=== PATIENT | male | born 1950 | race African-American/Black ===

== ENCOUNTER 2019-04-28 21:54 | Observation (INO) | payer OTHER ==
--- OUTSIDE RECORDS SUMMARY | 2019-04-28 21:58 | XMS REPORT ---
:1950 [facility] [address] [place] [address] [address] [place] [address] Care Team Providers Name Role Phone POLY TREADWELL Unavailable Unavailable Problems This patient has no known problems. Allergies, Adverse Reactions, Alerts This patient has no known allergies or adverse reactions. Medications This patient has no known medications. Encounters Start End Encounter Admission Attending Care Care Encounter Date/Time Date/Time Type Type Clinicians Facility Department ID 2018-05-24 Inpatient E SE MED [id number] 06:22:00 Results Test Description Test Time Test Comments Text Results Atomic Results Result Comments ANTI-MITOCHONDRIAL AB, REFLEX TO TITER 2017-11-19 16:44:00 Test Item Value Reference Range Comments SCAN RESULT (test cqjn=[id number]) See scanned attachment. ALKALINE PHOSPHATASE, ISOENZYMES, [id number] 16:43:00 Test Item Value Reference Range Comments SCAN RESULT (test hczf=[id number]) See scanned attachment. HEPATITIS PANEL, [id number] 16:30:00 Test Item Value Reference Range Comments HEPATITIS A IGM ANTIBODY (BEAKER) (test Nonreactive Nonreactive uroj=819) HEPATITIS B CORE IGM ANTIBODY (BEAKER) (test Nonreactive Nonreactive hvew=374) HEPATITIS C ANTIBODY (BEAKER) (test itbh=366) Nonreactive Nonreactive HEPATITIS B SURFACE ANTIGEN (2) (BEAKER) (test Nonreactive Nonreactive inwm=2035) POCT-GLUCOSE [id number] 16:51:00 Test Item Value Reference Range Comments POC-GLUCOSE METER (BEAKER) 174 mg/dL 70-110 TESTED AT [facility] [address] [place] [address] (test gkgs=0979) [facility] [address] POCT-GLUCOSE [id number] 12:19:00 Test Item Value Reference Range Comments POC-GLUCOSE METER (BEAKER) 177 mg/dL 70-110 TESTED AT [facility] [address] [place] [address] (test vsnm=1854) [address] [facility] [address] COMPREHENSIVE METABOLIC [id number] 09:59:00 Test Item Value Reference Range Comments TOTAL PROTEIN (BEAKER) 6.5 gm/dL 6.0-8.5 (test utfc=932) ALBUMIN (BEAKER) (test 2.6 g/dL 3.5-5.0 jmwl=5630) ALKALINE PHOSPHATASE 230 U/L 30-115 (BEAKER) (test keft=356) BILIRUBIN TOTAL (BEAKER) 0.4 mg/dL 0.1-1.2 (test krib=158) SODIUM (BEAKER) (test 146 meq/L 135-148 gvtt=890) POTASSIUM (BEAKER) (test 5.9 meq/L 3.6-5.5 orch=486) CHLORIDE (BEAKER) (test 116 meq/L 98-106 yphf=373) CO2 (BEAKER) (test 22 meq/L 20-29 rcim=364) BLOOD UREA NITROGEN 51 mg/dL 10-26 (BEAKER) (test becn=747) CREATININE (BEAKER) (test 1.96 mg/dL 0.50-1.20 kugq=601) GLUCOSE RANDOM (BEAKER) 164 mg/dL 70-110 (test woxa=838) CALCIUM (BEAKER) (test 9.9 mg/dL 8.5-10.5 ptjs=376) AST (SGOT) (BEAKER) (test 53 U/L 5-40 kaie=756) ALT (SGPT) (BEAKER) (test 137 U/L 5-50 deka=066) EGFR (BEAKER) (test 42 mL/min/1.73 sq m ESTIMATED GFR IS NOT hely=4753) ACCURATE CREATININE CLEARANCE IN PREDICTING GLOMERULAR FILTRATION RATE. ESTIMATED GFR IS NOT APPLICABLE FOR DIALYSIS PATIENTS. [id number] 09:21:00 Test Item Value Reference Range Comments MAGNESIUM (BEAKER) (test nrqt=515) 1.6 mg/dL 1.5-3.0 CBC W/PLT COUNT & AUTO [id number] 09:14:00 Test Item Value Reference Range Comments WHITE BLOOD CELL COUNT (BEAKER) (test thct=032) 9.2 K/ L 4.0-10.0 RED BLOOD CELL COUNT (BEAKER) (test oqeq=173) 3.04 M/ L 4.20-5.80 HEMOGLOBIN (BEAKER) (test fgfq=786) 9.1 GM/DL 13.0-16.8 HEMATOCRIT (BEAKER) (test xdci=295) 27.2 % 40.0-50.0 MEAN CORPUSCULAR VOLUME (BEAKER) (test uiur=080) 89.7 fL 82.0-98.0 MEAN CORPUSCULAR HEMOGLOBIN (BEAKER) (test 30.0 pg 27.0-33.0 jetq=292) MEAN CORPUSCULAR HEMOGLOBIN CONC (BEAKER) (test 33.4 GM/DL 32.0-36.0 olzj=209) RED CELL DISTRIBUTION WIDTH (BEAKER) (test 18.9 % 10.3-14.2 bqol=485) PLATELET COUNT (BEAKER) (test mhwp=074) 149 K/CU MM 150-430 MEAN PLATELET VOLUME (BEAKER) (test vhns=605) 8.1 fL 6.5-10.5 NUCLEATED RED BLOOD CELLS (BEAKER) (test 0 /100 WBC 0-0 lnfh=819) NEUTROPHILS RELATIVE PERCENT (BEAKER) (test 69 % xeve=235) LYMPHOCYTES RELATIVE PERCENT (BEAKER) (test 21 % yguh=995) MONOCYTES RELATIVE PERCENT (BEAKER) (test 7 % imua=730) EOSINOPHILS RELATIVE PERCENT (BEAKER) (test 3 % ztik=393) BASOPHILS RELATIVE PERCENT (BEAKER) (test 0 % ebhw=091) NEUTROPHILS ABSOLUTE COUNT (BEAKER) (test 6.30 K/ L 1.80-8.00 owrp=922) LYMPHOCYTES ABSOLUTE COUNT (BEAKER) (test 1.90 K/ L 1.48-4.50 mnqa=677) MONOCYTES ABSOLUTE COUNT (BEAKER) (test 0.70 K/ L 0.00-1.30 gzku=373) EOSINOPHILS ABSOLUTE COUNT (BEAKER) (test 0.30 K/ L 0.00-0.50 zmrk=095) BASOPHILS ABSOLUTE COUNT (BEAKER) (test 0.00 K/ L 0.00-0.20 sixi=257) RAD, CHEST, 1 VIEW, NON [id number] 08:57:00Reason for exam:-> pneumoniaShould this be performed at the bedside?->YesFINAL REPORT Chest one view AP 09/17/2017 8:56 AM CLINICAL INDICATION: pneumonia COMPARISON: 09/13/2017 IMPRESSION: Pleural-parenchymal opacity in the left lung and hemithorax suggestive combination of pleural fluid and airspace disease, atelectasis versus pneumonia. The right lung is well aerated. Cardiomediastinal contours are within normal limits. The central pulmonary vasculature is not engorged. Signed: Ian Irwin Verified Date/Time: 09/17/2017 08:57 :19 ReadingLocation: [facility] Reading Room POCT-GLUCOSE [id number] 06:12:00 Test Item Value Reference Range Comments POC-GLUCOSE METER (BEAKER) 145 mg/dL 70-110 TESTED AT [address] (test mupn=1933) [facility] [address] POCT-GLUCOSE [id number] 20:48:00 Test Item Value Reference Range Comments POC-GLUCOSE METER (BEAKER) 139 mg/dL 70-110 TESTED AT [address] (test jwox=8707) [facility] [address] POCT-GLUCOSE [id number] 17:44:00 Test Item Value Reference Range Comments POC-GLUCOSE METER (BEAKER) 166 mg/dL 70-110 TESTED AT [address] (test nymm=0926) [facility] [address] POCT-GLUCOSE [id number] 13:32:00 Test Item Value Reference Range Comments POC-GLUCOSE METER (BEAKER) 153 mg/dL 70-110 TESTED AT [address] (test gkay=4036) [facility] [address] COMPREHENSIVE METABOLIC [id number] 11:33:00 Test Item Value Reference Range Comments TOTAL PROTEIN (BEAKER) 6.3 gm/dL 6.0-8.5 (test ccpk=927) ALBUMIN (BEAKER) (test 2.4 g/dL 3.5-5.0 tlpm=5169) ALKALINE PHOSPHATASE 218 U/L 30-115 (BEAKER) (test salj=963) BILIRUBIN TOTAL (BEAKER) 0.4 mg/dL 0.1-1.2 (test rxws=511) SODIUM (BEAKER) (test 145 meq/L 135-148 mtal=361) POTASSIUM (BEAKER) (test 5.7 meq/L 3.6-5.5 ozjd=466) CHLORIDE (BEAKER) (test 116 meq/L 98-106 vygd=987) CO2 (BEAKER) (test 22 meq/L 20-29 ascy=119) BLOOD UREA NITROGEN 49 mg/dL 10-26 (BEAKER) (test wqzr=386) CREATININE (BEAKER) (test 1.94 mg/dL 0.50-1.20 kqug=562) GLUCOSE RANDOM (BEAKER) 144 mg/dL 70-110 (test smmz=089) CALCIUM (BEAKER) (test 9.4 mg/dL 8.5-10.5 mlie=009) AST (SGOT) (BEAKER) (test 45 U/L 5-40 eoqu=090) ALT (SGPT) (BEAKER) (test 139 U/L 5-50 sgow=069) EGFR (BEAKER) (test 42 mL/min/1.73 sq m ESTIMATED GFR IS NOT vokj=9530) ACCURATE CREATININE CLEARANCE IN PREDICTING GLOMERULAR FILTRATION RATE. ESTIMATED GFR IS NOT APPLICABLE FOR DIALYSIS PATIENTS. CBC W/PLT COUNT & AUTO [id number] 11:25:00 Test Item Value Reference Range Comments WHITE BLOOD CELL COUNT (BEAKER) (test fwpg=815) 8.4 K/ L 4.0-10.0 RED BLOOD CELL COUNT (BEAKER) (test lcvy=657) 2.83 M/ L 4.20-5.80 HEMOGLOBIN (BEAKER) (test rwyy=124) 8.4 GM/DL 13.0-16.8 HEMATOCRIT (BEAKER) (test bzyq=030) 25.3 % 40.0-50.0 MEAN CORPUSCULAR VOLUME (BEAKER) (test aoab=474) 89.6 fL 82.0-98.0 MEAN CORPUSCULAR HEMOGLOBIN (BEAKER) (test 29.8 pg 27.0-33.0 qrpp=928) MEAN CORPUSCULAR HEMOGLOBIN CONC (BEAKER) (test 33.3 GM/DL 32.0-36.0 enxm=278) RED CELL DISTRIBUTION WIDTH (BEAKER) (test 19.3 % 10.3-14.2 rolu=545) PLATELET COUNT (BEAKER) (test gour=190) 114 K/CU MM 150-430 MEAN PLATELET VOLUME (BEAKER) (test dyhc=139) 8.3 fL 6.5-10.5 NUCLEATED RED BLOOD CELLS (BEAKER) (test 3 /100 WBC 0-0 fcgl=578) (MANUAL DIFFERENTIAL)2017-09-16 11:25:00 Test Item Value Reference Range Comments TOTAL COUNTED ([facility]) (test cmmn=1524) POCT-GLUCOSE [id number] 05:56:00 Test Item Value Reference Range Comments POC-GLUCOSE METER (BEAKER) 159 mg/dL 70-110 TESTED AT [address] (test hrsg=0370) [facility] [address] POCT-GLUCOSE [id number] 20:31:00 Test Item Value Reference Range Comments POC-GLUCOSE METER (AKER) 149 mg/dL 70-110 TESTED AT [address] (test ydid=0322) [facility] [address] POCT-GLUCOSE [id number] 14:36:00 Test Item Value Reference Range Comments POC-GLUCOSE METER (BEAKER) 191 mg/dL 70-110 TESTED AT [address] (test mkwl=5105) [facility] [address] UREA NITROGEN, RANDOM [id number] 12:47:00 Test Item Value Reference Range Comments UREA NITROGEN URINE (AKER) (test yjso=010) 505 mg/dL Reference Range: No NormalsALPHA FETOPROTEIN (AFP), TUMOR [id number] 11:49 :00 Test Item Value Reference Range Comments ALPHA-FETOPROTEIN (BEAKER) (test nmwi=9586) 14.2 ng/mL <10.0 POCT-GLUCOSE [id number] 06:22:00 Test Item Value Reference Range Comments POC-GLUCOSE METER ([facility]) 170 mg/dL 70-110 TESTED AT [address] (test jarv=7303) [facility] [address] CREATININE, RANDOM [id number] 05:33:00 Test Item Value Reference Range Comments CREATININE URINE ([facility]) (test vieh=416) 26.8 mg/dL Reference Range: No NormalsURINALYSIS W/ [id number] 05:27:00 Test Item Value Reference Range Comments COLOR (BEAKER) (test ktpx=505) Yellow CLARITY (BEAKER) (test fcgw=655) Clear SPECIFIC GRAVITY UA (BEAKER) (test mvwo=515) 1.015 1.001-1.035 PH UA (BEAKER) (test rjrz=309) 6.0 5.0-8.0 PROTEIN UA (BEAKER) (test zffv=413) >=300 mg/dL Negative GLUCOSE UA (BEAKER) (test vjix=109) 100 mg/dL Negative KETONES UA (BEAKER) (test rrnp=082) Negative Negative BILIRUBIN UA (BEAKER) (test ofhl=856) Negative Negative BLOOD UA (BEAKER) (test lcbe=104) Small Negative NITRITE UA (BEAKER) (test qenq=943) Negative Negative LEUKOCYTE ESTERASE UA (BEAKER) (test Trace Negative sbil=940) UROBILINOGEN UA (BEAKER) (test hmtz=761) 0.2 mg/dL 0.2-1.0 BACTERIA (BEAKER) (test vgae=855) Occasional MUCUS (BEAKER) (test vcdw=1079) Occasional YEAST (BEAKER) (test dvod=2263) Many RBC UA-MANUAL (BEAKER) (test lfsu=4256) <5 /HPF WBC UA-MANUAL (BEAKER) (test enbo=1435) 10-20 /HPF SQUAMOUS EPITHELIAL MANUAL (BEAKER) (test None Seen /HPF cmnc=6593) SOURCE(BEAKER) (test dlda=9696) SODIUM, RANDOM [id number] 05:26:00 Test Item Value Reference Range Comments SODIUM URINE (BEAKER) (test bhtf=357) 81 meq/L Reference Range: No NormalsCOMPREHENSIVE METABOLIC [id number] 05:10:00 Test Item Value Reference Range Comments TOTAL PROTEIN (BEAKER) 6.0 gm/dL 6.0-8.5 (test sygp=153) ALBUMIN (BEAKER) (test 2.5 g/dL 3.5-5.0 hovz=5047) ALKALINE PHOSPHATASE 219 U/L 30-115 (BEAKER) (test xgtk=549) BILIRUBIN TOTAL (BEAKER) 0.4 mg/dL 0.1-1.2 (test nbrt=072) SODIUM (BEAKER) (test 141 meq/L 135-148 rnfv=832) POTASSIUM (BEAKER) (test 5.4 meq/L 3.6-5.5 qjbr=474) CHLORIDE (BEAKER) (test 114 meq/L 98-106 bwpf=439) CO2 (BEAKER) (test 20 meq/L 20-29 cmev=966) BLOOD UREA NITROGEN 46 mg/dL 10-26 (BEAKER) (test zktl=299) CREATININE (BEAKER) (test 1.71 mg/dL 0.50-1.20 vwxk=171) GLUCOSE RANDOM (BEAKER) 118 mg/dL 70-110 (test lfrq=737) CALCIUM (BEAKER) (test 9.0 mg/dL 8.5-10.5 xuat=619) AST (SGOT) (BEAKER) (test 81 U/L 5-40 lvab=645) ALT (SGPT) (BEAKER) (test 181 U/L 5-50 smaj=383) EGFR (BEAKER) (test 49 mL/min/1.73 sq m ESTIMATED GFR IS NOT ixek=2904) ACCURATE CREATININE CLEARANCE IN PREDICTING GLOMERULAR FILTRATION RATE. ESTIMATED GFR IS NOT APPLICABLE FOR DIALYSIS PATIENTS. CBC W/PLT COUNT & AUTO [id number] 04:51:00 Test Item Value Reference Range Comments WHITE BLOOD CELL COUNT (BEAKER) (test skqy=874) 9.4 K/ L 4.0-10.0 RED BLOOD CELL COUNT (BEAKER) (test lxdw=934) 2.84 M/ L 4.20-5.80 HEMOGLOBIN (BEAKER) (test xsal=115) 8.6 GM/DL 13.0-16.8 HEMATOCRIT (BEAKER) (test scfh=913) 25.5 % 40.0-50.0 MEAN CORPUSCULAR VOLUME (BEAKER) (test zprv=417) 89.6 fL 82.0-98.0 MEAN CORPUSCULAR HEMOGLOBIN (BEAKER) (test 30.2 pg 27.0-33.0 devy=350) MEAN CORPUSCULAR HEMOGLOBIN CONC (BEAKER) (test 33.7 GM/DL 32.0-36.0 yqkq=446) RED CELL DISTRIBUTION WIDTH (BEAKER) (test 19.2 % 10.3-14.2 njoi=790) PLATELET COUNT (BEAKER) (test ilut=127) 84 K/CU MM 150-430 MEAN PLATELET VOLUME (BEAKER) (test mbti=875) 8.7 fL 6.5-10.5 NUCLEATED RED BLOOD CELLS (BEAKER) (test 0 /100 WBC 0-0 pkkp=634) NEUTROPHILS RELATIVE PERCENT (BEAKER) (test 79 % wfqa=002) LYMPHOCYTES RELATIVE PERCENT (BEAKER) (test 14 % kina=594) MONOCYTES RELATIVE PERCENT (BEAKER) (test 5 % xddo=447) EOSINOPHILS RELATIVE PERCENT (BEAKER) (test 2 % tjrq=630) BASOPHILS RELATIVE PERCENT (BEAKER) (test 0 % khwj=562) NEUTROPHILS ABSOLUTE COUNT (BEAKER) (test 7.40 K/ L 1.80-8.00 ljvs=880) LYMPHOCYTES ABSOLUTE COUNT (BEAKER) (test 1.30 K/ L 1.48-4.50 yahh=929) MONOCYTES ABSOLUTE COUNT (BEAKER) (test uogl=611) 0.50 K/ L 0.00-1.30 EOSINOPHILS ABSOLUTE COUNT (BEAKER) (test 0.20 K/ L 0.00-0.50 xcqy=539) BASOPHILS ABSOLUTE COUNT (BEAKER) (test lpoe=792) 0.00 K/ L 0.00-0.20 U/S, ABDOMINAL, [id number] 04:19:00Reason for exam:->Elevated Alk phos and liver enzymes.Reason for exam:->VIRAL/ CKD III, worse.FINAL REPORT EXAMINATION: COMPLETE ABDOMINAL ULTRASOUND CLINICAL INDICATION:Elevated liver function tests. Acute renal insufficiency on chronic medical renal disease. FINDINGS:No comparison studies are available. There are small bilateral pleural effusions, left greater than right. The liver demonstrates increased echogenicity compatible with a component of fatty infiltration. The liver measures 17 cm in length. No evidence of intrahepatic or extrahepatic biliary dilatation. The common bile duct measures 3 mm. The gallbladder is relatively contracted with a diameter of 1.4cm. No evidence of gallbladder wall thickening, pericholecystic edema, Mullen sign or cholelithiasis. The pancreas was obscured by overlying bowel gas. The spleen is normal in size measuring 7 x 3 x 3 cm. No evidence of intra-abdominal free fluid -ascites. The right kidney measures 11 x 4 x 4 cm. The left kidney measures 10 x 5 x 6 cm. No evidence of renal obstruction or nephrolithiasis. Both kidneysdemonstrate mild increased echogenicity suggesting chronic medical renal disease. Visualized segments of the main portal vein, IVC, hepatic veins and aorta were unremarkable. IMPRESSION: Increased renal echogenicity concerning for chronic medical renal disease. Mild increased liver echogenicity suggesting fatty infiltration. Pancreas obscured by overlying bowel gas. Small bilateral pleural effusions. Signed: Owen Tam MDReport Verified Date/Time: 09/15/2017 04:19:47 Reading Location: [address] Reading Room POCT- GLUCOSE [id number] 21:12:00 Test Item Value Reference Range Comments POC-GLUCOSE METER ([facility]) 192 mg/dL 70-110 TESTED AT [address] (test wotd=0556) [facility] [address] POCT-GLUCOSE [id number] 17:16:00 Test Item Value Reference Range Comments POC-GLUCOSE METER ([facility]) 145 mg/dL 70-110 TESTED AT [address] (test qifi=9270) [facility] [address] POCT-GLUCOSE [id number] 12:46:00 Test Item Value Reference Range Comments POC-GLUCOSE METER [facility] 180 mg/dL 70-110 TESTED AT [address] (test jcfd=6070) [facility] [address] POCT-GLUCOSE [id number] 06:29:00 Test Item Value Reference Range Comments POC-GLUCOSE METER ([facility]) 163 mg/dL 70-110 TESTED AT [address] (test lmre=3348) [facility] [address] COMPREHENSIVE METABOLIC [id number] 05:46:00 Test Item Value Reference Range Comments TOTAL PROTEIN (BEAKER) 6.3 gm/dL 6.0-8.5 (test titl=446) ALBUMIN (BEAKER) (test 2.7 g/dL 3.5-5.0 isgi=4566) ALKALINE PHOSPHATASE 224 U/L 30-115 (BEAKER) (test qyyv=796) BILIRUBIN TOTAL (BEAKER) 0.4 mg/dL 0.1-1.2 (test jrlk=965) SODIUM (BEAKER) (test 142 meq/L 135-148 druo=692) POTASSIUM (BEAKER) (test 5.4 meq/L 3.6-5.5 xyog=728) CHLORIDE (BEAKER) (test 113 meq/L 98-106 pqhn=519) CO2 (BEAKER) (test 21 meq/L 20-29 fvvo=699) BLOOD UREA NITROGEN 50 mg/dL 10-26 (BEAKER) (test goun=465) CREATININE (BEAKER) (test 1.75 mg/dL 0.50-1.20 izwd=051) GLUCOSE RANDOM (BEAKER) 141 mg/dL 70-110 (test ddsf=841) CALCIUM (BEAKER) (test 9.0 mg/dL 8.5-10.5 nngp=454) AST (SGOT) (BEAKER) (test 65 U/L 5-40 gang=269) ALT (SGPT) (BEAKER) (test 197 U/L 5-50 vvnw=437) EGFR (BEAKER) (test 47 mL/min/1.73 sq m ESTIMATED GFR IS NOT xvua=3989) ACCURATE CREATININE CLEARANCE IN PREDICTING GLOMERULAR FILTRATION RATE. ESTIMATED GFR IS NOT APPLICABLE FOR DIALYSIS PATIENTS. [id number] 05:44:00 Test Item Value Reference Range Comments PROTIME (BEAKER) (test ogmx=083) 10.9 seconds 9.3-12.0 INR (BEAKER) (test tjcj=613) 1.0 <=5.9 PARTIAL THROMBOPLASTIN TIME (BEAKER) (test 33.9 seconds 23.0-35.0 aetz=420) RECOMMENDED COUMADIN/WARFARIN INR THERAPY RANGESSTANDARD DOSE: 2.0 - 3.0 Includes: PROPHYLAXIS forvenous thrombosis, systemic embolization; TREATMENT for venous thrombosis and/or pulmonary embolus.HIGH RISK: Target INR is 2.5-3.5 for patients with mechanical heart valves.PROTHROMBIN [id number] 05:44: 00 Test Item Value Reference Range Comments PROTIME (BEAKER) (test epbl=891) 10.9 seconds 9.3-12.0 INR (BEAKER) (test dakt=241) 1.0 <=5.9 RECOMMENDED COUMADIN/WARFARIN INR THERAPY RANGESSTANDARD DOSE: 2.0 - 3.0 Includes: PROPHYLAXIS forvenous thrombosis, systemic embolization; TREATMENT for venous thrombosis and/or pulmonary embolus.HIGH RISK: Target INR is 2.5-3.5 for patients with mechanical heart valves.CBC W/PLT COUNT & AUTO [id number] 05:38:00 Test Item Value Reference Range Comments WHITE BLOOD CELL COUNT (BEAKER) (test uxwq=312) 14.1 K/ L 4.0-10.0 RED BLOOD CELL COUNT (BEAKER) (test dhop=923) 3.00 M/ L 4.20-5.80 HEMOGLOBIN (BEAKER) (test ujdj=795) 9.1 GM/DL 13.0-16.8 HEMATOCRIT (BEAKER) (test abuf=289) 26.8 % 40.0-50.0 MEAN CORPUSCULAR VOLUME (BEAKER) (test ejok=934) 89.3 fL 82.0-98.0 MEAN CORPUSCULAR HEMOGLOBIN (BEAKER) (test 30.4 pg 27.0-33.0 xxiv=772) MEAN CORPUSCULAR HEMOGLOBIN CONC (BEAKER) (test 34.0 GM/DL 32.0-36.0 jguc=964) RED CELL DISTRIBUTION WIDTH (BEAKER) (test 19.0 % 10.3-14.2 hkwj=350) PLATELET COUNT (BEAKER) (test ojfi=796) 83 K/CU MM 150-430 MEAN PLATELET VOLUME (BEAKER) (test fryd=956) 9.3 fL 6.5-10.5 NUCLEATED RED BLOOD CELLS (BEAKER) (test 0 /100 WBC 0-0 msgq=703) NEUTROPHILS RELATIVE PERCENT (BEAKER) (test 87 % bdjd=000) LYMPHOCYTES RELATIVE PERCENT (BEAKER) (test 8 % lvtm=875) MONOCYTES RELATIVE PERCENT (BEAKER) (test 4 % pchx=984) EOSINOPHILS RELATIVE PERCENT (BEAKER) (test 1 % hojg=010) BASOPHILS RELATIVE PERCENT (BEAKER) (test 0 % vyhj=928) NEUTROPHILS ABSOLUTE COUNT (BEAKER) (test 12.30 K/ L 1.80-8.00 ihbd=064) LYMPHOCYTES ABSOLUTE COUNT (BEAKER) (test 1.10 K/ L 1.48-4.50 bcgv=564) MONOCYTES ABSOLUTE COUNT (BEAKER) (test jtok=256) 0.50 K/ L 0.00-1.30 EOSINOPHILS ABSOLUTE COUNT (BEAKER) (test 0.20 K/ L 0.00-0.50 tmqa=321) BASOPHILS ABSOLUTE COUNT (BEAKER) (test yamn=472) 0.00 K/ L 0.00-0.20 [id number] 05:14:00 Test Item Value Reference Range Comments PHOSPHORUS (BEAKER) (test xxau=613) 3.0 mg/dL 2.5-4.5 [id number] 05:09:00 Test Item Value Reference Range Comments MAGNESIUM (BEAKER) (test hwlf=292) 1.8 mg/dL 1.5-3.0 POCT-GLUCOSE [id number] 21:16:00 Test Item Value Reference Range Comments POC-GLUCOSE METER (BEAKER) 176 mg/dL 70-110 TESTED AT [address] (test uego=2222) [facility] [address] POCT-GLUCOSE [id number] 18:08:00 Test Item Value Reference Range Comments POC-GLUCOSE METER (BEAKER) 206 mg/dL 70-110 TESTED AT [address] (test shkg=2939) [facility] [address] RAD, CHEST, PA OR AP, 1 [id number] 17:59:00Reason for exam:->elevated WBCFINAL REPORT TECHNIQUE: Frontal view of the chest. INDICATION: 67-year-old man with leukocytosis. COMPARISON: Chest radiograph 08/20. FINDINGS: LINES/TUBES: Event recorder projects over the left hemithorax. LUNGS: Patchy airspace opacities in the left mid and lower lung zones. No consolidation or pulmonary edema. PLEURA: Portable trace bilateral pleural effusions. No pneumothorax. HEART AND MEDIASTINUM: The cardiomediastinal silhouette is at the upper limit of normal in size. SOFT TISSUES AND BONES: Unremarkable. IMPRESSION:Left mid and lower lung zone opacities, suspicious for pneumonia. Signed: Nolberto Woodepramone Verified Date/Time: 09/13/2017 17:59:28 Reading Location: [facility] B1 C013Y CT Body Reading Room POCT-GLUCOSE [id number] 13:55:00 Test Item Value Reference Range Comments POC-GLUCOSE METER (BEAKER) 155 mg/dL 70-110 TESTED AT [facility] [address] (test ckxt=3839) [address] [facility] [address] COMPREHENSIVE METABOLIC [id number] 07:31:00 Test Item Value Reference Range Comments TOTAL PROTEIN (BEAKER) 5.7 gm/dL 6.0-8.5 (test paak=081) ALBUMIN (BEAKER) (test 2.5 g/dL 3.5-5.0 gwni=7645) ALKALINE PHOSPHATASE 161 U/L 30-115 (BEAKER) (test enhz=139) BILIRUBIN TOTAL (BEAKER) 0.4 mg/dL 0.1-1.2 (test vcxb=387) SODIUM (BEAKER) (test 140 meq/L 135-148 xbgl=491) POTASSIUM (BEAKER) (test 4.9 meq/L 3.6-5.5 tctc=270) CHLORIDE (BEAKER) (test 112 meq/L 98-106 elvj=775) CO2 (BEAKER) (test 20 meq/L 20-29 yncd=433) BLOOD UREA NITROGEN 59 mg/dL 10-26 (BEAKER) (test gidr=589) CREATININE (BEAKER) (test 1.69 mg/dL 0.50-1.20 cbgt=257) GLUCOSE RANDOM (BEAKER) 124 mg/dL 70-110 (test scsn=188) CALCIUM (BEAKER) (test 8.8 mg/dL 8.5-10.5 wptr=282) AST (SGOT) (BEAKER) (test 80 U/L 5-40 loyg=498) ALT (SGPT) (BEAKER) (test 207 U/L 5-50 fnjs=649) EGFR (BEAKER) (test 49 mL/min/1.73 sq m ESTIMATED GFR IS NOT sghc=6651) ACCURATE CREATININE CLEARANCE IN PREDICTING GLOMERULAR FILTRATION RATE. ESTIMATED GFR IS NOT APPLICABLE FOR DIALYSIS PATIENTS. [id number] 07:23:00 Test Item Value Reference Range Comments PHOSPHORUS (BEAKER) (test azer=777) 3.7 mg/dL 2.5-4.5 PT/[id number] 07:20:00 Test Item Value Reference Range Comments PROTIME (BEAKER) (test opun=113) 11.3 seconds 9.3-12.0 INR (BEAKER) (test asut=323) 1.0 <=5.9 PARTIAL THROMBOPLASTIN TIME (BEAKER) (test 38.3 seconds 23.0-35.0 kmsi=663) RECOMMENDED COUMADIN/WARFARIN INR THERAPY RANGESSTANDARD DOSE: 2.0 - 3.0 Includes: PROPHYLAXIS forvenous thrombosis, systemic embolization; TREATMENT for venous thrombosis and/or pulmonary embolus.HIGH RISK: Target INR is 2.5-3.5 for patients with mechanical heart valves.PROTHROMBIN TIME/[id number] 07:20: 00 Test Item Value Reference Range Comments PROTIME (BEAKER) (test wlfx=457) 11.3 seconds 9.3-12.0 INR (BEAKER) (test nfxn=854) 1.0 <=5.9 RECOMMENDED COUMADIN/WARFARIN INR THERAPY RANGESSTANDARD DOSE: 2.0 - 3.0 Includes: PROPHYLAXIS forvenous thrombosis, systemic embolization; TREATMENT for venous thrombosis and/or pulmonary embolus.HIGH RISK: Target INR is 2.5-3.5 for patients with mechanical heart valves.[id number] 07:18:00 Test Item Value Reference Range Comments MAGNESIUM (BEAKER) (test fkqi=787) 2.0 mg/dL 1.5-3.0 CBC W/PLT COUNT & AUTO [id number] 07:05:00 Test Item Value Reference Range Comments WHITE BLOOD CELL COUNT (BEAKER) (test bvhe=459) 13.1 K/ L 4.0-10.0 RED BLOOD CELL COUNT (BEAKER) (test wthl=717) 2.91 M/ L 4.20-5.80 HEMOGLOBIN (BEAKER) (test anqb=160) 8.7 GM/DL 13.0-16.8 HEMATOCRIT (BEAKER) (test wlev=118) 26.1 % 40.0-50.0 MEAN CORPUSCULAR VOLUME (BEAKER) (test lqas=390) 89.5 fL 82.0-98.0 MEAN CORPUSCULAR HEMOGLOBIN (BEAKER) (test 29.9 pg 27.0-33.0 nnrb=573) MEAN CORPUSCULAR HEMOGLOBIN CONC (BEAKER) (test 33.4 GM/DL 32.0-36.0 rxwm=328) RED CELL DISTRIBUTION WIDTH (BEAKER) (test 18.2 % 10.3-14.2 ftqr=519) PLATELET COUNT (BEAKER) (test lenv=170) 77 K/CU MM 150-430 MEAN PLATELET VOLUME (BEAKER) (test jtab=560) 9.3 fL 6.5-10.5 NUCLEATED RED BLOOD CELLS (BEAKER) (test 0 /100 WBC 0-0 ktqn=039) NEUTROPHILS RELATIVE PERCENT (BEAKER) (test 89 % zefb=424) LYMPHOCYTES RELATIVE PERCENT (BEAKER) (test 6 % vvek=236) MONOCYTES RELATIVE PERCENT (BEAKER) (test 3 % uluh=034) EOSINOPHILS RELATIVE PERCENT (BEAKER) (test 2 % tevz=713) BASOPHILS RELATIVE PERCENT (BEAKER) (test 0 % vgbf=655) NEUTROPHILS ABSOLUTE COUNT (BEAKER) (test 11.60 K/ L 1.80-8.00 kuuq=355) LYMPHOCYTES ABSOLUTE COUNT (BEAKER) (test 0.80 K/ L 1.48-4.50 vbid=188) MONOCYTES ABSOLUTE COUNT (BEAKER) (test bekz=180) 0.40 K/ L 0.00-1.30 EOSINOPHILS ABSOLUTE COUNT (BEAKER) (test 0.20 K/ L 0.00-0.50 cycw=022) BASOPHILS ABSOLUTE COUNT (BEAKER) (test lgap=258) 0.00 K/ L 0.00-0.20 POCT-GLUCOSE [id number] 06:21:00 Test Item Value Reference Range Comments POC-GLUCOSE METER (BEAKER) 145 mg/dL 70-110 TESTED AT [address] (test zdbb=4487) [facility] [id number] POCT-GLUCOSE [id number] 21:49:00 Test Item Value Reference Range Comments POC-GLUCOSE METER (BEAKER) 173 mg/dL 70-110 TESTED AT [address] (test rquf=0749) [facility] [address] POCT-GLUCOSE [id number] 17:36:00 Test Item Value Reference Range Comments POC-GLUCOSE METER (BEAKER) 111 mg/dL 70-110 TESTED AT [address] (test jfpz=4102) [facility] [address] POCT-GLUCOSE [id number] 13:11:00 Test Item Value Reference Range Comments POC-GLUCOSE METER (BEAKER) 104 mg/dL 70-110 TESTED AT [facility] [address] [facility] (test ykrf=1898) [facility] [address] POCT-GLUCOSE [id number] 06:27:00 Test Item Value Reference Range Comments POC-GLUCOSE METER (BEAKER) 87 mg/dL 70-110 TESTED AT [facility] [address] [facility] (test sfkb=9608) [facility] [address] BASIC METABOLIC [id number] 06:18:00 Test Item Value Reference Range Comments SODIUM (BEAKER) (test 136 meq/L 135-148 flpz=695) POTASSIUM (BEAKER) (test 4.3 meq/L 3.6-5.5 hngl=046) CHLORIDE (BEAKER) (test 108 meq/L 98-106 isvz=591) CO2 (BEAKER) (test 21 meq/L 20-29 ihcw=327) BLOOD UREA NITROGEN 72 mg/dL 10-26 (BEAKER) (test rkpm=149) CREATININE (BEAKER) (test 1.70 mg/dL 0.50-1.20 rosw=386) GLUCOSE RANDOM (BEAKER) 75 mg/dL 70-110 (test rhsg=548) CALCIUM (BEAKER) (test 8.3 mg/dL 8.5-10.5 fsch=903) EGFR (BEAKER) (test 49 mL/min/1.73 sq m ESTIMATED GFR IS NOT vcdc=3133) ACCURATE CREATININE CLEARANCE IN PREDICTING GLOMERULAR FILTRATION RATE. ESTIMATED GFR IS NOT APPLICABLE FOR DIALYSIS PATIENTS. [id number] 06:11:00 Test Item Value Reference Range Comments PHOSPHORUS (BEAKER) (test smnz=169) 4.0 mg/dL 2.5-4.5 [id number] 06:08:00 Test Item Value Reference Range Comments PROTIME (BEAKER) (test xmue=795) 10.8 seconds 9.3-12.0 INR (BEAKER) (test bbwr=701) 1.0 <=5.9 PARTIAL THROMBOPLASTIN TIME (BEAKER) (test 37.1 seconds 23.0-35.0 oclc=129) RECOMMENDED COUMADIN/WARFARIN INR THERAPY RANGESSTANDARD DOSE: 2.0 - 3.0 Includes: PROPHYLAXIS forvenous thrombosis, systemic embolization; TREATMENT for venous thrombosis and/or pulmonary embolus.HIGH RISK: Target INR is 2.5-3.5 for patients with mechanical heart valves.[id number] 06:07:00 Test Item Value Reference Range Comments MAGNESIUM (BEAKER) (test xlfl=430) 1.8 mg/dL 1.5-3.0 URINALYSIS W/ [id number] 06:07:00 Test Item Value Reference Range Comments COLOR (BEAKER) (test ypsn=886) Yellow CLARITY (BEAKER) (test tljm=803) Clear SPECIFIC GRAVITY UA (BEAKER) (test jfqv=893) <= 1.001-1.035 PH UA (BEAKER) (test wfhz=744) 5.5 5.0-8.0 PROTEIN UA (BEAKER) (test ddde=559) 100 mg/dL Negative GLUCOSE UA (BEAKER) (test qpja=629) Negative Negative KETONES UA (BEAKER) (test lskh=301) Negative Negative BILIRUBIN UA (BEAKER) (test lrwq=399) Negative Negative BLOOD UA (BEAKER) (test virj=280) Moderate Negative NITRITE UA (BEAKER) (test eixh=703) Negative Negative LEUKOCYTE ESTERASE UA (BEAKER) (test ehbg=916) Negative Negative UROBILINOGEN UA (BEAKER) (test wpxj=010) 0.2 mg/dL 0.2-1.0 BACTERIA (BEAKER) (test hvhe=697) Occasional MUCUS (BEAKER) (test rvdn=9960) Occasional YEAST (BEAKER) (test mutt=0264) Few RBC UA-MANUAL (BEAKER) (test zjvg=3824) <5 /HPF WBC UA-MANUAL (BEAKER) (test qoqc=5208) <5 /HPF SQUAMOUS EPITHELIAL MANUAL (BEAKER) (test <5 /HPF otnm=8064) SOURCE(BEAKER) (test anux=9554) CBC W/PLT COUNT & AUTO [id number] 06:05:00 Test Item Value Reference Range Comments WHITE BLOOD CELL COUNT (BEAKER) (test 11.6 K/ L 4.0-10.0 rxyf=467) RED BLOOD CELL COUNT (BEAKER) (test bata=916) 2.57 M/ L 4.20-5.80 HEMOGLOBIN (BEAKER) (test mbzl=793) 7.7 GM/DL 13.0-16.8 HEMATOCRIT (BEAKER) (test tdsx=496) 23.0 % 40.0-50.0 MEAN CORPUSCULAR VOLUME (BEAKER) (test 89.2 fL 82.0-98.0 xpgr=330) MEAN CORPUSCULAR HEMOGLOBIN (BEAKER) (test 29.8 pg 27.0-33.0 zcfm=280) MEAN CORPUSCULAR HEMOGLOBIN CONC (BEAKER) 33.4 GM/DL 32.0-36.0 (test ulma=745) RED CELL DISTRIBUTION WIDTH (BEAKER) (test 18.5 % 10.3-14.2 xsua=515) PLATELET COUNT (BEAKER) (test pusc=328) 68 K/CU MM 150-430 No clot seen MEAN PLATELET VOLUME (BEAKER) (test jbae=161) 8.5 fL 6.5-10.5 NUCLEATED RED BLOOD CELLS (BEAKER) (test 0 /100 WBC 0-0 pqdj=725) NEUTROPHILS RELATIVE PERCENT (BEAKER) (test 87 % forr=564) LYMPHOCYTES RELATIVE PERCENT (BEAKER) (test 10 % hbdw=054) MONOCYTES RELATIVE PERCENT (BEAKER) (test 3 % wpzl=093) EOSINOPHILS RELATIVE PERCENT (BEAKER) (test 1 % fmtw=743) BASOPHILS RELATIVE PERCENT (BEAKER) (test 0 % rwxn=662) NEUTROPHILS ABSOLUTE COUNT (BEAKER) (test 10.10 K/ L 1.80-8.00 lvnn=788) LYMPHOCYTES ABSOLUTE COUNT (BEAKER) (test 1.10 K/ L 1.48-4.50 fwij=217) MONOCYTES ABSOLUTE COUNT (BEAKER) (test 0.30 K/ L 0.00-1.30 ryol=260) EOSINOPHILS ABSOLUTE COUNT (BEAKER) (test 0.10 K/ L 0.00-0.50 xzcp=649) BASOPHILS ABSOLUTE COUNT (BEAKER) (test 0.00 K/ L 0.00-0.20 idni=964)
--- OUTSIDE RECORDS SUMMARY | 2019-04-28 21:59 | XMS REPORT | Encounter Summary ---
:1950 Author Reason for Visit New Patient Instructions 1. Knee pain knee pain or injury: care instructions Discussion Note reccomend w/u fro gouty arthropathy Plan of Care Reminders Provider Appointments None recorded. Lab None recorded. Referral None recorded. Procedures None recorded. Surgeries None recorded. Imaging None recorded. Medications Name Start Date ceftriaxone 1 gram solution for injection donepezil 5 mg tablet hydralazine 25 mg tablet latanoprost 0.005 % eye drops levofloxacin 250 mg tablet lorazepam 0.5 mg tablet metoprolol tartrate 25 mg tablet Novolog Flexpen U-100 Insulin aspart 100 unit/mL subcutaneous Novolog U-100 Insulin aspart 100 unit/mL subcutaneous solution pantoprazole 40 mg tablet,delayed release sodium chloride 0.9 % intravenous solution tramadol 50 mg tablet Medications Administered None recorded. Vitals Height Weight BMI Blood Pressure 72 in 180 lbs 24.4 kg/m2 107/73 mm[Hg] Lab Results None recorded. Allergies Code Code System Name Reaction Severity Status Onset NKDA Problems No Known Problems Procedures None recorded. Vaccine List None recorded. Social History Smoking Status Never Smoker Past Encounters 07/09/2018 Knee Pain Carlos Adrian MD: [address] [place] [address] [address], [place] [address], Ph. [phone] History of Present Illness Knee Reported By: Patient HPI: Location: right. Quality: burning. Severity: moderate. Timing: acute. Context: fall. Alleviating Factors: nothing helps. Aggravating Factors: cannot identify. Previous Surgery: none. Prior Imaging: x ray. Previous Injections: none. Work Related: no. Working: no Review of Systems: ROS as noted in the HPI Review of Systems None recorded. Physical Exam Knee Reported By: Patient Constitutional: General Appearance: too thin; O2 dependent Cardiovascular System: Arterial Pulses Right: femoral normal, popliteal normal , dorsalis pedis normal, posterior tibialis normal. Edema Right: no edema. Varicosities Right: no varicosities, capillary refill test normal Lymph Nodes: Inspection/Palpation Right: no inguinal LAD, no popliteal LAD Knees: Inspection Right: normal axial alignment, no tibial torsion, no mass, no induration, no warmth, no erythema, no swelling, normal foot arch, normal pronation, genu valgum deformity. Bony Palpation Right: no tenderness of the lateral wall trochlear groove, no tenderness of the medial patellar facet, no tenderness of the inferior pole patella, no tenderness of the superior pole patella, no tenderness of the tibial tubercle, no tenderness of the medial femoral condyle, no tenderness of the adductor tubercle, no tenderness of the medial joint line, no tenderness of the medial tibial plateau, no tenderness of the lateral femoral condyle, no tenderness of Gerdy's tubercle, no tenderness of the lateral tibial plateau, no tenderness of the head of fibula, no tenderness of the neck of fibula, tenderness of the medial wall trochlear groove, tenderness of the lateral patellar facet, tenderness of the lateral joint line. Bony Palpation Left: tenderness of the inferior pole patella. Soft Tissue Palpation Right: no tenderness of the quadriceps tendon, no tenderness of the lateral patellar retinaculum, no tenderness of the medial patellar retinaculum, no tenderness of the prepatellar bursa, no tenderness of the patellar tendon, no tenderness of the fat pad, no tenderness of the medial collateral ligament, no tenderness of the pes anserinus, no tenderness of the saphenous nerve, no tenderness of the iliotibial tract, no tenderness of the lateral collateral ligament, no tenderness of the popliteal fossa, no tenderness of the biceps femoris tendon, no tenderness of the gastrocnemius, no tenderness of the infrapatellar tendon, no tenderness of the common peroneal nerve. Soft Tissue Palpation Left: tenderness of the medial collateral ligament. Active Range of Motion Right: normal, flexion normal, extension normal, medial rotation normal, lateral rotation normal, no pain with motion, no crepitus. Passive Range of Motion RIght: normal, flexion normal, extension normal, medial rotation normal, lateral rotation normal, no pain with motion. Stability Right: no laxity, no subluxation, no ligamentous instability, anterior drawer sign negative, posterior drawer sign negative, pivot shift test negative, Mallory test negative, reverse Mallory test negative. Special Tests Right: Zia's test negative, Apley's compression test negative, bounce home test negative, Mendez's displacement test negative. Strength Right: flexion 5/5, extension 5/5, no hamstring weakness, no quadriceps weakness Skin: Right Lower Extremity: abrasion, contusion, rash Neurologic: Ankle Reflex Right: absent (0). Knee Reflex Right: absent (0). Sensation on the Right: T12 normal, L1 normal, L2 normal, L3 normal, L4 normal, L5 normal, S1 normal, S2 normal, S3,4,5 normal; diffuse neropathic changes are present bilateral lower extremeitis
--- OUTSIDE RECORDS SUMMARY | 2019-04-28 22:02 | XMS REPORT | Summary of Care ---
:1950 Author Organization [facility] Address [address] [place] [address] Care Team Providers Name Role Phone Liana Gonzalez DO Primary Care Provider Liana Gonzalez DO Store Worker Reason for Referral (Routine) Status Reason Specialty Diagnoses / Referred By Referred To Procedures Contact Contact New Request Diagnoses MRSA bacteremia Delaney Curtis MD Aglieco, Fabio G, Procedures Discharge Follow-up: PCP LIANA GONZALEZ; 1 Week [address] [place] [address] Phone: [phone] Phone: Radiology Services (Routine) Status Reason Specialty Diagnoses / Referred By Referred To Procedures Contact Contact New Request Diagnostic Diagnoses ESRD (end stage renal disease) Noe Bridges MD Radiology Procedures IR CENTRALLY INSERTED DEVICE TUNNELED 5 OR OLDER NO PORT/PUMP IR VENOUS ACCESS [address] [place] [phone] Radiology Services (PAULINO) Status Reason Specialty Diagnoses / Referred By Referred To Procedures Contact Contact New Request Diagnostic Diagnoses ESRD (end stage renal disease) MRSA bacteremia Delaney Curtis, Radiology Procedures XR CHEST 1 VW [address] [place] [phone] Radiology Services (PAULINO) Status Reason Specialty Diagnoses / Referred By Referred To Procedures Contact Contact New Request Diagnostic Diagnoses ESRD (end stage renal disease) MRSA bacteremia Delaney Curtis, Radiology Procedures XR CHEST 1 VW [address] [place] [address] Radiology Services (Routine) Status Reason Specialty Diagnoses / Referred By Referred To Procedures Contact Contact New Request Diagnostic Diagnoses Pneumonia due to infectious organism, unspecified laterality, unspecified part of lung Zaidan, Radiology Procedures Chest 1 View - Portable AP (upright) for Central Line placement verification Romana Lara MD [address] [place] [address] Radiology Services (Routine) Status Reason Specialty Diagnoses / Referred By Referred To Procedures Contact Contact New Request Diagnostic Diagnoses Pneumonia due to infectious organism, unspecified laterality, unspecified part of lung Zaidan, Radiology Procedures Chest 1 View - Portable AP (upright) for Central Line placement verification Romana Lara MD [address] [place] [address] Radiology Services (Routine) Status Reason Specialty Diagnoses / Referred By Referred To Procedures Contact Contact New Request Diagnostic Diagnoses ESRD (end stage renal disease) Carlos lPaza, Radiology Procedures IR REMOVAL TUNNELED CENTRAL VENOUS CATHETER WITHOUT PORT/PUMP DO [address] [place] [phone] Radiology Services (Routine) Status Reason Specialty Diagnoses / Referred By Referred To Procedures Contact Contact New Request Diagnostic Diagnoses ESRD (end stage renal disease) Carlos Plaza, Radiology Procedures IR REMOVAL TUNNELED CENTRAL VENOUS CATHETER WITHOUT PORT/PUMP DO [address] [place] [phone] Radiology Services (Routine) Status Reason Specialty Diagnoses / Referred By Referred To Procedures Contact Contact New Request Diagnostic Diagnoses Pneumonia due to infectious organism, unspecified laterality, unspecified part of lung Zaidan, Radiology Procedures XR KUB Romana Lara MD [address] [place], [place] [phone] Radiology Services (Routine) Status Reason Specialty Diagnoses / Referred By Referred To Procedures Contact Contact New Request Diagnostic Diagnoses Pneumonia due to infectious organism, unspecified laterality, unspecified part of lung Gavino, Radiology Procedures XR PARUL Lara MD [address] [place] [phone] MRI/CAT Scan (PAULINO) Status Reason Specialty Diagnoses / Referred By Referred To Procedures Contact Contact New Request Diagnostic Diagnoses Altered mental status, unspecified altered mental status type Susanidadimas, Radiology Procedures MR BRAIN W WO CONTRAST MR BRAIN W WO CONTRAST Romana Lara MD [address] [place], [place] [phone] MRI/CAT Scan (PAULINO) Status Reason Specialty Diagnoses / Referred By Referred To Procedures Contact Contact New Request Diagnostic Diagnoses Altered mental status, unspecified altered mental status type Susanidadimas, Radiology Procedures MR BRAIN W WO CONTRAST MR BRAIN W WO CONTRAST Romana Lara MD [address] [place], [place] [phone] Radiology Services (STAT) Status Reason Specialty Diagnoses / Referred By Referred To Procedures Contact Contact New Request Diagnostic Diagnoses Altered mental status, unspecified altered mental status type Gavino, Radiology Procedures XR PARUL Lara MD [address] [place] [address] Radiology Services (STAT) Status Reason Specialty Diagnoses / Referred By Referred To Procedures Contact Contact New Request Diagnostic Diagnoses Altered mental status, unspecified altered mental status type Gavino, Radiology Procedures XR PARUL Lara MD [address] [place] [phone] MRI/CAT Scan (STAT) Status Reason Specialty Diagnoses / Referred By Referred To Procedures Contact Contact New Request Diagnostic Diagnoses Altered mental status, unspecified altered mental status type Gavino, Radiology Procedures CT HEAD WO CONTRAST Romana Lara MD [address] [place] [address] [place] [address] MRI/CAT Scan (STAT) Status Reason Specialty Diagnoses / Referred By Referred To Procedures Contact Contact New Request Diagnostic Diagnoses Altered mental status, unspecified altered mental status type Zaidan, Radiology Procedures CT HEAD WO CONTRAST Romana Lara MD [address] [place] [address] Radiology Services (Routine) Status Reason Specialty Diagnoses / Referred By Referred To Procedures Contact Contact New Request Diagnostic Diagnoses Pneumonia due to infectious organism, unspecified laterality, unspecified part of lung Dary, Adnan, Radiology Procedures XR CHEST [address] [place] [address]. [address] [place] [phone] Radiology Services (Routine) Status Reason Specialty Diagnoses / Referred By Referred To Procedures Contact Contact New Request Diagnostic Diagnoses Pneumonia due to infectious organism, unspecified laterality, unspecified part of lung Dary, Adnan, Radiology Procedures XR CHEST [address] [place] [address]. [address] [place] [phone] Reason for Visit Auth/Cert Status Reason Specialty Diagnoses / Procedures Referred By Contact Referred To Contact Surgery Diagnoses Sepsis due to pneumonia [facility] [address] [place] [address] Encounter Details Date Type Department Care Team Description 12/02/2018 - Hospital Encounter Medicine (TITUS 10C) Joe Guerra MBBS [address] [place] [phone] Pneumonia 12/15/2018 712 [facility] Romana Mancia MD [address] [place] [phone] [place] [address] Khris Garcia MD [address] [place] [address] [phone] Delaney Curtis MD [address] [place] [address] [phone] Allergies No Known Allergiesdocumented as of this encounter (statuses as of 12/15/2018) Medications Medication Sig Dispensed Refills Start Date End Date Status multivit with Take by mouth. 0 Active minerals/lutein (MULTIVITAMIN 50 PLUS ORAL) aspirin 81 mg Take 1 tablet 50 tablet 1 12/16/2018 Active chewable through enteral tabletIndications: tube daily. MRSA bacteremia acetaminophen 325 Take 2 tablets 40 tablet 1 12/15/2018 12/15/19 Active mg through enteral 20 tabletIndications: tube every 6 (six) MRSA bacteremia hours as needed for Pain (scale 1-3). vitamin b Take 1 tablet by 30 tablet 1 12/16/2018 Active complex-vitamin mouth daily. c-folic acid 0.8 mg tabletIndications: MRSA bacteremia amLODIPine Take 10 mL through 300 mL 0 12/16/2018 01/16/20 Active (NORVASC) 1 mg/mL enteral tube daily 19 oral for 30 days. suspensionIndicati ons: MRSA bacteremia metoprolol Take 2.5 mL 150 mL 1 12/15/2018 01/15/20 Active (LOPRESSOR) 10 through enteral 19 mg/mL oral tube 2 (two) times suspensionIndicati daily for 30 days. ons: MRSA bacteremia insulin aspart Please give aspart sliding scale TID AC + HS; may give even if NPO. 15 Vial 3 12/15/2018 Active injectionIndicatio Blood glucose 150 - 200 give 1 units. ns: Type 2 Blood glucose 201 - 250 give 2 units. diabetes mellitus Blood glucose 251 - 300 give 3 units. with complication, If blood sugar >300, NHO and give 4 units. Recheck blood sugar in 3 hours and cover with SSI. unspecified If blood sugar <70, NHO and use hypoglycemia protocol. whether rodent exterminator Notify endocrinology if 2 or more consecutive BG >300 or < 80 insulin use vancomycin/0.9 % Infuse 1 g 10 g 0 12/15/2018 Active sod chloride SEE-INSTRUCTIONS. (VANCOMYCIN 1 G IN NS 200 ML) 1 gram/200 mLIndications: MRSA bacteremia amLODIPine 10 mg Take 10 mg by 0 12/16/19 Discontinued tablet mouth daily. 19 atorvastatin 80 mg Take 80 mg by 0 12/16/19 Discontinued tablet mouth at bedtime. 19 gabapentin 100 mg Take 100 mg by 0 12/16/19 Discontinued capsule mouth 3 (three) 19 times daily. aspirin 81 mg Take 1 tablet by 30 tablet 11 05/31/2017 12/16/19 Discontinued chewable tablet mouth daily. 19 hydrALAZINE 25 mg Take 25 mg by 0 12/16/19 Discontinued tablet mouth 2 (two) 19 times daily. hydrALAZINE 10 mg Take 10 mg by 0 12/16/19 Discontinued tablet mouth as needed. 19 ramipril 5 mg Take 5 mg by mouth 0 12/16/19 Discontinued capsule daily. 19 omeprazole 40 mg Take 40 mg by 0 12/16/19 Discontinued capsule mouth daily. 19 fluconazole Take 150 mg by 0 12/16/19 Discontinued (DIFLUCAN) 150 mg mouth every 19 tablet Friday, Friday and Friday. colchicine 0.6 mg Take 0.6 mg by 0 12/16/19 Discontinued tablet mouth daily. 19 traMADol 50 mg Take 50 mg by 0 12/16/19 Discontinued tablet mouth every 6 19 (six) hours as needed. docusate 100 mg Take 100 mg by 0 12/16/19 Discontinued capsule mouth daily. 19 ondansetron Take 4 mg by mouth 0 12/16/19 Discontinued (ZOFRAN) 4 mg/5 mL 2 (two) times 19 solution daily as needed. metoprolol Take 25 mg by 0 12/16/19 Discontinued succinate XL 25 mg mouth daily. 19 24 hr tablet vancomycin/0.9 % Infuse 1 g daily 10 g 0 12/15/2018 12/16/19 Discontinued sod chloride for 10 days. 19 (VANCOMYCIN 1 G IN NS 200 ML) 1 gram/200 mLIndications: MRSA bacteremia vancomycin/0.9 % Infuse 1 g 10 g 0 12/15/2018 12/16/19 Discontinued sod chloride SEE-INSTRUCTIONS. 19 (VANCOMYCIN 1 G IN NS 200 ML) 1 gram/200 mLIndications: MRSA bacteremia documented as of this encounter (statuses as of 12/15/2018) Active Problems Problem Noted Date Pneumonia 12/02/2018 E44.0 Moderate protein calorie malnutrition 12/02/2018 Type 2 diabetes mellitus 05/17/2017 Hypoglycemia 05/16/2017 Unspecified severe protein-calorie malnutrition 05/16/2017 documented as of this encounter (statuses as of 12/15/2018) Social History Tobacco Use Types Packs/Day Years Used Date Former Smoker Quit: 1980 Alcohol Use Drinks/Week oz/Week Comments No Sex Assigned at Date Recorded Not on file Job Start Date Occupation Industry Not on file Not on file Not on file Travel History Travel Start Travel End No recent travel history available. documented as of this encounter Last Filed Vital Signs Vital Sign Reading Time Taken Comments Blood Pressure 142/75 12/15/2018 12:01 PM CDT Pulse 77 12/15/2018 12:01 PM CDT Temperature 36.5 C (97.7 F) 12/15/2018 12:01 PM CDT Respiratory Rate 18 12/15/2018 12:01 PM CDT Oxygen Saturation 98% 12/15/2018 12:01 PM CDT Inhaled Oxygen Concentration - - Weight 65.5 kg (144 lb 6.4 oz) 12/14/2018 6:23 PM CDT Height 182.9 cm (6') 12/02/2018 10:15 AM CDT Body Mass Index 19.58 12/02/2018 10:15 AM CDT documented in this encounter Progress Notes Malachi Ramos RN - 12/15/2018 8:45 AM CDTDISCHARGE PACKET NAME: Felecia Miles TRANSPORT TO: [facility] [address] [place] [address] [phone] CALL REPORT TO: [phone] DISCHARGE TIME: 1400 DATE: 12/15/18 MODE OF TRANSPORTATION: [facility]: [phone] NOTE: IF DISCHARGE TIME LAPSE IS MORE THAN 1 HOUR CONTACT YOUR RESTAURANT ASSISTANT MANAGER. FOR DELAYS OR CONCERNSAFTER HOURS, CONTACT THE TRANSPORTING COMPANY. alachi Ramos RN - 12/15/2018 8:45 AM CDT Care Management Discharge Disposition Note (DCDN) 5-2-1 Interventions: Clear discharge plan 5-2-1 Providers: Tunnel Kiln Repairer/Campus Chaplain 5-2-1 Patient Capacity Improvements: Transportation arrangements Discharge Plan for ongoing care and services: [facility] (LTC) Discharge location(s): LT location: [facility], [address] [place] [address] () [phone] (F) [phone] Patient choice completed for referred services: Return to previous provider;Yes Discussed with patient/patients family involved in decision making: Yes( called candi and notified her at 0835 12/15/18) Patient or family caregiver understands, and agrees with discharge plan. Community resources/referrals made or provided to patient: No Resources/Referrals: Transportation: Ambulance([facility] [phone]) Nursing informed of discharge plan: Yes Name of RN informed: ANDRAE Mason Estimated discharge date: 12/15/18 Time: 1400 Additional Information: Dialysis information including requirement on Vanc until 12/25 after dialysis days sent to [facility] CM/SW Name & Contact number: BANDAR Sethi, RN Uniform Room Attendant [email or web address] O:[phone] F:[phone] The following information has been provided to the facility noted above: reason for the patient discharge or transfer; patients physical and psychosocial status; summary of care, treatment, servicesprovided to patient; and the patient progress toward goals. Abbey Posada PA-C - 12/14/2018 12:33 PM CDT INFECTIOUS DISEASES PROGRESS NOTE: 12/14/2018 12:34 Reason For Consult: MRSA bacteremia Subjective/Overnight: Afebrile NAOE Pt gone to IR this AM Antibiotics: Vancomycin Objective: Vitals: 12/14/18 1015 12/14/18 1020 12/14/18 1035 12/14/18 1143 BP: 137/79 131/77 136/77 (!) 148/71 Pulse: 62 62 62 62 Resp: 20 18 16 16 Temp: 36.4 C (97.5 F) TempSrc: Oral SpO2: 100% 100% 100% 100% Weight: Height: General: no apparent distress ENT: oropharynx clear; moist mucous membranes Lungs: crackles at bases Cardio: S1, S2 normal; no murmurs, rubs or gallops GI: abdomen soft; non-tender; non-distended; normoactive bowel sounds Extremities: no clubbing, cyanosis, or edema Skin: warm and dry; no rash or ulcers Neuro: no focal deficits Labs: WBC Date/Time Value Ref Range Status 12/14/2018 01:58 AM 9.92 4.20 - 10.70 10*3/L Final HGB Date/Time Value Ref Range Status 12/14/2018 01:58 AM 9.7 (L) 12.2 - 16.4 g/dL Final PLT Date/Time Value Ref Range Status 12/14/2018 01:58 AM 440 (H) 150 - 328 10*3/L Final CREATININE Date/Time Value Ref Range Status 12/14/2018 01:58 AM 4.83 (H) 0.60 - 1.25 mg/dL Final GLUCOSE Date/Time Value Ref Range Status 12/14/2018 01:58 AM 194 (H) 70 - 110 mg/dL Final ALT(SGPT) Date/Time Value Ref Range Status 12/02/2018 09:04 PM 16 9 - 51 U/L Final AST(SGOT) Date/Time Value Ref Range Status 12/02/2018 09:04 PM 23 13 - 40 U/L Final ALK PHOS Date/Time Value Ref Range Status 12/02/2018 09:04 PM 211 (H) 34 - 122 U/L Final Microbiology: 12/02/18 Blood cultures: 2/2 +MRSA 12/03/18 Catheter tip culture: <15 colonies S. Aureus 12/04/18 Blood culture (x1): Gram positive cocci in clusters 12/05/18 Blood culture (x1): MRSA 12/07/18 Blood cultures: NG @ 72H Legionella, strep pneumo: negative Radiology: No new radiology Assessment: Mr. Miles is a 68yo M with: # Persistent MRSA bacteremia, due to permcath (tip cx was + for MRSA) # ESRD on HD MWF Pt found to be persistently bacteremic with MRSA, with positive blood cultures from 12/02 22, 12/04 05/12, 12/05 05/12. Blood cultures from 12/07 06/13 negative 72 hr.Central line removed yesterday 12/11. BENJAMIN negative for vegetations. Jos tip was not sent for culture . It would be ideal to wait until Friday to place another central catheter if blood cultures remain negative over the weekend and he does not develop fever. Vancomycin level R 15.4. Patient will need to complete 2 weeks of abx (vancomycin 750mg after dialysis), from central cathter removal on 12/11 (EOT :12/25) Other: # Hx CVAs # Dementia s/p PEG tube # DM2 # HTN # HFrEF (EF 35-40% on 12/03/18) # Hx of cocaine use Management per primary team. Recommendations: - continue vancomycin 750mg post HD (EOT: 12/25) - continue MRSA decolonization and chlorhexidine baths Plan discussed with ID faculty. Please call with any further questions. Thank you. GERARDO McguireC [facility] Infectious Disease 8: 55 AM CDT Associated attestation - Kevin Ernandez MD - 12/15/2018 8:55 AM CDTFaculty Progress Note This patient was seen and examined this complex patient with Abbey DE LA O on December 14, 2018. I agree with her comprehensive impression and complex therapeuticplan. A Josr Ernandez MD [facility] MD - 12/14/2018 5:25 AM CDT Anthony Team Progress Note Date of Service: 12/14/2018 05:25 Chief Complaint: 24-HOUR EVENTS: NAEO SUBJECTIVE: Patient is alert & oriented to person and place. Patient denies fever/chills , chest pain, sob, and abdominal pain. Patient underwent perm catheter placement today, followed by hemodialysis. Patient to receive vancomycin random level afterwards, followed by vancomycin dose. PHYSICAL EXAM: Vitals: 12/13/18 1700 12/13/18200612/14/18 0041 12/14/18 0446 BP: (!) 143/74 138/80 139/72 136/74 Pulse: 72 78 77 76 Resp: 18 18 18 18 Temp: 36.7 C (98.1 F) 36.4 C (97.5 F) 36.3 C (97.4 F) 36.5 C ( 97.7 F) TempSrc: Oral Oral Oral Oral SpO2: 98% 100% 100% 99% Weight: Height: No intake or output data in the 24 hours ending 12/14/18 0525 General: alert and oriented x1(person); no apparent distress Lungs:Clear on auscultation bilaterally Cardio: S1, S2 normal; no murmurs, rubs or gallops, regular rate and rhythm Abdomen: soft; non-tender; non-distended; normoactive bowel sounds Extremities: no cyanosis, clubbing or edema LABS/IMAGING - reviewed, pertinent results as below: WBC: 11.54 --> 9.43 --> 9.92 (8/5) Hgb: 10.1 --> 9.7 --> 9.7 (8/) BCx (12/07): NGTD Results for FELECIA MILES ( ) as of 12/14/2018 05:23 Ref. Range 12/12/2018 05:53 12/13/2018 04:24 12/14/2018 01:58 NA Latest Ref Range: 135 - 145 mmol/L 136 137 137 K Latest Ref Range: 3.5 - 5.0 mmol/L 4.0 3.4 (L) 3.3 (L) CL Latest Ref Range: 98 - 108 mmol/L 104 103 103 CO2 TOTAL Latest Ref Range: 23 - 31 mmol/L 24 24 22 (L) AGAP Latest Ref Range: 2 - 16 8 10 12 BUN Latest Ref Range: 7 - 23 mg/dL 42 (H) 55 (H) 68 (H) GLUCOSE Latest Ref Range: 70 - 110 mg/dL 119 (H) 205 (H) 194 (H) CREATININE Latest Ref Range: 0.60 - 1.25 mg/dL 3.48 (H) 4.15 (H) 4.83 (H) eGFR CALCULATION (non ) Latest Units: mL/min/1.73m2 17.6 14.4 12.1 eGFR CALCULATION () Latest Units: mL/min/1.73m2 21.4 17.4 14.6 CALCIUM Latest Ref Range: 8.6 - 10.6 mg/dL 9.2 9.4 9.2 ASSESSMENT/PLAN Felecia Miles is a 68 year old male admitted to the hospital with: Sepsis secondary to MRSA bacteremia from infected catheter causing altered mentation Dementia Chronicmicrovascular ischemic changes of brain with diffuse cerebral volume loss History of prior stroke, 2014 LLL pneumonia versus atelectasis Unclear what patient's baseline mentation is given chronicity of vascular pathology in brain on recent MRI and dementia.Patient still with MRSA bacteremia and catheter tip culture with Staph aureus. TTEwithout signs of valvular vegetations.BENJAMIN findings demonstrated no valvular vegetations.WBC' s trending down at 12.13 from 16. 62 from yesterday. Plan: - Administer Vancomycin after HD session, contingent on Vancomycin level - C/w Vancomycin after HD to complete 2 week course (vancomycin 750 mg after dialysis) since day of Jos removal, EOT (12/25) - Appreciate ID recommendations for abx regimen outpatient - Get social work professor involved for hospice placement - F/u with palliative - ID & Nephrology Recommendations appreciated - Monitor for any uremic symptoms - Continue to monitor BUN, Cr - Monitor mental status baseline - Monitor 3rd BCx,72hours. NGTD (, 2nd set + for MRSA) - Follow up with nutritional counseling & c/w tube feeds. - Turn patient Q4H, to prevent stress ulcer ESRD on Hemodialysis M/W/F HFrEF (EF:35-40%, diastolic dysfunction on TTE 12/03/18) DM II HTN Reported Blindness secondary to glaucoma Patient with significant chronic complained comorbidities complicating clinical picture. Continue with scheduled dialysis and current medications. Plan: -Renally dose medications -C/w aspirin 81 mg enteral QD -C/w amlodipine 10 mg enteral QD -C/w metoprolol tartrate 25 mg enteral BID -SSI with tube feeds Prem Tse MD Internal Medicine, PGY-1 [facility] Team Pager # [phone] END OF DAILY PROGRESS NOTE HOSPITAL COURSE Felecia Miles is a 68 year old man with PMHxofmultiple strokes, dementia s/ p PEG tube,ESRD onHD MWF, DMII, HTN, and Hx of cocaine useadmitted to the MICU as a transfer [facility] due to inability to perform HD2/2 non functioning permcath, [facility]. On arrivalto MICUhewas found tohave tachycardia to 140s,2:1Aflutter, and hyperkalemia at 6.0.Pt received calcium gluconate and insulin with D10W bolus , and metoprolol, K decreased to 5.8 and patient reverted to normal sinus rhythm.Patient was afebrile, mildly hypertensive, and sating well on room air with no coughing or dyspnea. Report from [facility] indicates blood cultures grew 4/4MRSA,sensitivity is pending. Repeat blood and urine cultures were obtained and patient was started on vancomycin and meropenem.Permcath was removed with tip cultured. R IJ jos was placed. Nephro was consulted, and HD was performed on 12/03. ECHO performed showed reduced EF 35-40%. Trops trended .045=>.047=>.036.CT head showedage indeterminate hypodensity in the guerrero concerning for acute/subacute infarct. MRIordered, which revealed chronic microvascular changes, multiple chronic ischemic infarcts, and and significant cerebral volume loss. Patient BMP improved after dialysis, breathing comfortably on minimal NC and onanitbioticsfor his MRSA bacteremia.Patient is stable for transfer to floor.Patient unable to receive HD due to jos malfunction. Repeat BCx NGTD.1st BCx showed + MRSA. Infectious Disease was consulted as a result, and a 3rd BCx set was ordered. 3rd BCx set was negative at 48 hours. Will continue to monitor blood cultures. A line was placed for his hemodialysis.Patient is tohave his Jos catheter removed today after his next hemodialysis session, as recommended by Infectious Disease. CURRENT MEDICATIONS - reviewed. Current Facility-Administered Medications Medication Dose Route Frequency Last Rate Last Dose ipratropium-albuterol (DUONEB) 0.5 mg-3 mg(2.5 mg base)/3 mL nebulizer solution 3 mL 3 mL Inhalation Q6HPRN amLODIPine (NORVASC) 1 mg/mL oral suspension 10 mg 10 mg Enteral DAILY 10 mg at 12/13/18 09 Sliding Scale Insulin - Aspart (NOVOLOG) + Fsbg Testing Subcutaneous TID MEALS+HS 1 Units at12/13/182035 vitamin b complex-vitamin c-folic acid (NEPHRO-TOM) 0.8 mg tablet 1 tablet 1 tablet Oral DAILY 1 tablet at 12/13/18 09 acetaminophen (TYLENOL) tablet 650 mg 650 mg Enteral Q6HPRN aspirin chewable tablet 81 mg 81 mg Enteral DAILY 81 mg at 12/13/18 0910 metoprolol tartrate (LOPRESSOR) 10 mg/mL oral suspension 25 mg 25 mg Enteral BID 25 mg at 12/13/182035 heparin injection 5,000 Units 5,000 Units Subcutaneous Q12H 5,000 Units at 12/13/182035 Associated attestation - Delaney Curtis MD - 12/14/2018 9:49 PM CDTDate of service: 12/14/2018 21:49 I discussed this patient in detail with Dr. Tse, including the patient?s history, exam findings, assessment and plan. I independently performed relevant portions of history and exam and jointly participated in the decision making process. Please see resident?s note for details. Delaney CURTIS M.D., 12/14/2018 21:49 Rivet Hammer Machine Operator, [facility] Department of Internal Medicine Cece Andrews MD - 12/13/2018 6:36 PM CDT INFECTIOUS DISEASES PROGRESS NOTE Chief Complaint: MRSA bacteremia Subjective: He has no complaints today. Antimicrobials: - Vancomycin (12/03- ) Physical Examination: Vitals: 12/13/18 0448 12/13/18 0800 12/13/18 1200 12/13/18 1700 BP: 136/74 131/69 135/73 (!) 143/74 Pulse: 73 67 70 72 Resp: 18 18 18 18 Temp: 36.3 C (97.4 F) 36.5 C (97.7 F) 36.6 C (97.8 F) 36.7 C ( 98.1 F) TempSrc: Oral Oral Oral Oral SpO2: 100% 100% 99% 98% Weight: Height: General: alert and oriented x2 (person, place), no apparent distress Eyes: EOMI, anicteric sclerae ENT: oropharynx clear; moist mucous membranes; RIJ was removed. no surrounding erythema or TTP Lungs: RLL crackles Cardio: S1, S2 normal; no murmurs GI: abdomen soft; non-tender; non-distended; normoactive bowel sounds; PEG tube in place Extremities: no clubbing, cyanosis, or edema Skin: warm and dry; no rash or ulcers; no TTP or erythema around PIV in LUE Neuro: 3/5 strength b/l UE; 4/5 strength b/l LE; no new focal deficits Hem/lymph: no LAD Laboratory: WBC (10*3/L) Date Value 12/13/2018 9.43 HGB (g/dL) Date Value 12/13/2018 9.7 (L) PLT (10*3/L) Date Value 12/13/2018 465 (H) CREATININE (mg/dL) Date Value 12/13/2018 4.15 (H) GLUCOSE (mg/dL) Date Value 12/13/2018 205 (H) ALT(SGPT) (U/L) Date Value 12/02/2018 16 AST(SGOT) (U/L) Date Value 12/02/2018 23 ALK PHOS (U/L) Date Value 12/02/2018 211 (H) Microbiology: 12/02/18 Blood cultures: 2/2 +MRSA 12/03/18 Catheter tip culture: <15 colonies S. Aureus 12/04/18 Blood culture (x1): Gram positive cocci in clusters 12/05/18 Blood culture (x1): MRSA 12/07/18 Blood cultures: NG @ 72H Legionella, strep pneumo: negative Lines: Jos (12/07/18) removed Left arm PIV (12/03/18) Radiology: Xr Chest 1 Vw, 12/07/2018 1. Right IJ central line within the superior vena cava. 2. Improved mild pulmonary edema. 3. Small left pleural effusion with adjacent atelectasis and/ or consolidation. 4. Small right pleural effusion. TTE (12/03/18) - The study was technically difficult. - EF 35-40% - The aortic valve is thickened and calcified. No hemodynamically significant valvular aortic stenosis. - The pulmonic valve is normal. The tricuspid valve is normal. The mitral valve is normal. BENJAMIN (12/09) Left ventricular systolic function is moderately reduced. There is a small discrete nodular thickening of the left coronary cusp, not consistent with a vegetation. No valvular vegetations seen. Assessment: Mr. Miles is a 68yo M with: # Persistent MRSA bacteremia, due to permcath (tip cx was + for MRSA) # ESRD on HD MWF Pt found to be persistently bacteremic with MRSA, with positive blood cultures from 12/02 2/2, 12/04 05/12, 12/05 05/12. Blood cultures from 12/07 06/13 negative 72 hr.Central line removed yesterday 12/11. BENJAMIN negative for vegetations. Jos tip was not sent for culture . It would be ideal to wait until Friday to place another central catheter if blood cultures remain negative over the weekend and he does not develop fever. Vancomycin level R 15.4. Patient will need to complete 2 weeks of abx (vancomycin 750mg after dialysis), from central cathter removal on 12/11 (EOT :12/25) Other: # Hx CVAs # Dementia s/p PEG tube # DM2 # HTN # HFrEF (EF 35-40% on 12/03/18) # Hx of cocaine use Management per primary team. Recommendations: - c/w MRSA nasal decolonization and chlorhexidine baths -complete 2 weeks of vancomycin 750mg after dialysis EOT=12/25 Thank you for this consult. Patient discussed with ID Faculty Associated attestation - Kenneth Vallejo MD - 12/13/2018 10:10 PM CDTI personally examined the patient on 12/13/[address] Howard's note as written. I actively participated in the decision-making process. Please see the fellow's note for additional details.Prem Tse MD - 12/13/2018 7: 04 AM CDT [facility] Team Progress Note Date of Service: 12/13/2018 07:05 Chief Complaint: AMS 24-HOUR EVENTS: NAEO SUBJECTIVE: Alert & oriented x2. No complaints overnight. Denies fever/chills, n/v, chest pain and abdominalpain. PHYSICAL EXAM: Vitals: 12/12/18 1547 12/12/18 1927 12/13/18 0014 12/13/18 0448 BP: 135/75 135/88 121/72 136/74 Pulse: 86 84 72 73 Resp: 20 18 18 18 Temp: 36.7 C (98.1 F) 36.4 C (97.6 F) 36.4 C (97.5 F) 36.3 C ( 97.4 F) TempSrc: Oral Oral Oral Oral SpO2: 99% 99% 99% 100% Weight: Height: Intake/Output Summary (Last 24 hours) at 12/13/2018704 Last data filed at 12/12/20182047 Gross per 24 hour Intake 1285.5 ml Output Net 1285.5 ml General: alert and oriented x1(person); no apparent distress Lungs:Clear on auscultation bilaterally Cardio: S1, S2 normal; no murmurs, rubs or gallops, regular rate and rhythm Abdomen: soft; non-tender; non-distended; normoactive bowel sounds Extremities: no cyanosis, clubbing or edema LABS/IMAGING - reviewed, pertinent results as below: BUN, CR WBC: 9.43 from 11.54 yesterday Bcx (12/07): No growth to date Results for FELECIA MILES ( ) as of 12/13/2018 07:04 Ref. Range 12/10/2018 04:53 WBC x10^3 Latest Ref Range: 4.20 - 10.70 10*3/L 16.62 (H) RBC x10^6 Latest Ref Range: 4.26 - 5.52 10*6/L 3.19 (L) HGB Latest Ref Range: 12.2 - 16.4 g/dL 9.2 (L) HCT Latest Ref Range: 38.4 - 49.3 % 31.7 (L) MCV Latest Ref Range: 81.7 - 95.6 fL 99.4 (H) MCH Latest Ref Range: 26.1 - 32.7 pg 28.8 MCHC Latest Ref Range: 31.2 - 35.0 g/dL 29.0 (L) RDW-SD Latest Ref Range: 38.5 - 51.6 fL 56.0 (H) RDW-CV Latest Ref Range: 12.1 - 15.4 % 15.3 PLT x10^3 Latest Ref Range: 150 - 328 10*3/L 414 (H) MPV Latest Ref Range: 9.8 - 13.0 fL 9.6 (L) NRBC /100 WBC Latest Ref Range: 0.0 - 10.0 /100 WBCs 0.1 NRBC x10^3 Latest Units: 10*3/L 0.02 GRAN MAT (NEUT) % Latest Units: % 75.4 IMM GRAN % Latest Units: % 1.10 LYMPH% Latest Units: % 12.6 MONO % Latest Units: % 5.2 EOS % Latest Units: % 5.5 BASO % Latest Units: % 0.2 GRAN MAT x10^3(ANC) Latest Ref Range: 1.99 - 6.95 10*3/uL 12.53 (H) IMM GRAN x10^3 Latest Ref Range: 0.00 - 0.06 10*3/uL 0.19 (H) LYMPH x10^3 Latest Ref Range: 1.09 - 3.23 10*3/uL 2.09 MONO x10^3 Latest Ref Range: 0.36 - 1.02 10*3/uL 0.86 EOS x10^3 Latest Ref Range: 0.06 - 0.53 10*3/uL 0.92 (H) BASO x10^3 Latest Ref Range: 0.01 - 0.09 10*3/uL 0.03 NA Latest Ref Range: 135 - 145 mmol/L 137 K Latest Ref Range: 3.5 - 5.0 mmol/L 4.0 CL Latest Ref Range: 98 - 108 mmol/L 101 CO2 TOTAL Latest Ref Range: 23 - 31 mmol/L 27 AGAP Latest Ref Range: 2 - 16 9 BUN Latest Ref Range: 7 - 23 mg/dL 58 (H) GLUCOSE Latest Ref Range: 70 - 110 mg/dL 133 (H) CREATININE Latest Ref Range: 0.60 - 1.25 mg/dL 4.62 (H) eGFR CALCULATION (non ) Latest Units: mL/min/1.73m2 12.7 eGFR CALCULATION () Latest Units: mL/min/1.73m2 15.4 CALCIUM Latest Ref Range: 8.6 - 10.6 mg/dL 8.7 Results for FELECIA MILES ( ) as of 12/13/2018 07:04 Ref. Range 12/13/2018 04:24 WBC x10^3 Latest Ref Range: 4.20 - 10.70 10*3/L 9.43 RBC x10^6 Latest Ref Range: 4.26 - 5.52 10*6/L 3.27 (L) HGB Latest Ref Range: 12.2 - 16.4 g/dL 9.7 (L) HCT Latest Ref Range: 38.4 - 49.3 % 32.3 (L) MCV Latest Ref Range: 81.7 - 95.6 fL 98.8 (H) MCH Latest Ref Range: 26.1 - 32.7 pg 29.7 MCHC Latest Ref Range: 31.2 - 35.0 g/dL 30.0 (L) RDW-SD Latest Ref Range: 38.5 - 51.6 fL 54.5 (H) RDW-CV Latest Ref Range: 12.1 - 15.4 % 15.2 PLT x10^3 Latest Ref Range: 150 - 328 10*3/L 465 (H) MPV Latest Ref Range: 9.8 - 13.0 fL 9.9 NRBC /100 WBC Latest Ref Range: 0.0 - 10.0 /100 WBCs 0.0 NRBC x10^3 Latest Units: 10*3/L <0.01 GRAN MAT (NEUT) % Latest Units: % 64.8 IMM GRAN % Latest Units: % 1.60 LYMPH% Latest Units: % 19.9 MONO % Latest Units: % 6.7 EOS % Latest Units: % 6.8 BASO % Latest Units: % 0.2 GRAN MAT x10^3(ANC) Latest Ref Range: 1.99 - 6.95 10*3/uL 6.11 IMM GRAN x10^3 Latest Ref Range: 0.00 - 0.06 10*3/uL 0.15 (H) LYMPH x10^3 Latest Ref Range: 1.09 - 3.23 10*3/uL 1.88 MONO x10^3 Latest Ref Range: 0.36 - 1.02 10*3/uL 0.63 EOS x10^3 Latest Ref Range: 0.06 - 0.53 10*3/uL 0.64 (H) BASO x10^3 Latest Ref Range: 0.01 - 0.09 10*3/uL <0.03 NA Latest Ref Range: 135 - 145 mmol/L 137 K Latest Ref Range: 3.5 - 5.0 mmol/L 3.4 (L) CL Latest Ref Range: 98 - 108 mmol/L 103 CO2 TOTAL Latest Ref Range: 23 - 31 mmol/L 24 AGAP Latest Ref Range: 2 - 16 10 BUN Latest Ref Range: 7 - 23 mg/dL 55 (H) GLUCOSE Latest Ref Range: 70 - 110 mg/dL 205 (H) CREATININE Latest Ref Range: 0.60 - 1.25 mg/dL 4.15 (H) eGFR CALCULATION (non ) Latest Units: mL/min/1.73m2 14.4 eGFR CALCULATION () Latest Units: mL/min/1.73m2 17.4 CALCIUM Latest Ref Range: 8.6 - 10.6 mg/dL 9.4 ASSESSMENT/PLAN Felecia Miles is a 68 year old male admitted to the hospital with: Sepsis secondary to MRSA bacteremia from infected catheter causing altered mentation Dementia Chronicmicrovascular ischemic changes of brain with diffuse cerebral volume loss History of prior stroke, 2014 LLL pneumonia versus atelectasis Unclear what patient's baseline mentation is given chronicity of vascular pathology in brain on recent MRI and dementia.Patient still with MRSA bacteremia and catheter tip culture with Staph aureus. TTEwithout signs of valvular vegetations.BENJAMIN findings demonstrated no valvular vegetations.WBC' s trending down at 12.13 from 16. 62 from yesterday. Plan: -Perm catheter to be placed by IR on Friday - Put on NPOpM -Nephrology in agreement with next HD session on Friday, after perm catheter placement - Appreciate ID recommendations for abx regimen outpatient - Get social work professor involved for hospice placement - F/u with palliative - ID & Nephrology Recommendations appreciated - Monitor for any uremic symptoms - Continue to monitor BUN, Cr - Monitor mental status baseline - Monitor 3rd BCx,72hours. NGTD (1st, 2nd set + for MRSA) - Follow up with nutritional counseling & c/w tube feeds. - Turn patient Q4H, to prevent stress ulcer ESRD on Hemodialysis M/W/F HFrEF (EF:35-40%, diastolic dysfunction on TTE 12/03/18) DM II HTN Reported Blindness secondary to glaucoma Patient with significant chronic complained comorbidities complicating clinical picture. Continue with scheduled dialysis and current medications. Plan: -Renally dose medications -C/w aspirin 81 mg enteral QD -C/w amlodipine 10 mg enteral QD -C/w metoprolol tartrate 25 mg enteral BID -SSI with tube feeds END OF DAILY PROGRESS NOTE HOSPITAL COURSE Felecia Miles is a 68 year old man with PMHxofmultiple strokes, dementia s/ p PEG tube,ESRD onHD MWF, DMII, HTN, and Hx of cocaine useadmitted to the MICU as a transfer from [facility] due to inability to perform HD2/2 non functioning [facility]ath[facility]. On arrivalto MICUhewas found tohave tachycardia to 140s,2:1Aflutter, and hyperkalemia at 6.0.Pt received calcium gluconate and insulin with D10W bolus , and metoprolol, K decreased to 5.8 and patient reverted to normal sinus rhythm.Patient was afebrile, mildly hypertensive, and sating well on room air with no coughing or dyspnea. Report from [place] [facility] indicates blood cultures grew 4/4MRSA,sensitivity is pending. Repeat blood and urine cultures were obtained and patient was started on vancomycin and meropenem.Permcath was removed with tip cultured. R IJ jos was placed. Nephro was consulted, and HD was performed on 12/03. ECHO performed showed reduced EF 35-40%. Trops trended .045=>.047=>.036.CT head showedage indeterminate hypodensity in the guerrero concerning for acute/subacute infarct. MRIordered, which revealed chronic microvascular changes, multiple chronic ischemic infarcts, and and significant cerebral volume loss. Patient BMP improved after dialysis, breathing comfortably on minimal NC and onanitbioticsfor his MRSA bacteremia.Patient is stable for transfer to floor.Patient unable to receive HD due to jos malfunction. Repeat BCx NGTD.1st BCx showed + MRSA. Infectious Disease was consulted as a result, and a 3rd BCx set was ordered. 3rd BCx set was negative at 48 hours. Will continue to monitor blood cultures. A line was placed for his hemodialysis.Patient is tohave his Jos catheter removed today after his next hemodialysis session, as recommended by Infectious Disease. CURRENT MEDICATIONS - reviewed. Current Facility-Administered Medications Medication Dose Route Frequency Last Rate Last Dose ipratropium-albuterol (DUONEB) 0.5 mg-3 mg(2.5 mg base)/3 mL nebulizer solution 3 mL 3 mL Inhalation Q6HPRN mupirocin (BACTROBAN NASAL OINT) 2 % nasal ointment Nasal Q12H 1 g at 2045 amLODIPine (NORVASC) 1 mg/mL oral suspension 10 mg 10 mg Enteral DAILY 10 mg at 12/12/18 0853 Sliding Scale Insulin - Aspart (NOVOLOG) + Fsbg Testing Subcutaneous TID MEALS+HS Stopped at12/12/18 1700 vitamin b complex-vitamin c-folic acid (NEPHRO-TOM) 0.8 mg tablet 1 tablet 1 tablet Oral DAILY 1 tablet at 12/12/18 0852 acetaminophen (TYLENOL) tablet 650 mg 650 mg Enteral Q6HPRN aspirin chewable tablet 81 mg 81 mg Enteral DAILY 81 mg at 12/12/18 0852 metoprolol tartrate (LOPRESSOR) 10 mg/mL oral suspension 25 mg 25 mg Enteral BID 25 mg at 12/12/182045 heparin injection 5,000 Units 5,000 Units Subcutaneous Q12H 5,000 Units at 12/12/182045 Associated attestation - Delaney Curtis MD - 12/13/2018 10:54 PM CDTDate of service: 12/13/2018 22:53 I discussed this patient in detail with Dr. Tse, including the patient?s history, exam findings, assessment and plan. I independently performed relevant portions of history and exam and jointly participated in the decision making process. Please see resident?s note for details. I agree with the resident's note as written with the following additions/ changes to the note: - plan for permcath placement with IR on Friday. Hold feed after midnight Delaney CURTIS M.D., 12/13/2018 22:53 [employer], [facility] Department of Internal Medicine Cece Andrews MD - 12/12/2018 6:54 PM CDT INFECTIOUS DISEASES PROGRESS NOTE Chief Complaint: MRSA bacteremia Subjective: He has no complaints today. Antimicrobials: - Vancomycin (12/03- ) Physical Examination: Vitals: 12/12/18 0330 12/12/18 0815 12/12/18 1150 12/12/18 1547 BP: 109/56 134/73 120/70 135/75 Pulse: 85 84 81 86 Resp: 18 20 18 20 Temp: 36.8 C (98.2 F) 36.6 C (97.9 F) 36.7 C (98 F) 36.7 C (98.1 F) TempSrc: Oral Oral Oral Oral SpO2: 98% 96% 99% 99% Weight: Height: General: alert and oriented x2 (person, place), no apparent distress Eyes: EOMI, anicteric sclerae ENT: oropharynx clear; moist mucous membranes; RIJ was removed. no surrounding erythema or TTP Lungs: RLL crackles Cardio: S1, S2 normal; no murmurs GI: abdomen soft; non-tender; non-distended; normoactive bowel sounds; PEG tube in place Extremities: no clubbing, cyanosis, or edema Skin: warm and dry; no rash or ulcers; no TTP or erythema around PIV in LUE Neuro: 3/5 strength b/l UE; 4/5 strength b/l LE; no new focal deficits Hem/lymph: no LAD Laboratory: WBC (10*3/L) Date Value 12/12/2018 11.54 (H) HGB (g/dL) Date Value 12/12/2018 10.1 (L) PLT (10*3/L) Date Value 12/12/2018 539 (H) CREATININE (mg/dL) Date Value 12/12/2018 3.48 (H) GLUCOSE (mg/dL) Date Value 12/12/2018 119 (H) ALT(SGPT) (U/L) Date Value 12/02/2018 16 AST(SGOT) (U/L) Date Value 12/02/2018 23 ALK PHOS (U/L) Date Value 12/02/2018 211 (H) Microbiology: 12/02/18 Blood cultures: 2/2 +MRSA 12/03/18 Catheter tip culture: <15 colonies S. Aureus 12/04/18 Blood culture (x1): Gram positive cocci in clusters 12/05/18 Blood culture (x1): MRSA 12/07/18 Blood cultures: NG @ 72H Legionella, strep pneumo: negative Lines: Jos (12/07/18) removed Left arm PIV (12/03/18) Radiology: Xr Chest 1 Vw, 12/07/2018 1. Right IJ central line within the superior vena cava. 2. Improved mild pulmonary edema. 3. Small left pleural effusion with adjacent atelectasis and/ or consolidation. 4. Small right pleural effusion. TTE (12/03/18) - The study was technically difficult. - EF 35-40% - The aortic valve is thickened and calcified. No hemodynamically significant valvular aortic stenosis. - The pulmonic valve is normal. The tricuspid valve is normal. The mitral valve is normal. BENJAMIN (12/09) Left ventricular systolic function is moderately reduced. There is a small discrete nodular thickening of the left coronary cusp, not consistent with a vegetation. No valvular vegetations seen. Assessment: Mr. Miles is a 68yo M with: # Persistent MRSA bacteremia, due to permcath (tip cx was + for MRSA) # ESRD on HD MWF Pt found to be persistently bacteremic with MRSA, with positive blood cultures from 12/02 06/13, 12/04 05/12, 12/05 05/12. Blood cultures from 12/07 06/13 negative 72 hr.Central line removed yesterday 12/11. BENJAMIN negative for vegetations. Jos tip was not sent for culture . It would be ideal to wait until Friday to place another central catheter if blood cultures remain negative over the weekend and he does not develop fever. Vancomycin level R 15.4. Other: # Hx CVAs # Dementia s/p PEG tube # DM2 # HTN # HFrEF (EF 35-40% on 12/03/18) # Hx of cocaine use Management per primary team. Recommendations: - c/w MRSA nasal decolonization and chlorhexidine baths -If allowed by renal function wait until Friday to place new dialysis catheter Thank you for this consult. Patient discussed with ID Faculty Associated attestation - Kenneth Vallejo MD - 12/13/2018 9:03 AM CDTI personally examined the patient on 12/12/[address] Howard's note as written. I actively participated in the decision-making process. Please see the fellow's note for additional details.Prem Tse MD - 12/12/2018 6: 36 AM CDT [facility] Team Progress Note Date of Service: 12/12/2018 06:36 Chief Complaint: AMS 24-HOUR EVENTS: NAEO SUBJECTIVE: Patient alert & oriented x 1. Doing well, denies fever/chills, n/v, chest pain. PHYSICAL EXAM: Vitals: 12/11/18201412/11/18 2200 12/11/18 2306 12/12/18 0330 BP: 131/68 97/53 109/56 Pulse: 79 79 82 85 Resp: 18 18 18 Temp: 36.4 C (97.5 F) 36.3 C (97.4 F) 36.8 C (98.2 F) TempSrc: Oral Axillary Oral SpO2: 99% 100% 100% 98% Weight: Height: Intake/Output Summary (Last 24 hours) at 12/12/2018 06 Last data filed at 12/11/20182019 Gross per 24 hour Intake 756 ml Output Net 756 ml General: alert and oriented x1(person); no apparent distress Lungs:Clear on auscultation bilaterally Cardio: S1, S2 normal; no murmurs, rubs or gallops, regular rate and rhythm Abdomen: soft; non-tender; non-distended; normoactive bowel sounds Extremities: no cyanosis, clubbing or edema LABS/IMAGING - reviewed, pertinent results as below: WBC (12/12): 11.54 BUN, CR (12/12): 42, 3.48 Results for FELECIA MILES ( ) as of 12/12/2018 06:37 Ref. Range 12/10/2018 04:53 12/11/2018 03:51 WBC x10^3 Latest Ref Range: 4.20 - 10.70 10*3/L 16.62 (H) 12.13 (H) RBC x10^6 Latest Ref Range: 4.26 - 5.52 10*6/L 3.19 (L) 3.22 (L) HGB Latest Ref Range: 12.2 - 16.4 g/dL 9.2 (L) 9.5 (L) HCT Latest Ref Range: 38.4 - 49.3 % 31.7 (L) 32.7 (L) MCV Latest Ref Range: 81.7 - 95.6 fL 99.4 (H) 101.6 (H) MCH Latest Ref Range: 26.1 - 32.7 pg 28.8 29.5 MCHC Latest Ref Range: 31.2 - 35.0 g/dL 29.0 (L) 29.1 (L) RDW-SD Latest Ref Range: 38.5 - 51.6 fL 56.0 (H) 55.9 (H) RDW-CV Latest Ref Range: 12.1 - 15.4 % 15.3 15.1 PLT x10^3 Latest Ref Range: 150 - 328 10*3/L 414 (H) 419 (H) MPV Latest Ref Range: 9.8 - 13.0 fL 9.6 (L) 9.5 (L) NRBC /100 WBC Latest Ref Range: 0.0 - 10.0 /100 WBCs 0.1 0.2 NRBC x10^3 Latest Units: 10*3/L 0.02 0.02 GRAN MAT (NEUT) % Latest Units: % 75.4 68.8 IMM GRAN % Latest Units: % 1.10 2.80 LYMPH% Latest Units: % 12.6 15.1 MONO % Latest Units: % 5.2 5.9 EOS % Latest Units: % 5.5 7.2 BASO % Latest Units: % 0.2 0.2 GRAN MAT x10^3(ANC) Latest Ref Range: 1.99 - 6.95 10*3/uL 12.53 (H) 8.35 (H) IMM GRAN x10^3 Latest Ref Range: 0.00 - 0.06 10*3/uL 0.19 (H) 0.34 (H) LYMPH x10^3 Latest Ref Range: 1.09 - 3.23 10*3/uL 2.09 1.83 MONO x10^3 Latest Ref Range: 0.36 - 1.02 10*3/uL 0.86 0.72 EOS x10^3 Latest Ref Range: 0.06 - 0.53 10*3/uL 0.92 (H) 0.87 (H) BASO x10^3 Latest Ref Range: 0.01 - 0.09 10*3/uL 0.03 <0.03 Results for FELECIA MILES ( ) as of 12/12/2018 06:37 Ref. Range 12/11/2018 03:51 NA Latest Ref Range: 135 - 145 mmol/L 135 K Latest Ref Range: 3.5 - 5.0 mmol/L 3.6 CL Latest Ref Range: 98 - 108 mmol/L 100 CO2 TOTAL Latest Ref Range: 23 - 31 mmol/L 27 AGAP Latest Ref Range: 2 - 16 8 BUN Latest Ref Range: 7 - 23 mg/dL 25 (H) GLUCOSE Latest Ref Range: 70 - 110 mg/dL 158 (H) CREATININE Latest Ref Range: 0.60 - 1.25 mg/dL 2.34 (H) eGFR CALCULATION (non ) Latest Units: mL/min/1.73m2 27.9 eGFR CALCULATION () Latest Units: mL/min/1.73m2 33.8 CALCIUM Latest Ref Range: 8.6 - 10.6 mg/dL 9.0 Results for FELECIA MILES ( ) as of 12/12/2018 06:37 Ref. Range 12/10/2018 04:53 NA Latest Ref Range: 135 - 145 mmol/L 137 K Latest Ref Range: 3.5 - 5.0 mmol/L 4.0 CL Latest Ref Range: 98 - 108 mmol/L 101 CO2 TOTAL Latest Ref Range: 23 - 31 mmol/L 27 AGAP Latest Ref Range: 2 - 16 9 BUN Latest Ref Range: 7 - 23 mg/dL 58 (H) GLUCOSE Latest Ref Range: 70 - 110 mg/dL 133 (H) CREATININE Latest Ref Range: 0.60 - 1.25 mg/dL 4.62 (H) eGFR CALCULATION (non ) Latest Units: mL/min/1.73m2 12.7 eGFR CALCULATION () Latest Units: mL/min/1.73m2 15.4 CALCIUM Latest Ref Range: 8.6 - 10.6 mg/dL 8.7 ASSESSMENT/PLAN Felecia Miles is a 68 year old male admitted to the hospital with: Sepsis secondary to MRSA bacteremia from infected catheter causing altered mentation Dementia Chronicmicrovascular ischemic changes of brain with diffuse cerebral volume loss History of prior stroke, 2014 LLL pneumonia versus atelectasis Unclear what patient's baseline mentation is given chronicity of vascular pathology in brain on recent MRI and dementia.Patient still with MRSA bacteremia and catheter tip culture with Staph aureus. TTEwithout signs of valvular vegetations.BENJAMIN findings demonstrated no valvular vegetations. WBC' strending down at 12.13 from 16. 62 from yesterday. Plan: - Perm catheter to be placed by IR on Friday - Nephrology in agreement with next HD session on Friday - ID & Nephrology Recommendations appreciated - Monitor for any uremic symptoms - Continue to monitor BUN, Cr - Monitor mental status baseline - Monitor 3rd BCx, 72 hours. NGTD (1st, 2nd set + for MRSA) - Follow up with nutritional counseling & c/w tube feeds. - Turn patient Q4H, to prevent stress ulcer ESRD on Hemodialysis M/W/F HFrEF (EF:35-40%, diastolic dysfunction on TTE 12/03/18) DM II HTN Reported Blindness secondary to glaucoma Patient with significant chronic complained comorbidities complicating clinical picture. Continue with scheduled dialysis and current medications. Plan: -Renally dose medications -C/w aspirin 81 mg enteral QD -C/w amlodipine 10 mg enteral QD -C/w metoprolol tartrate 25 mg enteral BID -SSI with tube feeds END OF DAILY PROGRESS NOTE HOSPITAL COURSE Felecia Miles is a 68 year old man with PMHxofmultiple strokes, dementia s/ p PEG tube,ESRD onHD MWF, DMII, HTN, and Hx of cocaine useadmitted to the MICU as a transfer from [facility] due to inability to perform HD2/2 non functioning permcath[facility]. On arrivalto MICUhewas found tohave tachycardia to 140s,2:1Aflutter, and hyperkalemia at 6.0.Pt received calcium gluconate and insulin with D10W bolus , and metoprolol, K decreased to 5.8 and patient reverted to normal sinus rhythm.Patient was afebrile, mildly hypertensive, and sating well on room air with no coughing or dyspnea. Report from [place] [facility] indicates blood cultures grew 4/4MRSA,sensitivity is pending. Repeat blood and urine cultures were obtained and patient was started on vancomycin and meropenem.Permcath was removed with tip cultured. R IJ jos was placed. Nephro was consulted, and HD was performed on 12/03. ECHO performed showed reduced EF 35-40%. Trops trended .045=>.047=>.036.CT head showedage indeterminate hypodensity in the guerrero concerning for acute/subacute infarct. MRIordered, which revealed chronic microvascular changes, multiple chronic ischemic infarcts, and and significant cerebral volume loss. Patient BMP improved after dialysis, breathing comfortably on minimal NC and onanitbioticsfor his MRSA bacteremia.Patient is stable for transfer to floor.Patient unable to receive HD due to jos malfunction. Repeat BCx NGTD.1st BCx showed + MRSA. Infectious Disease was consulted as a result, and a 3rd BCx set was ordered. 3rd BCx set was negative at 48 hours. Will continue to monitor blood cultures. A line was placed for his hemodialysis.Patient is tohave his Jos catheter removed today after his next hemodialysis session, as recommended by Infectious Disease. CURRENT MEDICATIONS - reviewed. Current Facility-Administered Medications Medication Dose Route Frequency Last Rate Last Dose ipratropium-albuterol (DUONEB) 0.5 mg-3 mg(2.5 mg base)/3 mL nebulizer solution 3 mL 3 mL Inhalation Q6HPRN mupirocin (BACTROBAN NASAL OINT) 2 % nasal ointment Nasal Q12H 1 g at 1954 amLODIPine (NORVASC) 1 mg/mL oral suspension 10 mg 10 mg Enteral DAILY 10 mg at 12/11/18914 Sliding Scale Insulin - Aspart (NOVOLOG) + Fsbg Testing Subcutaneous TID MEALS+HS 2 Units at12/11/182137 vitamin b complex-vitamin c-folic acid (NEPHRO-TOM) 0.8 mg tablet 1 tablet 1 tablet Oral DAILY 1 tablet at 12/11/18914 acetaminophen (TYLENOL) tablet 650 mg 650 mg Enteral Q6HPRN aspirin chewable tablet 81 mg 81 mg Enteral DAILY 81 mg at 12/11/18914 metoprolol tartrate (LOPRESSOR) 10 mg/mL oral suspension 25 mg 25 mg Enteral BID 25 mg at 12/11/181955 heparin injection 5,000 Units 5,000 Units Subcutaneous Q12H 5,000 Units at 12/11/181955 Associated attestation - Delaney Curtis MD - 12/12/2018 10:51 PM CDTDate of service: 12/12/2018 22:49 I discussed this patient in detail with Dr. Tse, including the patient?s history, exam findings, assessment and plan. I independently performed relevant portions of history and exam and jointly participated in the decision making process. Please see resident?s note for details. I agree with the resident's note as written with the following additions/ changes to the note: - patient at baseline mentation during rounds today. Continue to monitor for any signs to suggest more urgent need for dialysis, otherwise plan for permcath on Friday as cultures had remained negative,and to start dialysis after catheter placement. Delaney CURTIS M.D., 12/12/2018 22:49 [employer] Operator, [facility] Department of Internal Medicine Rhona Segal MD - 12/11/2018 7:54 AM CDT INFECTIOUS DISEASES PROGRESS NOTE Chief Complaint: MRSA bacteremia Subjective: He has no complaints today. Antimicrobials: - Vancomycin (12/03- ) Physical Examination: Vitals: 12/10/18 1925 12/10/18 2119 12/10/18 2322 12/11/18 0340 BP: (!) 161/84 138/70 136/84 (!) 142/56 Pulse: 95 84 81 79 Resp: 18 18 18 Temp: 36.9 C (98.4 F) 36.6 C (97.8 F) 36.8 C (98.3 F) TempSrc: Oral Oral Oral SpO2: 99% 95% 94% Weight: 65.3 kg (144 lb) Height: General: alert and oriented x2 (person, place), no apparent distress Eyes: EOMI, anicteric sclerae ENT: oropharynx clear; moist mucous membranes; RIJ was removed. no surrounding erythema or TTP Lungs: RLL crackles Cardio: S1, S2 normal; no murmurs GI: abdomen soft; non-tender; non-distended; normoactive bowel sounds; PEG tube in place Extremities: no clubbing, cyanosis, or edema Skin: warm and dry; no rash or ulcers; no TTP or erythema around PIV in LUE Neuro: 3/5 strength b/l UE; 4/5 strength b/l LE; no new focal deficits Hem/lymph: no LAD Laboratory: WBC (10*3/L) Date Value 12/11/2018 12.13 (H) HGB (g/dL) Date Value 12/11/2018 9.5 (L) PLT (10*3/L) Date Value 12/11/2018 419 (H) CREATININE (mg/dL) Date Value 12/11/2018 2.34 (H) GLUCOSE (mg/dL) Date Value 12/11/2018 158 (H) ALT(SGPT) (U/L) Date Value 12/02/2018 16 AST(SGOT) (U/L) Date Value 12/02/2018 23 ALK PHOS (U/L) Date Value 12/02/2018 211 (H) Microbiology: 12/02/18 Blood cultures: 2/2 +MRSA 12/03/18 Catheter tip culture: <15 colonies S. Aureus 12/04/18 Blood culture (x1): Gram positive cocci in clusters 12/05/18 Blood culture (x1): MRSA 12/07/18 Blood cultures: NG @ 72H Legionella, strep pneumo: negative Lines: Jos (12/07/18) Left arm PIV (12/03/18) Radiology: Xr Chest 1 Vw, 12/07/2018 1. Right IJ central line within the superior vena cava. 2. Improved mild pulmonary edema. 3. Small left pleural effusion with adjacent atelectasis and/ or consolidation. 4. Small right pleural effusion. TTE (12/03/18) - The study was technically difficult. - EF 35-40% - The aortic valve is thickened and calcified. No hemodynamically significant valvular aortic stenosis. - The pulmonic valve is normal. The tricuspid valve is normal. The mitral valve is normal. BENJAMIN (12/09) Left ventricular systolic function is moderately reduced. There is a small discrete nodular thickening of the left coronary cusp, not consistent with a vegetation. No valvular vegetations seen. Assessment: Mr. Miles is a 68yo M with: # Persistent MRSA bacteremia, due to permcath (tip cx was + for MRSA) # ESRD on HD MWF Pt found to be persistently bacteremic with MRSA, with positive blood cultures from 12/02 2/2, 12/04 05/12, 12/05 05/12. Blood cultures from 12/07 06/13 negative 72 hr.however patient still has central line for dialysis. BENJAMIN negative for vegetations. He underwent HD yesterday and had his RIJ jos removed. Jos tip was not sent for culture . It would be ideal to wait until Friday to place another central catheter if blood cultures remain negative over the weekend and he does not develop fever. Other: # Hx CVAs # Dementia s/p PEG tube # DM2 # HTN # HFrEF (EF 35-40% on 12/03/18) # Hx of cocaine use Management per primary team. Recommendations: - c/w MRSA nasal decolonization and chlorhexidine baths -If allowed by renal function wait until Friday to place new dialysis catheter Thank you for this consult. Patient seen and discussed with ID faculty Dr. Sky. Rhona Segal MD Internal medicine PGY - 3 Pager #: [phone] Associated attestation - Jaswinder Joseph MD - 12/11/2018 7:05 PM CDTI have seen and examined this patient on 12/11/2018. I agree with Dr. Robledo thorough assessment and plan of care. I was directly involved in the decision- making process. Please see the residents note for further details.Prem Tse MD - 12/11/2018 7:19 AM CDT Anthony Team Progress Note Date of Service: 12/11/2018 07:20 Chief Complaint: AMS 24-HOUR EVENTS: NAEO SUBJECTIVE: Patient had hemodialysis session yesterday afternoon, and jos cath removed afterwards. Received Vanc dose of 750 mg after HD session. Vanc trough levels this morning was 15.4. Patient still oriented x 1, at baseline. Denies fever/chills, CP, abdominal pain n/v. PHYSICAL EXAM: Vitals: 12/10/18 1925 12/10/18 2119 12/10/18 2322 12/11/18 0340 BP: (!) 161/84 138/70 136/84 (!) 142/56 Pulse: 95 84 81 79 Resp: 18 18 18 Temp: 36.9 C (98.4 F) 36.6 C (97.8 F) 36.8 C (98.3 F) TempSrc: Oral Oral Oral SpO2: 99% 95% 94% Weight: 65.3 kg (144 lb) Height: Intake/Output Summary (Last 24 hours) at 12/11/2018 0720 Last data filed at 12/10/2018 1429 Gross per 24 hour Intake Output 500 ml Net -500 ml General: alert and oriented x1(person); no apparent distress Lungs: Clear on auscultation bilaterally Cardio: S1, S2 normal; no murmurs, rubs or gallops, regular rate and rhythm Abdomen: soft; non-tender; non-distended; normoactive bowel sounds Extremities: no cyanosis, clubbing or edema LABS/IMAGING - reviewed, pertinent results as below: BCx (12/07): NGTD at 72 hours. Continue to monitor WBC: Trending down: 23.33 -> 16.62 ->12.13 Results for FELECIA MILES ( ) as of 12/11/2018 07:17 Ref. Range 12/09/2018 03:25 12/10/2018 04:53 12/11/2018 03:51 WBC x10^3 Latest Ref Range: 4.20 - 10.70 10*3/L 23.33 (H) 16.62 (H) 12.13 (H) RBC x10^6 Latest Ref Range: 4.26 - 5.52 10*6/L 3.24 (L) 3.19 (L) 3.22 (L) HGB Latest Ref Range: 12.2 - 16.4 g/dL 9.6 (L) 9.2 (L) 9.5 (L) HCT Latest Ref Range: 38.4 - 49.3 % 32.5 (L) 31.7 (L) 32.7 (L) MCV Latest Ref Range: 81.7 - 95.6 fL 100.3 (H) 99.4 (H) 101.6 (H) MCH Latest Ref Range: 26.1 - 32.7 pg 29.6 28.8 29.5 MCHC Latest Ref Range: 31.2 - 35.0 g/dL 29.5 (L) 29.0 (L) 29.1 (L) RDW-SD Latest Ref Range: 38.5 - 51.6 fL 54.5 (H) 56.0 (H) 55.9 (H) RDW-CV Latest Ref Range: 12.1 - 15.4 % 15.3 15.3 15.1 PLT x10^3 Latest Ref Range: 150 - 328 10*3/L 471 (H) 414 (H) 419 (H) MPV Latest Ref Range: 9.8 - 13.0 fL 10.1 9.6 (L) 9.5 (L) NRBC /100 WBC Latest Ref Range: 0.0 - 10.0 /100 WBCs 0.1 0.1 0.2 NRBC x10^3 Latest Units: 10*3/L 0.02 0.02 0.02 GRAN MAT (NEUT) % Latest Units: % 84.3 75.4 68.8 IMM GRAN % Latest Units: % 0.90 1.10 2.80 LYMPH% Latest Units: % 7.8 12.6 15.1 MONO % Latest Units: % 3.9 5.2 5.9 EOS % Latest Units: % 2.9 5.5 7.2 BASO % Latest Units: % 0.2 0.2 0.2 GRAN MAT x10^3(ANC) Latest Ref Range: 1.99 - 6.95 10*3/uL 19.69 (H) 12.53 (H) 8.35 (H) IMM GRAN x10^3 Latest Ref Range: 0.00 - 0.06 10*3/uL 0.20 (H) 0.19 (H) 0.34 (H) LYMPH x10^3 Latest Ref Range: 1.09 - 3.23 10*3/uL 1.81 2.09 1.83 MONO x10^3 Latest Ref Range: 0.36 - 1.02 10*3/uL 0.91 0.86 0.72 EOS x10^3 Latest Ref Range: 0.06 - 0.53 10*3/uL 0.68 (H) 0.92 (H) 0.87 (H) BASO x10^3 Latest Ref Range: 0.01 - 0.09 10*3/uL 0.04 0.03 <0.03 SIDEROTIC GRAN Latest Ref Range: Suggestive of (A) Results for FELECIA MILES ( ) as of 12/11/2018 07:17 Ref. Range 12/10/2018 04:53 12/11/2018 03:51 NA Latest Ref Range: 135 - 145 mmol/L 137 135 K Latest Ref Range: 3.5 - 5.0 mmol/L 4.0 3.6 CL Latest Ref Range: 98 - 108 mmol/L 101 100 CO2 TOTAL Latest Ref Range: 23 - 31 mmol/L 27 27 AGAP Latest Ref Range: 2 - 16 9 8 BUN Latest Ref Range: 7 - 23 mg/dL 58 (H) 25 (H) GLUCOSE Latest Ref Range: 70 - 110 mg/dL 133 (H) 158 (H) CREATININE Latest Ref Range: 0.60 - 1.25 mg/dL 4.62 (H) 2.34 (H) eGFR CALCULATION (non ) Latest Units: mL/min/1.73m2 12.7 27.9 eGFR CALCULATION () Latest Units: mL/min/1.73m2 15.4 33.8 CALCIUM Latest Ref Range: 8.6 - 10.6 mg/dL 8.7 9.0 POCT GLU Latest Ref Range: 70 - 110 mg/dL ASSESSMENT/PLAN Felecia Miles is a 68 year old male admitted to the hospital with: Sepsis secondary to MRSA bacteremia from infected catheter causing altered mentation Dementia Chronicmicrovascular ischemic changes of brain with diffuse cerebral volume loss History of prior stroke, 2014 LLL pneumonia versus atelectasis Unclear what patient's baseline mentation is given chronicity of vascular pathology in brain on recent MRI and dementia.Patient still with MRSA bacteremia and catheter tip culture with Staph aureus. TTEwithout signs of valvular vegetations.BENJAMIN findings demonstrated no valvular vegetations. WBC' strending down at 12.13 from 16. 62 from yesterday. Plan: - Perm catheter to be placed by IR on Friday - Nephrology in agreement with next HD session on Friday - ID & Nephrology Recommendations appreciated - Continue to monitor BUN, Cr - Monitor mental status baseline - Monitor 3rd BCx, 72 hours. NGTD (1st, 2nd set + for MRSA) - Follow up with nutritional counseling & c/w tube feeds. - Turn patient Q4H, to prevent stress ulcer ESRD on Hemodialysis M/W/F HFrEF (EF:35-40%, diastolic dysfunction on TTE 12/03/18) DM II HTN Reported Blindness secondary to glaucoma Patient with significant chronic complained comorbidities complicating clinical picture. Continue with scheduled dialysis and current medications. Plan: -Renally dose medications -C/w aspirin 81 mg enteral QD -C/w amlodipine 10 mg enteral QD -C/w metoprolol tartrate 25 mg enteral BID -SSI with tube feeds Disposition Anticipated Discharge Date : Barriers to Discharge: END OF DAILY PROGRESS NOTE HOSPITAL COURSE Felecia Miles is a 68 year old man with PMHxofmultiple strokes, dementia s/ p PEG tube,ESRD onHD MWF, DMII, HTN, and Hx of cocaine useadmitted to the MICU as a transfer [facility] due to inability to perform HD2/2 non functioning [facility]cath[facility]. On arrivalto MICUhewas found tohave tachycardia to 140s,2:1Aflutter, and hyperkalemia at 6.0.Pt received calcium gluconate and insulin with D10W bolus , and metoprolol, K decreased to 5.8 and patient reverted to normal sinus rhythm.Patient was afebrile, mildly hypertensive, and sating well on room air with no coughing or dyspnea. Report from [place] [facility] indicates blood cultures grew 4/4MRSA,sensitivity is pending. Repeat blood and urine cultures were obtained and patient was started on vancomycin and meropenem.Permcath was removed with tip cultured. R IJ jos was placed. Nephro was consulted, and HD was performed on 12/03. ECHO performed showed reduced EF 35-40%. Trops trended .045=>.047=>.036.CT head showedage indeterminate hypodensity in the guerrero concerning for acute/subacute infarct. MRIordered, which revealed chronic microvascular changes, multiple chronic ischemic infarcts, and and significant cerebral volume loss. Patient BMP improved after dialysis, breathing comfortably on minimal NC and onanitbioticsfor his MRSA bacteremia.Patient is stable for transfer to floor.Patient unable to receive HD due to jos malfunction. Repeat BCx NGTD.1st BCx showed + MRSA. Infectious Disease was consulted as a result, and a 3rd BCx set was ordered. 3rd BCx set was negative at 48 hours. Will continue to monitor blood cultures. A line was placed for his hemodialysis.Patient is tohave his Jos catheter removed today after his next hemodialysis session, as recommended by Infectious Disease. CURRENT MEDICATIONS - reviewed. Current Facility-Administered Medications Medication Dose Route Frequency Last Rate Last Dose ipratropium-albuterol (DUONEB) 0.5 mg-3 mg(2.5 mg base)/3 mL nebulizer solution 3 mL 3 mL Inhalation Q6HPRN mupirocin (BACTROBAN NASAL OINT) 2 % nasal ointment Nasal Q12H 1 g at 2114 amLODIPine (NORVASC) 1 mg/mL oral suspension 10 mg 10 mg Enteral DAILY 10 mg at 12/10/18918 Sliding Scale Insulin - Aspart (NOVOLOG) + Fsbg Testing Subcutaneous TID MEALS+HS 1 Units at12/10/182117 vitamin b complex-vitamin c-folic acid (NEPHRO-TOM) 0.8 mg tablet 1 tablet 1 tablet Oral DAILY 1 tablet at 12/10/18917 acetaminophen (TYLENOL) tablet 650 mg 650 mg Enteral Q6HPRN aspirin chewable tablet 81 mg 81 mg Enteral DAILY 81 mg at 12/10/18917 metoprolol tartrate (LOPRESSOR) 10 mg/mL oral suspension 25 mg 25 mg Enteral BID 25 mg at 12/10/182114 heparin injection 5,000 Units 5,000 Units Subcutaneous Q12H 5,000 Units at 12/10/182114 Associated attestation - Delaney Curtis MD - 12/11/2018 10:03 PM CDTDate of service: 12/11/2018 22:02 I discussed this patient in detail with Dr. Tse, including the patient?s history, exam findings, assessment and plan. I independently performed relevant portions of history and exam and jointly participated in the decision making process. Please see resident?s note for details. I agree with the resident's note as written with the following additions/ changes to the note: - closely monitor for symptoms of uremia; monitor electrolytes, as well as other signs of potential need for urgent dialysis. Discuss with nephrology on timing of next dialysis session. Will need new access prior to his next cycle of dialysis. C/w vancomycin therapy Delaney CURTIS M.D., 12/11/2018 22:02 [employer]et Hammer Machine Operator, [facility] Department of Internal Medicine Cece Andrews MD - 12/10/2018 11:53 AM CDT INFECTIOUS DISEASES PROGRESS NOTE Chief Complaint: MRSA bacteremia Subjective: - Afebrile overnight - WBC decrease to 16.6 -Vancomycin level 18.8 -central line not removed yesterday -did not receive vancomycin yesterday because he did not have dialysis Antimicrobials: - Vancomycin (12/03- ) Physical Examination: Vitals: 12/10/18 1003 12/10/18 1030 12/10/18 1100 12/10/18 1130 BP: (!) 143/79 132/77 138/80 (!) 145/86 Pulse: 81 88 87 87 Resp: Temp: TempSrc: SpO2: Weight: Height: General: alert and oriented x1, no apparent distress Eyes: EOMI, anicteric sclerae ENT: oropharynx clear; moist mucous membranes; RIJ Jos in place, no surrounding erythema or TTP Lungs: bibasilar crackles Cardio: S1, S2 normal; no murmurs GI: abdomen soft; non-tender; non-distended; normoactive bowel sounds; PEG tube in place Extremities: no clubbing, cyanosis, or edema Skin: warm and dry; no rash or ulcers; no TTP or erythema around PIV in LUE Neuro: 3/5 strength b/l UE; 4/5 strength b/l LE; no new focal deficits Hem/lymph: no LAD Laboratory: WBC (10*3/L) Date Value 12/10/2018 16.62 (H) HGB (g/dL) Date Value 12/10/2018 9.2 (L) PLT (10*3/L) Date Value 12/10/2018 414 (H) CREATININE (mg/dL) Date Value 12/10/2018 4.62 (H) GLUCOSE (mg/dL) Date Value 12/10/2018 133 (H) ALT(SGPT) (U/L) Date Value 12/02/2018 16 AST(SGOT) (U/L) Date Value 12/02/2018 23 ALK PHOS (U/L) Date Value 12/02/2018 211 (H) Microbiology: 12/02/18 Blood cultures: 2/2 +MRSA 12/03/18 Catheter tip culture: <15 colonies S. Aureus 12/04/18 Blood culture (x1): Gram positive cocci in clusters 12/05/18 Blood culture (x1): MRSA 12/07/18 Blood cultures: NG @ 72H Legionella, strep pneumo: negative Lines: Jos (12/07/18) Left arm PIV (12/03/18) Radiology: Xr Chest 1 Vw, 12/07/2018 1. Right IJ central line within the superior vena cava. 2. Improved mild pulmonary edema. 3. Small left pleural effusion with adjacent atelectasis and/ or consolidation. 4. Small right pleural effusion. TTE (12/03/18) - The study was technically difficult. - EF 35-40% - The aortic valve is thickened and calcified. No hemodynamically significant valvular aortic stenosis. - The pulmonic valve is normal. The tricuspid valve is normal. The mitral valve is normal. BENJAMIN (12/09) Left ventricular systolic function is moderately reduced. There is a small discrete nodular thickening of the left coronary cusp, not consistent with a vegetation. No valvular vegetations seen. Assessment: Mr. Miles is a 68yo M with: # Persistent MRSA bacteremia, unclear source # ESRD on HD MWF Pt found to be persistently bacteremic with MRSA, with positive blood cultures from 12/02 2/2, 12/04 05/12, 12/05 05/12. Blood cultures from 12/07 06/13 negative 72 hr.however patient still has central line for dialysis. BENJAMIN negative for vegetations. Vancomycin level is 18.8. Unfortunately dialysis was cancelled yesterday and did today. We will recommend to give him 750mg for next dose after dialysis and ordernew level for Friday morning. Also please remove central line and send tip for culture. If kidney function allows it, it would be ideal to wait until Friday to place another central catheter if bloodcultures remain negative over the weekend and he does not develop fever. Other: # Hx CVAs # Dementia s/p PEG tube # DM2 # HTN # HFrEF (EF 35-40% on 12/03/18) # Hx of cocaine use Management per primary team. Recommendations: - Please remove Jos catheter after today's dialysis and send tip for culture - give 750mg of vancomycin after dialysis today And follow vancomycin level on Friday am - MRSA nasal decolonization and chlorhexidine baths -If allowed by renal function wait until Friday to place new dialysis catheter Thank you for this consult. Patient seen and discussed with ID faculty Dr. Sky. Cece Paulson MD PGY 4 ID Associated attestation - Jaswinder Joseph MD - 12/11/2018 3:40 PM CDTI have seen and examined this patient on 12/10/2018. I agree with Dr. Howard s thorough assessment and plan of care. I was directly involved in the decision- making process. Please see the fellows note for further details.Prem Tse MD - 12/10/2018 6:31 AM CDT Anthony Team Progress Note Date of Service: 12/10/2018 06:31 Chief Complaint: AMS 24-HOUR EVENTS: BENJAMIN performed. Wasn't taken down for hemodialysis yesterday. Catheter still in place. No vancomycin given as a result. SUBJECTIVE: No fever/chills, shortness of breath, chest pain, abdominal pain. PHYSICAL EXAM: Vitals: 12/09/18 1547 12/09/18 1956 12/09/18 2341 12/10/18 0350 BP: (!) 140/77 124/57 138/72 123/67 Pulse: 83 82 83 79 Resp: 16 16 16 16 Temp: 36.4 C (97.6 F) 36.5 C (97.7 F) 36.9 C (98.4 F) 36.7 C (98 F) TempSrc: Oral Oral Oral Oral SpO2: 100% 100% 100% 100% Weight: Height: No intake or output data in the 24 hours ending 12/10/18 0631 General: alert and oriented x1(person); no apparent distress Lungs: Clear on auscultation bilaterally Cardio: S1, S2 normal; no murmurs, rubs or gallops, regular rate and rhythm Abdomen: soft; non-tender; non-distended; normoactive bowel sounds Extremities: no cyanosis, clubbing or edema LABS/IMAGING - reviewed, pertinent results as below: Results for FELECIA MILES ( ) as of 12/10/2018 06:27 Ref. Range 12/08/2018 04:49 12/09/2018 03:25 12/10/2018 04:53 WBC x10^3 Latest Ref Range: 4.20 - 10.70 10*3/L 11.11 (H) 23.33 (H) 16.62 (H) RBC x10^6 Latest Ref Range: 4.26 - 5.52 10*6/L 3.24 (L) 3.24 (L) 3.19 (L) HGB Latest Ref Range: 12.2 - 16.4 g/dL 9.5 (L) 9.6 (L) 9.2 (L) HCT Latest Ref Range: 38.4 - 49.3 % 32.2 (L) 32.5 (L) 31.7 (L) MCV Latest Ref Range: 81.7 - 95.6 fL 99.4 (H) 100.3 (H) 99.4 (H) MCH Latest Ref Range: 26.1 - 32.7 pg 29.3 29.6 28.8 MCHC Latest Ref Range: 31.2 - 35.0 g/dL 29.5 (L) 29.5 (L) 29.0 (L) RDW-SD Latest Ref Range: 38.5 - 51.6 fL 54.4 (H) 54.5 (H) 56.0 (H) RDW-CV Latest Ref Range: 12.1 - 15.4 % 15.1 15.3 15.3 PLT x10^3 Latest Ref Range: 150 - 328 10*3/L 454 (H) 471 (H) 414 (H) MPV Latest Ref Range: 9.8 - 13.0 fL 10.4 10.1 9.6 (L) NRBC /100 WBC Latest Ref Range: 0.0 - 10.0 /100 WBCs 0.3 0.1 0.1 NRBC x10^3 Latest Units: 10*3/L 0.03 0.02 0.02 GRAN MAT (NEUT) % Latest Units: % 70.2 84.3 75.4 IMM GRAN % Latest Units: % 1.90 0.90 1.10 LYMPH% Latest Units: % 15.7 7.8 12.6 MONO % Latest Units: % 6.2 3.9 5.2 EOS % Latest Units: % 5.7 2.9 5.5 BASO % Latest Units: % 0.3 0.2 0.2 GRAN MAT x10^3(ANC) Latest Ref Range: 1.99 - 6.95 10*3/uL 7.81 (H) 19.69 (H) 12.53 (H) IMM GRAN x10^3 Latest Ref Range: 0.00 - 0.06 10*3/uL 0.21 (H) 0.20 (H) 0.19 (H) LYMPH x10^3 Latest Ref Range: 1.09 - 3.23 10*3/uL 1.74 1.81 2.09 MONO x10^3 Latest Ref Range: 0.36 - 1.02 10*3/uL 0.69 0.91 0.86 EOS x10^3 Latest Ref Range: 0.06 - 0.53 10*3/uL 0.63 (H) 0.68 (H) 0.92 (H) BASO x10^3 Latest Ref Range: 0.01 - 0.09 10*3/uL 0.03 0.04 0.03 Results for FELECIA MILES ( ) as of 12/10/2018 06:27 Ref. Range 12/08/2018 04:49 12/09/2018 03:26 12/10/2018 04:53 NA Latest Ref Range: 135 - 145 mmol/L 137 138 137 K Latest Ref Range: 3.5 - 5.0 mmol/L 4.0 4.9 4.0 CL Latest Ref Range: 98 - 108 mmol/L 101 101 101 CO2 TOTAL Latest Ref Range: 23 - 31 mmol/L 28 28 27 AGAP Latest Ref Range: 2 - 16 8 9 9 BUN Latest Ref Range: 7 - 23 mg/dL 31 (H) 45 (H) 58 (H) GLUCOSE Latest Ref Range: 70 - 110 mg/dL 125 (H) 132 (H) 133 (H) CREATININE Latest Ref Range: 0.60 - 1.25 mg/dL 2.73 (H) 3.58 (H) 4.62 (H) eGFR CALCULATION (non ) Latest Units: mL/min/1.73m2 23.3 17.1 12.7 eGFR CALCULATION () Latest Units: mL/min/1.73m2 28.3 20.7 15.4 CALCIUM Latest Ref Range: 8.6 - 10.6 mg/dL 8.7 8.8 8.7 PHOSPHORUS Latest Ref Range: 2.5 - 5.0 mg/dL 4.7 MAGNESIUM Latest Ref Range: 1.7 - 2.4 mg/dL 2.3 POCT GLU Latest Ref Range: 70 - 110 mg/dL VANCO RANDOM Latest Units: ug/mL 18.8 BENJAMIN (12/09/2018) Left ventricular systolic function is moderately reduced. There is a small discrete nodular thickening of the left coronary cusp, not consistent with a vegetation. No valvular vegetations seen. 3rd Blood Culture: 48 Hr: NGTD ASSESSMENT/PLAN Felecia Miles is a 68 year old male admitted to the hospital with: Sepsis secondary to MRSA bacteremia from infected catheter causing altered mentation Dementia Chronicmicrovascular ischemic changes of brain with diffuse cerebral volume loss History of prior stroke, 2014 LLL pneumonia versus atelectasis Unclear what patient's baseline mentation is given chronicity of vascular pathology in brain on recent MRI and dementia.Patient still with MRSA bacteremia and catheter tip culture with Staph aureus. TTEwithout signs of valvular vegetations.BENJAMIN findings demonstrated no valvular vegetations. Plan: - Administer Vancomycin 750 mg after next hemodialysis session, then Jos removal - Order Vancomycin Trough level for tomorrow - Considering perma-catheter for placement on Friday with IR - Get in touch with Nephrology, for next possible HD session - Monitor 3rd BCx, 48 hours. NGTD (1st, 2nd set + for MRSA) - Follow up with nutritional counseling & c/w tube feeds. - Turn patient Q4H, to prevent stress ulcer ESRD on Hemodialysis M/W/F HFrEF (EF:35-40%, diastolic dysfunction on TTE 12/03/18) DM II HTN Reported Blindness secondary to glaucoma Patient with significant chronic complained comorbidities complicating clinical picture. Continue with scheduled dialysis and current medications. Plan: -Renally dose medications -C/w aspirin 81 mg enteral QD -C/w amlodipine 10 mg enteral QD -C/w metoprolol tartrate 25 mg enteral BID -SSI with tube feeds Disposition Anticipated Discharge Date : Barriers to Discharge: END OF DAILY PROGRESS NOTE HOSPITAL COURSE Felecia Miles is a 68 year old man with PMHxofmultiple strokes, dementia s/ p PEG tube,ESRD onHD MWF, DMII, HTN, and Hx of cocaine useadmitted to the MICU as a transfer from [facility] due to inability to perform HD2/2 non functioning permcath, [facility]. On arrivalto MICUhewas found tohave tachycardia to 140s,2:1Aflutter, and hyperkalemia at 6.0.Pt received calcium gluconate and insulin with D10W bolus , and metoprolol, K decreased to 5.8 and patient reverted to normal sinus rhythm.Patient was afebrile, mildly hypertensive, and sating well on room air with no coughing or dyspnea. Report from [place] [facility] indicates blood cultures grew 4/4MRSA,sensitivity is pending. Repeat blood and urine cultures were obtained and patient was started on vancomycin and meropenem.Permcath was removed with tip cultured. R IJ jos was placed. Nephro was consulted, and HD was performed on 12/03. ECHO performed showed reduced EF 35-40%. Trops trended .045=>.047=>.036.CT head showedage indeterminate hypodensity in the guerrero concerning for acute/subacute infarct. MRIordered, which revealed chronic microvascular changes, multiple chronic ischemic infarcts, and and significant cerebral volume loss. Patient BMP improved after dialysis, breathing comfortably on minimal NC and onanitbioticsfor his MRSA bacteremia.Patient is stable for transfer to floor.Patient unable to receive HD due to jos malfunction. Repeat BCx NGTD.1st BCx showed + MRSA. Infectious Disease was consulted as a result, and a 3rd BCx set was ordered. 3rd BCx set was negative at 48 hours. Will continue to monitor blood cultures. A line was placed for his hemodialysis.Patient is to have his Jos catheter removed today after his next hemodialysis session, as recommended by Infectious Disease. CURRENT MEDICATIONS - reviewed. Current Facility-Administered Medications Medication Dose Route Frequency Last Rate Last Dose ipratropium-albuterol (DUONEB) 0.5 mg-3 mg(2.5 mg base)/3 mL nebulizer solution 3 mL 3 mL Inhalation Q6HPRN mupirocin (BACTROBAN NASAL OINT) 2 % nasal ointment Nasal Q12H 1 g at 2142 amLODIPine (NORVASC) 1 mg/mL oral suspension 10 mg 10 mg Enteral DAILY 10 mg at 12/09/18 0810 Sliding Scale Insulin - Aspart (NOVOLOG) + Fsbg Testing Subcutaneous TID MEALS+HS Stopped at12/09/18 1643 vitamin b complex-vitamin c-folic acid (NEPHRO-TOM) 0.8 mg tablet 1 tablet 1 tablet Oral DAILY 1 tablet at 12/09/18 1243 acetaminophen (TYLENOL) tablet 650 mg 650 mg Enteral Q6HPRN aspirin chewable tablet 81 mg 81 mg Enteral DAILY 81 mg at 12/09/18 0810 metoprolol tartrate (LOPRESSOR) 10 mg/mL oral suspension 25 mg 25 mg Enteral BID 25 mg at 12/09/18 2141 heparin injection 5,000 Units 5,000 Units Subcutaneous Q12H 5,000 Units at 12/09/18 2142 Associated attestation - Delaney Curtis MD - 12/10/2018 10:21 PM CDTDate of service: 12/10/2018 22:18 I discussed this patient in detail with Dr. Tse, including the patient?s history, exam findings, assessment and plan. I independently performed relevant portions of history and exam and jointly participated in the decision making process. Please see resident?s note for details. I agree with the resident's note as written with the following additions/ changes to the note: - ESRD: continue dialysis with nephrology; discuss with nephrology to see if next session of dialysis could be postponed until next Friday to give patient more time off lines. Will remove jos afterdialysis session today. - MRSA bacteremia, cathether associated bacteremia: c/w vancomycin, dose after dialysis. f/u repeat culture from 12/07, NG@72hr ; BENJAMIN without vegitation; plan to remove jos after dialysis today. Appreciate ID input, f/u additional recommendations. - Dementia, likely vascular given history of stroke: continue to monitor at this time Delaney CURTIS M.D., 12/10/2018 22:18 [employer] Machine Operator, [facility] Department of Internal Medicine Cece Andrews MD - 12/09/2018 9:38 PM CDT INFECTIOUS DISEASES PROGRESS NOTE Chief Complaint: MRSA bacteremia Subjective: - Afebrile overnight - WBC increased to 23.3 -Vancomycin level 18.8 -still having central line in Antimicrobials: - Vancomycin (12/03- ) Physical Examination: Vitals: 12/09/18 1005 12/09/18 1109 12/09/18 1547 12/09/18 1956 BP: 124/72 (!) 152/81 (!) 140/77 124/57 Pulse: 94 88 83 82 Resp: 18 16 16 16 Temp: 36.3 C (97.3 F) 36.4 C (97.6 F) 36.5 C (97.7 F) TempSrc: Oral Oral Oral SpO2: 100% 100% 100% 100% Weight: Height: General: alert and oriented x1, no apparent distress Eyes: EOMI, anicteric sclerae ENT: oropharynx clear; moist mucous membranes; RIJ Jos in place, no surrounding erythema or TTP Lungs: bibasilar crackles Cardio: S1, S2 normal; no murmurs GI: abdomen soft; non-tender; non-distended; normoactive bowel sounds; PEG tube in place Extremities: no clubbing, cyanosis, or edema Skin: warm and dry; no rash or ulcers; no TTP or erythema around PIV in LUE Neuro: 3/5 strength b/l UE; 4/5 strength b/l LE; no new focal deficits Hem/lymph: no LAD Laboratory: WBC (10*3/L) Date Value 12/09/2018 23.33 (H) HGB (g/dL) Date Value 12/09/2018 9.6 (L) PLT (10*3/L) Date Value 12/09/2018 471 (H) CREATININE (mg/dL) Date Value 12/09/2018 3.58 (H) GLUCOSE (mg/dL) Date Value 12/09/2018 132 (H) ALT(SGPT) (U/L) Date Value 12/02/2018 16 AST(SGOT) (U/L) Date Value 12/02/2018 23 ALK PHOS (U/L) Date Value 12/02/2018 211 (H) Microbiology: 12/02/18 Blood cultures: 2/2 +MRSA 12/03/18 Catheter tip culture: <15 colonies S. Aureus 12/04/18 Blood culture (x1): Gram positive cocci in clusters 12/05/18 Blood culture (x1): MRSA 12/07/18 Blood cultures: NG @ 48H Legionella, strep pneumo: negative Lines: Jos (12/07/18) Left arm PIV (12/03/18) Radiology: Xr Chest 1 Vw, 12/07/2018 1. Right IJ central line within the superior vena cava. 2. Improved mild pulmonary edema. 3. Small left pleural effusion with adjacent atelectasis and/ or consolidation. 4. Small right pleural effusion. TTE (12/03/18): - The study was technically difficult. - EF 35-40% - The aortic valve is thickened and calcified. No hemodynamically significant valvular aortic stenosis. - The pulmonic valve is normal. The tricuspid valve is normal. The mitral valve is normal. Assessment: Mr. Miles is a 68yo M with: # Persistent MRSA bacteremia, unclear source # ESRD on HD MWF Pt found to be persistently bacteremic with MRSA, even after permcath line was removed on 12/03. Vancomycin level is 18.8. We will recommend to give him 750mg for next dose after dialysis and order new level Friday morning. Also please remove central line and send tip for culture, since WBC keeps increasing Other: # Hx CVAs # Dementia s/p PEG tube # DM2 # HTN # HFrEF (EF 35-40% on 12/03/18) # Hx of cocaine use Management per primary team. Recommendations: - Please remove Jos catheter after today's dialysis - give 750mg of vancomycin after dialysis today And follow vancomycin level on Friday am - MRSA nasal decolonization and chlorhexidine baths - BENJAMIN pending - Will follow BCx Thank you for this consult. Patient seen and discussed with ID faculty Dr. Sky. Cece Paulson MD PGY 4 ID Associated attestation - Jaswinder Joseph MD - 12/10/2018 6:23 PM CDTI have seen and examined this patient on 12/09/2018. I agree with Dr. Howard s thorough assessment and plan of care. I was directly involved in the decision- making process. Please see the fellows note for further details.Makenzie Preston OT - 12/09/2018 9:49 AM CDTOT NOTE Attempted again to eval patient but he is off unit at BENJAMIN per PCT. Makenzie Preston O.T.R. [phone] [facility]. TPrem Tse MD - 12/09/2018 7:08 AM CDT [facility] Team Progress Note Date of Service: 12/09/2018 07:08 Chief Complaint: AMS 24-HOUR EVENTS: NAEO SUBJECTIVE: Oriented x 1, baseline. Went in for a BENJAMIN. PHYSICAL EXAM: Vitals: 12/09/18 0009 12/09/18 0042 12/09/18 0052 12/09/18 0405 BP: (!) 151/87 (!) 154/83 Pulse: 91 90 90 93 Resp: 16 16 16 16 Temp: 37 C (98.6 F) 37.2 C (98.9 F) TempSrc: Axillary Oral SpO2: 100% 99% 99% 100% Weight: Height: No intake or output data in the 24 hours ending 12/09/18 0708 General: alert and oriented x1(person); no apparent distress Lungs: crackles Cardio: S1, S2 normal; no murmurs, rubs or gallops, regular rate and rhythm Abdomen: soft; non-tender; non-distended; normoactive bowel sounds Extremities: no cyanosis, clubbing or edema Peg Tube: Jos: LABS/IMAGING - reviewed, pertinent results as below: WBC: 12.79 ->13.28->11.11 -> 23.33 (12/09) HGB: 9.3 -> 9.4 -> 9.5 -> 9.6 (12/09) BUN: 55-> 67 -> 31 -> 45 (12/09) Cr: 3.71 -> 4.19-> 2.73 -> 3.58 (12/09) EGFR: 17.2 -> 28.3 ->20.7 (12/09) Immature Granulocytes: .24 -> .21 -> 20 3rd BCx (12/07): NGTD at 48 hours Ejection Fraction=35-40%. There is moderate global hypokinesis of the left ventricle. Insufficient Tricuspid regurgitation jet to estimate RVSP. Vancomycin Trough Level (prior to HD): 10. Given 1g of Vancomycin last night TTE: Ejection Fraction=35-40%. There is moderate global hypokinesis of the left ventricle. Insufficient Tricuspid regurgitation jet to estimate RVSP. ASSESSMENT/PLAN Felecia Miles is a 68 year old male admitted to the hospital with: Sepsis secondary to MRSA bacteremia from infected catheter causing altered mentation Dementia Chronicmicrovascular ischemic changes of brain with diffuse cerebral volume loss History of prior stroke, 2014 LLL pneumonia versus atelectasis Unclear what patient's baseline mentation is given chronicity of vascular pathology in brain on recent MRI and dementia.Patient still with MRSA bacteremia and catheter tip culture with Staph aureus. TTEwithout signs of valvular vegetations. Plan: - Administer Vancomycin 750 mg after hemodialysis session today - Remove Jos catheter after today's hemodialysis session - Pending BENJAMIN results, check - Considering perma-catheter for placement on Friday with IR, pending culture results - Get in touch with Nephrology, for next possible HD session on Friday - Further recommendations from Infectious Disease tomorrow - Vancomycin trough level at 18.8 - Monitor 3rd BCx, 48 hours. NGTD (1st, 2nd set + for MRSA) - Next Vancomycin dose today, 500 or 750 mg ??? - Follow up with nutritional counseling & c/w tube feeds. - Turn patient Q4H, to prevent stress ulcer ESRD on Hemodialysis M/W/F HFrEF (EF:35-40%, diastolic dysfunction on TTE 12/03/18) DM II HTN Reported Blindness secondary to glaucoma Patient with significant chronic complained comorbidities complicating clinical picture. Continue with scheduled dialysis and current medications. Plan: -Renally dose medications -C/w aspirin 81 mg enteral QD -C/w amlodipine 10 mg enteral QD -C/w metoprolol tartrate 25 mg enteral BID -SSI with tube feeds PAIN:Not an active problemTylenol Prophylaxis: DVT-heparin Stress Ulcer:no indication for prophylaxis Code Status:addressed:Presumed Full Code Disposition Anticipated Discharge Date:2+ days Barriers to Discharge:source control, IV antibiotics Prem Tse MD Internal Medicine, PGY-1 [facility] Team Pager # [phone] END OF DAILY PROGRESS NOTE HOSPITAL COURSE Felecia Miles is a 68 year old man with PMHxofmultiple strokes, dementia s/ p PEG tube,ESRD onHD MWF, DMII, HTN, and Hx of cocaine useadmitted to the MICU as a transfer from [facility] due to inability to perform HD2/2 non functioning permcath, [facility]. On arrivalto MICUhewas found tohave tachycardia to 140s,2:1Aflutter, and hyperkalemia at 6.0.Pt received calcium gluconate and insulin with D10W bolus , and metoprolol, K decreased to 5.8 and patient reverted to normal sinus rhythm.Patient was afebrile, mildly hypertensive, and sating well on room air with no coughing or dyspnea. Report from [place] [facility] indicates blood cultures grew 4/4MRSA,sensitivity is pending. Repeat blood and urine cultures were obtained and patient was started on vancomycin and meropenem.Permcath was removed with tip cultured. R IJ jos was placed. Nephro was consulted, and HD was performed on 12/03. ECHO performed showed reduced EF 35-40%. Trops trended .045=>.047=>.036.CT head showedage indeterminate hypodensity in the guerrero concerning for acute/subacute infarct. MRIordered, which revealed chronic microvascular changes, multiple chronic ischemic infarcts, and and significant cerebral volume loss. Patient BMP improved after dialysis, breathing comfortably on minimal NC and onanitbioticsfor his MRSA bacteremia.Patient is stable for transfer to floor.Patient unable to receive HD due to jos malfunction. Repeat BCx NGTD.1st BCx showed + MRSA. Infectious Disease was consulted as a result, and a 3rd BCx set was ordered. 3rd BCx set was negative at 48 hours. Will continue to monitor blood cultures. A line was placed for his hemodialysis.Patient is to have his Jos catheter removed today after his next hemodialysis session, as recommended by Infectious Disease. CURRENT MEDICATIONS - reviewed. Current Facility-Administered Medications Medication Dose Route Frequency Last Rate Last Dose mupirocin (BACTROBAN NASAL OINT) 2 % nasal ointment Nasal Q12H 1 g at 2133 amLODIPine (NORVASC) 1 mg/mL oral suspension 10 mg 10 mg Enteral DAILY 10 mg at 12/08/18 0824 Sliding Scale Insulin - Aspart (NOVOLOG) + Fsbg Testing Subcutaneous TID MEALS+HS 1 Units at12/08/18 213 vitamin b complex-vitamin c-folic acid (NEPHRO-TOM) 0.8 mg tablet 1 tablet 1 tablet Oral DAILY 1 tablet at 12/08/18 1357 acetaminophen (TYLENOL) tablet 650 mg 650 mg Enteral Q6HPRN aspirin chewable tablet 81 mg 81 mg Enteral DAILY 81 mg at 12/08/18 0824 ipratropium-albuterol (DUONEB) 0.5 mg-3 mg(2.5 mg base)/3 mL nebulizer solution 3 mL 3 mL Inhalation Q6H 3 mL at 12/09/18 0627 metoprolol tartrate (LOPRESSOR) 10 mg/mL oral suspension 25 mg 25 mg Enteral BID 25 mg at 12/08/18 2332 sodium chloride 7% (HYPER-LILI) nebulizer solution 4 mL 4 mL Inhalation BID 4 mL at 12/09/18 0628 heparin injection 5,000 Units 5,000 Units Subcutaneous Q12H 5,000 Units at 12/08/18 2133 Associated attestation - Delaney Curtis MD - 12/09/2018 9:50 PM CDTDate of service: 12/09/2018 21:48 I discussed this patient in detail with Dr. Tse, including the patient?s history, exam findings, assessment and plan. I independently performed relevant portions of history and exam and jointly participated in the decision making process. Please see resident?s note for details. I agree with the resident's note as written with the following additions/ changes to the note: - ESRD: continue dialysis, will remove jos after dialysis session today. Discuss with nephrologyto see if patient could be dialyzed on Friday to have more line-free time. Consider IR consult forpermcath placement if BCx return negative. - MRSA bacteremia, cathether associated bacteremia: c/w vancomycin, dose after dialysis. f/u repeat culture; BENJAMIN completed, f/u result; plan to remove jos after dialysis today. Appreciate ID input,f/u additional recommendations. - Dementia, likely vascular given history of stroke: patient is A&Ox1 to self this AM, at baseline; continue to monitor at this time Delaney CURTIS M.D., 12/09/2018 21:48 [employer] Machine Operator, [facility] Department of Internal Medicine Tish Dutton MD - 12/08/2018 12:40 PM CDT INFECTIOUS DISEASES PROGRESS NOTE Chief Complaint: MRSA bacteremia Subjective: - Afebrile overnight - Denies fever, chills, pain this morning Antimicrobials: - Vancomycin (12/03- ) Physical Examination: Vitals: 12/08/18 1025 12/08/18 1055 12/08/18 1202 12/08/18 1211 BP: (!) 140/75 Pulse: 98 93 Resp: 24 22 16 16 Temp: 36.4 C (97.6 F) TempSrc: Axillary SpO2: 99% 100% 99% 100% Weight: Height: General: alert and oriented x1, no apparent distress Eyes: EOMI, anicteric sclerae ENT: oropharynx clear; moist mucous membranes; RIJ Jos in place, no surrounding erythema or TTP Lungs: bibasilar crackles Cardio: S1, S2 normal; no murmurs GI: abdomen soft; non-tender; non-distended; normoactive bowel sounds; PEG tube in place Extremities: no clubbing, cyanosis, or edema Skin: warm and dry; no rash or ulcers; no TTP or erythema around PIV in LUE Neuro: 3/5 strength b/l UE; 4/5 strength b/l LE; no new focal deficits Hem/lymph: no LAD Laboratory: WBC (10*3/L) Date Value 12/08/2018 11.11 (H) HGB (g/dL) Date Value 12/08/2018 9.5 (L) PLT (10*3/L) Date Value 12/08/2018 454 (H) CREATININE (mg/dL) Date Value 12/08/2018 2.73 (H) GLUCOSE (mg/dL) Date Value 12/08/2018 125 (H) ALT(SGPT) (U/L) Date Value 12/02/2018 16 AST(SGOT) (U/L) Date Value 12/02/2018 23 ALK PHOS (U/L) Date Value 12/02/2018 211 (H) Microbiology: 12/02/18 Blood cultures: 2/2 +MRSA 12/03/18 Catheter tip culture: <15 colonies S. Aureus 12/04/18 Blood culture (x1): Gram positive cocci in clusters 12/05/18 Blood culture (x1): MRSA 12/07/18 Blood cultures: NG @ 24H Legionella, strep pneumo: negative Lines: Jos (12/07/18) Left arm PIV (12/03/18) Radiology: Xr Chest 1 Vw, 12/07/2018 1. Right IJ central line within the superior vena cava. 2. Improved mild pulmonary edema. 3. Small left pleural effusion with adjacent atelectasis and/ or consolidation. 4. Small right pleural effusion. TTE (12/03/18): - The study was technically difficult. - EF 35-40% - The aortic valve is thickened and calcified. No hemodynamically significant valvular aortic stenosis. - The pulmonic valve is normal. The tricuspid valve is normal. The mitral valve is normal. Assessment: Mr. Miles is a 68yo M with: # Persistent MRSA bacteremia, unclear source # ESRD on HD MWF Pt found to be persistently bacteremic with MRSA, even after permcath line was removed on 12/03. Willneed to continue vancomycin (to be dosed with HD) as we follow cultures for clearance. Please removeany unnecessary lines (if possible, remove jos after HD session) and obtain BENJAMIN to rule out endocarditis. Other: # Hx CVAs # Dementia s/p PEG tube # DM2 # HTN # HFrEF (EF 35-40% on 12/03/18) # Hx of cocaine use Management per primary team. Recommendations: - Please remove Jos catheter when not in use - Check vanc random prior to next HD session; administer next dose of vanc after HD - MRSA nasal decolonization and chlorhexidine baths - BENJAMIN - Will follow BCx Thank you for this consult. Patient seen and discussed with ID faculty Dr. Sky. Tish Dutton MD Internal Medicine, PGY-2 Pager: [phone] signed by Jaswinder Joseph MD at 2018 6:31 PM CDT Associated attestation - Jaswinder Joseph MD - 12/08/2018 6:31 PM CDTI have seen and examined this patient on 12/08/2018. I agree with Dr. Dutton s thorough assessment and plan of care. I was directly involved in the decision-making process. Please see the residents note for further details.Mkaenzie Preston OT - 12/08/2018 10:38 AM CDTOT NOTE Attempted to assess patient this morning but was off unit. Will return later as time permits. Hoang Morales [phone] pgr. TPrem Tse MD - 12/08/2018 6:40 AM CDT [facility] Team Progress Note Date of Service: 12/08/2018 06:41 Chief Complaint: AMS, hyperkalemia Mr. Miles is a 68 year old male admitted for AMS and sepsis 2/2 MRSA 24-HOUR EVENTS: NAEO SUBJECTIVE: A&O to person and place. Appears to be a slight improvement of mental status from yesterday. Denies fever/chills, cough, n/v. PHYSICAL EXAM: Vitals: 12/07/18 2344 12/07/18 2353 12/08/18 0031 12/08/18 0439 BP: 136/84 (!) 162/87 Pulse: 91 88 86 90 Resp: 18 18 18 18 Temp: 36.4 C (97.6 F) 36.9 C (98.5 F) TempSrc: Oral Oral SpO2: 99% 100% 100% 100% Weight: Height: Intake/Output Summary (Last 24 hours) at 12/08/2018 0641 Last data filed at 12/07/2018 1840 Gross per 24 hour Intake Output 2000 ml Net -2000 ml General: alert and oriented x1(person); no apparent distress Lungs: crackles Cardio: S1, S2 normal; no murmurs, rubs or gallops, regular rate and rhythm Abdomen: soft; non-tender; non-distended; normoactive bowel sounds Extremities: no cyanosis, clubbing or edema LABS/IMAGING - reviewed, pertinent results as below: WBC: 12.79 ->13.28->11.11 (12/08) HGB: 9.3 -> 9.4 -> 9.5 (12/08) BUN: 55-> 67 -> 31 (12/08) Cr: 3.71 -> 4.19-> 2.73 (12/08) 3rd BCx (12/07): NGTD Ejection Fraction=35-40%. There is moderate global hypokinesis of the left ventricle. Insufficient Tricuspid regurgitation jet to estimate RVSP. Vancomycin Trough Level (prior to HD): 10. Given 1g of Vancomycin last night TTE: Ejection Fraction=35-40%. There is moderate global hypokinesis of the left ventricle. Insufficient Tricuspid regurgitation jet to estimate RVSP. ASSESSMENT/PLAN Felecia Miles is a 68 year old male admitted to the hospital with: Sepsis secondary to MRSA bacteremia from infected catheter causing altered mentation Dementia Chronicmicrovascular ischemic changes of brain with diffuse cerebral volume loss History of prior stroke, 2014 LLL pneumonia versus atelectasis Atrial flutter, resolved Hyperkalemia, resolved Unclear what patient's baseline mentation is given chronicity of vascular pathology in brain on recent MRI and dementia.Patient still with MRSA bacteremia and catheter tip culture with Staph aureus. TTEwithout signs of valvular vegetations. Plan: - Scheduled BENJAMIN in OR tomorrow. Anesthesiology on board - Orderd nutritional counseling - Follow up with nutritional counseling & c/w tube feeds. - Turn patient Q4H, to prevent stress ulcer - C/w vancomycin 1,000 mg during HD session as needed, and checking levels pre- HD for dose adjustments - HD session tomorrow - Continue to monitor 3rd set of BCx. 1st, 2nd set + MRSA - Order for nutritional counseling. C/w tube feeds. - Appreciate ID recommendations -catheter tip culture positive for staph aureus - Per sister, patient is very quiet and not oriented to place or time at baseline. ESRD on Hemodialysis M/W/F HFrEF (EF:35-40%, diastolic dysfunction on TTE 12/03/18) DM II HTN Reported Blindness secondary to glaucoma Patient with significant chronic complained comorbidities complicating clinical picture. Continue with scheduled dialysis and current medications. Plan: -Renally dose medications -C/w aspirin 81 mg enteral QD -C/w amlodipine 10 mg enteral QD -C/w metoprolol tartrate 25 mg enteral BID -SSI with tube feeds PAIN:Not an active problemTylenol Prophylaxis: DVT-heparin Stress Ulcer:no indication for prophylaxis Code Status:addressed:Presumed Full Code Disposition Anticipated Discharge Date:2+ days Barriers to Discharge:source control, IV antibiotics Prem Tse MD Internal Medicine, PGY-1 [facility] Team Pager # [phone] END OF DAILY PROGRESS NOTE HOSPITAL COURSE Felecia Miles is a 68 year old man with PMHxofmultiple strokes, dementia s/ p PEG tube,ESRD onHD MWF, DMII, HTN, and Hx of cocaine useadmitted to the MICU as a transfer from [facility] due to inability to perform HD2/2 non functioning permcath[facility]. On arrivalto MICUhewas found tohave tachycardia to 140s,2:1Aflutter, and hyperkalemia at 6.0.Pt received calcium gluconate and insulin with D10W bolus , and metoprolol, K decreased to 5.8 and patient reverted to normal sinus rhythm.Patient was afebrile, mildly hypertensive, and sating well on room air with no coughing or dyspnea. Report from [facility] indicates blood cultures grew 4/4MRSA,sensitivity is pending. Repeat blood and urine cultures were obtained and patient was started on vancomycin and meropenem.Permcath was removed with tip cultured. R IJ jos was placed. Nephro was consulted, and HD was performed on 12/03. ECHO performed showed reduced EF 35-40%. Trops trended .045=>.047=>.036.CT head showedage indeterminate hypodensity in the guerrero concerning for acute/subacute infarct. MRIordered, which revealed chronic microvascular changes, multiple chronic ischemic infarcts, and and significant cerebral volume loss. Patient BMP improved after dialysis, breathing comfortably on minimal NC and onanitbioticsfor his MRSA bacteremia.Patient is stable for transfer to floor.Patient unable to receive HD due to jos malfunction. Repeat BCx NGTD.1st BCx showed + MRSA. Infectious Disease was consulted as a result, and a 3rd BCx set was ordered. A line was placed for his hemodialysis. CURRENT MEDICATIONS - reviewed. Current Facility-Administered Medications Medication Dose Route Frequency Last Rate Last Dose amLODIPine (NORVASC) 1 mg/mL oral suspension 10 mg 10 mg Enteral DAILY 10 mg at 12/07/18 0900 Sliding Scale Insulin - Aspart (NOVOLOG) + Fsbg Testing Subcutaneous TID MEALS+HS Stopped at12/07/18 1240 vitamin b complex-vitamin c-folic acid (NEPHRO-TOM) 0.8 mg tablet 1 tablet 1 tablet Oral DAILY 1 tablet at 12/07/18 0912 acetaminophen (TYLENOL) tablet 650 mg 650 mg Enteral Q6HPRN aspirin chewable tablet 81 mg 81 mg Enteral DAILY 81 mg at 12/07/18 0900 ipratropium-albuterol (DUONEB) 0.5 mg-3 mg(2.5 mg base)/3 mL nebulizer solution 3 mL 3 mL Inhalation Q6H 3 mL at 12/07/18 2343 metoprolol tartrate (LOPRESSOR) 10 mg/mL oral suspension 25 mg 25 mg Enteral BID 25 mg at 12/07/182129 sodium chloride 7% (HYPER-LILI) nebulizer solution 4 mL 4 mL Inhalation BID 4 mL at 12/07/182016 heparin injection 5,000 Units 5,000 Units Subcutaneous Q12H 5,000 Units at 12/07/182129 Associated attestation - Delaney Curtis MD - 12/08/2018 12:58 PM CDTDate of service: 12/08/2018 12:56 I discussed this patient in detail with Dr. Tse, including the patient?s history, exam findings, assessment and plan. I independently performed relevant portions of history and exam and jointly participated in the decision making process. Please see resident?s note for details. I agree with the resident's note as written with the following additions/ changes to the note: - ESRD: continue scheduled MWF dialysis - MRSA bacteremia, cathether associated bacteremia: c/w vancomycin, dose after dialysis. Culture persistently positive, f/u repeat culture; f/u BENJAMIN with anesthesia support planned for tomorrow. Appreciate ID input, f/u additional recommendations. - Dementia, likely vascular given history of stroke: patient is A&Ox1 to self this AM, at baseline; continue to monitor at this time Delaney CURTIS M.D., 12/08/2018 12:56 [employer] Machine Operator, [facility] Department of Internal Medicine Prem Tse MD - 12/07/2018 1:16 PM CDT Date of Service: 12/06/2018 06:40 Chief Complaint: AMS, hyperkalemia 24-HOUR EVENTS: - 1st set Bcx (12/02) + MRSA - 3rd set of Bcx ordered in morning (12/07) - ID Consulted - Hemodialysis was afternoon SUBJECTIVE: Patient oriented only to name. Patient unable to follow instructions (e.g., taking deep breaths whenlistening to lungs) PHYSICAL EXAM: Vitals Vitals: 12/05/18 2345 12/05/18 2355 12/06/18 0012 12/06/18 0422 BP: (!) 169/84 (!) 166/82 Pulse: 92 97 Resp: 18 18 18 18 Temp: 36.7 C (98.1 F) TempSrc: Oral SpO2: 99% 100% 100% 100% Weight: Height: Intake/Output Summary (Last 24 hours) at 12/06/2018 0640 Last data filed at 12/05/2018 1603 Gross per 24 hour Intake Output 500 ml Net -500 ml General: alert and oriented x 1 (person); no apparent distress Lungs: crackles Cardio: S1, S2 normal; no murmurs, rubs or gallops, regular rate and rhythm Abdomen: soft; non-tender; non-distended; normoactive bowel sounds Extremities: no cyanosis, clubbing or edema LABS/IMAGING - reviewed, pertinent results as below: Reviewed WBC 17.88 -> 15.34 -> 12.79 Cr 2.69 -> 3.45 -> 3.71 ASSESSMENT/PLAN Felecia Miles is a 68 year old male with PMH as listed above, admitted to the hospital with: Sepsis secondary to MRSA bacteremia from infected catheter causing altered mentation Dementia Chronicmicrovascular ischemic changes of brain with diffuse cerebral volume loss History of prior stroke, 2014 LLL pneumonia versus atelectasis Atrial flutter, resolved Hyperkalemia, resolved Unclear what patient's baseline mentation is given chronicity of vascular pathology in brain on recent MRI and dementia.Patient still with MRSA bacteremia and catheter tip culture with Staph aureus. TTEwithout signs of valvular vegetations. Plan: - Infectious Disease consulted -Repeat blood cultures x3. 1st set + MRSA -catheter tip culture positive for staph aureus -C/w vancomycin1,000 mg during HD sessions, check vancomycin level pre-HD for appropriate dose adjustment - plan for repeat TTE once patient is more stable due to difficulty with initial study - if EF remains low, will consider consulting cardiology -C/w tube feeds - Per sister, patient is very quiet and not oriented to place or time at baseline. ESRD on Hemodialysis M/W/F HFrEF (EF:35-40%, diastolic dysfunction on TTE 12/03/18) DM II HTN Reported Blindness secondary to glaucoma Patient with significant chronic complained comorbidities complicating clinical picture. Continue with scheduled dialysis and current medications. Plan: -Renally dose medications -C/w aspirin 81 mg enteral QD -C/w amlodipine 10 mg enteral QD -C/w metoprolol tartrate 25 mg enteral BID -SSI with tube feeds PAIN:Not an active problemTylenol Prophylaxis: DVT-heparin Stress Ulcer:no indication for prophylaxis Code Status:addressed:Presumed Full Code Disposition Anticipated Discharge Date:2+ days Barriers to Discharge:source control, IV antibiotics Prem Tse MD Internal Medicine, PGY-1 [facility] Team Pager # [phone] END OF DAILY PROGRESS NOTE Hospital Course Felecia Miles is a 68 year old man with PMHxofmultiple strokes, dementia s/ p PEG tube,ESRD onHD MWF, DMII, HTN, and Hx of cocaine useadmitted to the MICU as a transfer from [facility] due to inability to perform HD2/2 non functioning permcath[facility]. On arrivalto MICUhewas found tohave tachycardia to 140s,2:1Aflutter, and hyperkalemia at 6.0.Pt received calcium gluconate and insulin with D10W bolus , and metoprolol, K decreased to 5.8 and patient reverted to normal sinus rhythm.Patient was afebrile, mildly hypertensive, and sating well on room air with no coughing or dyspnea. Report from [place] [facility] indicates blood cultures grew 4/4MRSA,sensitivity is pending. Repeat blood and urine cultures were obtained and patient was started on vancomycin and meropenem.Permcath was removed with tip cultured. R IJ jos was placed. Nephro was consulted, and HD was performed on 12/03. ECHO performed showed reduced EF 35-40%. Trops trended .045=>.047=>.036.CT head showedage indeterminate hypodensity in the guerrero concerning for acute/subacute infarct. MRIordered, which revealed chronic microvascular changes, multiple chronic ischemic infarcts, and and significant cerebral volume loss. Patient BMP improved after dialysis, breathing comfortably on minimal NC and onanitbioticsfor his MRSA bacteremia.Patient is stable for transfer to floor. Patientunable to receive HD due to jos malfunction. Repeat BCx NGTD. 1st BCx showed + MRSA. Infectious Disease was consulted as a result, and a 3rd BCx set was ordered. A line was placed for his hemodialysis. Associated attestation - Delaney Curtis MD - 12/07/2018 4:15 PM CDTDate of service: 12/07/2018 16:09 I discussed this patient in detail with Dr. Tse, including the patient?s history, exam findings, assessment and plan. I independently performed relevant portions of history and exam and jointly participated in the decision making process. Please see resident?s note for details. I agree with the resident's note as written with the following additions/ changes to the note: - ESRD, Jos line / access malfunction: replace existing jos with new line for dialysis. Contact nephrology to restart dialysis once line is confirmed. - MRSA bacteremia, cathether associated bacteremia: c/w vancomycin, dose after dialysis. Culture persistently positive, obtain repeat culture; will need BENJAMIN to rule out endocarditis once stable back onscheduled dialysis. Consult ID for further evaluation given constant need for line in ESRD patient. - Dementia, likely vascular given history of stroke: patient is A&Ox1 to self per patient's relative; continue to monitor at this time Delaney CURTIS M.D., 12/07/2018 16:09 [employer] Machine Operator, [facility] Department of Internal Medicine Noe Bridges MD - 12/06/2018 6:39 AM CDT [facility] Medicine Team Progress Note Date of Service: 12/06/2018 06:40 Chief Complaint: AMS, hyperkalemia 24-HOUR EVENTS: Jos malfunction, HD aborted due to poor access SUBJECTIVE: Patient doing okay this AM. Patient has no new complaints. Denies n/v, fever, or chills. PHYSICAL EXAM: Vitals: 12/05/18 2345 12/05/18 2355 12/06/18 0012 12/06/18 0422 BP: (!) 169/84 (!) 166/82 Pulse: 92 97 Resp: 18 18 18 18 Temp: 36.7 C (98.1 F) TempSrc: Oral SpO2: 99% 100% 100% 100% Weight: Height: Intake/Output Summary (Last 24 hours) at 12/06/2018 0640 Last data filed at 12/05/2018 1603 Gross per 24 hour Intake Output 500 ml Net -500 ml General: alert and oriented x 1 (person); no apparent distress Lungs: crackles Cardio: S1, S2 normal; no murmurs, rubs or gallops, regular rate and rhythm Abdomen: soft; non-tender; non-distended; normoactive bowel sounds Extremities: no cyanosis, clubbing or edema LABS/IMAGING - reviewed, pertinent results as below: Reviewed WBC 17.88 -> 15.34 -> 12.79 Cr 2.69 -> 3.45 -> 3.71 ASSESSMENT/PLAN Felecia Miles is a 68 year old male with PMH as listed above, admitted to the hospital with: Sepsis secondary to MRSA bacteremia from infected catheter causing altered mentation Dementia Chronic microvascular ischemic changes of brain with diffuse cerebral volume loss History of prior stroke, 2014 LLL pneumonia versus atelectasis Atrial flutter, resolved Hyperkalemia, resolved Unclear what patient's baseline mentation is given chronicity of vascular pathology in brain on recent MRI and dementia. Patient still with MRSA bacteremia and catheter tip culture with Staph aureus. TTE without signs of valvular vegetations. Plan: -Repeat blood cultures x2, NGTD -catheter tip culture positive for staph aureus -C/w vancomycin 1,000 mg during HD sessions, check vancomycin level pre-HD for appropriate dose adjustment - Will consider Infectious Disease consult if repeat Bcx positive - plan for repeat TTE once patient is more stable due to difficulty with initial study - if EF remains low, will consider consulting cardiology -C/w tube feeds - Per sister, patient is very quiet and not oriented to place or time at baseline. ESRD on Hemodialysis M/W/F HFrEF (EF: 35-40%, diastolic dysfunction on TTE 12/03/18) DM II HTN Reported Blindness secondary to glaucoma Patient with significant chronic complained comorbidities complicating clinical picture. Continue with scheduled dialysis and current medications. Plan: -Nephrology following for HD management - jos malfunction - will attempt line exchange, if unable will consult IR for central line placement -Renally dose medications -C/w aspirin 81 mg enteral QD -C/w amlodipine 10 mg enteral QD -C/w metoprolol tartrate 25 mg enteral BID -SSI with tube feeds PAIN: Not an active problem Tylenol Prophylaxis: DVT- heparin Stress Ulcer: no indication for prophylaxis Code Status: addressed: Presumed Full Code Disposition Anticipated Discharge Date: 2+ days Barriers to Discharge: source control, IV antibiotics Noe Bridges MD Internal Medicine, PGY-1 [facility] Team Pager#[phone] END OF DAILY PROGRESS NOTE Hospital Course Felecia Miles is a 68 year old man with PMHxofmultiple strokes, dementia s/ p PEG tube,ESRD onHD MWF, DMII, HTN, and Hx of cocaine useadmitted to the MICU as a transfer from [facility] due to inability to perform HD2/2 non functioning permcath[facility]. On arrivalto MICU he was found tohave tachycardia to 140s,2:1Aflutter, and hyperkalemia at 6.0.Pt received calciumgluconate and insulin with D10W bolus, and metoprolol, K decreased to 5.8 and patient reverted to normal sinus rhythm.Patient was afebrile, mildly hypertensive, and sating well on room airwith no coughing or dyspnea. Report from [place] [facility] indicates blood cultures grew 4/4MRSA, sensitivity is pending. Repeat blood and urine cultures were obtained and patient was started on vancomycin and meropenem.Permcath was removed with tip cultured. R IJ jos was placed. Nephro was consulted, and HD was performed on 12/03. ECHO performed showed reduced EF 35-40%. Trops trended .045=>.047=& gt;.036. CT head showedage indeterminate hypodensity in the guerrero concerning for acute/subacute infarct. MRIordered, which revealed chronic microvascular changes, multiple chronic ischemic infarcts, and and significant cerebral volume loss. Patient BMP improved after dialysis, breathing comfortably on minimal NC and on anitbiotics for his MRSA bacteremia. Patient is stable for transfer to floor. Patient unable to receive HD due to jos malfunction. Repeat BCx NGTD. CURRENT MEDICATIONS - reviewed. Associated attestation - Delaney Curtis MD - 12/06/2018 10:30 PM CDTDate of service: 12/06/2018 22:11 I discussed this patient in detail with Dr. Bridges, including the patient?s history, exam findings, assessment and plan. I independently performed relevant portions of history and exam and jointly participated in the decision making process. Please see resident?s note for details. I agree with the resident's note as written with the following additions/ changes to the note: - Jos malfunction: attempt line exchange; contact nephrology to restart dialysis as soon as lineis confirmed. Patient slightly more lethargic today but still answers his name appropriately. - c/with Vancomycin, f/u blood culture results Delaney CURTIS M.D., 12/06/2018 22:11 [employer]et Hammer Machine Operator, [facility] Department of Internal Medicine Shivam JocelynnELDA - 12/05/2018 5:39 PM CDT12/05/2018 1604 OCCUPATIONAL THERAPY NOTE: Consult received, chart reviewed, and OT evaluation attempted, however Pt is out of his room for HD.Will attempt again next date as time permits. A ELDA LangleyR Herbie Calderón, [facility] - 12/05/2018 5:16 PM CDT A 68 year old male being seen and examined for follow up by nephrology because of ESRD, Line infection with MRSA Patient is doing same No nausea, Vomiting, No asterixis, good UOP, No SOB PHYSICAL EXAM BP: (146-184)/(74-116) Temp: [34.7 C (94.4 F)-36.5 C (97.7 F)] Temp source: Oral (12/05 165) Pulse: [77-93] Resp: [18-22] SpO2: [92 %-100 %] Height: -- Weight: [67.1 kg (147 lb 14.4 oz)-67.1 kg (147 lb 14.9 oz)] BMI (calculated): [20.06] Wt Readings from Last 3 Encounters: 12/05/18 67.1 kg (147 lb 14.9 oz) 05/17/17 59.8 kg (131 lb 13.4 oz) General: no acute distress Cardiovascular: Heart regular, rate, rhythm, no murmurs; no edema Respiratory: clear to auscultation, no respiratory distress GI: abd soft, non-tender, non-distended, +BS, no HSM Dialysis Access : Jos Intake/Output Summary (Last 24 hours) at 12/05/2018 9839 Last data filed at 12/05/2018 1603 Gross per 24 hour Intake Output 500 ml Net -500 ml Assessment: - Jos temporary dialysis catheter malfunction - Line sepsis of previously removed permacath - ESRD on // HD schedule - AOCD - PNA with spsis Plan: - Jos malfunction : HD aborted due to poor access: Need to re-assess Vs exchange to resume HD tomorrow or Friday - Line sepsis with MRSA, s/p removal, on ABX, 2D echo No Vegetation, might need BENJAMIN. - ESRD MWF, missed today due to above. - Daily BMPs. - Strict I&Os. - Avoid nephrotoxic medications. Please contact me or nephrology dept. for any question or concern. Herbie Stoner MD Nephrology and Hypertension Fellow Pager: [phone] 5 :29 PM CDTBNoe shaffer MD - 12/05/2018 6:44 AM CDT [facility] Medicine Team Progress Note Date of Service: 12/05/2018 06:44 Chief Complaint: AMS, hyperkalemia 24-HOUR EVENTS: - transferred from MICU to [facility] SUBJECTIVE: Patient doing okay this AM. Patient has no new complaints. Denies n/v, fever, or chills. PHYSICAL EXAM: Vitals: 12/04/18 2342 12/04/18 2352 12/05/18 0030 12/05/18 0451 BP: (!) 146/74 (!) 164/90 Pulse: 78 77 Resp: 20 20 20 20 Temp: 36.3 C (97.4 F) 35.7 C (96.3 F) TempSrc: Oral Axillary SpO2: 95% 96% 100% 100% Weight: Height: No intake or output data in the 24 hours ending 12/05/18 0644 General: alert and oriented x 2 (person and place); no apparent distress Lungs: clear to auscultation bilaterally Cardio: S1, S2 normal; no murmurs, rubs or gallops, regular rate and rhythm Abdomen: soft; non-tender; non-distended; normoactive bowel sounds Extremities: no cyanosis, clubbing or edema LABS/IMAGING - reviewed, pertinent results as below: WBC 17.88 -> 15.34 Cr 2.69 -> 3.45 ASSESSMENT/PLAN Felecia Miles is a 68 year old male with PMH as listed above, admitted to the hospital with: Sepsis secondary to MRSA bacteremia from infected catheter causing altered mentation Dementia Chronic microvascular ischemic changes of brain with diffuse cerebral volume loss History of prior stroke, 2014 LLL pneumonia versus atelectasis Atrial flutter, resolved Hyperkalemia, resolved Unclear what patient's baseline mentation is given chronicity of vascular pathology in brain on recent MRI and dementia. Patient still with MRSA bacteremia and catheter tip culture with Staph aureus. TTE without signs of valvular vegetations, may need BENJAMIN going forward. Follow-up cultures and consult ID. Plan: -Repeat blood cultures x2, results pending -catheter tip culture positive for staph aureus -C/w vancomycin 1,000 mg during HD sessions, check vancomycin level pre-HD for appropriate dose adjustment - Will consider Infectious Disease if repeat Bcx positive - will consider Neurology consult with MRI findings -C/w tube feeds ESRD on Hemodialysis M/W/F HFrEF (EF: 35-40%, diastolic dysfunction on TTE 12/03/18) DM II HTN Reported Blindness secondary to glaucoma Patient with significant chronic complained comorbidities complicating clinical picture. Continue with scheduled dialysis and current medications. Plan: -Nephrology following for HD management - HD attempted today, but unable to draw back from line well. Stopped after 40 minutes - will assess for another line - order Vancomycin random prior to HD on Friday to calculate dose -BMP, Mg QD -Renally dose medications -C/w aspirin 81 mg enteral QD -C/w amlodipine 10 mg enteral QD -C/w metoprolol tartrate 25 mg enteral BID -SSI with tube feeds PAIN: Not an active problem Tylenol Prophylaxis: DVT- heparin Stress Ulcer: no indication for prophylaxis Code Status: addressed: Presumed Full Code Disposition Anticipated Discharge Date: 2+ days Barriers to Discharge: source control, IV antibiotics Noe Bridges MD Internal Medicine, PGY-1 [facility] Team Pager#[phone] END OF DAILY PROGRESS NOTE Hospital Course Felecia Miles is a 68 year old man with PMHxofmultiple strokes, dementia s/ p PEG tube,ESRD onHD MWF, DMII, HTN, and Hx of cocaine useadmitted to the MICU as a transfer from [facility] due to inability to perform HD2/2 non functioning permcath[facility]. On arrivalto MICU he was found tohave tachycardia to 140s,2:1Aflutter, and hyperkalemia at 6.0.Pt received calciumgluconate and insulin with D10W bolus, and metoprolol, K decreased to 5.8 and patient reverted to normal sinus rhythm.Patient was afebrile, mildly hypertensive, and sating well on room airwith no coughing or dyspnea. Report from [place] [facility] indicates blood cultures grew 4/4MRSA, sensitivity is pending. Repeat blood and urine cultures were obtained and patient was started on vancomycin and meropenem.Permcath was removed with tip cultured. R IJ jos was placed. Nephro was consulted, and HD was performed on 12/03. ECHO performed showed reduced EF 35-40%. Trops trended .045=>.047=& gt;.036. CT head showedage indeterminate hypodensity in the guerrero concerning for acute/subacute infarct. MRIordered, which revealed chronic microvascular changes, multiple chronic ischemic infarcts, and and significant cerebral volume loss. Patient BMP improved after dialysis, breathing comfortably on minimal NC and on anitbiotics for his MRSA bacteremia. Patient is stable for transfer to floor. CURRENT MEDICATIONS - reviewed. Associated attestation - Delaney Curtis MD - 12/05/2018 11:06 PM CDTDate of service: 12/05/2018 22:58 I discussed this patient in detail with Dr. Bridges, including the patient?s history, exam findings, assessment and plan. I independently performed relevant portions of history and exam and jointly participated in the decision making process. Please see resident?s note for details. I agree with the resident's note as written with the following additions/ changes to the note: - MRSA bacteremia: f/u repeat BCx, if persistently positive, will pursue BENJAMIN - ESRD: f/with dialysis. Hold off on replacing permcath until BCx clears. - HFrEF: patient had significant tachycardia with ectopic beats during procedure , since improved. Plan for repeat TTE, and if persistent reduced EF, consult cardiology for further work up. Delaney CURTIS M.D., 12/05/2018 22:58 Rivet Hammer Machine Operator, [facility] Department of Internal Medicine Shawn Kraft MD - 12/04/2018 7:33 PM CDT [facility] Progress / Acceptance Note Date of Service: 12/04/2018 19:33 Chief Complaint: Altered mental status, hyperkalemia HOSPITAL COURSE: Felecia Miles is a 68 year old man with PMHxofmultiple strokes, dementia s/ p PEG tube,ESRD onHD MWF, DMII, HTN, and Hx of cocaine useadmitted to the MICU as a transfer from [facility] due to inability to perform HD2/2 non functioning permcath[facility]. On arrivalto MICU he was found tohave tachycardia to 140s,2:1Aflutter, and hyperkalemia at 6.0.Pt received calciumgluconate and insulin with D10W bolus, and metoprolol, K decreased to 5.8 and patient reverted to normal sinus rhythm.Patient was afebrile, mildly hypertensive, and sating well on room airwith no coughing or dyspnea. Report from [facility] indicates blood cultures grew 4/4MRSA, sensitivity is pending. Repeat blood and urine cultures were obtained and patient was started on vancomycin and meropenem.Permcath was removed with tip cultured. R IJ jos was placed. Nephro was consulted, and HD was performed on 12/03. ECHO performed showed reduced EF 35-40%. Trops trended .045=>.047=& gt;.036. CT head showedage indeterminate hypodensity in the guerrero concerning for acute/subacute infarct. MRIordered, which revealed chronic microvascular changes, multiple chronic ischemic infarcts, and and significant cerebral volume loss. Patient BMP improved after dialysis, breathing comfortably on minimal NC and on anitbiotics for his MRSA bacteremia. Patient ws stable for transfer to floor. 24-HOUR EVENTS: -Transferred from MICU to [facility] -MRI with severe chronic microvascular ischemic changes -Continued on vancomycin for MRSA bacteremia -Repeat blood cultures x2 today -TTE without vegetations SUBJECTIVE: Patient reports that he is ready to go home. He denies any pain or concerns at this time. PHYSICAL EXAM: Vitals: 12/04/18 1524 12/04/18 1600 12/04/18 1800 12/04/18 1846 BP: (!) 150/89 (!) 157/95 (!) 164/76 Pulse: 89 88 91 87 Resp: Temp: 36.8 C (98.2 F) 36.4 C (97.6 F) TempSrc: Tympanic Tympanic SpO2: 100% 100% 99% 92% Weight: 67.1 kg (147 lb 14.4 oz) Height: Intake/Output Summary (Last 24 hours) at 12/04/2018 1933 Last data filed at 12/03/2018 2359 Gross per 24 hour Intake 100 ml Output 2000 ml Net -1900 ml General: alert and oriented x 2 (person, place), no apparent distress Head: no swelling and no obvious injury, normocephalic Neck: supple and trachea midline; RIJ Jos catheter in place that is clean and dry Eyes: left eye opaque, right eye with reactive pupil to light ENT: normal external inspection and pharynx normal Cardiovascular: regular rate and rhythm, S1/S2 noted, no m/g/r Respiratory: no respiratory distress, bibasilar crackles most prominent in left lower lung field Abdomen: normoactive bowel sounds, soft, nontender, PEG tube in place Skin: intact, warm, dry Extremities: normal muscle tone, no pitting edema bilaterally, dry skin in lower extremities, weak distal pulses in DP and PT Neuro/Psych: sensation grossly normal, moving all four extremities LABS/IMAGING - reviewed, pertinent results as below: 12/04/2018 06:10 WBC x10^3 17.88 (H) RBC x10^6 2.72 (L) HGB 8.1 (L) HCT 27.0 (L) MCV 99.3 (H) PLT x10^3 356 (H) 12/04/2018 06:10 NA 134 (L) K 4.3 CL 96 (L) CO2 TOTAL 29 AGAP 9 BUN 41 (H) GLUCOSE 184 (H) CREATININE 2.69 (H) eGFR 28.7 CALCIUM 8.8 Mr Brain W Wo Contrast Result Date: 12/04/2018 Impression: 1. 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 2. Multifocal microhemorrhages and superficial siderosis as described above related to multiple remote hemorrhagic infarctions. 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 Amyloid angiopathy is a consideration. 3. Cerebral volume loss is greater than expected for the patient's age. Consider chronic brain degeneration. Amyloid angiopathy is a possible explanation, given the imaging findings and the patient's history of dementia. ASSESSMENT/PLAN Felecia Miles is a 68 year old male admitted to the hospital with: Sepsis secondary to MRSA bacteremia from infected catheter causing altered mentation Dementia Chronic microvascular ischemic changes of brain with diffuse cerebral volume loss History of prior stroke, 2013 LLL pneumonia versus atelectasis Atrial flutter, resolved Hyperkalemia, resolved Unclear what patient's baseline mentation is given chronicity of vascular pathology in brain on recent MRI and dementia. Patient still with MRSA bacteremia and catheter tip culture with Staph aureus. TTE without signs of valvular vegetations, may need BENJAMIN going forward. Follow-up cultures and consult ID. Plan: -Accept To Remmers -Vital signs Q4H, O2 per protocol -Repeat blood cultures x2 -F/u catheter tip culture -CBC, BMP, Mg in AM -C/w vancomycin 1,000 mg during HD sessions, check vancomycin level pre-HD for appropriate dose adjustment -Consult Infectious Disease in AM -Consider Neurology consult with MRI findings -Nutrition consult to optimize tube feeding nutrition -C/w tube feeds ESRD on Hemodialysis M/W/F HFrEF (EF: 35-40%, diastolic dysfunction on TTE 12/03/18) DM II HTN Reported Blindness secondary to glaucoma Patient with significant chronic complained comorbidities complicating clinical picture. Continue with scheduled dialysis and current medications. Plan: -Nephrology following for HD management -BMP, Mg QD -Renally dose medications -C/w aspirin 81 mg enteral QD -C/w amlodipine 10 mg enteral QD -C/w metoprolol tartrate 25 mg enteral BID -SSI with tube feeds PAIN: Not an active problem Tylenol Prophylaxis: DVT- heparin Stress Ulcer: no indication for prophylaxis Code Status: addressed: Presumed Full Code Disposition Anticipated Discharge Date: 2+ days Barriers to Discharge: source control, IV antibiotics Shawn Kraft MD Internal Medicine, PGY-3 [facility] Team Doctor # [id number] Pager # [phone] END OF DAILY PROGRESS NOTE CURRENT MEDICATIONS - reviewed. Current Facility-Administered Medications Medication Dose Route Frequency Last Rate Last Dose amLODIPine (NORVASC) 1 mg/mL oral suspension 10 mg 10 mg Enteral DAILY 10 mg at 12/04/18 1800 vitamin b complex-vitamin c-folic acid (NEPHRO-TOM) 0.8 mg tablet 1 tablet 1 tablet Oral DAILY 1 tablet at 12/04/18 1800 acetaminophen (TYLENOL) tablet 650 mg 650 mg Enteral Q6HPRN aspirin chewable tablet 81 mg 81 mg Enteral DAILY 81 mg at 12/04/18 0815 ipratropium-albuterol (DUONEB) 0.5 mg-3 mg(2.5 mg base)/3 mL nebulizer solution 3 mL 3 mL Inhalation Q6H 3 mL at 12/04/18 1514 metoprolol tartrate (LOPRESSOR) 10 mg/mL oral suspension 25 mg 25 mg Enteral BID 25 mg at 12/04/18 0815 sodium chloride 7% (HYPER-LILI) nebulizer solution 4 mL 4 mL Inhalation BID 4 mL at 12/04/18 0842 heparin injection 5,000 Units 5,000 Units Subcutaneous Q12H 5,000 Units at 12/04/18 0815 Sliding Scale Insulin - Aspart (NOVOLOG) + Fsbg Testing Subcutaneous Q4H Stopped at [facility] - 12/04/2018 1:24 PM CDT MEDICAL NUTRITION THERAPY NOTE Chief Complaint: AMS, hyperkalemia Reason for encounter: Tube feeding NUTRITION ASSESSMENT: I have reviewed the comprehensive progress notes dated today as well as additional physician and allied health provider notes and EPIC information for an understanding of the patient's current medical condition and plans for further treatment and care. Felecia Miles is a 68 year old male with PMH of multiple strokes, dementia s/p PEG tube, ESRD on HDMWF, DMII, HTN, and Hx of cocaine use admitted to the MICU as a transfer from [facility] due to inability to perform HD, [facility]. Patient is unable to provide history as his speech is limited. On arrival to MICU he was found to have tachycardia to 140s, 2:1 Aflutter, and hyperkalemia at 6.0. Pt received calcium gluconate and insulin with D10W bolus, and metoprolol, K decreased to 5.8 and patient reverted to normal sinus rhythm. Patient was afebrile, mildly hypertensive, and sating well on room airwith no coughing or dyspnea. He is inert in bed and responded minimally to questions and commands, per MS staff this is similar to his baseline behavior and he "talks very little". Report from [place] ER indicates blood cultures grew 4/4 Staph aureus, but sensitivity is pending. Repeat blood and urine cultures were obtained and patient was started on vancomycin and meropenem. MICU nurse had no difficulty drawing back blood from both HD ports per H&P. Food/Nutrition-Related History: Pt sleeping at visit. Noted moderate/severe temporal wasting and mild wasting to triceps. Pt contracted upper extremities. No teeth. Per EMR, noted patient with dementia and PEG awaiting clearance for use. GI and Nutrition Related Findings: Nausea (-) Vomiting (-) Constipation (-) Diarrhea (-) Abdominal Pain (-) Difficulty: Chewing (+) Swallowing (+) GI tract alteration (-) (e.g., h/o bariatric surgery, ostomy, resection, etc.) Alternative means of nutrition (+ PEG) (e.g., PEG/PEJ, TPN, DHT, etc.) PO intake: NPO +BM 12/04, x3, loose UOP anuric Last HD 12/03, UF 2000 mL General: Edema (1+ BARRY foot, 2+ BARRY arm) Ascites (-) Para or Quadriplegia (-) Amputation (-) Wounds (-) Trauma/Surgical Incisions (-) Diabetes (+) Food Assistance (-) Home Provider (-) Pertinent Medications: Noted. Includes: SSI, IV Ca gluconate (12/03), IV Lasix 40 mg (12/02), D10/Insulin (12/03) Labs and Medical Test Results: FSBS: 137-211 mg/dL Results for FELECIA MILES ( ) as of 12/04/2018 13:33 12/03/2018 04:13 12/03/2018 18:50 12/04/2018 06:10 NA 132 (L) 132 (L) 134 (L) K 5.8 (H) 5.8 (H) 4.3 CL 95 (L) 97 (L) 96 (L) CO2 TOTAL 24 25 29 AGAP 13 10 9 BUN 72 (H) 77 (H) 41 (H) GLUCOSE 178 (H) 171 (H) 184 (H) CREATININE 3.71 (H) 3.97 (H) 2.69 (H) eGFR CALCULATION () 19.8 18.3 28.7 CALCIUM 8.7 8.4 (L) 8.8 MAGNESIUM 2.1 ALBUMIN (g/dL) Date Value 12/02/2018 3.3 (L) Current Diet Order(s): (12/02) NPO Documented Food Allergies/Intolerance/Cultural Preferences: None Anthropometrics: Height: 6' Weight: 128.3 lbs (58.2 kg) Body mass index is 17.4 kg/m. IBW: 183.6 lbs (83.3 kg) at BMI 24.9 kg/m^2 %IBW: 70% UBW: 130 lbs (59 kg) per EMR Admit Weight: 158.7 lbs (72 kg) - appears inaccurate as it is 20+ lbs off current and usual weight Wt Readings from Last 6 Encounters: 12/03/18 58.2 kg (128 lb 4.9 oz) 05/17/17 59.8 kg (131 lb 13.4 oz) Estimated Needs: based on current weight ~58 kg Calories: 1740 - 2030 kcals/day (30 - 35 kcal/kg) ESRD/repletion Protein: 70 - 87 g protein/day (1.2 - 1.5 g protein/kg) ESRD on HD Fluids: ~1000 mL/day or per MD discretion (for hydration maintenance when euvolemic, adjust rec'd goal per pt acute needs) NUTRITION DIAGNOSIS: 1) Inadequate protein-energy intake related to decreased ability to consume sufficient protein and/or energy as evidenced by NPO x 2 days without EN initiation. NUTRITION INTERVENTIONS: 1) Recommend bolus Nepro 1.5 cans TID (1913 kcal, 86 g protein and 774 mL free water daily) to meet ~100% of estimated needs - Additional free water as needed to ensure adequate hydration per MD discretion. 2) If continuous regimen desired at this time, recommend Nepro @ 42 mL/hr (goal rate) - provides 1814 kcal, 82 g protein and 733 mL free water daily. 3) Recommend NephroVite once daily. Goal(s): 1) The patient will be able to tolerate EN meeting >80% of estimated needs during this admission. MONITORING/EVALUATION: - RD to continue following with Nephrology team to review pt's progress, report nutrition related information, and to revise the recommended nutrition intervention(s) if necessary; please call with questions or concerns - Discharge planning in process Anticipated Discharge Needs: None identified at this time. Radhika Fang, MS, RD, K[employer], LD Nephrology Dietitian Pager: [phone] signed by Radhika Fang at 12/04/2018 1: 42 PM Erasmo Whitlock MD - 12/04/2018 8:06 AM CDT Brief MICU transfer/progress note Date: 12/04/2018 08:07 ICU day: 2 Intubation Day: na Code Status: full Hospital course Felecia Miles is a 68 year old man with PMHxofmultiple strokes, dementia s/ p PEG tube,ESRD onHD MWF, DMII, HTN, and Hx of cocaine useadmitted to the MICU as a transfer from [facility] due to inability to perform HD 2/2 non functioning permcath, [facility]. On arrivalto MICU he was found tohave tachycardia to 140s,2:1Aflutter, and hyperkalemia at 6.0.Pt received calcium gluconate and insulin with D10W bolus, and metoprolol , K decreased to 5.8 and patient reverted to normalsinus rhythm.Patient was afebrile, mildly hypertensive, and sating well on room airwith no coughing or dyspnea. Report from [facility] indicates blood cultures grew 4/4 MRSA, sensitivity is pending.Repeat blood and urine cultures were obtained and patient was started on vancomycin and meropenem. Permcath was removed with tip cultured. R IJ jos was placed. Nephro was consulted, and HD was performed on 12/03. ECHO performed showed reduced EF 35-40%. Trops trended .045=>.047=& gt;.036. CT headshowed age indeterminate hypodensity in the guerrero concerning for acute/subacute infarct. MRI ordered but pending final read. Patient BMP improved after dialysis, breathing comfortably on minimal NC and on appropriate abx for his MRSA abx. Plan for next 12 hours (should include: anticipated events, complications to watch for, pending labs/radiology/consults): TTF MRI final read Just on Vanc. Dose adjust with dialysis. Today is 19.2 Consult ID for long-term abx use PT/OT Erasmo Silverio MD urserFernando MD - 12/04/2018 6:30 AM CDT MICU Progress Note Date of Service: 12/04/2018 06:30 Reason for ICU admission: AMS, Hyperkalemia ICU Day: 2 Intubation Day: N/A Code Status: Full Last 24 hour events (major events): -Bcx 4/4 + for MRSA -permcath removed by IR and tip cultured -jos cath placed for HD. -HD 12/03 PM -MRI pending. Concern for new stroke on CT. -Vancomycin re-dosed after HD. Will repeat Vancomycin random. Subjective: Resting comfortably in bed. A&O X1 (self) Ventilator Bundle: Stress ulcer prophylaxis: not indicated DVT prophylaxis: heparin Nutrition: NPO except meds. Awaiting PEG tube clearance. Lines (with dates): L PIV 12/02, R PIV 12/03, R IJ 12/03 Cantrell: none Intake/Output: Intake/Output Summary (Last 24 hours) at 12/04/2018 0630 Last data filed at 12/03/2018 2359 Gross per 24 hour Intake 100 ml Output 2000 ml Net -1900 ml Physical Exam: Temp: [36.3 C (97.3 F)-37 C (98.6 F)] Heart Rate (monitor): [98-138] Pulse: [94-146] Resp: [8-35] BP: (129-176)/(79-107) MAP (mmHg): [101-123] Constitutional: alert and oriented x 1 (person); no apparent distress HEENT: normocephalic atraumatic Resp: clear to auscultation bilaterally Cardio: S1, S2 normal; no murmurs, rubs or gallops GI: G tube in place. Soft, non tender, non distended, normoactive bowel sounds. MSK: no clubbing, cyanosis, or edema Integ: no rashes Neuro: b/l upper extremity contractures. Legs appear unused and atrophied. Labs (pertinent only)/Imaging: K 5.8 HBsAb neg, HBsAg neg Chest 1 View - Portable Ap (upright) For Central Line Placement Verification Result Date: 12/03/2018 FINDINGS/IMPRESSION: Lines/Tubes: A right IJ central line terminates over the atriocaval junction. Lungs: Moderate pulmonary edema has slightly increased. A moderate left pleural effusion is seen with adjacent atelectasis and/or consolidation. A small right pleural effusion is also noted. No pneumothorax is seen. Heart/Mediastinum: The cardiomediastinal silhouette is enlarged, unchanged. Bones: The osseous structures are unchanged. Xr Chest 1 Vw Result Date: 12/02/2018 Lines and tubes, as described above. Moderate pulmonary edema. Small bilateral pleural effusions. A retrocardiac opacity may represent atelectasis or focus of infection. Cardiomegaly I, Haile Hercules MD., have reviewed this study and agree with the above report. Ct Head Wo Contrast Result Date: 12/03/2018 Age indeterminant hypodensity in the guerrero concerning for acute/subacute infarct. Further evaluation by brain MRI is recommended. 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 I, Irene Huitron MD., have reviewed this study and agree with the above report. Microbiology: Blood: Results: MRSA Date: 12/02 Antibiotics: Vancomycin/ merrem Day #: 06/18 Catheter: Results: pending Date: 12/03 Antibiotics: Vancomycin/ merrem Day #: 06/18 Legionella antigen: neg Pneumococcus antigen: neg Assessment/Plan: Felecia Miles is a 68 year old male admitted with AMS 2/2 metabolic encephalopathy, MRSA bacteremia Neuro AMS Dementia Prior Stroke, 2013 ?New Stroke It is unclear if this is his baseline mentation or if there is additional AMS on top of his dementia. CT head showed age indeterminate hypodensity in the guerrero concerning for acute/subacute infarct. MRIwas recommended. - Monitor mental status -MRI -continue ASA Resp Possible PNA Patient has not had dyspnea or cough since admission, and breathes well on 2L nasal cannula. CXR on admission revealed moderate pulmonary congestion and a retrocardiac opacity that may represent atelectasis or focus of infection. Given good clinical presentation and lack of fever PNA is unlikely at this time. -monitor for changes in respiratory status Cardiovascular 2:1 A flutter HFrEF (EF 35-40%) Hx Cocaine use HTN Unclear if this is first episode of A flutter; could be due to hyperkalemia, CAD as patient is a vasculopath with hx of multiple strokes, diabetic retinopathy, cocaine abuse, or structural cause. Past ECHO 2017 showed HFpEF EF 55-60%. repeat ECHO 12/03 shows reduced EF (35-40%). Troponin initially .045=> .047=>.036. Patient appears to have converted to sinus rhythm with metoprolol treatment. Deferring anticoagulation at this time due to high HAS BLED score. Correction of hyperkalemia is first step in correcting arrhythmia, cardiac workup for decreased function and new pathology. Patient was tachycardic with ectopic beats during the exam, and repeat ECHO was recommended. -repeat ECHO - aspirin 81 mg daily -metoprolol 25 mg BID FEN/GI G tube KUB did not reveal bowel distension/stool impaction/gross fat stranding or other signs of infection. Stress ulcer prophylaxis: PPI Nutrition: none ID MRSA Bacteremia reported at OSH UTI Possible sources of bacteremia include HD port, PEG tube, and UTI. No sores or wounds visible. Urinary tract infection suspected due to inflammatory infiltrate in UA. Permcath removed and tip sent for culture. - Follow up on reported positive Bcx at [facility] - Follow in house blood and urine cx -Follow up permcath tip cx - vancomycin loading dose 15 mg/kg given, follow Vancomycin random for redosing. F/u Vancomycin random level. - meropenem 500 mg qDaily, dosed for HD patient Renal ESRD on Hemodialysis MWF most likely causing A flutter Hyperkalemia Patient had K 5.3 at [facility], 6.0 on arrival to MICU. Patient may have missed last session of dialysis, will call NH in the AM to get additional Hx. Nephro on board, recommended HD PM on 12/03. 2 L removed. -Daily BMPs -MWF HD Endo DM type 2 - SSI Fernando Quiñonez MD Internal Medicine, PGY1 [facility] Team Pager # [phone] Hospital Course: Felecia Miles is a 68 year old man with PMHx of multiple strokes, dementia s/p PEG tube, ESRD on HDMWF, DMII, HTN, and Hx of cocaine use admitted to the MICU as a transfer from [facility] due to inability to perform HD 2/2 non functioning permcath, originally transferred from [facility] ER from [facility] with reported AMS, fever and SOB. On arrival to MICU he was found to have tachycardia to 140s, 2:1 Aflutter, and hyperkalemia at 6.0. Pt received calcium gluconate and insulin with D10W bolus, and metoprolol, K decreased to 5.8 and patient reverted to normal sinus rhythm.Patient was afebrile, mildly hypertensive, and sating well on room air with no coughing or dyspnea. Report from [place] ER indicates blood cultures grew 4/4 MRSA, sensitivity is pending. Repeat blood and urine cultures were obtained and patient was started on vancomycin and meropenem. Permcath was removed with tip cultured. R IJ jos was placed. Nephro was consulted, and HD was performed on 12/03. ECHO performed showed reduced EF 35-40%. Trops trended .045=>.047=& gt;.036. CT head showed age indeterminate hypodensity in the guerrero concerning for acute/subacute infarct. MRI ordered. Associated attestation - Romana Mancia MD - 12/04/2018 8:07 AM CDTI personally examined the patient on 12/04/[address] Quiñonez's resident note. I actively participated in the decision-making process. Please see the resident's note for additional details. Felecia Miles is a 68 year old male admitted with Hyperkalemia resolved MRSA Staph bacteremia Aflutter tachyarrhythmia resolved ESRD on HD has a permcath Chronic dementia -- has a PEG tube H/O multiple strokes LLL infiltrate -- atelectasis from secretions vs pneumonia PLAN: Follow up cultures from OSH and de escalate antibiotics PT OT Ok for Charleen Fernandes RN - 12/03/2018 1:52 PM CDTCare Management Social Functional Assessment Patient Name: Felecia Miles Age: [age] year old Sex: male Patient's Previous Admission Date at [facility]: 05/16/2017 Current diagnosis and co-morbidities: Sepsis due to pneumonia Readmission Questions: Was patient discharged from any acute care hospital within the last 30 days: No Social Functional Assessment: Primary language spoken/preferred: Unable to assess (comment)(retirement states that pt speaks intermittently, but is not oriented at all) Mental Status: Not Alert/Oriented Information given by: Other Name and phone number of person giving information: Eileen director bioinformatics at [facility] Patient's support system: Other Name and number of support system: Pt has 6 siblings, 3 sisters, and 3 brothers , no known children--Candi Muñoz (sister) [phone], Brandy Jd (sister ) [phone], Sherri Jd (sister) [phone] Primary Metal Bending Machine Operator: Other Name and phone number of primary caregiver: Pt is a resident at [facility] in [facility], MPOA: No Living Arrangement: [address] [address] (Ph) (F) [phone] Persons living in home: Other Names & numbers of persons living in home: Resident in retirement Barriers to returning home: None Baseline functional status- ambulation: Dependent Functional status-baseline personal care: Dependent Baseline functional status- driving: Dependent Baseline functional status- grocery shopping: Dependent Functional status-baseline housekeeping: Dependent Functional status-baseline meal prep: Dependent Current functional status same as prior: Yes Do you have a PCP?: Yes Name of PCP: Liana Gonzalez DO Home Health Care Agency: No Provider Services: No DME Company: No Equipment: Other Other equipment: snf resident Hemodialysis: Yes Dialysis Facility: Other Name of Other Dialysis Facility: [facility], [address] [facility] [facility] [address] , [facility] [address], , Dialysis Schedule: [facility] Dialysis Time: 0500 Mode of Transportation: Other Other Mode of Transportation: Transportation via stretcher by retirement to dialysis Community resources utilized: None Funding Resources: Medicare A & B;Medicaid HMO Prescription coverage plan: Medicaid unlimited slots Pharmacy where meds are filled: Other Other pharmacy: snf supplies Anticipated services prior to disharge: Continue Medical Eval;Consult;Dialysis; Lab Values Expected mode of discharge transportation: Ambulance Additional info required for discharge planning: Pending medical evaluation Recommended discharge plan: Return to facility SFA Complete: Social Functional Assessment complete: Yes Alcohol Use Screening (AUDIT-C) How often do you have a drink containing alcohol?: Never SCORE: 0 Did patient elect to have resources provided: No Role of Care Management explained. CM spoke to Eileen the licensed psychologist director at [facility] in [facility]. She states that patient is bed bound and total care. He is taken to dialysis via stretcher on MWF at 5am. She states that he can hear well, but is nearly blind. She states thatpatient will talk sometimes and other time he cannot, and other times he chooses not to talk , but when he does talk it is not oriented, as he thinks that Eileen is his ex most of the time. He has3 sisters and 3 brothers listed as his contacts and he is FULL CODE. Eileen states that they are not aware of the patient having any children. She states that he enjoys "Blues" music. Pt has a PEG tube and received his medications and nutrition through that tube. CM will follow up and contact pts sister to notify her of his admission. Charleen Cardona RN, BSN Uniform Room Attendant [facility]-Care Management [email or web address] Office: [phone] Prem Del Castillo MD - 12/03/2018 11:33 AM CDT Brief MICU Note Date: 12/03/2018 11:40 ICU day: 1 Intubation Day: n/a Code Status: CPR 12 Hour Events (should include: major events throughout the day, patient status , significant labs, radiology, consult updates): - BCx / Gram + cocci: continue with Vancomycin - Attempted HD from permcath but did not draw back appropriately. - Permcath removed by IR and tip sent for culture - Jos cath placed for dialysis - Nephro: Plan for dialysis today - CTH showed acute/subacute stroke: ordered MRI - KUB ordered with contrast. Pending final read prior to clearing for use - Echo: showing decreased EF 35-40 % Family update: - Updated sister by phone Plan for next 12 hours (should include: anticipated events, complications to watch for, pending labs/radiology/consults): - Vanc redosing after dialysis - Pending final read on KUB - monitor electrolytes after dialysis - follow-up MRI brain Prem Mg MD Jorge Mcfadden DO - 12/03/2018 4:46 AM CDTResident attestation Patient presents from OSH for HD and AMS. From NH with reported fever and SOB. Found to be tachycardic with Aflutter and hyperkalemic. Per chart review permcath not functional so no dialysis was done at OSH. Patient unable to participate in interview. Possible positive blood cultures in report. Will pursue metabolic and infectious causes for AMS. Afebrile here and does not appear SOB and has no cough/sputum production. CXR concerning for infectious process. Found to be in Aflutter, given metoprolol IV with good success. Will speak with NH and family to assess patients baseline functionality and obtain accurate medication list - CT head - f/u blood and urine cultures, procal - start lopressor 25 mg BID - start broad spectrum abx with Vancomycin and Merrem - calcium gluconate, insulin/D50 - consult nephrology for HD - TTE Jorge Lau DO Internal Medicine PGY-2 [place] team Doctor # [id number] Cheko Delong MD - 12/02/2018 8:00 PM CDTSinus tachycardia, HR 160s, concern for aflutter also, unclear, ekg done and reviewed Examined patient. Has some SOB. BP and pulse ox stable. NAD, b/l leg edema pitting, abd soft, wet diaper (but patient claims he doesn't make urine), b/l decreased air entry, tachycardia, reg rate Home meds reviewed: meds through peg tube, asa, ativan, prilosec, venofer, colchicine, docuate, hydralazine, metoprolol, insulin, ramipril, tramadol (this list is unclear, will need retirement records) Sepsis 2/2 pneumonia per outlying CXR Tachycardia, likely sinus due to above. IV metprolol 5 mg given once, improved HR from 160s to 90s. Back to HR 130s, so reevaluated and will give one dose of dilt IV 10 mg push. HR improved. Resume oral metoprolol Acute on chronic diastolic CHF, uncleaer if he makes urine, will give IV lasix 40 mg once ESRD on HD, needs dialysis today, cannot be done at [place] so being transferred to [place] Hypertension Recurrent UTIs Will get stat CMP, CBC, lactic acid, blood cultures (also taken at [facility], please f/u), UA, urine culture, Mag, TSH, EKG, CXR, procalcitonin Critical care time: 45 minutes Jazmine Brunson - 12/02/2018 3:21 PM CDT Medical Nutrition Therapy - Progress Note: Reason For Consultation:RD Screen for: PEG tube Nutrition Assessment PMH/PSH: Past Medical History: Diagnosis Date Blind from glaucoma Cocaine abuse DM I (diabetes mellitus, type I), uncontrolled HTN (hypertension) Stroke 2013, 2015 GI and Nutrition Related Findings: GI Symptoms: N/A Difficulty Chewing/Swallowing: N/A GI tract alteration: N/A Alternative means of nutrition: PEG/PEJ General: N/A Medications: Current Facility-Administered Medications: acetaminophen (TYLENOL) tablet 650 mg, 650 mg, Oral, Q6HPRN, Joe Guerra MBBS heparin 1,000 unit/mL injection 1,500 Units, 1,500 Units, Slow IV Push, DIALYSIS ONCE - PT ROOMFOLLOWED BY heparin 1,000 unit/mL injection 1,500 Units, 1,500 Units, Slow IV Push, DIALYSIS ONCE - PT ROOM, Jonnie Jenkins MD heparin 1,000 unit/mL injection 5,000 Units, 5,000 Units, Slow IV Push, DIALYSIS ONCE - PT ROOM, Jonnie Jenkins MD levoFLOXacin in D5W (LEVAQUIN) 500 mg/100 mL Piggyback 500 mg, 500 mg, IV Piggyback, Q48H, Joe Guerra MBBS, 500 mg at 12/02/18 1505 NaCl 0.9% (NS) injection 10 mL, 10 mL, Slow IV Push, DIALYSIS ONCE - PT ROOM, Jonnie Jenkins MD Sliding Scale Insulin - Aspart (NOVOLOG) + Fsbg Testing, , Subcutaneous, Q6H, Joe Guerra MBBS Lab and Medical Test Results: NA (mmol/L) Date Value 06/04/2017 148 (H) K (mmol/L) Date Value 06/04/2017 3.8 CALCIUM (mg/dL) Date Value 06/04/2017 8.7 ALBUMIN (g/dL) Date Value 05/16/2017 3.0 (L) PHOSPHORUS (mg/dL) Date Value 05/20/2017 2.8 CL (mmol/L) Date Value 06/04/2017 112 (H) BUN (mg/dL) Date Value 06/04/2017 22 CREATININE (mg/dL) Date Value 06/04/2017 1.80 (H) GLUCOSE (mg/dL) Date Value 06/04/2017 104 HGB A1C (%) Date Value 05/22/2017 11.5 (H) CO2 TOTAL (mmol/L) Date Value 06/04/2017 29 T PROTEIN (g/dL) Date Value 05/16/2017 6.0 (L) ALT(SGPT) (U/L) Date Value 05/16/2017 45 AST(SGOT) (U/L) Date Value 05/16/2017 24 WBC (10*3/L) Date Value 05/22/2017 6.59 No intake or output data in the 24 hours ending 12/02/18 1522 Antropometric: Age: [age] year old Sex: male Ht: 6'0" Ht Readings from Last 3 Encounters: 12/02/18 1.829 m (6') 05/16/17 1.829 m (6') Current Wt: 158lb/72kg BMI: Body mass index is 21.52 kg/m. IBW for Ht: 178/lb 81 kg %IBW: 89% Weight History: Wt Readings from Last 10 Encounters: 12/02/18 72 kg (158 lb 11.2 oz) 05/17/17 59.8 kg (131 lb 13.4 oz) Current Dietary Order(s): Orders Placed This Encounter Procedures NPO Diet. Tube feeds EMR documented food allergies/intolerance/cultural preferences: No known food allergies Nutrition Focused Physical Exam- See SGA flowsheet for details Hyperglycemia and Increased HR (>90) Nutritional Diagnosis: Moderate protein calorie malnutrition SGA Rating: Mild / Moderate Nutrition/Related History: Mr. Miles is a 68 y/o male with PMH including T2DM, Blindness, ESRD on HD, admitted to the hospital related to PNA. Principal problems for this admission include hypoxic respiratory failure 2/2 PNA,ESRD on HD. Patient is nonverbal and unable to provide further history. PEG was placed in May 2017. Calculated Daily Nutritional Needs: Calories: 0541-9160 kcal/day=25-30 kcal/kg current weight (72kg) Protein: 86-108 g/day=20 % of kcal need/day=1.2-1.5 g/kg current weight Carbohydrate: 50 % of kcal need/wnm=406 g/day=16 choices Fluid: 1000 mL/day + urine output or per MD; adjust per acute needs Nutrition Diagnosis: PES #1: Inadequate oral intake related to NPO status as evidenced by requiring enteral support to meet nutrition needs Nutrition Interventions: 1. Recommend Nepro via PEG ? Goal of 5cans daily, Recommend 1 can 5 times per day with 30ml water flush before and after eachfeeding This will provide 2133 kcal, 96g protein, 1165ml water (865ml from Jevity 300ml from flushes) Recommend: - 1 can at 7:00am - 1 can at 10:00am - 1 cans at 1:00pm - 1 can at 4:00pm - 1 can at 7:00pm ? Initiate with 0.5 can bolus. Increase by 0.5 cans every other feed as tolerated. ? DO NOT hold TF unless gastric residuals >500ml ? HOB 30-45 as medically indicated. Monitor for s/s of feeding intolerance. ? Suggest bolusing slowly over >10-30 minutes; shorter or longer bolus time may be needed per pt's individual tolerance/preference. 2. Monitor nutrition related labs 3. Monitor enteral intake/tolerance Goals: 1. Patient will tolerate > 75% of provided meals Nutrition Monitoring and Evaluation: A registered dietitian will f/u as indicated to review patients progress toward nutriton goals, report nutrition related information, and revise the nutrition recommendations and interventions. Please call with any question or concerns, thank-you. Discharge Needs: Recommend tighter blood glucose control via insulin as evidenced by HgbA1C of 11.5 Jazmine Mandel, MPH, RD, LD Clinical Dietitian Office: [phone] signed by Jazmine Mandel at 12/02/2018 3:52 PM CDTdocumented in this encounter Plan of Treatment Name Type Priority Associated Diagnoses Order Schedule EKG-12 LEAD ROUTINE HEART STATION PAUL[facility] ONCE for 1 Occurrences starting 12/02/2018 until 12/02/2018 EKG-12 LEAD ROUTINE HEART STATION PA[facility] ONCE for 1 Occurrences starting 12/02/2018 until 12/02/2018 SPUTUM CULTURE LAB PA[facility] ONCE for 1 Occurrences starting 12/02/2018 until 12/02/2018 EKG-12 LEAD ROUTINE HEART STATION STAT ONCE for 1 Occurrences starting 12/03/2018 until 12/03/2018 BASIC METABOLIC LAB PA[facility] EVERY MORNING AT 0400 PANEL (NA, K, CL, until discontinued CO2, GLUCOSE, BUN, starting 12/04/2018, CREATININE, CA) 12 completed CBC WITH DIFF LAB Routine EVERY MORNING AT 0400 until discontinued starting 12/04/2018, 12 completed Cardiac Monitoring HEART STATION Routine ONCE for 1 Occurrences 24 hours starting 12/08/2018 until 12/08/2018 Health Maintenance Due Date Last Done Comments HEPATITIS C (HCV) SCREEN 1950 EYE EXAM 1960 FOOT EXAM 1968 DTaP,Tdap,and Td Vaccines (1 - 1969 Tdap) COLONOSCOPY 2000 Zoster Recombinant Vaccine 2000 (SHINGRIX) (1 of 2) Medicare Wellness Visit 2015 PNEUMOCOCCAL VACCINES 65+ (1 of 2 2015 - PCV13) LDL-C 05/26/2018 05/26/2017 INFLUENZA VACCINE 01/10/2019 HgA1C 06/04/2019 12/02/2018, 05/22/2017, 05/17/2017 CREATININE (SERUM) 12/15/2019 12/14/2018, 12/13/2018, 12/12/2018, Additional history exists documented as of this encounter Procedures Procedure Name Priority Date/Time Associated Comments Diagnosis POCT GLUCOSE Routine 12/15/2018 12:00 Results for (AUTOMATED) PM CDT this procedure are in the results section. POCT GLUCOSE Routine 12/15/2018 7:49 Results for (AUTOMATED) AM CDT this procedure are in the results section. VANCOMYCIN RANDOM Routine 12/15/2018 6:17 Results for LEVEL AM CDT this procedure are in the results section. CBC WITH DIFFERENTIAL Routine 12/15/2018 5:27 Results for AM CDT this procedure are in the results section. CBC WITH DIFF Routine 12/15/2018 5:27 Results for AM CDT this procedure are in the results section. BASIC METABOLIC PANEL Routine 12/15/2018 5:27 Results for (NA, K, CL, CO2, AM CDT this procedure GLUCOSE, BUN, are in the CREATININE, CA) results section. POCT GLUCOSE Routine 12/14/2018 8:17 Results for (AUTOMATED) PM CDT this procedure are in the results section. POCT GLUCOSE Routine 12/14/2018 5:59 Results for (AUTOMATED) PM CDT this procedure are in the results section. POCT GLUCOSE Routine 12/14/2018 12:19 Results for (AUTOMATED) PM CDT this procedure are in the results section. IR CENTRALLY INSERTED Routine 12/14/2018 10:55 ESRD (end stage Results for DEVICE TUNNELED 5 OR AM CDT renal disease) this procedure OLDER NO PORT/PUMP are in the results section. POCT GLUCOSE Routine 12/14/2018 8:06 Results for (AUTOMATED) AM CDT this procedure are in the results section. CBC WITH DIFFERENTIAL Routine 12/14/2018 1:58 Results for AM CDT this procedure are in the results section. CBC WITH DIFF Routine 12/14/2018 1:58 Results for AM CDT this procedure are in the results section. BASIC METABOLIC PANEL Routine 12/14/2018 1:58 Results for (NA, K, CL, CO2, AM CDT this procedure GLUCOSE, BUN, are in the CREATININE, CA) results section. POCT GLUCOSE Routine 12/13/2018 8:11 Results for (AUTOMATED) PM CDT this procedure are in the results section. POCT GLUCOSE Routine 12/13/2018 5:04 Results for (AUTOMATED) PM CDT this procedure are in the results section. POCT GLUCOSE Routine 12/13/2018 12:15 Results for (AUTOMATED) PM CDT this procedure are in the results section. POCT GLUCOSE Routine 12/13/2018 8:06 Results for (AUTOMATED) AM CDT this procedure are in the results section. CBC WITH DIFFERENTIAL Routine 12/13/2018 4:24 Results for AM CDT this procedure are in the results section. CBC WITH DIFF Routine 12/13/2018 4:24 Results for AM CDT this procedure are in the results section. BASIC METABOLIC PANEL Routine 12/13/2018 4:24 Results for (NA, K, CL, CO2, AM CDT this procedure GLUCOSE, BUN, are in the CREATININE, CA) results section. POCT GLUCOSE Routine 12/12/2018 8:30 Results for (AUTOMATED) PM CDT this procedure are in the results section. POCT GLUCOSE Routine 12/12/2018 6:08 Results for (AUTOMATED) PM CDT this procedure are in the results section. POCT GLUCOSE Routine 12/12/2018 11:52 Results for (AUTOMATED) AM CDT this procedure are in the results section. POCT GLUCOSE Routine 12/12/2018 8:16 Results for (AUTOMATED) AM CDT this procedure are in the results section. CBC WITH DIFFERENTIAL Routine 12/12/2018 5:53 Results for AM CDT this procedure are in the results section. CBC WITH DIFF Routine 12/12/2018 5:53 Results for AM CDT this procedure are in the results section. BASIC METABOLIC PANEL Routine 12/12/2018 5:53 Results for (NA, K, CL, CO2, AM CDT this procedure GLUCOSE, BUN, are in the CREATININE, CA) results section. POCT GLUCOSE Routine 12/11/2018 9:00 Results for (AUTOMATED) PM CDT this procedure are in the results section. POCT GLUCOSE Routine 12/11/2018 5:03 Results for (AUTOMATED) PM CDT this procedure are in the results section. POCT GLUCOSE Routine 12/11/2018 11:57 Results for (AUTOMATED) AM CDT this procedure are in the results section. POCT GLUCOSE Routine 12/11/2018 8:04 Results for (AUTOMATED) AM CDT this procedure are in the results section. VANCOMYCIN RANDOM Routine 12/11/2018 6:19 Results for LEVEL AM CDT this procedure are in the results section. CBC WITH DIFFERENTIAL Routine 12/11/2018 3:51 Results for AM CDT this procedure are in the results section. CBC WITH DIFF Routine 12/11/2018 3:51 Results for AM CDT this procedure are in the results section. BASIC METABOLIC PANEL Routine 12/11/2018 3:51 Results for (NA, K, CL, CO2, AM CDT this procedure GLUCOSE, BUN, are in the CREATININE, CA) results section. POCT GLUCOSE Routine 12/10/2018 9:18 Results for (AUTOMATED) PM CDT this procedure are in the results section. POCT GLUCOSE Routine 12/10/2018 7:24 Results for (AUTOMATED) PM CDT this procedure are in the results section. POCT GLUCOSE Routine 12/10/2018 3:47 Results for (AUTOMATED) PM CDT this procedure are in the results section. POCT GLUCOSE Routine 12/10/2018 11:53 Results for (AUTOMATED) AM CDT this procedure are in the results section. POCT GLUCOSE Routine 12/10/2018 8:34 Results for (AUTOMATED) AM CDT this procedure are in the results section. CBC WITH DIFFERENTIAL Routine 12/10/2018 4:53 Results for AM CDT this procedure are in the results section. CBC WITH DIFF Routine 12/10/2018 4:53 Results for AM CDT this procedure are in the results section. BASIC METABOLIC PANEL Routine 12/10/2018 4:53 Results for (NA, K, CL, CO2, AM CDT this procedure GLUCOSE, BUN, are in the CREATININE, CA) results section. POCT GLUCOSE Routine 12/09/2018 8:48 Results for (AUTOMATED) PM CDT this procedure are in the results section. POCT GLUCOSE Routine 12/09/2018 4:41 Results for (AUTOMATED) PM CDT this procedure are in the results section. POCT GLUCOSE Routine 12/09/2018 12:03 Results for (AUTOMATED) PM CDT this procedure are in the results section. TRANS-ESOPHAGEAL Level 4 (within 12/09/2018 11:00 MRSA ECHOCARDIOGRAM 0-5 days) AM CDT TRANSESOPHAGEAL ECHO Routine 12/09/2018 9:20 MRSA bacteremia AM CDT POCT GLUCOSE Routine 12/09/2018 7:42 Results for (AUTOMATED) AM CDT this procedure are in the results section. VANCOMYCIN RANDOM Routine 12/09/2018 3:26 Results for LEVEL AM CDT this procedure are in the results section. BASIC METABOLIC PANEL Routine 12/09/2018 3:26 Results for (NA, K, CL, CO2, AM CDT this procedure GLUCOSE, BUN, are in the CREATININE, CA) results section. MAGNESIUM Routine 12/09/2018 3:26 Results for AM CDT this procedure are in the results section. PHOSPHORUS Routine 12/09/2018 3:26 Results for AM CDT this procedure are in the results section. CBC WITH DIFFERENTIAL Routine 12/09/2018 3:25 Results for AM CDT this procedure are in the results section. CBC WITH DIFF Routine 12/09/2018 3:25 Results for AM CDT this procedure are in the results section. POCT GLUCOSE Routine 12/08/2018 8:27 Results for (AUTOMATED) PM CDT this procedure are in the results section. POCT GLUCOSE Routine 12/08/2018 5:07 Results for (AUTOMATED) PM CDT this procedure are in the results section. POCT GLUCOSE Routine 12/08/2018 12:46 Results for (AUTOMATED) PM CDT this procedure are in the results section. TRANSESOPHAGEAL ECHO Routine 12/08/2018 8:45 MRSA bacteremia AM CDT POCT GLUCOSE Routine 12/08/2018 8:29 Results for (AUTOMATED) AM CDT this procedure are in the results section. CBC WITH DIFFERENTIAL Routine 12/08/2018 4:49 Results for AM CDT this procedure are in the results section. CBC WITH DIFF Routine 12/08/2018 4:49 Results for AM CDT this procedure are in the results section. BASIC METABOLIC PANEL Routine 12/08/2018 4:49 Results for (NA, K, CL, CO2, AM CDT this procedure GLUCOSE, BUN, are in the CREATININE, CA) results section. POCT GLUCOSE Routine 12/07/2018 9:02 Results for (AUTOMATED) PM CDT this procedure are in the results section. POCT GLUCOSE Routine 12/07/2018 5:15 Results for (AUTOMATED) PM CDT this procedure are in the results section. PROTHROMBIN TIME / INR Routine 12/07/2018 2:58 Results for PM CDT this procedure are in the results section. VANCOMYCIN TROUGH Routine 12/07/2018 2:58 Results for PM CDT this procedure are in the results section. BLOOD CULTURE SCREEN Routine 12/07/2018 2:57 Results for PM CDT this procedure are in the results section. XR CHEST 1 VW [facility] 12/07/2018 2:36 ESRD (end stage Results for PM CDT renal disease) this procedure MRSA bacteremia are in the results section. POCT GLUCOSE Routine 12/07/2018 12:36 Results for (AUTOMATED) PM CDT this procedure are in the results section. BLOOD CULTURE SCREEN Routine 12/07/2018 9:33 Results for AM CDT this procedure are in the results section. POCT GLUCOSE Routine 12/07/2018 8:10 Results for (AUTOMATED) AM CDT this procedure are in the results section. CBC WITH DIFFERENTIAL Routine 12/07/2018 4:33 Results for AM CDT this procedure are in the results section. EXTRA TUBE LT. BLUE Routine 12/07/2018 4:33 AM CDT CBC WITH DIFF Routine 12/07/2018 4:33 Results for AM CDT this procedure are in the results section. VANCOMYCIN RANDOM Routine 12/07/2018 4:33 Results for LEVEL AM CDT this procedure are in the results section. BASIC METABOLIC PANEL Routine 12/07/2018 4:33 Results for (NA, K, CL, CO2, AM CDT this procedure GLUCOSE, BUN, are in the CREATININE, CA) results section. POCT GLUCOSE Routine 12/06/2018 7:51 Results for (AUTOMATED) PM CDT this procedure are in the results section. POCT GLUCOSE Routine 12/06/2018 4:06 Results for (AUTOMATED) PM CDT this procedure are in the results section. POCT GLUCOSE Routine 12/06/2018 11:37 Results for (AUTOMATED) AM CDT this procedure are in the results section. POCT GLUCOSE Routine 12/06/2018 9:50 Results for (AUTOMATED) AM CDT this procedure are in the results section. POCT GLUCOSE Routine 12/06/2018 7:36 Results for (AUTOMATED) AM CDT this procedure are in the results section. CBC WITH DIFFERENTIAL Routine 12/06/2018 5:03 Results for AM CDT this procedure are in the results section. CBC WITH DIFF Routine 12/06/2018 5:03 Results for AM CDT this procedure are in the results section. BASIC METABOLIC PANEL Routine 12/06/2018 5:03 Results for (NA, K, CL, CO2, AM CDT this procedure GLUCOSE, BUN, are in the CREATININE, CA) results section. POCT GLUCOSE Routine 12/05/2018 11:40 Results for (AUTOMATED) PM CDT this procedure are in the results section. POCT GLUCOSE Routine 12/05/2018 8:29 Results for (AUTOMATED) PM CDT this procedure are in the results section. ACTIVATED PARTIAL Routine 12/05/2018 5:57 Results for THRMPLAS VISHAL PM CDT this procedure are in the results section. PROTHROMBIN TIME / INR Routine 12/05/2018 5:57 Results for PM CDT this procedure are in the results section. POCT GLUCOSE Routine 12/05/2018 4:51 Results for (AUTOMATED) PM CDT this procedure are in the results section. POCT GLUCOSE Routine 12/05/2018 11:48 Results for (AUTOMATED) AM CDT this procedure are in the results section. POCT GLUCOSE Routine 12/05/2018 7:58 Results for (AUTOMATED) AM CDT this procedure are in the results section. POCT GLUCOSE Routine 12/05/2018 4:48 Results for (AUTOMATED) AM CDT this procedure are in the results section. CBC WITH DIFFERENTIAL Routine 12/05/2018 2:56 Results for AM CDT this procedure are in the results section. CBC WITH DIFF Routine 12/05/2018 2:56 Results for AM CDT this procedure are in the results section. BASIC METABOLIC PANEL Routine 12/05/2018 2:56 Results for (NA, K, CL, CO2, AM CDT this procedure GLUCOSE, BUN, are in the CREATININE, CA) results section. BLOOD CULTURE WORKUP Routine 12/05/2018 2:55 Results for AM CDT this procedure are in the results section. BLOOD CULTURE SCREEN Routine 12/05/2018 2:55 Results for AM CDT this procedure are in the results section. POCT GLUCOSE Routine 12/05/2018 12:32 Results for (AUTOMATED) AM CDT this procedure are in the results section. BLOOD CULTURE WORKUP Routine 12/04/2018 10:49 Results for PM CDT this procedure are in the results section. BLOOD CULTURE SCREEN Routine 12/04/2018 10:49 Results for PM CDT this procedure are in the results section. POCT GLUCOSE Routine 12/04/2018 9:15 Results for (AUTOMATED) PM CDT this procedure are in the results section. POCT GLUCOSE Routine 12/04/2018 7:57 Results for (AUTOMATED) PM CDT this procedure are in the results section. POCT GLUCOSE Routine 12/04/2018 1:11 Results for (AUTOMATED) PM CDT this procedure are in the results section. POCT GLUCOSE Routine 12/04/2018 7:28 Results for (AUTOMATED) AM CDT this procedure are in the results section. POCT GLUCOSE Routine 12/04/2018 6:18 Results for (AUTOMATED) AM CDT this procedure are in the results section. CBC WITH DIFFERENTIAL Routine 12/04/2018 6:10 Results for AM CDT this procedure are in the results section. CBC WITH DIFF Routine 12/04/2018 6:10 Results for AM CDT this procedure are in the results section. BASIC METABOLIC PANEL [facility] 12/04/2018 6:10 Results for (NA, K, CL, CO2, AM CDT this procedure GLUCOSE, BUN, are in the CREATININE, CA) results section. MR BRAIN W WO CONTRAST [facility] 12/04/2018 5:51 Altered mental Results for AM CDT status, this procedure unspecified are in the altered mental results status type section. POCT GLUCOSE Routine 12/03/2018 8:33 Results for (AUTOMATED) PM CDT this procedure are in the results section. BASIC METABOLIC PANEL STAT 12/03/2018 6:50 Results for (NA, K, CL, CO2, PM CDT this procedure GLUCOSE, BUN, are in the CREATININE, CA) results section. XR CHEST 1 VW Routine 12/03/2018 4:51 Pneumonia due to Results for PM CDT infectious this procedure organism, are in the unspecified results laterality, section. unspecified part of lung CATHETER TIP CULTURE [facility] 12/03/2018 4:12 Results for PM CDT this procedure are in the results section. IR REMOVAL TUNNELED Routine 12/03/2018 3:31 ESRD (end stage Results for CENTRAL VENOUS PM CDT renal disease) this procedure CATHETER WITHOUT are in the PORT/PUMP results section. HEPATITIS B SURFACE [facility] 12/03/2018 2:39 Results for ANTIGEN PM CDT this procedure are in the results section. HEPATITIS B SURFACE [facility] 12/03/2018 2:39 Results for ANTIBODY PM CDT this procedure are in the results section. TROPONIN I [facility] 12/03/2018 2:39 Results for PM CDT this procedure are in the results section. XR KUB Routine 12/03/2018 12:51 Pneumonia due to Results for PM CDT infectious this procedure organism, are in the unspecified results laterality, section. unspecified part of lung POCT GLUCOSE Routine 12/03/2018 11:47 Results for (AUTOMATED) AM CDT this procedure are in the results section. ECHO ROUTINE W/DOPPLER Routine 12/03/2018 9:38 Altered mental COLOR AM CDT status, unspecified altered mental status type POCT GLUCOSE Routine 12/03/2018 8:21 Results for (AUTOMATED) AM CDT this procedure are in the results section. ACUTE CARE ARTERIAL [facility] 12/03/2018 6:21 Results for BLOOD GAS AM CDT this procedure are in the results section. EKG-12 LEAD Routine 12/03/2018 4:28 AM CDT POCT GLUCOSE Routine 12/03/2018 4:18 Results for (AUTOMATED) AM CDT this procedure are in the results section. VANCOMYCIN RANDOM [facility] 12/03/2018 4:13 Results for LEVEL AM CDT this procedure are in the results section. BASIC METABOLIC PANEL [facility] 12/03/2018 4:13 Results for (NA, K, CL, CO2, AM CDT this procedure GLUCOSE, BUN, are in the CREATININE, CA) results section. TROPONIN I [facility] 12/03/2018 4:13 Results for AM CDT this procedure are in the results section. MAGNESIUM [facility] 12/03/2018 4:13 Results for AM CDT this procedure are in the results section. LACTIC ACID WHOLE STAT 12/03/2018 2:03 Results for BLOOD AM CDT this procedure are in the results section. CBC WITH DIFFERENTIAL Routine 12/03/2018 2:02 Results for AM CDT this procedure are in the results section. CBC WITH DIFF Routine 12/03/2018 2:02 Results for AM CDT this procedure are in the results section. SALICYLATE [facility] 12/03/2018 2:02 Results for AM CDT this procedure are in the results section. ACETAMINOPHEN [facility] 12/03/2018 2:02 Results for AM CDT this procedure are in the results section. CT HEAD WO CONTRAST STAT 12/03/2018 12:38 Altered mental Results for AM CDT status, this procedure unspecified are in the altered mental results status type section. XR KUB STAT 12/03/2018 12:29 Altered mental Results for AM CDT status, this procedure unspecified are in the altered mental results status type section. PNEUMOCOCCAL ANTIGEN [facility] 12/02/2018 11:58 Results for PM CDT this procedure are in the results section. EXTRA TUBE URINE [facility] 12/02/2018 11:58 PM CDT LEGIONELLA URINARY [facility] 12/02/2018 11:58 Results for ANTIGEN TST PM CDT this procedure are in the results section. URINALYSIS Add-on 12/02/2018 11:58 Results for PM CDT this procedure are in the results section. GALV/CLC ONLY - URINE Add-on 12/02/2018 11:58 Results for DRUG (IMMUNOASSAY) - PM CDT this procedure COMPREHENSIVE DRUG are in the SCREEN results section. EKG-12 LEAD Routine 12/02/2018 11:37 PM CDT MRSA / MSSA SCREEN BY [facility] 12/02/2018 11:30 Results for PCR, NARES PM CDT this procedure are in the results section. BASIC METABOLIC PANEL [facility] 12/02/2018 11:30 Results for (NA, K, CL, CO2, PM CDT this procedure GLUCOSE, BUN, are in the CREATININE, CA) results section. TROPONIN I Add-on 12/02/2018 11:30 Results for PM CDT this procedure are in the results section. XR CHEST 1 VW Routine 12/02/2018 9:22 Pneumonia due to Results for PM CDT infectious this procedure organism, are in the unspecified results laterality, section. unspecified part of lung GRAM POSITIVE BLOOD Routine 12/02/2018 9:06 Results for PATHOGENS DNA PM CDT this procedure PROBE-ANAEROBIC are in the results section. BLOOD CULTURE WORKUP [facility] 12/02/2018 9:06 Results for PM CDT this procedure are in the results section. LACTIC ACID WHOLE STAT 12/02/2018 9:06 Results for BLOOD PM CDT this procedure are in the results section. BLOOD CULTURE SCREEN [facility] 12/02/2018 9:06 Results for PM CDT this procedure are in the results section. CBC WITH DIFFERENTIAL [facility] 12/02/2018 9:04 Results for PM CDT this procedure are in the results section. BLOOD CULTURE WORKUP [facility] 12/02/2018 9:04 Results for PM CDT this procedure are in the results section. PROCALCITONIN [facility] 12/02/2018 9:04 Results for PM CDT this procedure are in the results section. N-TERMINAL PRO-BNP [facility] 12/02/2018 9:04 Results for PM CDT this procedure are in the results section. GLYCOSYLATED Add-on 12/02/2018 9:04 Results for HEMOGLOBIN (A1C) PM CDT this procedure are in the results section. CBC WITH DIFF [facility] 12/02/2018 9:04 Results for PM CDT this procedure are in the results section. COMP. METABOLIC PANEL [facility] 12/02/2018 9:04 Results for (73181) PM CDT this procedure are in the results section. THYROID STIMULATING [facility] 12/02/2018 9:04 Results for HORMONE PM CDT this procedure are in the results section. MAGNESIUM [facility] 12/02/2018 9:04 Results for PM CDT this procedure are in the results section. BLOOD CULTURE SCREEN [facility] 12/02/2018 9:04 Results for PM CDT this procedure are in the results section. EKG-12 LEAD Routine 12/02/2018 8:12 PM CDT POCT GLUCOSE Routine 12/02/2018 6:29 Results for (AUTOMATED) PM CDT this procedure are in the results section. POCT GLUCOSE Routine 12/02/2018 11:38 Results for (AUTOMATED) AM CDT this procedure are in the results section. documented in this encounter Results POCT GLUCOSE (AUTOMATED) (12/15/2018 12:00 PM CDT) POCT GLU 166 (H) 70 - 110 mg/dL [facility] Specimen Blood Performing Organization Address City/State/Zipcode Phone Number [facility] CLIA: [id number], [address] [place] [address] [facility] POCT GLUCOSE (AUTOMATED) (12/15/2018 7:49 AM CDT) POCT GLU 146 (H) 70 - 110 mg/dL [facility] Specimen Blood Performing Organization Address City/State/Zipcode Phone Number [facility] CLIA: [id number], [address] [place] [address] [employer] [place] Vancomycin Random Level (12/15/2018 6:17 AM CDT) VANCO RANDOM 10.2 ug/mL [facility] Specimen Blood - HAND, LEFT Performing Organization Address City/State/Zipcode Phone Number [facility] CLIA: [id number], [address] [place] [address] [phone] CBC WITH DIFFERENTIAL (12/15/2018 5:27 AM CDT) WBC 9.47 4.20 - 10.70 [facility] 10*3/L SERVICES RBC 3.29 (L) 4.26 - 5.52 [facility] 10*6/L SERVICES HGB 9.6 (L) 12.2 - 16.4 [facility] g/dL SERVICES HCT 32.3 (L) 38.4 - 49.3 % [facility] MCV 98.2 (H) 81.7 - 95.6 fL [facility] MCH 29.2 26.1 - 32.7 pg [facility] MCHC 29.7 (L) 31.2 - 35.0 [facility] g/dL SERVICES RDW-SD 55.1 (H) 38.5 - 51.6 fL [facility] RDW-CV 15.2 12.1 - 15.4 % [facility] PLT 414 (H) 150 - 328 [facility] 10*3/L SERVICES MPV 9.9 9.8 - 13.0 fL [facility] NRBC/100 WBC 0.0 0.0 - 10.0 /100 [facility] WBCs SERVICES NRBC x10^3 <0.01 10*3/L [facility] GRAN MAT (NEUT) % 71.9 % [facility] IMM GRAN % 0.70 % [facility] LYMPH % 16.2 % [facility] MONO % 6.9 % [facility] EOS % 4.0 % [facility] BASO % 0.3 % [facility] GRAN MAT x10^3(ANC) 6.81 1.99 - 6.[address] [facility] 10*3/uL SERVICES IMM GRAN x10^3 0.07 (H) 0.00 - 0.[address] [facility] 10*3/uL SERVICES LYMPH x10^3 1.53 1.09 - 3.[address] [facility] 10*3/uL SERVICES MONO x10^3 0.65 0.36 - 1.[address] [facility] 10*3/uL SERVICES EOS x10^3 0.38 0.06 - 0.[address] [facility] 10*3/uL SERVICES BASO x10^3 0.03 0.01 - 0.[address] [facility] 10*3/uL SERVICES Specimen Blood - ARM, LEFT Performing Organization Address City/State/Zipcode Phone Number [facility] CLIA: [id number], [address] [place] [address] [phone] [facility] BASIC METABOLIC PANEL (NA, K, CL, CO2, GLUCOSE, BUN, CREATININE, CA) (2018 5:27 AM CDT) NA 136 135 - [address] [facility] mmol/L SERVICES K 3.8 3.5 - 5.[address] [facility] mmol/L SERVICES CL 99 98 - 108 mmol/L [facility] CO2 TOTAL 31 23 - 31 mmol/L [facility] AGAP 6 2 - [address] [facility] BUN 28 (H) 7 - 23 mg/dL [facility] SERVICES GLUCOSE 189 (H) 70 - 110 mg/dL [facility] CREATININE 2.49 (H) 0.60 - 1.[address] [facility] mg/dL SERVICES CALCIUM 9.4 8.6 - 10.[address] [facility] mg/dL SERVICES eGFR Calculation 25.9 mL/min/1.73m2 [facility] (Non- SERVICES Ethiopian) eGFR Calculation 31.4 mL/min/1.73m2 [facility] () SERVICES Specimen Blood - ARM, LEFT Narrative Performed At Association of Glomerular Filtration Rate (GFR) and Staging [facility] of Kidney Disease* + + + + | GFR (mL/min/1.73 m2)| With Kidney Damage|Without Kidney Damage + + + + |>90|Stage one| Normal + + + + |60-89|Stage two| Decreased GFR + + + + |30-59|Stage three| Stage three + + + + |15-29|Stage four | Stage four + + + + |<15 (or dialysis)|Stage five | Stage five + + + + *Each stage assumes the associated GFR level has been in effect for at least three months.Stages 1 to 5, with or without kidney disease, indicate chronic kidney disease. Notes: Determination of stages one and two (with eGFR >59mL/min/1.73 m2) requires estimation of kidney damage for at least three months as defined by structural or functional abnormalities of the kidney, manifested by either: Pathological abnormalities or Markers of kidney damage (including abnormalities in the composition of the blood or urine or abnormalities in imaging tests). Performing Organization Address City/[facility] Phone Number [facility] CLIA: [id number], [address] [place] [address] [phone] [facility] POCT GLUCOSE (AUTOMATED) (12/14/2018 8:17 PM CDT) POCT GLU 100 70 - 110 mg/dL [facility] Specimen Blood Performing Organization Address [facility] [place] Phone Number [facility] CLIA: [id number], [address] [place] [address] [facility] POCT GLUCOSE (AUTOMATED) (12/14/2018 5:59 PM CDT) POCT GLU 91 70 - 110 mg/dL [facility] Specimen Blood Performing Organization Address [facility] Phone Number [facility] CLIA: [id number], [address] [place] [address] [phone] [facility] POCT GLUCOSE (AUTOMATED) (12/14/2018 12:19 PM CDT) POCT GLU 106 70 - 110 mg/dL [facility] Specimen Blood Performing Organization Address [facility] [place] Phone Number [facility] CLIA: [id number], [address] [place] [address] [phone] [facility] IR CENTRALLY INSERTED DEVICE TUNNELED 5 OR OLDER NO PORT/PUMP (12/14/2018 10:55 AM CDT) Specimen Impressions Performed At PACS/VR/DOSE Successful right internal jugular vein tunneled dialysis catheter placement. PLAN: The catheter is ready for immediate use. When treatment is completed, removal can be scheduled by calling VIR. [facility]: [phone]. [facility] [place]: [phone]. IMayank MD., have reviewed this study and agree with the above report. Narrative Performed At EXAM: TUNNELED CENTRAL VENOUS CATHETER PLACEMENT USING ULTRASOUND AND PACS/VR/DOSE FLUOROSCOPIC GUIDANCE PATIENT'S HISTORY:PermCath placement for HD ATTENDING PRESENCE:As the attending radiologist, Dr. Rm actively participated and was present during the entire procedure including catheter positioning verification.VIR fellow: Dr. Garcia ESIR Resident: Dr. Deana Navarrete. SEDATION: Moderate sedation was administered under the attending physician's direction and continuous monitoring by a trained nurse specialist who was independent from those actually performing the procedure. Please see Epic for total monitored sedation time. RADIATION DOSE: 4.9 mGy. TECHNIQUE:The risks, benefits and alternatives were discussed and informed consent was obtained. Prior to beginning the procedure, Ulysses Protocol was used to confirm the patient's identity and planned procedure. Prior to the procedure, the central veins were evaluated by ultrasound, an image recorded and saved in PACS. Maximum sterile barriers including cap, mask, hand hygiene, sterile gloves, sterile gown, large sterile drape and cutaneous antisepsis were used. The skin over the right internal jugular vein was sterilely prepped, draped and infiltrated with 1 percent lidocaine. The vein was accessed with a 21 gauge needle using realtime ultrasound guidance. A guidewire and catheter were then passed centrally using fluoroscopic guidance. The intravascular length from the access site to the right atrium was then assessed. After infiltrating the skin in the subclavicular region with 1 percent lidocaine, a short transverse incision was made and the 14.5 Estonian 19 cm Palindrome tunneled dialysis catheter was tunneled to the right internal jugular access site and inserted through a peel-away sheath. The catheter was flushed with 1000 U/mL heparin and secured to the skin. The incision in the lower neck was closed using Dermabond and Steri-Strips. The catheter was sutured to the skin using 2-0 Prolene. A sterile dressing was applied. The patient tolerated the procedure well without immediate complications. ESTIMATED BLOOD LOSS: Less than 30 mL. DISCHARGED TO: Recovery and then to inpatient unit. CONDITION: Stable. FINDINGS: Ultrasound image shows a patent right internal jugular vein. Non-occlusive echogenic thrombus was identified in the right internal jugular vein. The final fluoroscopic image demonstrates the catheter with its tip in the mid right atrium. No complications are seen. Procedure Note [facility], Radiant Results Inft User - 12/14/2018 5:59 PM CDT EXAM: TUNNELED CENTRAL VENOUS CATHETER PLACEMENT USING ULTRASOUND AND FLUOROSCOPIC GUIDANCE PATIENT'S HISTORY: PermCath placement for HD ATTENDING PRESENCE: As the attending radiologist, Dr. Rm actively participated and was present during the entire procedure including catheter positioning verification. VIR fellow: Dr. Garcia ESIR Resident: Dr. Deana Navarrete. SEDATION: Moderate sedation was administered under the attending physician's direction and continuous monitoring by a trained nurse specialist who was independent from those actually performing the procedure. Please see Epic for total monitored sedation time. RADIATION DOSE: 4.9 mGy. TECHNIQUE: The risks, benefits and alternatives were discussed and informed consent was obtained. Prior to beginning the procedure, Ulysses Protocol was used to confirm the patient's identity and planned procedure. Prior to the procedure, the central veins were evaluated by ultrasound, an image recorded and saved in PACS. Maximum sterile barriers including cap, mask, hand hygiene, sterile gloves, sterile gown, large sterile drape and cutaneous antisepsis were used. The skin over the right internal jugular vein was sterilely prepped, draped and infiltrated with 1 percent lidocaine. The vein was accessed with a 21 gauge needle using realtime ultrasound guidance. A guidewire and catheter were then passed centrally using fluoroscopic guidance. The intravascular length from the access site to the right atrium was then assessed. After infiltrating the skin in the subclavicular region with 1 percent lidocaine, a short transverse incision was made and the 14.5 Estonian 19 cm Palindrome tunneled dialysis catheter was tunneled to the right internal jugular access site and inserted through a peel-away sheath. The catheter was flushed with 1000 U/mL heparin and secured to the skin. The incision in the lower neck was closed using Dermabond and Steri-Strips. The catheter was sutured to the skin using 2-0 Prolene. A sterile dressing was applied. The patient tolerated the procedure well without immediate complications. ESTIMATED BLOOD LOSS: Less than 30 mL. DISCHARGED TO: Recovery and then to inpatient unit. CONDITION: Stable. FINDINGS: Ultrasound image shows a patent right internal jugular vein. Non-occlusive echogenic thrombus was identified in the right internal jugular vein. The final fluoroscopic image demonstrates the catheter with its tip in the mid right atrium. No complications are seen. IMPRESSION Successful right internal jugular vein tunneled dialysis catheter placement. PLAN: The catheter is ready for immediate use. When treatment is completed, removal can be scheduled by calling VIR. [facility]: [phone]. [facility]: [phone]. I, Bulmaro Rm MD., have reviewed this study and agree with the above report. Performing Organization Address City/State/Zipcode Phone Number PACS/VR/DOSE POCT GLUCOSE (AUTOMATED) (12/14/2018 8:06 AM CDT) POCT GLU 161 (H) 70 - 110 mg/dL [facility] Specimen Blood Performing Organization Address City/[facility]/Zipcode Phone Number [facility] CLIA: [id number], [address] [place] [address] [phone] [facility] CBC WITH DIFFERENTIAL (12/14/2018 1:58 AM CDT) WBC 9.92 4.20 - 10.[address] [facility] 10*3/L SERVICES RBC 3.28 (L) 4.26 - 5.[address] [facility] 10*6/L SERVICES HGB 9.7 (L) 12.2 - 16.[address] [facility] g/dL SERVICES HCT 31.6 (L) 38.4 - 49.3 % [facility] SERVICES MCV 96.3 (H) 81.7 - 95.[address] [facility] fL SERVICES MCH 29.6 26.1 - 32.[address] [facility] pg SERVICES MCHC 30.7 (L) 31.2 - 35.[address] [facility] g/dL SERVICES RDW-SD 53.7 (H) 38.5 - 51.[address] [facility] fL SERVICES RDW-CV 15.2 12.1 - 15.4 % [facility] SERVICES PLT 440 (H) 150 - [address] [facility] 10*3/L SERVICES MPV 10.6 9.8 - 13.[address] [facility] SERVICES IPF % 2.3Comment: Platelet 1.2 - 10.7 % [facility] count measured by SERVICES fluorescence method. NRBC/100 WBC 0.0 0.0 - 10.0 [facility] /100 WBCs SERVICES NRBC x10^3 <0.01 10*3/L [facility] SERVICES GRAN MAT (NEUT) % 71.8 % [facility] IMM GRAN % 1.20 % [facility] LYMPH % 15.4 % [facility] MONO % 6.7 % [facility] EOS % 4.6 % [facility] BASO % 0.3 % [facility] GRAN MAT 7.12 (H) 1.99 - 6.95 [facility] x10^3(ANC) 10*3/uL SERVICES IMM GRAN x10^3 0.12 (H) 0.00 - 0.06 [facility] 10*3/uL SERVICES LYMPH x10^3 1.53 1.09 - 3.23 [facility] 10*3/uL SERVICES MONO x10^3 0.66 0.36 - 1.02 [facility] 10*3/uL SERVICES EOS x10^3 0.46 0.06 - 0.53 [facility] 10*3/uL SERVICES BASO x10^3 0.03 0.01 - 0.09 [facility] 10*3/uL SERVICES Specimen Blood - HAND, LEFT Performing Organization Address City/State/Zipcode Phone Number [facility] CLIA: [id number], [address] [place] [address] [phone] [facility] BASIC METABOLIC PANEL (NA, K, CL, CO2, GLUCOSE, BUN, CREATININE, CA) (2018 1:58 AM CDT) NA 137 135 - [address] [facility] mmol/L SERVICES K 3.3 (L) 3.5 - 5.[address] [facility] mmol/L SERVICES CL 103 98 - 108 mmol/L [facility] SERVICES CO2 TOTAL 22 (L) 23 - 31 mmol/L [facility] SERVICES AGAP 12 2 - [address] [facility] SERVICES BUN 68 (H) 7 - 23 mg/dL [facility] SERVICES GLUCOSE 194 (H) 70 - 110 mg/dL [facility] SERVICES CREATININE 4.83 (H) 0.60 - 1.[address] [facility] mg/dL SERVICES CALCIUM 9.2 8.6 - 10.[address] [facility] mg/dL SERVICES eGFR Calculation 12.1 mL/min/1.73m2 [facility] (Non- SERVICES Ethiopian) eGFR Calculation 14.6 mL/min/1.73m2 [facility] () SERVICES Specimen Blood - HAND, LEFT Narrative Performed At [facility] of Glomerular Filtration Rate (GFR) and Staging [facility] SERVICES of Kidney Disease* + + + + | GFR (mL/min/1.73 m2)| With Kidney Damage|Without Kidney Damage + + + + |>90|Stage one| Normal + + + + |60-89|Stage two| Decreased GFR + + + + |30-59|Stage three| Stage three + + + + |15-29|Stage four | Stage four + + + + |<15 (or dialysis)|Stage five | Stage five + + + + *Each stage assumes the associated GFR level has been in effect for at least three months.Stages 1 to 5, with or without kidney disease, indicate chronic kidney disease. Notes: Determination of stages one and two (with eGFR >59mL/min/1.73 m2) requires estimation of kidney damage for at least three months as defined by structural or functional abnormalities of the kidney, manifested by either: Pathological abnormalities or Markers of kidney damage (including abnormalities in the composition of the blood or urine or abnormalities in imaging tests). Performing Organization Address City/[facility] [place] Phone Number [facility] CLIA: [id number], [address] [place] [address] [facility] POCT GLUCOSE (AUTOMATED) (12/13/2018 8:11 PM CDT) POCT GLU 150 (H) 70 - 110 mg/dL [facility] Specimen Blood Performing Organization Address City/[facility] Phone Number [facility] CLIA: [id number], [address] [place] [address] [facility] POCT GLUCOSE (AUTOMATED) (12/13/2018 5:04 PM CDT) POCT GLU 161 (H) 70 - 110 mg/dL [facility] Specimen Blood Performing Organization Address City/[facility] Phone Number [facility] CLIA: [id number], [address] [place] [phone] [facility] POCT GLUCOSE (AUTOMATED) (12/13/2018 12:15 PM CDT) POCT GLU 236 (H) 70 - 110 mg/dL [facility] Specimen Blood Performing Organization Address City/[facility] Phone Number [facility] CLIA: [id number], [address] [place] [phone] [facility] POCT GLUCOSE (AUTOMATED) (12/13/2018 8:06 AM CDT) POCT GLU 137 (H) 70 - 110 mg/dL [facility] Specimen Blood Performing Organization Address [facility] Phone Number [facility] CLIA: [id number], [address] [place] [phone] [facility] CBC WITH DIFFERENTIAL (12/13/2018 4:24 AM CDT) WBC 9.43 4.20 - 10.[address] [facility] 10*3/L SERVICES RBC 3.27 (L) 4.26 - 5.[address] [facility] 10*6/L SERVICES HGB 9.7 (L) 12.2 - 16.[address] [facility] g/dL SERVICES HCT 32.3 (L) 38.4 - 49.3 % [facility] SERVICES MCV 98.8 (H) 81.7 - 95.6 fL [facility] MCH 29.7 26.1 - 32.7 pg [facility] MCHC 30.0 (L) 31.2 - 35.0 [facility] g/dL SERVICES RDW-SD 54.5 (H) 38.5 - 51.6 fL [facility] RDW-CV 15.2 12.1 - 15.4 % [facility] SERVICES PLT 465 (H) 150 - [address] [facility] 10*3/L SERVICES MPV 9.9 9.8 - 13.[address] [facility] SERVICES NRBC/100 WBC 0.0 0.0 - 10.0 /[address] [facility] WBCs SERVICES NRBC x10^3 <0.01 10*3/L [facility] SERVICES GRAN MAT (NEUT) % 64.8 % [facility] IMM GRAN % 1.60 % [facility] LYMPH % 19.9 % [facility] MONO % 6.7 % [facility] EOS % 6.8 % [facility] BASO % 0.2 % [facility] GRAN MAT x10^3(ANC) 6.11 1.99 - 6.95 [facility] 10*3/uL SERVICES IMM GRAN x10^3 0.15 (H) 0.00 - 0.06 [facility] 10*3/uL SERVICES LYMPH x10^3 1.88 1.09 - 3.23 [facility] 10*3/uL SERVICES MONO x10^3 0.63 0.36 - 1.02 [facility] 10*3/uL SERVICES EOS x10^3 0.64 (H) 0.06 - 0.53 [facility] 10*3/uL SERVICES BASO x10^3 <0.03 0.01 - 0.[address] [facility] 10*3/uL SERVICES Specimen Blood - ARM, LEFT Performing Organization Address City/State/Zipcode Phone Number [facility] CLIA: [id number], [address] [place] [phone] [facility] BASIC METABOLIC PANEL (NA, K, CL, CO2, GLUCOSE, BUN, CREATININE, CA) (2018 4:24 AM CDT) NA 137 135 - [address] [facility] mmol/L SERVICES K 3.4 (L) 3.5 - 5.[address] [facility] mmol/L SERVICES CL 103 98 - 108 mmol/L [facility] SERVICES CO2 TOTAL 24 23 - 31 mmol/L [facility] [facility] AGAP 10 2 - [address] [facility] BUN 55 (H) 7 - 23 mg/dL [facility] GLUCOSE 205 (H) 70 - 110 mg/dL [facility] CREATININE 4.15 (H) 0.60 - 1.[address] [facility] mg/dL SERVICES CALCIUM 9.4 8.6 - 10.[address] [facility] mg/dL SERVICES eGFR Calculation 14.4 mL/min/1.73m2 [facility] (Non- SERVICES Ethiopian) eGFR Calculation 17.4 mL/min/1.73m2 [facility] () SERVICES Specimen Blood - ARM, LEFT Narrative Performed At Association of Glomerular Filtration Rate (GFR) and Staging [facility] of Kidney Disease* + + + + | GFR (mL/min/1.73 m2)| With Kidney Damage|Without Kidney Damage + + + + |>90|Stage one| Normal + + + + |60-89|Stage two| Decreased GFR + + + + |30-59|Stage three| Stage three + + + + |15-29|Stage four | Stage four + + + + |<15 (or dialysis)|Stage five | Stage five + + + + *Each stage assumes the associated GFR level has been in effect for at least three months.Stages 1 to 5, with or without kidney disease, indicate chronic kidney disease. Notes: Determination of stages one and two (with eGFR >59mL/min/1.73 m2) requires estimation of kidney damage for at least three months as defined by structural or functional abnormalities of the kidney, manifested by either: Pathological abnormalities or Markers of kidney damage (including abnormalities in the composition of the blood or urine or abnormalities in imaging tests). Performing Organization Address City/[facility] Phone Number [facility] CLIA: [id number], [address] [place] [address] [phone] [facility] POCT GLUCOSE (AUTOMATED) (12/12/2018 8:30 PM CDT) POCT GLU 128 (H) 70 - 110 mg/dL [facility] Specimen Blood Performing Organization Address City/[facility] Phone Number [facility] CLIA: [id number], [address] [place] [address] [phone] [facility] POCT GLUCOSE (AUTOMATED) (12/12/2018 6:08 PM CDT) POCT GLU 116 (H) 70 - 110 mg/dL [facility] Specimen Blood Performing Organization Address [facility] [place] Phone Number [facility] CLIA: [id number], [address] [place] [address] 16474 [phone] [facility] POCT GLUCOSE (AUTOMATED) (12/12/2018 11:52 AM CDT) POCT GLU 154 (H) 70 - 110 mg/dL [facility] Specimen Blood Performing Organization Address City/[facility]/Zipcode Phone Number [facility] CLIA: [id number], [address] [place] [address] [facility] POCT GLUCOSE (AUTOMATED) (12/12/2018 8:16 AM CDT) POCT GLU 123 (H) 70 - 110 mg/dL [facility] Specimen Blood Performing Organization Address City/[facility]/Zipcode Phone Number [facility] CLIA: [id number], [address] [place], [place] [address] [phone] [facility] CBC WITH DIFFERENTIAL (12/12/2018 5:53 AM CDT) WBC 11.54 (H) 4.20 - 10.70 [facility] 10*3/L SERVICES RBC 3.36 (L) 4.26 - 5.52 [facility] 10*6/L SERVICES HGB 10.1 (L) 12.2 - 16.4 [facility] g/dL SERVICES HCT 33.2 (L) 38.4 - 49.3 % [facility] MCV 98.8 (H) 81.7 - 95.6 [facility] fL SERVICES MCH 30.1 26.1 - 32.7 [facility] pg SERVICES MCHC 30.4 (L) 31.2 - 35.0 [facility] g/dL SERVICES RDW-SD 54.4 (H) 38.5 - 51.6 [facility] fL SERVICES RDW-CV 15.1 12.1 - 15.4 % [facility] PLT 539 (H) 150 - 328 [facility] 10*3/L SERVICES MPV 10.2 9.8 - 13.0 fL [facility] IPF % 3.0Comment: Platelet 1.2 - 10.7 % [facility] count measured by SERVICES fluorescence method. NRBC/100 WBC 0.2 0.0 - 10.0 [facility] /100 WBCs SERVICES NRBC x10^3 0.02 10*3/L [facility] GRAN MAT (NEUT) % 67.3 % [facility] IMM GRAN % 1.80 % [facility] LYMPH % 18.0 % [facility] MONO % 5.5 % [facility] EOS % 7.2 % [facility] BASO % 0.2 % [facility] GRAN MAT 7.67 (H) 1.99 - 6.95 [facility] x10^3(ANC) 10*3/uL SERVICES IMM GRAN x10^3 0.20 (H) 0.00 - 0.06 [facility] 10*3/uL SERVICES LYMPH x10^3 2.05 1.09 - 3.23 [facility] 10*3/uL SERVICES MONO x10^3 0.63 0.36 - 1.02 [facility] 10*3/uL SERVICES EOS x10^3 0.82 (H) 0.06 - 0.53 [facility] 10*3/uL SERVICES BASO x10^3 <0.03 0.01 - 0.09 [facility] 10*3/uL SERVICES Specimen Blood - ARM, RIGHT Performing Organization Address City/State/Zipcode Phone Number [facility] CLIA: [id number], [address] [place] [phone] [facility] BASIC METABOLIC PANEL (NA, K, CL, CO2, GLUCOSE, BUN, CREATININE, CA) (2018 5:53 AM CDT) NA 136 135 - [address] [facility] mmol/L SERVICES K 4.0Comment: 3.5 - 5.[address] [facility] Slight hemolysis mmol/L SERVICES CL 104 98 - [address] [facility] mmol/L SERVICES CO2 TOTAL 24 23 - [address] [facility] mmol/L SERVICES AGAP 8 2 - [address] [facility] BUN 42 (H)Comment: 7 - 23 mg/dL [facility] Slight hemolysis SERVICES GLUCOSE 119 (H) 70 - [address] [facility] mg/dL SERVICES CREATININE 3.48 (H) 0.60 - 1.[address] [facility] mg/dL SERVICES CALCIUM 9.2 8.6 - 10.[address] [facility] mg/dL SERVICES eGFR Calculation 17.6 mL/min/1.73m2 [facility] (Non- SERVICES Ethiopian) eGFR Calculation 21.4 mL/min/1.73m2 [facility] () SERVICES Specimen Blood - ARM, RIGHT Narrative Performed At Association of Glomerular Filtration Rate (GFR) and Staging [facility] of Kidney Disease* + + + + | GFR (mL/min/1.73 m2)| With Kidney Damage|Without Kidney Damage + + + + |>90|Stage one| Normal + + + + |60-89|Stage two| Decreased GFR + + + + |30-59|Stage three| Stage three + + + + |15-29|Stage four | Stage four + + + + |<15 (or dialysis)|Stage five | Stage five + + + + *Each stage assumes the associated GFR level has been in effect for at least three months.Stages 1 to 5, with or without kidney disease, indicate chronic kidney disease. Notes: Determination of stages one and two (with eGFR >59mL/min/1.73 m2) requires estimation of kidney damage for at least three months as defined by structural or functional abnormalities of the kidney, manifested by either: Pathological abnormalities or Markers of kidney damage (including abnormalities in the composition of the blood or urine or abnormalities in imaging tests). Performing Organization Address [facility] Phone Number [facility] CLIA: [id number], [address] [place] [address] [phone] [facility] POCT GLUCOSE (AUTOMATED) (12/11/2018 9:00 PM CDT) POCT GLU 207 (H) 70 - 110 mg/dL [facility] Specimen Blood Performing Organization Address [facility] [place] Phone Number [facility] CLIA: [id number], [address] [place] [address] [facility] POCT GLUCOSE (AUTOMATED) (12/11/2018 5:03 PM CDT) POCT GLU 135 (H) 70 - 110 mg/dL [facility] Specimen Blood Performing Organization Address [facility] [place] Phone Number [facility] CLIA: [id number], [address] [place] [address] [phone] [facility] POCT GLUCOSE (AUTOMATED) (12/11/2018 11:57 AM CDT) POCT GLU 152 (H) 70 - 110 mg/dL [facility] Specimen Blood Performing Organization Address [facility] [place] Phone Number [facility] CLIA: [id number], [address] [place] [address] [phone] [facility] POCT GLUCOSE (AUTOMATED) (12/11/2018 8:04 AM CDT) POCT GLU 135 (H) 70 - 110 mg/dL [facility] Specimen Blood Performing Organization Address City/[facility]/Zipcode Phone Number [facility] CLIA: [id number], [address] [place] [address] [phone] [facility] Vancomycin Random Level (12/11/2018 6:19 AM CDT) VANCO RANDOM 15.4 ug/mL [facility] Specimen Blood - HAND, RIGHT Performing Organization Address City/[facility]/Zipcode Phone Number [facility] CLIA: [id number], [address] [place] [address] [phone] CBC WITH DIFFERENTIAL (12/11/2018 3:51 AM CDT) WBC 12.13 (H) 4.20 - 10.70 [facility] 10*3/L SERVICES RBC 3.22 (L) 4.26 - 5.52 [facility] 10*6/L SERVICES HGB 9.5 (L) 12.2 - 16.4 [facility] g/dL SERVICES HCT 32.7 (L) 38.4 - 49.3 % [facility] MCV 101.6 (H) 81.7 - 95.6 fL [facility] MCH 29.5 26.1 - 32.7 pg [facility] MCHC 29.1 (L) 31.2 - 35.0 [facility] g/dL SERVICES RDW-SD 55.9 (H) 38.5 - 51.6 fL [facility] RDW-CV 15.1 12.1 - 15.4 % [facility] PLT 419 (H) 150 - 328 [facility] 10*3/L SERVICES MPV 9.5 (L) 9.8 - 13.0 fL [facility] NRBC/100 WBC 0.2 0.0 - 10.0 /100 [facility] WBCs SERVICES NRBC x10^3 0.02 10*3/L [facility] GRAN MAT (NEUT) % 68.8 % [facility] IMM GRAN % 2.80 % [facility] LYMPH % 15.1 % [facility] MONO % 5.9 % [facility] EOS % 7.2 % [facility] BASO % 0.2 % [facility] GRAN MAT x10^3(ANC) 8.35 (H) 1.99 - 6.95 [facility] 10*3/uL SERVICES IMM GRAN x10^3 0.34 (H) 0.00 - 0.06 [facility] 10*3/uL SERVICES LYMPH x10^3 1.83 1.09 - 3.23 [facility] 10*3/uL SERVICES MONO x10^3 0.72 0.36 - 1.02 [facility] 10*3/uL SERVICES EOS x10^3 0.87 (H) 0.06 - 0.53 [facility] 10*3/uL SERVICES BASO x10^3 <0.03 0.01 - 0.09 [facility] 10*3/uL SERVICES Specimen Blood - HAND, RIGHT Performing Organization Address City/State/Zipcode Phone Number [facility] CLIA: [id number], [address] [place] [address] [facility] BASIC METABOLIC PANEL (NA, K, CL, CO2, GLUCOSE, BUN, CREATININE, CA) (2018 3:51 AM CDT) NA 135 135 - [address] [facility] mmol/L SERVICES K 3.6 3.5 - 5.[address] [facility] mmol/L SERVICES CL 100 98 - 108 mmol/L [facility] SERVICES CO2 TOTAL 27 23 - 31 mmol/L [facility] SERVICES AGAP 8 2 - [address] [facility] BUN 25 (H) 7 - 23 mg/dL [facility] SERVICES GLUCOSE 158 (H) 70 - 110 mg/dL [facility] CREATININE 2.34 (H) 0.60 - 1.[address] [facility] mg/dL SERVICES CALCIUM 9.0 8.6 - 10.[address] [facility] mg/dL SERVICES eGFR Calculation 27.9 mL/min/1.73m2 [facility] (Non- SERVICES Ethiopian) eGFR Calculation 33.8 mL/min/1.73m2 [facility] () SERVICES Specimen Blood - HAND, RIGHT Narrative Performed At Association of Glomerular Filtration Rate (GFR) and Staging [facility] SERVICES of Kidney Disease* + + + + | GFR (mL/min/1.73 m2)| With Kidney Damage|Without Kidney Damage + + + + |>90|Stage one| Normal + + + + |60-89|Stage two| Decreased GFR + + + + |30-59|Stage three| Stage three + + + + |15-29|Stage four | Stage four + + + + |<15 (or dialysis)|Stage five | Stage five + + + + *Each stage assumes the associated GFR level has been in effect for at least three months.Stages 1 to 5, with or without kidney disease, indicate chronic kidney disease. Notes: Determination of stages one and two (with eGFR >59mL/min/1.73 m2) requires estimation of kidney damage for at least three months as defined by structural or functional abnormalities of the kidney, manifested by either: Pathological abnormalities or Markers of kidney damage (including abnormalities in the composition of the blood or urine or abnormalities in imaging tests). Performing Organization Address City/[facility] Phone Number [facility] CLIA: [id number], [address] [place] [phone] [facility] POCT GLUCOSE (AUTOMATED) (12/10/2018 9:18 PM CDT) POCT GLU 164 (H) 70 - 110 mg/dL [facility] Specimen Blood Performing Organization Address City/[facility] Phone Number [facility] CLIA: [id number], [address] [place] [address] [phone] [facility] POCT GLUCOSE (AUTOMATED) (12/10/2018 7:24 PM CDT) POCT GLU 236 (H) 70 - 110 mg/dL [facility] Specimen Blood Performing Organization Address [facility] [place] Phone Number [facility] CLIA: [id number], [address] [place] [address] 39[address] [phone] [facility] POCT GLUCOSE (AUTOMATED) (12/10/2018 3:47 PM CDT) POCT GLU 124 (H) 70 - 110 mg/dL [facility] Specimen Blood Performing Organization Address [facility] Phone Number [facility] CLIA: [id number], [address] [place] [address] [phone] [facility] POCT GLUCOSE (AUTOMATED) (12/10/2018 11:53 AM CDT) POCT GLU 123 (H) 70 - 110 mg/dL [facility] Specimen Blood Performing Organization Address City/[facility] Phone Number [facility] CLIA: [id number], [address] [place] [address] [phone] [facility] POCT GLUCOSE (AUTOMATED) (12/10/2018 8:34 AM CDT) POCT GLU 114 (H) 70 - 110 mg/dL [facility] Specimen Blood Performing Organization Address [facility] [place] Phone Number [facility] CLIA: [id number], [address] [place] [address] [phone] [facility] CBC WITH DIFFERENTIAL (12/10/2018 4:53 AM CDT) WBC 16.62 (H) 4.20 - 10.70 [facility] 10*3/L SERVICES RBC 3.19 (L) 4.26 - 5.52 [facility] 10*6/L SERVICES HGB 9.2 (L) 12.2 - 16.4 [facility] g/dL SERVICES HCT 31.7 (L) 38.4 - 49.3 % [facility] MCV 99.4 (H) 81.7 - 95.6 fL [facility] MCH 28.8 26.1 - 32.7 pg [facility] MCHC 29.0 (L) 31.2 - 35.0 [facility] g/dL SERVICES RDW-SD 56.0 (H) 38.5 - 51.6 fL [facility] RDW-CV 15.3 12.1 - 15.4 % [facility] PLT 414 (H) 150 - 328 [facility] 10*3/L SERVICES MPV 9.6 (L) 9.8 - 13.[address] [facility] NRBC/100 WBC 0.1 0.0 - 10.0 /[address] [facility] WBCs SERVICES NRBC x10^3 0.02 10*3/L [facility] SERVICES GRAN MAT (NEUT) % 75.4 % [facility] IMM GRAN % 1.10 % [facility] LYMPH % 12.6 % [facility] MONO % 5.2 % [facility] EOS % 5.5 % [facility] BASO % 0.2 % [facility] GRAN MAT x10^3(ANC) 12.53 (H) 1.99 - 6.95 [facility] 10*3/uL SERVICES IMM GRAN x10^3 0.19 (H) 0.00 - 0.06 [facility] 10*3/uL SERVICES LYMPH x10^3 2.09 1.09 - 3.23 [facility] 10*3/uL SERVICES MONO x10^3 0.86 0.36 - 1.02 [facility] 10*3/uL SERVICES EOS x10^3 0.92 (H) 0.06 - 0.53 [facility] 10*3/uL SERVICES BASO x10^3 0.03 0.01 - 0.09 [facility] 10*3/uL SERVICES Specimen Blood - HAND, RIGHT Performing Organization Address City/State/Zipcode Phone Number [facility] CLIA: [id number], [address] [place] [address] [phone] [facility] BASIC METABOLIC PANEL (NA, K, CL, CO2, GLUCOSE, BUN, CREATININE, CA) (2018 4:53 AM CDT) NA 137 135 - [address] [facility] mmol/L SERVICES K 4.0 3.5 - 5.[address] [facility] mmol/L SERVICES CL 101 98 - 108 mmol/L [facility] SERVICES CO2 TOTAL 27 23 - 31 mmol/L [facility] SERVICES AGAP 9 2 - [address] [facility] SERVICES BUN 58 (H) 7 - 23 mg/dL [facility] SERVICES GLUCOSE 133 (H) 70 - 110 mg/dL [facility] SERVICES CREATININE 4.62 (H) 0.60 - 1.[address] [facility] mg/dL SERVICES CALCIUM 8.7 8.6 - 10.[address] [facility] mg/dL SERVICES eGFR Calculation 12.7 mL/min/1.73m2 [facility] (Non- SERVICES Ethiopian) eGFR Calculation 15.4 mL/min/1.73m2 [facility] () SERVICES Specimen Blood - HAND, RIGHT Narrative Performed At Association of Glomerular Filtration Rate (GFR) and Staging [facility] of Kidney Disease* + + + + | GFR (mL/min/1.73 m2)| With Kidney Damage|Without Kidney Damage + + + + |>90|Stage one| Normal + + + + |60-89|Stage two| Decreased GFR + + + + |30-59|Stage three| Stage three + + + + |15-29|Stage four | Stage four + + + + |<15 (or dialysis)|Stage five | Stage five + + + + *Each stage assumes the associated GFR level has been in effect for at least three months.Stages 1 to 5, with or without kidney disease, indicate chronic kidney disease. Notes: Determination of stages one and two (with eGFR >59mL/min/1.73 m2) requires estimation of kidney damage for at least three months as defined by structural or functional abnormalities of the kidney, manifested by either: Pathological abnormalities or Markers of kidney damage (including abnormalities in the composition of the blood or urine or abnormalities in imaging tests). Performing Organization Address City/[facility] Phone Number [facility] CLIA: [id number], [address] [place] [address] [phone] [facility] POCT GLUCOSE (AUTOMATED) (12/09/2018 8:48 PM CDT) POCT GLU 143 (H) 70 - 110 mg/dL [facility] Specimen Blood Performing Organization Address City/[facility] Phone Number [facility] CLIA: [id number], [address] [place] [phone] [facility] POCT GLUCOSE (AUTOMATED) (12/09/2018 4:41 PM CDT) POCT GLU 138 (H) 70 - 110 mg/dL [facility] Specimen Blood Performing Organization Address [facility] [place] Phone Number [facility] CLIA: [id number], [address] [place] [address] [phone] [facility] POCT GLUCOSE (AUTOMATED) (12/09/2018 12:03 PM CDT) POCT GLU 157 (H) 70 - 110 mg/dL [facility] Specimen Blood Performing Organization Address [facility] Phone Number [facility] CLIA: [id number], [address] [place] [address] [phone] [facility] POCT GLUCOSE (AUTOMATED) (12/09/2018 7:42 AM CDT) POCT GLU 132 (H) 70 - 110 mg/dL [facility] Specimen Blood Performing Organization Address [facility] [place] Phone Number [facility] CLIA: [id number], [address] [place] [address] [facility] MAGNESIUM (12/09/2018 3:26 AM CDT) MAGNESIUM 2.3 1.7 - 2.4 mg/dL [facility] Specimen Blood - ARM, RIGHT Performing Organization Address [facility] [place] Phone Number [facility] CLIA: [id number], [address] [place] [address] [facility] PHOSPHORUS (12/09/2018 3:26 AM CDT) PHOSPHORUS 4.7 2.5 - 5.0 mg/dL [facility] Specimen Blood - ARM, RIGHT Performing Organization Address [facility] [place] Phone Number [facility] CLIA: [id number], [address] [place] [address] [phone] [facility] Vancomycin Random Level (12/09/2018 3:26 AM CDT) VANCO RANDOM 18.8 ug/mL [facility] Specimen Blood - ARM, RIGHT Performing Organization Address [facility] [place] Phone Number [facility] CLIA: [id number], [address] [place] [address] [facility] BASIC METABOLIC PANEL (NA, K, CL, CO2, GLUCOSE, BUN, CREATININE, CA) (2018 3:26 AM CDT) NA 138 135 - [address] [facility] mmol/L SERVICES K 4.9 3.5 - 5.[address] [facility] mmol/L SERVICES CL 101 98 - 108 mmol/L [facility] CO2 TOTAL 28 23 - 31 mmol/L [facility] AGAP 9 2 - [address] [facility] BUN 45 (H) 7 - 23 mg/dL [facility] GLUCOSE 132 (H) 70 - 110 mg/dL [facility] CREATININE 3.58 (H) 0.60 - 1.[address] [facility] mg/dL SERVICES CALCIUM 8.8 8.6 - 10.[address] [facility] mg/dL SERVICES eGFR Calculation 17.1 mL/min/1.73m2 [facility] (Non- SERVICES Ethiopian) eGFR Calculation 20.7 mL/min/1.73m2 [facility] () SERVICES Specimen Blood - ARM, RIGHT Narrative Performed At [facility] of Glomerular Filtration Rate (GFR) and Staging [facility] of Kidney Disease* + + + + | GFR (mL/min/1.73 m2)| With Kidney Damage|Without Kidney Damage + + + + |>90|Stage one| Normal + + + + |60-89|Stage two| Decreased GFR + + + + |30-59|Stage three| Stage three + + + + |15-29|Stage four | Stage four + + + + |<15 (or dialysis)|Stage five | Stage five + + + + *Each stage assumes the associated GFR level has been in effect for at least three months.Stages 1 to 5, with or without kidney disease, indicate chronic kidney disease. Notes: Determination of stages one and two (with eGFR >59mL/min/1.73 m2) requires estimation of kidney damage for at least three months as defined by structural or functional abnormalities of the kidney, manifested by either: Pathological abnormalities or Markers of kidney damage (including abnormalities in the composition of the blood or urine or abnormalities in imaging tests). Performing Organization Address City/State/Zipcode Phone Number [facility] CLIA: [id number], [address] [place], [place] [phone] [facility] CBC WITH DIFFERENTIAL (12/09/2018 3:25 AM CDT) WBC 23.33 (H) 4.20 - 10.[address] [facility] 10*3/L SERVICES RBC 3.24 (L) 4.26 - 5.[address] [facility] 10*6/L SERVICES HGB 9.6 (L) 12.2 - 16.4 [facility] g/dL SERVICES HCT 32.5 (L) 38.4 - 49.3 % [facility] MCV 100.3 (H) 81.7 - 95.6 [facility] fL SERVICES MCH 29.6 26.1 - 32.7 [facility] pg SERVICES MCHC 29.5 (L) 31.2 - 35.0 [facility] g/dL SERVICES RDW-SD 54.5 (H) 38.5 - 51.6 [facility] fL SERVICES RDW-CV 15.3 12.1 - 15.4 % [facility] PLT 471 (H) 150 - 328 [facility] 10*3/L SERVICES MPV 10.1 9.8 - 13.0 fL [facility] NRBC/100 WBC 0.1 0.0 - 10.0 [facility] /100 WBCs SERVICES NRBC x10^3 0.02 10*3/L [facility] GRAN MAT (NEUT) % 84.3 % [facility] IMM GRAN % 0.90 % [facility] LYMPH % 7.8 % [facility] MONO % 3.9 % [facility] EOS % 2.9 % [facility] BASO % 0.2 % [facility] GRAN MAT 19.69 (H) 1.99 - 6.95 [facility] x10^3(ANC) 10*3/uL SERVICES IMM GRAN x10^3 0.20 (H) 0.00 - 0.06 [facility] 10*3/uL SERVICES LYMPH x10^3 1.81 1.09 - 3.23 [facility] 10*3/uL SERVICES MONO x10^3 0.91 0.36 - 1.02 [facility] 10*3/uL SERVICES EOS x10^3 0.68 (H) 0.06 - 0.53 [facility] 10*3/uL SERVICES BASO x10^3 0.04 0.01 - 0.09 [facility] 10*3/uL SERVICES SIDEROTIC GRAN Suggestive of [facility] (A)Comment: RBC SERVICES inclusions suggestive of siderotic granules. Iron stain required for positive identification. Specimen Blood - ARM, RIGHT Performing Organization Address City/State/Zipcode Phone Number [facility] CLIA: [id number], [address] [place] [address] [phone] [facility] POCT GLUCOSE (AUTOMATED) (12/08/2018 8:27 PM CDT) POCT GLU 158 (H) 70 - 110 mg/dL [facility] Specimen Blood Performing Organization Address [facility] Phone Number [facility] CLIA: [id number], [address] [place] [address] [phone] [facility] POCT GLUCOSE (AUTOMATED) (12/08/2018 5:07 PM CDT) POCT GLU 135 (H) 70 - 110 mg/dL [facility] Specimen Blood Performing Organization Address [facility] [place] Phone Number [facility] CLIA: [id number], [address] [place] [address] [phone] [facility] POCT GLUCOSE (AUTOMATED) (12/08/2018 12:46 PM CDT) POCT GLU 114 (H) 70 - 110 mg/dL [facility] Specimen Blood Performing Organization Address [facility] [place] Phone Number [facility] CLIA: [id number], [address] [place] [address] [phone] [facility] POCT GLUCOSE (AUTOMATED) (12/08/2018 8:29 AM CDT) POCT GLU 131 (H) 70 - 110 mg/dL [facility] Specimen Blood Performing Organization Address [facility] [place] Phone Number [facility] CLIA: [id number], [address] [place] [address] [phone] [facility] CBC WITH DIFFERENTIAL (12/08/2018 4:49 AM CDT) WBC 11.11 (H) 4.20 - 10.70 [facility] 10*3/L SERVICES RBC 3.24 (L) 4.26 - 5.52 [facility] 10*6/L SERVICES HGB 9.5 (L) 12.2 - 16.4 [facility] g/dL SERVICES HCT 32.2 (L) 38.4 - 49.3 % [facility] MCV 99.4 (H) 81.7 - 95.[address] [facility] MCH 29.3 26.1 - 32.[address] [facility] MCHC 29.5 (L) 31.2 - 35.[address] [facility] g/dL SERVICES RDW-SD 54.4 (H) 38.5 - 51.[address] [facility] RDW-CV 15.1 12.1 - 15.4 % [facility] PLT 454 (H) 150 - 328 [facility] 10*3/L SERVICES MPV 10.4 9.8 - 13.[address] [facility] NRBC/100 WBC 0.3 0.0 - 10.0 /[address] [facility] WBCs SERVICES NRBC x10^3 0.03 10*3/L [facility] GRAN MAT (NEUT) % 70.2 % [facility] IMM GRAN % 1.90 % [facility] LYMPH % 15.7 % [facility] MONO % 6.2 % [facility] EOS % 5.7 % [facility] BASO % 0.3 % [facility] GRAN MAT x10^3(ANC) 7.81 (H) 1.99 - 6.95 [facility] 10*3/uL SERVICES IMM GRAN x10^3 0.21 (H) 0.00 - 0.06 [facility] 10*3/uL SERVICES LYMPH x10^3 1.74 1.09 - 3.23 [facility] 10*3/uL SERVICES MONO x10^3 0.69 0.36 - 1.02 [facility] 10*3/uL SERVICES EOS x10^3 0.63 (H) 0.06 - 0.53 [facility] 10*3/uL SERVICES BASO x10^3 0.03 0.01 - 0.09 [facility] 10*3/uL SERVICES Specimen Blood - ARM, LEFT Performing Organization Address City/State/Zipcode Phone Number [facility] CLIA: [id number], [address] [place], [place] [address] [facility] BASIC METABOLIC PANEL (NA, K, CL, CO2, GLUCOSE, BUN, CREATININE, CA) (2018 4:49 AM CDT) NA 137 135 - [address] [facility] mmol/L SERVICES K 4.0 3.5 - 5.[address] [facility] mmol/L SERVICES CL 101 98 - 108 mmol/L [facility] CO2 TOTAL 28 23 - 31 mmol/L [facility] AGAP 8 2 - [address] [facility] BUN 31 (H) 7 - 23 mg/dL [facility] GLUCOSE 125 (H) 70 - 110 mg/dL [facility] CREATININE 2.73 (H) 0.60 - 1.[address] [facility] mg/dL SERVICES CALCIUM 8.7 8.6 - 10.[address] [facility] mg/dL SERVICES eGFR Calculation 23.3 mL/min/1.73m2 [facility] (Non- SERVICES Ethiopian) eGFR Calculation 28.3 mL/min/1.73m2 [facility] () SERVICES Specimen Blood - ARM, LEFT Narrative Performed At Association of Glomerular Filtration Rate (GFR) and Staging [facility] of Kidney Disease* + + + + | GFR (mL/min/1.73 m2)| With Kidney Damage|Without Kidney Damage + + + + |>90|Stage one| Normal + + + + |60-89|Stage two| Decreased GFR + + + + |30-59|Stage three| Stage three + + + + |15-29|Stage four | Stage four + + + + |<15 (or dialysis)|Stage five | Stage five + + + + *Each stage assumes the associated GFR level has been in effect for at least three months.Stages 1 to 5, with or without kidney disease, indicate chronic kidney disease. Notes: Determination of stages one and two (with eGFR >59mL/min/1.73 m2) requires estimation of kidney damage for at least three months as defined by structural or functional abnormalities of the kidney, manifested by either: Pathological abnormalities or Markers of kidney damage (including abnormalities in the composition of the blood or urine or abnormalities in imaging tests). Performing Organization Address City/[facility]/Zipcode Phone Number [facility] CLIA: [id number], [address] [place] [address] [phone] [facility] POCT GLUCOSE (AUTOMATED) (12/07/2018 9:02 PM CDT) [facility] POCT GLU 124 (H) 70 - 110 mg/dL [facility] Specimen Blood Performing Organization Address City/[facility] Phone Number [facility] CLIA: [id number], [address] [place] [phone] [facility] POCT GLUCOSE (AUTOMATED) (12/07/2018 5:15 PM CDT) [facility] POCT GLU 110 70 - 110 mg/dL [facility] Specimen Blood Performing Organization Address [facility] Phone Number [facility] CLIA: [id number], [address] [place] [address] [phone] [facility] Vancomycin Trough Level - Please obtain prior to HD session today. Thank you. ( 12/07/2018 2:58 PM CDT) [facility] VANCO TROUGH 8.9 (L) 10.0 - 20.0 ug/mL [facility] Specimen Blood - ARM, RIGHT Narrative Performed At Toxic Range:>20 ug/mL [facility] 15-20 ug/mL is recommended for severe infection or when Vancomycin PALMER is greater than or equal to 2. Performing Organization Address [facility] Phone Number [facility] CLIA: [id number], [address] [place] [address] [phone] [facility] PROTHROMBIN TIME / INR (12/07/2018 2:58 PM CDT) [facility] PROTIME PATIENT 10.9 10.1 - 12.[address] [facility] Seconds SERVICES INR 1.0Comment: Normal [facility] INR <1.1; Warfarin SERVICES Therapeutic range 2.0 to 3.0 or 2.5 to 3.5, depending upon the indications. Specimen Blood - ARM, RIGHT Performing Organization Address [facility] Phone Number [facility] CLIA: [id number], [address] [place] [address] [phone] [facility] BLOOD CULTURE SCREEN (12/07/2018 2:57 PM CDT) [facility] Blood No organisms isolated No growth [facility] Culture-Aerobic Comment: SERVICES Previous preliminary verified result was Culture In Progress on 12/07/2018 at 1905 CDT Previous preliminary verified result was No growth at 24 hours on 12/08/2018 at 1601 CDT Previous preliminary verified result was No growth at 48 hours on 12/09/2018 at 1601 CDT Previous preliminary verified result was No growth at 72 hours on 12/10/2018 at 1601 CDT Blood No organisms isolated No growth [facility] Culture-Anaerobic Comment: SERVICES Previous preliminary verified result was Culture In Progress on 12/07/2018 at 1905 CDT Previous preliminary verified result was No growth at 24 hours on 12/08/2018 at 1601 CDT Previous preliminary verified result was No growth at 48 hours on 12/09/2018 at 1601 CDT Previous preliminary verified result was No growth at 72 hours on 12/10/2018 at 1601 CDT Specimen Blood - ARM, RIGHT Performing Organization Address City/State/Zipcode Phone Number [facility] CLIA: [id number], [address] [place] [address] [phone] [facility] XR CHEST 1 VW (12/07/2018 2:36 PM CDT) Specimen Impressions Performed At 1.Right IJ central line within the superior vena cava. PACS/VR/DOSE 2.Improved mild pulmonary edema. 3.Small left pleural effusion with adjacent atelectasis and/or consolidation. 4.Small right pleural effusion. ILali MD., have reviewed this study and agree with the above report. Narrative Performed At XR CHEST 1 VW PACS/VR/DOSE HISTORY: 68 years-old; Male; confirm Jos placement COMPARISON: Chest x-ray 12/03/2018 FINDINGS: Right IJ central line terminates in the SVC. Loop recorder is seen in the left lower chest, unchanged. Mild interval improvement in pulmonary edema and hilar vasculature prominence. Small bilateral pleural effusions are seen, greater on the left. Adjacent opacity in the left lung base may represent atelectasis and/or infection. There is no pneumothorax. The heart is enlarged, unchanged. The osseous structures are unremarkable. Procedure Note [facility], Radiant Results Inft User - 12/07/2018 4:19 PM CDT XR CHEST 1 VW HISTORY: 68 years-old; Male; confirm Jos placement COMPARISON: Chest x-ray 12/03/2018 FINDINGS: Right IJ central line terminates in the SVC. Loop recorder is seen in the left lower chest, unchanged. Mild interval improvement in pulmonary edema and hilar vasculature prominence. Small bilateral pleural effusions are seen, greater on the left. Adjacent opacity in the left lung base may represent atelectasis and/or infection. There is no pneumothorax. The heart is enlarged, unchanged. The osseous structures are unremarkable. IMPRESSION 1. Right IJ central line within the superior vena cava. 2. Improved mild pulmonary edema. 3. Small left pleural effusion with adjacent atelectasis and/or consolidation. 4. Small right pleural effusion. I, Michael Yi MD., have reviewed this study and agree with the above report. Performing Organization Address [facility] Phone Number PACS/VR/DOSE POCT GLUCOSE (AUTOMATED) (12/07/2018 12:36 PM CDT) POCT GLU 128 (H) 70 - 110 mg/dL [facility] Specimen Blood Performing Organization Address [facility] [place] Phone Number [facility] CLIA: [id number], [address] [place] [address] [phone] [facility] BLOOD CULTURE SCREEN (12/07/2018 9:33 AM CDT) Blood No organisms isolated No growth [facility] Culture-Aerobic Comment: SERVICES Previous preliminary verified result was Culture In Progress on 12/07/2018 at 1403 CDT Previous preliminary verified result was No growth at 24 hours on 12/08/2018 at 1101 CDT Previous preliminary verified result was No growth at 48 hours on 12/09/2018 at 1101 CDT Previous preliminary verified result was No growth at 72 hours on 12/10/2018 at 1101 CDT Blood No organisms isolated No growth [facility] Culture-Anaerobic Comment: SERVICES Previous preliminary verified result was Culture In Progress on 12/07/2018 at 1403 CDT Previous preliminary verified result was No growth at 24 hours on 12/08/2018 at 1101 CDT Previous preliminary verified result was No growth at 48 hours on 12/09/2018 at 1101 CDT Previous preliminary verified result was No growth at 72 hours on 12/10/2018 at 1101 CDT Specimen Blood - HAND, LEFT Performing Organization Address [facility] [place] Phone Number [facility] CLIA: [id number], [address] [place] [address] [phone] POCT GLUCOSE (AUTOMATED) (12/07/2018 8:10 AM CDT) POCT GLU 156 (H) 70 - 110 mg/dL [facility] Specimen Blood Performing Organization Address City/State/Zipcode Phone Number [facility] CLIA: [id number], [address] [place] [address] [phone] [employer] [place] EXTRA TUBE LT. BLUE (12/07/2018 4:33 AM CDT) Specimen Blood Performing Organization Address City/State/Zipcode Phone Number [facility] CLIA: [id number], [address] [place] [address] [phone] [employer] [address] CBC WITH DIFFERENTIAL (12/07/2018 4:33 AM CDT) WBC 13.28 (H) 4.20 - 10.70 [facility] 10*3/L SERVICES RBC 3.19 (L) 4.26 - 5.52 [facility] 10*6/L SERVICES HGB 9.4 (L) 12.2 - 16.4 [facility] g/dL SERVICES HCT 31.8 (L) 38.4 - 49.3 % [facility] MCV 99.7 (H) 81.7 - 95.6 fL [facility] MCH 29.5 26.1 - 32.7 pg [facility] MCHC 29.6 (L) 31.2 - 35.0 [facility] g/dL SERVICES RDW-SD 53.7 (H) 38.5 - 51.6 fL [facility] RDW-CV 14.9 12.1 - 15.4 % [facility] PLT 413 (H) 150 - 328 [facility] 10*3/L SERVICES MPV 10.2 9.8 - 13.0 fL [facility] SERVICES NRBC/100 WBC 0.3 0.0 - 10.0 /100 [facility] WBCs SERVICES NRBC x10^3 0.04 10*3/L [facility] SERVICES GRAN MAT (NEUT) % 72.2 % [facility] SERVICES IMM GRAN % 1.80 % [facility] LYMPH % 15.6 % [facility] MONO % 6.4 % [facility] EOS % 3.7 % [facility] BASO % 0.3 % [facility] SERVICES GRAN MAT x10^3(ANC) 9.59 (H) 1.99 - 6.[address] [facility] 10*3/uL SERVICES IMM GRAN x10^3 0.24 (H) 0.00 - 0.[address] [facility] 10*3/uL SERVICES LYMPH x10^3 2.07 1.09 - 3.[address] [facility] 10*3/uL SERVICES MONO x10^3 0.85 0.36 - 1.[address] [facility] 10*3/uL SERVICES EOS x10^3 0.49 0.06 - 0.[address] [facility] 10*3/uL SERVICES BASO x10^3 0.04 0.01 - 0.[address] [facility] 10*3/uL SERVICES Specimen Blood - VENOUS Performing Organization Address City/State/Zipcode Phone Number [facility] CLIA: [id number], [address] [place] [address] [facility] Vancomycin Random Level (12/07/2018 4:33 AM CDT) VANCO RANDOM 10.0 ug/mL [facility] Specimen Blood - VENOUS Performing Organization Address City/State/Zipcode Phone Number [facility] CLIA: [id number], [address] [place] [address] [facility] BASIC METABOLIC PANEL (NA, K, CL, CO2, GLUCOSE, BUN, CREATININE, CA) (2018 4:33 AM CDT) NA 139 135 - [address] [facility] mmol/L SERVICES K 4.1 3.5 - 5.[address] [facility] mmol/L SERVICES CL 101 98 - 108 mmol/L [facility] SERVICES CO2 TOTAL 27 23 - 31 mmol/L [facility] SERVICES AGAP 11 2 - [address] [facility] SERVICES BUN 67 (H) 7 - 23 mg/dL [facility] SERVICES GLUCOSE 167 (H) 70 - 110 mg/dL [facility] SERVICES CREATININE 4.19 (H) 0.60 - 1.[address] [facility] mg/dL SERVICES CALCIUM 8.7 8.6 - 10.[address] [facility] mg/dL SERVICES eGFR Calculation 14.2 mL/min/1.73m2 [facility] (Non- SERVICES Ethiopian) eGFR Calculation 17.2 mL/min/1.73m2 [facility] () SERVICES Specimen Blood - VENOUS Narrative Performed At Association of Glomerular Filtration Rate (GFR) and Staging [facility] SERVICES of Kidney Disease* + + + + | GFR (mL/min/1.73 m2)| With Kidney Damage|Without Kidney Damage + + + + |>90|Stage one| Normal + + + + |60-89|Stage two| Decreased GFR + + + + |30-59|Stage three| Stage three + + + + |15-29|Stage four | Stage four + + + + |<15 (or dialysis)|Stage five | Stage five + + + + *Each stage assumes the associated GFR level has been in effect for at least three months.Stages 1 to 5, with or without kidney disease, indicate chronic kidney disease. Notes: Determination of stages one and two (with eGFR >59mL/min/1.73 m2) requires estimation of kidney damage for at least three months as defined by structural or functional abnormalities of the kidney, manifested by either: Pathological abnormalities or Markers of kidney damage (including abnormalities in the composition of the blood or urine or abnormalities in imaging tests). Performing Organization Address City/[facility] Phone Number [facility] CLIA: [id number], [address] [place] [address] [facility] POCT GLUCOSE (AUTOMATED) (12/06/2018 7:51 PM CDT) POCT GLU 139 (H) 70 - 110 mg/dL [facility] Specimen Blood Performing Organization Address City/[facility] Phone Number [facility] CLIA: [id number], [address] [place] [address] [phone] [facility] POCT GLUCOSE (AUTOMATED) (12/06/2018 4:06 PM CDT) POCT GLU 78 70 - 110 mg/dL [facility] Specimen Blood Performing Organization Address [facility] Phone Number [facility] CLIA: [id number], [address] [place] [address] [phone] [facility] POCT GLUCOSE (AUTOMATED) (12/06/2018 11:37 AM CDT) POCT GLU 239 (H) 70 - 110 mg/dL [facility] Specimen Blood Performing Organization Address City/[facility]/Zipcode Phone Number [facility] CLIA: [id number], [address] [place] [address] [phone] [facility] POCT GLUCOSE (AUTOMATED) (12/06/2018 9:50 AM CDT) POCT GLU 220 (H) 70 - 110 mg/dL [facility] Specimen Blood Performing Organization Address City/[facility] Phone Number [facility] CLIA: [id number], [address] [place] [address] [phone] [facility] POCT GLUCOSE (AUTOMATED) (12/06/2018 7:36 AM CDT) POCT GLU 203 (H) 70 - 110 mg/dL [facility] Specimen Blood Performing Organization Address [facility] Phone Number [facility] CLIA: [id number], [address] [place] [address] [phone] [facility] CBC WITH DIFFERENTIAL (12/06/2018 5:03 AM CDT) WBC 12.79 (H) 4.20 - 10.70 [facility] 10*3/L SERVICES RBC 3.25 (L) 4.26 - 5.52 [facility] 10*6/L SERVICES HGB 9.3 (L) 12.2 - 16.4 [facility] g/dL SERVICES HCT 32.1 (L) 38.4 - 49.3 % [facility] MCV 98.8 (H) 81.7 - 95.6 fL [facility] MCH 28.6 26.1 - 32.7 pg [facility] MCHC 29.0 (L) 31.2 - 35.0 [facility] g/dL SERVICES RDW-SD 52.6 (H) 38.5 - 51.6 fL [facility] RDW-CV 14.6 12.1 - 15.4 % [facility] PLT 428 (H) 150 - 328 [facility] 10*3/L SERVICES MPV 10.3 9.8 - 13.[address] [facility] SERVICES NRBC/100 WBC 0.6 0.0 - 10.0 /[address] [facility] [facility] WBCs SERVICES NRBC x10^3 0.08 10*3/L [facility] GRAN MAT (NEUT) % 81.2 % [facility] IMM GRAN % 1.40 % [facility] LYMPH % 10.0 % [facility] MONO % 5.6 % [facility] EOS % 1.5 % [facility] BASO % 0.3 % [facility] GRAN MAT x10^3(ANC) 10.39 (H) 1.99 - 6.95 [facility] 10*3/uL SERVICES IMM GRAN x10^3 0.18 (H) 0.00 - 0.06 [facility] 10*3/uL SERVICES LYMPH x10^3 1.28 1.09 - 3.23 [facility] 10*3/uL SERVICES MONO x10^3 0.71 0.36 - 1.02 [facility] 10*3/uL SERVICES EOS x10^3 0.19 0.06 - 0.53 [facility] 10*3/uL SERVICES BASO x10^3 0.04 0.01 - 0.09 [facility] 10*3/uL SERVICES Specimen Blood - VENOUS Performing Organization Address City/State/Zipcode Phone Number [facility] CLIA: [id number], [address] [place] [phone] [facility] BASIC METABOLIC PANEL (NA, K, CL, CO2, GLUCOSE, BUN, CREATININE, CA) (2018 5:03 AM CDT) NA 138 135 - [address] [facility] mmol/L SERVICES K 3.7 3.5 - 5.[address] [facility] mmol/L SERVICES CL 99 98 - 108 mmol/L [facility] CO2 TOTAL 29 23 - 31 mmol/L [facility] SERVICES AGAP 10 2 - [address] [facility] BUN 55 (H) 7 - 23 mg/dL [facility] SERVICES GLUCOSE 195 (H) 70 - 110 mg/dL [facility] SERVICES CREATININE 3.71 (H) 0.60 - 1.[address] [facility] mg/dL SERVICES CALCIUM 8.8 8.6 - 10.[address] [facility] mg/dL SERVICES eGFR Calculation 16.4 mL/min/1.73m2 [facility] (Non- SERVICES Ethiopian) eGFR Calculation 19.8 mL/min/1.73m2 [facility] () SERVICES Specimen Blood - VENOUS Narrative Performed At Association of Glomerular Filtration Rate (GFR) and Staging [facility] SERVICES of Kidney Disease* + + + + | GFR (mL/min/1.73 m2)| With Kidney Damage|Without Kidney Damage + + + + |>90|Stage one| Normal + + + + |60-89|Stage two| Decreased GFR + + + + |30-59|Stage three| Stage three + + + + |15-29|Stage four | Stage four + + + + |<15 (or dialysis)|Stage five | Stage five + + + + *Each stage assumes the associated GFR level has been in effect for at least three months.Stages 1 to 5, with or without kidney disease, indicate chronic kidney disease. Notes: Determination of stages one and two (with eGFR >59mL/min/1.73 m2) requires estimation of kidney damage for at least three months as defined by structural or functional abnormalities of the kidney, manifested by either: Pathological abnormalities or Markers of kidney damage (including abnormalities in the composition of the blood or urine or abnormalities in imaging tests). Performing Organization Address City/[facility] Phone Number [facility] CLIA: [id number], [address] [place] [address] [facility] POCT GLUCOSE (AUTOMATED) (12/05/2018 11:40 PM CDT) POCT GLU 200 (H) 70 - 110 mg/dL [facility] Specimen Blood Performing Organization Address City/[facility] Phone Number [facility] CLIA: [id number], [address] [place] [phone] [facility] POCT GLUCOSE (AUTOMATED) (12/05/2018 8:29 PM CDT) POCT GLU 147 (H) 70 - 110 mg/dL [facility] Specimen Blood Performing Organization Address [facility] [place] Phone Number [facility] CLIA: [id number], [address] [place] [address] [phone] [facility] aPTT (12/05/2018 5:57 PM CDT) APTT Patient 32 26 - [address] [facility] Specimen Blood - HAND, LEFT Performing Organization Address City/[facility]/Zipcode Phone Number [facility] CLIA: [id number], [address] [place] [phone] [facility] Prothombin Time / INR (12/05/2018 5:57 PM CDT) PROTIME PATIENT 11.0 10.1 - 12.[address] [facility] Seconds SERVICES INR 1.0Comment: Normal [facility] INR <1.1; Warfarin SERVICES Therapeutic range 2.0 to 3.0 or 2.5 to 3.5, depending upon the indications. Specimen Blood - HAND, LEFT Performing Organization Address [facility] [place] Phone Number [facility] CLIA: [id number], [address] [place] [address] [phone] [facility] POCT GLUCOSE (AUTOMATED) (12/05/2018 4:51 PM CDT) POCT GLU 164 (H) 70 - 110 mg/dL [facility] Specimen Blood Performing Organization Address [facility] [place] Phone Number [facility] CLIA: [id number], [address] [place] [address] [phone] [facility] POCT GLUCOSE (AUTOMATED) (12/05/2018 11:48 AM CDT) POCT GLU 154 (H) 70 - 110 mg/dL [facility] Specimen Blood Performing Organization Address [facility] [place] Phone Number [facility] CLIA: [id number], [address] [place] [address] [phone] [facility] [place] POCT GLUCOSE (AUTOMATED) (12/05/2018 7:58 AM CDT) POCT GLU 145 (H) 70 - 110 mg/dL [facility] Specimen Blood Performing Organization Address [facility] [place] Phone Number [facility] CLIA: [id number], [address] [place] [address] [phone] [facility] [place] POCT GLUCOSE (AUTOMATED) (12/05/2018 4:48 AM CDT) POCT GLU 127 (H) 70 - 110 mg/dL [facility] Specimen Blood Performing Organization Address City/State/Zipcode Phone Number [facility] CLIA: [id number], [address] [place] [address] [facility] CBC WITH DIFFERENTIAL (12/05/2018 2:56 AM CDT) WBC 15.34 (H) 4.20 - 10.70 [facility] 10*3/L SERVICES RBC 3.25 (L) 4.26 - 5.52 [facility] 10*6/L SERVICES HGB 9.4 (L) 12.2 - 16.4 [facility] g/dL SERVICES HCT 32.8 (L) 38.4 - 49.3 % [facility] MCV 100.9 (H) 81.7 - 95.6 fL [facility] MCH 28.9 26.1 - 32.7 pg [facility] MCHC 28.7 (L) 31.2 - 35.0 [facility] g/dL SERVICES RDW-SD 54.9 (H) 38.5 - 51.6 fL [facility] RDW-CV 14.8 12.1 - 15.4 % [facility] PLT 407 (H) 150 - 328 [facility] 10*3/L SERVICES MPV 10.6 9.8 - 13.0 fL [facility] NRBC/100 WBC 0.0 0.0 - 10.0 /100 [facility] WBCs SERVICES NRBC x10^3 <0.01 10*3/L [facility] GRAN MAT (NEUT) % 82.7 % [facility] IMM GRAN % 0.80 % [facility] LYMPH % 8.4 % [facility] MONO % 6.1 % [facility] EOS % 1.8 % [facility] BASO % 0.2 % [facility] GRAN MAT x10^3(ANC) 12.68 (H) 1.99 - 6.95 [facility] 10*3/uL SERVICES IMM GRAN x10^3 0.12 (H) 0.00 - 0.06 [facility] 10*3/uL SERVICES LYMPH x10^3 1.29 1.09 - 3.[address] [facility] 10*3/uL SERVICES MONO x10^3 0.94 0.36 - 1.[address] [facility] 10*3/uL SERVICES EOS x10^3 0.28 0.06 - 0.[address] [facility] 10*3/uL SERVICES BASO x10^3 0.03 0.01 - 0.[address] [facility] 10*3/uL SERVICES Specimen Blood - HAND, RIGHT Performing Organization Address City/State/Zipcode Phone Number [facility] CLIA: [id number], [address] [place] [address] [phone] [facility] BASIC METABOLIC PANEL (NA, K, CL, CO2, GLUCOSE, BUN, CREATININE, CA) (2018 2:56 AM CDT) NA 135 135 - [address] [facility] mmol/L SERVICES K 4.1 3.5 - 5.[address] [facility] mmol/L SERVICES CL 99 98 - 108 mmol/L [facility] SERVICES CO2 TOTAL 24 23 - 31 mmol/L [facility] SERVICES AGAP 12 2 - [address] [facility] SERVICES BUN 49 (H) 7 - 23 mg/dL [facility] SERVICES GLUCOSE 119 (H) 70 - 110 mg/dL [facility] SERVICES CREATININE 3.45 (H) 0.60 - 1.[address] [facility] mg/dL SERVICES CALCIUM 9.0 8.6 - 10.[address] [facility] mg/dL SERVICES eGFR Calculation 17.8 mL/min/1.73m2 [facility] (Non- SERVICES Ethiopian) eGFR Calculation 21.6 mL/min/1.73m2 [facility] () SERVICES Specimen Blood - HAND, RIGHT Narrative Performed At Association of Glomerular Filtration Rate (GFR) and Staging [facility] SERVICES of Kidney Disease* + + + + | GFR (mL/min/1.73 m2)| With Kidney Damage|Without Kidney Damage + + + + |>90|Stage one| Normal + + + + |60-89|Stage two| Decreased GFR + + + + |30-59|Stage three| Stage three + + + + |15-29|Stage four | Stage four + + + + |<15 (or dialysis)|Stage five | Stage five + + + + *Each stage assumes the associated GFR level has been in effect for at least three months.Stages 1 to 5, with or without kidney disease, indicate chronic kidney disease. Notes: Determination of stages one and two (with eGFR >59mL/min/1.73 m2) requires estimation of kidney damage for at least three months as defined by structural or functional abnormalities of the kidney, manifested by either: Pathological abnormalities or Markers of kidney damage (including abnormalities in the composition of the blood or urine or abnormalities in imaging tests). Performing Organization Address [facility] Phone Number [facility] CLIA: [id number], [address] [place] [address] [phone] [facility] BLOOD CULTURE WORKUP (12/05/2018 2:55 AM CDT) Blood Culture STAPHYLOCOCCUS [facility] Workup AUREUSComment: For SERVICES susceptibility results, refer to culture # - [id number] Gram stain Isolated from aerobic [facility] bottle Gram positive SERVICES cocci Specimen Blood - HAND, RIGHT Performing Organization Address [facility] [place] Phone Number [facility] CLIA: [id number], [address] [place] [address] [phone] [facility] BLOOD CULTURE SCREEN (12/05/2018 2:55 AM CDT) Pathologist [facility] Blood Culture positive, identification to follow (AA) No growth [facility] Culture-Aerobic Comment: SERVICES Previous preliminary verified result was Culture In Progress on 12/05/2018 at 1001 CDT Previous preliminary verified result was No growth at 24 hours on 12/06/2018 at 0701 CDT Blood No organisms isolated No growth [facility] Culture-Anaerobic Comment: SERVICES Previous preliminary verified result was Culture In Progress on 12/05/2018 at 1001 CDT Previous preliminary verified result was No growth at 24 hours on 12/06/2018 at 1636 CDT Specimen Blood - HAND, RIGHT Performing Organization Address [facility] Phone Number [facility] CLIA: [id number], [address] [place] [address] [phone] [facility] POCT GLUCOSE (AUTOMATED) (12/05/2018 12:32 AM CDT) POCT GLU 108 70 - 110 mg/dL [facility] Specimen Blood Performing Organization Address [facility] [place] Phone Number [facility] CLIA: [id number], [address] [place] [phone] [facility] BLOOD CULTURE WORKUP (12/04/2018 10:49 PM CDT) Pathologist [facility] Blood Culture STAPHYLOCOCCUS [facility] Workup AUREUSComment: For SERVICES susceptibility results, refer to culture # - [id number] Gram stain Isolated from aerobic [facility] bottle Gram positive SERVICES cocci in clusters Specimen Blood - HAND, LEFT Performing Organization Address City/[facility]/Zipcode Phone Number [facility] CLIA: [id number], [address] [place] [address] [phone] [facility] BLOOD CULTURE SCREEN (12/04/2018 10:49 PM CDT) Pathologist [facility] Blood Culture positive, identification to follow (AA) No growth [facility] Culture-Aerobic Comment: SERVICES Previous preliminary verified result was Culture In Progress on 12/05/2018 at 0304 CDT Previous preliminary verified result was No growth at 24 hours on 12/06/2018 at 0001 CDT Previous preliminary verified result was No growth at 48 hours on 12/07/2018 at 0001 CDT Blood No organisms isolated No growth [facility] Culture-Anaerobic Comment: SERVICES Previous preliminary verified result was Culture In Progress on 12/05/2018 at 0304 CDT Previous preliminary verified result was No growth at 24 hours on 12/06/2018 at 0001 CDT Previous preliminary verified result was No growth at 48 hours on 12/07/2018 at 0713 CDT Previous preliminary verified result was Culture In Progress on 12/09/2018 at 0940 CDT Specimen Blood - HAND, LEFT Performing Organization Address City/[facility] Phone Number [facility] CLIA: [id number], [address] [place] [phone] [facility] POCT GLUCOSE (AUTOMATED) (12/04/2018 9:15 PM CDT) [facility] POCT GLU 105 70 - 110 mg/dL [facility] Specimen Blood Performing Organization Address City/[facility]/Zipcode Phone Number [facility] CLIA: [id number], [address] [place] [address] [phone] [facility] POCT GLUCOSE (AUTOMATED) (12/04/2018 7:57 PM CDT) POCT GLU 105 70 - 110 mg/dL [facility] Specimen Blood Performing Organization Address [facility] Phone Number [facility] CLIA: [id number], [address] [place] [address] [phone] [facility] POCT GLUCOSE (AUTOMATED) (12/04/2018 1:11 PM CDT) POCT GLU 137 (H) 70 - 110 mg/dL [facility] Specimen Blood Performing Organization Address [facility] Phone Number [facility] CLIA: [id number], [address] [place] [phone] [facility] POCT GLUCOSE (AUTOMATED) (12/04/2018 7:28 AM CDT) POCT GLU 161 (H) 70 - 110 mg/dL [facility] Specimen Blood Performing Organization Address [facility] [place] Phone Number [facility] CLIA: [id number], [address] [place] [phone] [facility] POCT GLUCOSE (AUTOMATED) (12/04/2018 6:18 AM CDT) POCT GLU 211 (H) 70 - 110 mg/dL [facility] Specimen Blood Performing Organization Address [facility] [place] Phone Number [facility] CLIA: [id number], [address] [place] [address] [phone] [facility] CBC WITH DIFFERENTIAL (12/04/2018 6:10 AM CDT) WBC 17.88 (H) 4.20 - 10.70 [facility] 10*3/L SERVICES RBC 2.72 (L) 4.26 - 5.52 [facility] 10*6/L SERVICES HGB 8.1 (L) 12.2 - 16.4 [facility] g/dL SERVICES HCT 27.0 (L) 38.4 - 49.3 % [facility] MCV 99.3 (H) 81.7 - 95.6 fL [facility] MCH 29.8 26.1 - 32.7 pg [facility] MCHC 30.0 (L) 31.2 - 35.0 [facility] g/dL SERVICES RDW-SD 53.4 (H) 38.5 - 51.6 fL [facility] RDW-CV 14.8 12.1 - 15.4 % [facility] PLT 356 (H) 150 - 328 [facility] 10*3/L SERVICES MPV 11.0 9.8 - 13.0 fL [facility] NRBC/100 WBC 0.0 0.0 - 10.0 [facility] /100 WBCs SERVICES NRBC x10^3 <0.01 10*3/L [facility] GRAN MAT (NEUT) % 84.5 % [facility] IMM GRAN % 0.70 % [facility] LYMPH % 7.1 % [facility] MONO % 6.9 % [facility] EOS % 0.7 % [facility] BASO % 0.1 % [facility] GRAN MAT 15.11 (H) 1.99 - 6.95 [facility] x10^3(ANC) 10*3/uL SERVICES IMM GRAN x10^3 0.12 (H) 0.00 - 0.06 [facility] 10*3/uL SERVICES LYMPH x10^3 1.27 1.09 - 3.23 [facility] 10*3/uL SERVICES MONO x10^3 1.23 (H) 0.36 - 1.02 [facility] 10*3/uL SERVICES EOS x10^3 0.13 0.06 - 0.53 [facility] 10*3/uL SERVICES BASO x10^3 <0.03 0.01 - 0.09 [facility] 10*3/uL SERVICES BASO STIPPLING Present (A) [facility] BANDS Increased (A) [facility] SERVICES Specimen Blood - VENOUS Performing Organization Address City/State/Zipcode Phone Number [facility] CLIA: [id number], [address] [place], [place] [phone] [facility] BASIC METABOLIC PANEL (NA, K, CL, CO2, GLUCOSE, BUN, CREATININE, CA) (2018 6:10 AM CDT) NA 134 (L) 135 - [address] [facility] mmol/L SERVICES K 4.3 3.5 - 5.[address] [facility] mmol/L SERVICES CL 96 (L) 98 - 108 mmol/L [facility] SERVICES CO2 TOTAL 29 23 - 31 mmol/L [facility] SERVICES AGAP 9 2 - [address] [facility] SERVICES BUN 41 (H) 7 - 23 mg/dL [facility] SERVICES GLUCOSE 184 (H) 70 - 110 mg/dL [facility] SERVICES CREATININE 2.69 (H) 0.60 - 1.[address] [facility] mg/dL SERVICES CALCIUM 8.8 8.6 - 10.[address] [facility] mg/dL SERVICES eGFR Calculation 23.7 mL/min/1.73m2 [facility] (Non- SERVICES Ethiopian) eGFR Calculation 28.7 mL/min/1.73m2 [facility] () SERVICES Specimen Blood - VENOUS Narrative Performed At Association of Glomerular Filtration Rate (GFR) and Staging [facility] SERVICES of Kidney Disease* + + + + | GFR (mL/min/1.73 m2)| With Kidney Damage|Without Kidney Damage + + + + |>90|Stage one| Normal + + + + |60-89|Stage two| Decreased GFR + + + + |30-59|Stage three| Stage three + + + + |15-29|Stage four | Stage four + + + + |<15 (or dialysis)|Stage five | Stage five + + + + *Each stage assumes the associated GFR level has been in effect for at least three months.Stages 1 to 5, with or without kidney disease, indicate chronic kidney disease. Notes: Determination of stages one and two (with eGFR >59mL/min/1.73 m2) requires estimation of kidney damage for at least three months as defined by structural or functional abnormalities of the kidney, manifested by either: Pathological abnormalities or Markers of kidney damage (including abnormalities in the composition of the blood or urine or abnormalities in imaging tests). Performing Organization Address City/State/Zipcode Phone Number 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 2.Multifocal microhemorrhages and superficial siderosis as described above related to multiple remote hemorrhagic infarctions. 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 Amyloid angiopathy is a consideration. 3.Cerebral volume loss is greater than expected for the patient's age. Consider chronic brain degeneration. Amyloid angiopathy is a possible explanation, given the imaging findings and the patient's history of dementia. Narrative Performed At * * * * * * * * ORIGINAL REPORT * * * * * * * * PACS/VR/DOSE Exam: MR BRAIN W WO CONTRAST Clinical History: concern for acute/subacute infarct Technique: Routine MR brain with and without contrast Comparison: MRI dated 05/24/2017, CT brain dated 12/03/2018, MRA head dated 05/24/2017 Findings: Diffusion-weighted images do not demonstrate any evidence of acute infarction. T2/FLAIR imaging demonstrates extensive nonspecific periventricular and deep white matter hyperintensity likely related to chronic microvascular ischemia. Multiple foci of chronic infarction are noted in the bilateral cerebellum. Central pontine hyperintensity is likely related to chronic microvascular ischemia. A chronic right superior frontal gyrus infarct is noted. Chronic infarcts are also noted in the bilateral external capsules. Chronic bilateral thalamic lacunar infarcts are present. The susceptibility weighted imaging demonstrates multiple foci of microhemorrhage and hemosiderin deposition the bilateral cerebellar hemispheres, left occipital cortex and subcortical region, right frontal subcortical region, medial right frontal subcortical region, medial left frontal subcortical region and right superior frontal cortex. The ventricular prominence is slightly out of proportion to the degree of cerebral volume loss. Postcontrast imaging through the whole brain does not demonstrate any abnormal intracranial enhancement. Procedure Note [facility], Radiant Results Inft User - 12/04/2018 10:08 AM CDT * * * * * * * * ORIGINAL REPORT * * * * * * * * Exam: MR BRAIN W WO CONTRAST Clinical History: concern for acute/subacute infarct Technique: Routine MR brain with and without contrast Comparison: MRI dated 05/24/2017, CT brain dated 12/03/2018, MRA head dated 05/24/2017 Findings: Diffusion-weighted images do not demonstrate any evidence of acute infarction. T2/FLAIR imaging demonstrates extensive nonspecific periventricular and deep white matter hyperintensity likely related to chronic microvascular ischemia. Multiple foci of chronic infarction are noted in the bilateral cerebellum. Central pontine hyperintensity is likely related to chronic microvascular ischemia. A chronic right superior frontal gyrus infarct is noted. Chronic infarcts are also noted in the bilateral external capsules. Chronic bilateral thalamic lacunar infarcts are present. The susceptibility weighted imaging demonstrates multiple foci of microhemorrhage and hemosiderin deposition the bilateral cerebellar hemispheres, left occipital cortex and subcortical region, right frontal subcortical region, medial right frontal subcortical region, medial left frontal subcortical region and right superior frontal cortex. The ventricular prominence is slightly out of proportion to the degree of cerebral volume loss. Postcontrast imaging through the whole brain does not demonstrate any abnormal intracranial enhancement. IMPRESSION Impression: 1. 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 2. Multifocal microhemorrhages and superficial siderosis as described above related to multiple remote hemorrhagic infarctions. 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 Amyloid angiopathy is a consideration. 3. Cerebral volume loss is greater than expected for the patient's age. Consider chronic brain degeneration. Amyloid angiopathy is a possible explanation, given the imaging findings and the patient's history of dementia. Performing Organization Address City/State/Zipcode Phone Number PACS/VR/DOSE POCT GLUCOSE (AUTOMATED) (12/03/2018 8:33 PM CDT) POCT GLU 179 (H) 70 - 110 mg/dL [facility] Specimen Blood Performing Organization Address City/State/Zipcode Phone Number [facility] CLIA: [id number], [address] [place] [phone] [facility] BASIC METABOLIC PANEL (NA, K, CL, CO2, GLUCOSE, BUN, CREATININE, CA) (2018 6:50 PM CDT) NA 132 (L) 135 - [address] [facility] mmol/L SERVICES K 5.8 (H)Comment: 3.5 - 5.[address] [facility] Slight hemolysis mmol/L SERVICES CL 97 (L) 98 - [address] [facility] mmol/L SERVICES CO2 TOTAL 25 23 - [address] [facility] mmol/L SERVICES AGAP 10 2 - [address] [facility] SERVICES BUN 77 (H)Comment: 7 - 23 mg/dL [facility] Slight hemolysis SERVICES GLUCOSE 171 (H) 70 - [address] [facility] mg/dL SERVICES CREATININE 3.97 (H) 0.60 - 1.[address] [facility] mg/dL SERVICES CALCIUM 8.4 (L) 8.6 - 10.[address] [facility] mg/dL SERVICES eGFR Calculation 15.1 mL/min/1.73m2 [facility] (Non- SERVICES Ethiopian) eGFR Calculation 18.3 mL/min/1.73m2 [facility] () SERVICES Specimen Blood - VENOUS Narrative Performed At Association of Glomerular Filtration Rate (GFR) and Staging [facility] SERVICES of Kidney Disease* + + + + | GFR (mL/min/1.73 m2)| With Kidney Damage|Without Kidney Damage + + + + |>90|Stage one| Normal + + + + |60-89|Stage two| Decreased GFR + + + + |30-59|Stage three| Stage three + + + + |15-29|Stage four | Stage four + + + + |<15 (or dialysis)|Stage five | Stage five + + + + *Each stage assumes the associated GFR level has been in effect for at least three months.Stages 1 to 5, with or without kidney disease, indicate chronic kidney disease. Notes: Determination of stages one and two (with eGFR >59mL/min/1.73 m2) requires estimation of kidney damage for at least three months as defined by structural or functional abnormalities of the kidney, manifested by either: Pathological abnormalities or Markers of kidney damage (including abnormalities in the composition of the blood or urine or abnormalities in imaging tests). Performing Organization Address City/State/Zipcode Phone Number [facility] CLIA: [id number], [address] [place] [phone] [facility] Chest 1 View - Portable AP (upright) for Central Line placement verification ( 4:51 PM CDT) Specimen Impressions Performed At FINDINGS/IMPRESSION: PACS/VR/DOSE Lines/Tubes: A right IJ central line terminates over the atriocaval junction. Lungs: Moderate pulmonary edema has slightly increased. A moderate left pleural effusion is seen with adjacent atelectasis and/or consolidation. A small right pleural effusion is also noted. No pneumothorax is seen. Heart/Mediastinum: The cardiomediastinal silhouette is enlarged, unchanged. Bones: The osseous structures are unchanged. Narrative Performed At * * * * * * * * ORIGINAL REPORT * * * * * * * * PACS/VR/DOSE EXAM: XR CHEST 1 VW COMPARISON: 12/02/2018 HISTORY: central line Procedure Note [facility], Radiant Results Inft User - 12/03/2018 5:00 PM CDT * * * * * * * * ORIGINAL REPORT * * * * * * * * EXAM: XR CHEST 1 VW COMPARISON: 12/02/2018 HISTORY: central line IMPRESSION FINDINGS/IMPRESSION: Lines/Tubes: A right IJ central line terminates over the atriocaval junction. Lungs: Moderate pulmonary edema has slightly increased. A moderate left pleural effusion is seen with adjacent atelectasis and/or consolidation. A small right pleural effusion is also noted. No pneumothorax is seen. Heart/Mediastinum: The cardiomediastinal silhouette is enlarged, unchanged. Bones: The osseous structures are unchanged. Performing Organization Address [facility] Phone Number PACS/VR/DOSE CATHETER TIP CULTURE (12/03/2018 4:12 PM CDT) CATH TIP CULTUR STAPHYLOCOCCUS AUREUS [facility] Specimen Catheter Tip IV - CENTRAL VENOUS LINE Organism Antibiotic Method Susceptibility Staphylococcus aureus Clindamycin SUSCEPTIBILITY TESTING Resistant Staphylococcus aureus Daptomycin 0.50: Susceptible Staphylococcus aureus Erythromycin SUSCEPTIBILITY TESTING >=8: Resistant Staphylococcus aureus Linezolid SUSCEPTIBILITY TESTING 2: Susceptible Staphylococcus aureus Oxacillin SUSCEPTIBILITY TESTING >=4: Resistant Staphylococcus aureus Penicillin SUSCEPTIBILITY TESTING >=0.5: Resistant Staphylococcus aureus Rifampin SUSCEPTIBILITY TESTING <=0.5: Susceptible Staphylococcus aureus Tetracycline SUSCEPTIBILITY TESTING <=1: Susceptible Staphylococcus aureus Trimethoprim/Sulfamet SUSCEPTIBILITY TESTING <=10: Susceptible hoxazole Staphylococcus aureus Vancomycin SUSCEPTIBILITY TESTING 1: Susceptible Comment: This isolate demonstrates inducible Clindamycin resistance by in vitro testing. Contact infectious disease faculty for appropriate advice. Methicillin resistance indicates resistance to all beta lactams, beta lactam/ beta lactamase inhibitor combination and Imipenem. Rifampin should not be used alone for treatment of bacterial infections as resistance may develop rapidly. Performing Organization Address City/State/Zipcode Phone Number [facility] CLIA: [id number], [address] [place] [address] [facility] IR REMOVAL TUNNELED CENTRAL VENOUS CATHETER WITHOUT PORT/PUMP (12/03/2018 3:31 PM CDT) Specimen Impressions Performed At Successful [right] tunnelled dialysis catheter removal. PACS/VR/DOSE Sada Castaneda MD., have reviewed this study and agree with the above report. Narrative Performed At TUNNELED DIALYSIS CATHETER REMOVAL PACS/VR/DOSE HISTORY: Bacteremia, request for catheter removal by ICU team (Dr. Rojas) MEDICATIONS: I reviewed the patient?s current medication list as noted in the nursing assessment, and the following actions were taken: None []. ATTENDING PRESENCE:As the attending radiologist, Dr Plaza was present and supervised the procedure PROCEDURE: The patient was told about the risks and benefits of the procedure. The patient was prepped and draped in sterile fashion. Ulysses protocol timeout was performed verifying correct patient, correct site, and correct procedure. No images were obtained. After prepping and draping in the usual sterile fashion. The tunnelled dialysis catheter was removed without complications. The exit site was dressed with sterile gauze. The exit site was clear without exudate. The tip of the catheter was sent to laboratory for culture. COMPLICATIONS: None. Estimated Blood Loss : None Procedure Note [facility], Radiant Results Inft User - 12/06/2018 10:14 AM CDT TUNNELED DIALYSIS CATHETER REMOVAL HISTORY: Bacteremia, request for catheter removal by ICU team (Dr. Rojas) MEDICATIONS: I reviewed the patient?s current medication list as noted in the nursing assessment, and the following actions were taken: None []. ATTENDING PRESENCE: As the attending radiologist, Dr Plaza was present and supervised the procedure PROCEDURE: The patient was told about the risks and benefits of the procedure. The patient was prepped and draped in sterile fashion. Ulysses protocol timeout was performed verifying correct patient, correct site, and correct procedure. No images were obtained. After prepping and draping in the usual sterile fashion. The tunnelled dialysis catheter was removed without complications. The exit site was dressed with sterile gauze. The exit site was clear without exudate. The tip of the catheter was sent to laboratory for culture. COMPLICATIONS: None. Estimated Blood Loss : None IMPRESSION Successful [right] tunnelled dialysis catheter removal. Carlos Castaneda MD., have reviewed this study and agree with the above report. Performing Organization Address City/State/Zipcode Phone Number PACS/VR/DOSE Hepatitis B Surface Antibody (HBsAb) (12/03/2018 2:39 PM CDT) HBsAB Negative [facility] HBsAb 0.00 mIU/mL [facility] Semi-Quantitative SERVICES Specimen Blood - CENTRAL VENOUS LINE Narrative Performed At Interpretation:Hepatitis B Surface Antibody [facility] Negative - Patient is considered to be not immune to infection with HBV. Positive - Anti-HBs detected at greater than or equal to 12 mIU/mL.Patient is considered to be immune to infection with HBV. Performing Organization Address City/State/Zipcode Phone Number [facility] CLIA: [id number], [address] [place] [address] [phone] [facility] Hepatitis B Surface Antigen (HBsAg) (12/03/2018 2:39 PM CDT) HBsAg HEPATITIS B Negative [facility] SURFACE ANTIGEN SERVICES NEGATIVE HBsAg 0.[address] [facility] Semi-Quantitative SERVICES Specimen Blood - CENTRAL VENOUS LINE Performing Organization Address City/[facility] Phone Number [facility] CLIA: [id number], [address] [place] [phone] [facility] TROPONIN I (12/03/2018 2:39 PM CDT) TROPONIN I 0.036 (H) <=0.034 ng/mL [facility] Specimen Blood - CENTRAL VENOUS LINE Narrative Performed At Equal or Less than 0.034 ng/ml---Normal [facility] Note: Cardiac troponin begins to rise 3-4 hours after the onset of ischemia. Repeat in 4-6 hours if the sample was drawn within 3-4 hours of the onset of the symptom and found normal. Between 0.035 and 0.120 ng/mL--- Borderline. Questionable myocardial injury or necrosis Note: Serial measurement may be necessary to confirm or exclude the diagnosis of myocardial injury or necrosis; Clinical correlation (symptoms, EKGs, imaging studies, and others) required; Repeat in 4-6 hours if clinically indicated. Equal or Higher than 0.121 ng/mL---Abnormal. Myocardial Injury or Necrosis Likely Biotin has been reported to cause a negative bias, interpret results relative to patient's use of biotin. Performing Organization Address City/State/[facility] Phone Number [facility] CLIA: [id number], [address] [place] [address] [facility] XR KUB (12/03/2018 12:51 PM CDT) Specimen Narrative Performed At * * * * * * * * ORIGINAL REPORT * * * * * * * * PACS/VR/DOSE EXAM: XR KUB HISTORY: PEG tube placement With contrast for peg tube placement verification COMPARISON: Radiograph 12/03/2018 FINDINGS: Administration of contrast through a gastrostomy tube confirms placement in the stomach. Contrast was visualized passing from the PEG tube to the stomach, duodenum and proximal jejunum. No acute osseous abnormality is identified. No radiopaque stones or abnormal calcifications are seen. The bowel gas pattern is nonobstructive. I reviewed this study and agree. Gabriel Castaneda MD., have reviewed this study and agree with the above report. Procedure Note [facility], Radiant Results Inft User - 12/04/2018 8:56 AM CDT * * * * * * * * ORIGINAL REPORT * * * * * * * * EXAM: XR KUB HISTORY: PEG tube placement With contrast for peg tube placement verification COMPARISON: Radiograph 12/03/2018 FINDINGS: Administration of contrast through a gastrostomy tube confirms placement in the stomach. Contrast was visualized passing from the PEG tube to the stomach, duodenum and proximal jejunum. No acute osseous abnormality is identified. No radiopaque stones or abnormal calcifications are seen. The bowel gas pattern is nonobstructive. I reviewed this study and agree. Gabriel Castaneda MD., have reviewed this study and agree with the above report. Performing Organization Address City/State/Zipcode Phone Number PACS/VR/DOSE POCT GLUCOSE (AUTOMATED) (12/03/2018 11:47 AM CDT) POCT GLU 190 (H) 70 - 110 mg/dL [facility] Specimen Blood Performing Organization Address City/[facility]/Zipcode Phone Number [facility] CLIA: [id number], [address] [place] [phone] [facility] POCT GLUCOSE (AUTOMATED) (12/03/2018 8:21 AM CDT) POCT GLU 194 (H) 70 - 110 mg/dL [facility] Specimen Blood Performing Organization Address City/[facility] Phone Number [facility] CLIA: [id number], [address] [place] [phone] [facility] Acute Care Arterial Blood Gas. (12/03/2018 6:21 AM CDT) PH 7.38 7.35 - 7.[address] [facility] PCO2 42 35 - [address] [facility] PO2 76 (L) 80 - [address] [facility] HCO3 25 22 - 26 mEq/L [facility] BE -0.8 -3.0 - 3.0 mEq/L [facility] Specimen Blood - ARTERIAL Performing Organization Address City/[facility] Phone Number [facility] CLIA: [id number], [address] [place] [phone] [facility] POCT GLUCOSE (AUTOMATED) (12/03/2018 4:18 AM CDT) POCT GLU 184 (H) 70 - 110 mg/dL [facility] Specimen Blood Performing Organization Address City/[facility] Phone Number [facility] CLIA: [id number], [address] [place] [address] [phone] [facility] MAGNESIUM (12/03/2018 4:13 AM CDT) MAGNESIUM 2.1 1.7 - 2.4 mg/dL [facility] Specimen Blood - LINE, VENOUS Performing Organization Address City/[facility] Phone Number [facility] CLIA: [id number], [address] [place] [address] [phone] [facility] BASIC METABOLIC PANEL (NA, K, CL, CO2, GLUCOSE, BUN, CREATININE, CA) (2018 4:13 AM CDT) NA 132 (L) 135 - [address] [facility] mmol/L SERVICES K 5.8 (H)Comment: 3.5 - 5.[address] [facility] Slight hemolysis mmol/L SERVICES CL 95 (L) 98 - [address] [facility] mmol/L SERVICES CO2 TOTAL 24 23 - [address] [facility] mmol/L SERVICES AGAP 13 2 - [address] [facility] SERVICES BUN 72 (H)Comment: 7 - 23 mg/dL [facility] Slight hemolysis SERVICES GLUCOSE 178 (H) 70 - [address] [facility] mg/dL SERVICES CREATININE 3.71 (H) 0.60 - 1.[address] [facility] mg/dL SERVICES CALCIUM 8.7 8.6 - 10.[address] [facility] mg/dL SERVICES eGFR Calculation 16.4 mL/min/1.73m2 [facility] (Non- SERVICES Ethiopian) eGFR Calculation 19.8 mL/min/1.73m2 [facility] () SERVICES Specimen Blood - LINE, VENOUS Narrative Performed At Association of Glomerular Filtration Rate (GFR) and Staging [facility] of Kidney Disease* + + + + | GFR (mL/min/1.73 m2)| With Kidney Damage|Without Kidney Damage + + + + |>90|Stage one| Normal + + + + |60-89|Stage two| Decreased GFR + + + + |30-59|Stage three| Stage three + + + + |15-29|Stage four | Stage four + + + + |<15 (or dialysis)|Stage five | Stage five + + + + *Each stage assumes the associated GFR level has been in effect for at least three months.Stages 1 to 5, with or without kidney disease, indicate chronic kidney disease. Notes: Determination of stages one and two (with eGFR >59mL/min/1.73 m2) requires estimation of kidney damage for at least three months as defined by structural or functional abnormalities of the kidney, manifested by either: Pathological abnormalities or Markers of kidney damage (including abnormalities in the composition of the blood or urine or abnormalities in imaging tests). Performing Organization Address City/State/Zipcode Phone Number [facility] CLIA: [id number], [address] [place] [address] [facility] TROPONIN I (12/03/2018 4:13 AM CDT) TROPONIN I 0.047 (H) <=0.034 ng/mL [facility] Specimen Blood - LINE, VENOUS Narrative Performed At Equal or Less than 0.034 ng/ml---Normal [facility] Note: Cardiac troponin begins to rise 3-4 hours after the onset of ischemia. Repeat in 4-6 hours if the sample was drawn within 3-4 hours of the onset of the symptom and found normal. Between 0.035 and 0.120 ng/mL--- Borderline. Questionable myocardial injury or necrosis Note: Serial measurement may be necessary to confirm or exclude the diagnosis of myocardial injury or necrosis; Clinical correlation (symptoms, EKGs, imaging studies, and others) required; Repeat in 4-6 hours if clinically indicated. Equal or Higher than 0.121 ng/mL---Abnormal. Myocardial Injury or Necrosis Likely Biotin has been reported to cause a negative bias, interpret results relative to patient's use of biotin. Performing Organization Address [facility] Phone Number [facility] CLIA: [id number], [address] [place] [phone] [facility] Vancomycin Random Level (12/03/2018 4:13 AM CDT) VANCO RANDOM 19.2 ug/mL [facility] Specimen Blood - LINE, VENOUS Performing Organization Address [facility] [place] Phone Number [facility] CLIA: [id number], [address] [place] [phone] [facility] Lactic Acid Whole Blood (12/03/2018 2:03 AM CDT) LACTIC ACID 1.78 0.50 - 2.20 mmol/L [facility] Specimen Blood - LINE, VENOUS Performing Organization Address [facility] [place] Phone Number [facility] CLIA: [id number], [address] [place] [phone] [facility] SALICYLATE (12/03/2018 2:02 AM CDT) SALICYLATE <10 mg/L [facility] Specimen Blood - LINE, VENOUS Narrative Performed At Therapeutic Range: [facility] Analgesic and Antipyretic Use 20-100 mg/L Anti-Inflammatory Use 100-250 mg/L Toxic Range: Greater than 300 mg/L Performing Organization Address [facility] [place] Phone Number [facility] CLIA: [id number], [address] [place] [phone] [facility] ACETAMINOPHEN (12/03/2018 2:02 AM CDT) ACETAMINOP <10.0 (L) 10.0 - 30.0 ug/mL [facility] Specimen Blood - LINE, VENOUS Narrative Performed At Toxic: Greater than 200 ug/mL @ 4 hour post ingestion or [facility] greater than 50 ug/mL @ 12 hour post ingestion Performing Organization Address City/State/Zipcode Phone Number [facility] CLIA: [id number], [address] [place] [address] [phone] [facility] CBC WITH DIFFERENTIAL (12/03/2018 2:02 AM CDT) WBC 17.04 (H) 4.20 - 10.70 [facility] 10*3/L SERVICES RBC 2.96 (L) 4.26 - 5.52 [facility] 10*6/L SERVICES HGB 8.7 (L) 12.2 - 16.4 [facility] g/dL SERVICES HCT 29.5 (L) 38.4 - 49.3 % [facility] MCV 99.7 (H) 81.7 - 95.6 fL [facility] MCH 29.4 26.1 - 32.7 pg [facility] MCHC 29.5 (L) 31.2 - 35.0 [facility] g/dL SERVICES RDW-SD 52.4 (H) 38.5 - 51.6 fL [facility] RDW-CV 14.6 12.1 - 15.4 % [facility] PLT 331 (H) 150 - 328 [facility] 10*3/L SERVICES MPV 10.6 9.8 - 13.0 fL [facility] NRBC/100 WBC 0.0 0.0 - 10.0 /100 [facility] WBCs SERVICES NRBC x10^3 <0.01 10*3/L [facility] GRAN MAT (NEUT) % 85.0 % [facility] IMM GRAN % 0.50 % [facility] LYMPH % 7.5 % [facility] MONO % 6.5 % [facility] EOS % 0.4 % [facility] BASO % 0.1 % [facility] GRAN MAT x10^3(ANC) 14.50 (H) 1.99 - 6.95 [facility] 10*3/uL SERVICES IMM GRAN x10^3 0.09 (H) 0.00 - 0.06 [facility] 10*3/uL SERVICES LYMPH x10^3 1.27 1.09 - 3.[address] [facility] 10*3/uL SERVICES MONO x10^3 1.10 (H) 0.36 - 1.[address] [facility] 10*3/uL SERVICES EOS x10^3 0.06 0.06 - 0.[address] [facility] 10*3/uL SERVICES BASO x10^3 <0.03 0.01 - 0.[address] [facility] 10*3/uL SERVICES Specimen Blood - LINE, VENOUS Performing Organization Address City/State/Zipcode Phone Number [facility] [facility] CLIA: [id number], [address] [place] [address] [facility] [address] HEAD WO CONTRAST (12/03/2018 12:38 AM CDT) Specimen Impressions Performed At PACS/VR/DOSE Age indeterminant hypodensity in the guerrero concerning for acute/subacute infarct. Further evaluation by brain MRI is recommended. 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 IIrene MD., have reviewed this study and agree with the above report. Narrative Performed At EXAM: CT HEAD WO CONTRAST PACS/VR/DOSE HISTORY:Altered mental status (AMS), unclear cause TECHNIQUE: Spiral CT examination of the head was obtained. Sagittal and coronal reformats were generated. COMPARISON: MR brain on 05/24/[address] head on 05/16/2017 FINDINGS: The ventricles and sulci are prominent suggestive of global cerebral volume loss. No hydrocephalus, midline shift or pathological extra-axial fluid collection is present. The basal cisterns are patent. There is no acute intracranial hemorrhage or significant mass effect. Hypodensities are noted in the bilateral cerebellar hemispheres and bilateral basal ganglia likely remote lacunar. Age indeterminant hypodensity in the guerrero may represent acute to subacute infarct. Confluent periventricular and deep white matter hypodensities likely present microvascular ischemic changes. The briseno-white matter differentiation is preserved. The mastoid air cells and paranasal air sinuses are clear. The calvarium and central skull base are unremarkable. Left phthisis bulbi noted. Procedure Note [facility], Radiant Results Inft User - 12/03/2018 8:26 AM CDT EXAM: CT HEAD WO CONTRAST HISTORY: Altered mental status (AMS), unclear cause TECHNIQUE: Spiral CT examination of the head was obtained. Sagittal and coronal reformats were generated. COMPARISON: MR brain on 05/24/[address] head on 05/16/2017 FINDINGS: The ventricles and sulci are prominent suggestive of global cerebral volume loss. No hydrocephalus, midline shift or pathological extra-axial fluid collection is present. The basal cisterns are patent. There is no acute intracranial hemorrhage or significant mass effect. Hypodensities are noted in the bilateral cerebellar hemispheres and bilateral basal ganglia likely remote lacunar. Age indeterminant hypodensity in the guerrero may represent acute to subacute infarct. Confluent periventricular and deep white matter hypodensities likely present microvascular ischemic changes. The briseno-white matter differentiation is preserved. The mastoid air cells and paranasal air sinuses are clear. The calvarium and central skull base are unremarkable. Left phthisis bulbi noted. IMPRESSION Age indeterminant hypodensity in the guerrero concerning for acute/subacute infarct. Further evaluation by brain MRI is recommended. 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 IIrene MD., have reviewed this study and agree with the above report. Performing Organization Address City/State/Zipcode Phone Number PACS/VR/DOSE XR KUB (12/03/2018 12:29 AM CDT) Specimen Narrative Performed At * * * * * * * * ORIGINAL REPORT * * * * * * * * PACS/VR/DOSE EXAM: XR KUB HISTORY: nausea COMPARISON: None. FINDINGS: A gastrostomy tube lies over the epigastrium. The bowel gas pattern is nonobstructive. No radiopaque stones or abnormal calcifications are visualized. No acute osseous abnormalities are identified. Chronic degenerative changes are noted within the lumbar spine. I reviewed this study and agree. Gabriel Castaneda MD., have reviewed this study and agree with the above report. Procedure Note [facility], Radiant Results Inft User - 12/03/2018 10:01 AM CDT * * * * * * * * ORIGINAL REPORT * * * * * * * * EXAM: XR KUB HISTORY: nausea COMPARISON: None. FINDINGS: A gastrostomy tube lies over the epigastrium. The bowel gas pattern is nonobstructive. No radiopaque stones or abnormal calcifications are visualized. No acute osseous abnormalities are identified. Chronic degenerative changes are noted within the lumbar spine. I reviewed this study and agree. I, Gabriel Pinzon MD., have reviewed this study and agree with the above report. Performing Organization Address City/[facility] Phone Number PACS/VR/DOSE EXTRA TUBE URINE (12/02/2018 11:58 PM CDT) Specimen Urine - URINE, CLEAN CATCH Performing Organization Address [facility] Phone Number [facility] CLIA: [id number], [address] [place] [address] [phone] [facility] URINALYSIS (12/02/2018 11:58 PM CDT) APPEARANCE Turbid (A) Clear [facility] COLOR Yellow Yellow [facility] PH 7.0 4.8 - 8.[address] [facility] SP GRAVITY 1.012 1.003 - 1.[address] [facility] GLU U QUAL 500 mg/dL (A) Normal [facility] BLOOD Negative Negative [facility] KETONES Negative Negative [facility] PROTEIN 100 mg/dL (A) Negative [facility] UROBILIN Normal Normal [facility] BILIRUBIN Negative Negative [facility] NITRITE Negative Negative [facility] LEUK GALINDO 500/uL (A) Negative [facility] RBC/HPF 0 0 - 3 HPF [facility] WBC/HPF 41 (H) 0 - 5 HPF [facility] BACTERIA Negative Negative [facility] MUCOUS Slight (A) Negative LPF [facility] Specimen Urine - URINE, CATHETERIZED Performing Organization Address [facility] Phone Number [facility] CLIA: [id number], [address] [place] [address] [phone] [facility] GALV/CLC ONLY - URINE DRUG (IMMUNOASSAY) - COMPREHENSIVE DRUG SCREEN (2018 11:58 PM CDT) AMPHET Negative Negative [facility] ALONSO U Negative Negative [facility] BENZO U Negative Negative [facility] Cocaine Metabolite Negative Negative [facility] METHADONE Negative Negative [facility] OPIATES Negative Negative [facility] PCP Negative Negative [facility] THC Negative Negative [facility] Specimen Urine - URINE, CATHETERIZED Narrative Performed At Urine Drug Cutoff Ranges [facility] Cocaine: 150 ng/mL Benzodiazepines: 200 ng/mL Methadone: 300 ng/mL Amphetamine: 1,000 ng/mL Opiates: 300 ng/mL Cannabinoids:50 ng/mL Phencyclidine: 25 ng/mL Barbiturates:200 ng/mL The results are to be used only for medical (i.e., treatment) purposes. Unconfirmed screening results must not be used for non-medical purposes (e.g., employment testing, legal testing). Performing Organization Address [facility] Phone Number [facility] CLIA: [id number], [address] [place] [phone] [facility] LEGIONELLA URINARY ANTIGEN TST (12/02/2018 11:58 PM CDT) Legionella Urinary Negative Negative [facility] Antigen SERVICES Specimen Urine - URINE, CATHETERIZED Narrative Performed At Negative for L. pneumophilia serogroup I antigen in urine [facility] suggesting no recent or current infection. Infection due to Legionella cannot be ruled out since other serogroups and species may cause disease. Furthermore, antigens may not be present in urine during early stage of infection, or the level of antigen present in urine may be below the detection limit of the test. Performing Organization Address [facility] Phone Number [facility] CLIA: [id number], [address] [place] [phone] [facility] PNEUMOCOCCAL ANTIGEN (12/02/2018 11:58 PM CDT) S. pneumoniae antigen Negative Negative [facility] Specimen Urine - URINE, CATHETERIZED Performing Organization Address [facility] Phone Number [facility] CLIA: [id number], [address] [place] [phone] [facility] TROPONIN I (12/02/2018 11:30 PM CDT) Pathologist [facility] TROPONIN I 0.045 (H) <=0.034 ng/mL [facility] Specimen Blood - LINE, VENOUS Narrative Performed At Equal or Less than 0.034 ng/ml---Normal [facility] Note: Cardiac troponin begins to rise 3-4 hours after the onset of ischemia. Repeat in 4-6 hours if the sample was drawn within 3-4 hours of the onset of the symptom and found normal. Between 0.035 and 0.120 ng/mL--- Borderline. Questionable myocardial injury or necrosis Note: Serial measurement may be necessary to confirm or exclude the diagnosis of myocardial injury or necrosis; Clinical correlation (symptoms, EKGs, imaging studies, and others) required; Repeat in 4-6 hours if clinically indicated. Equal or Higher than 0.121 ng/mL---Abnormal. Myocardial Injury or Necrosis Likely Biotin has been reported to cause a negative bias, interpret results relative to patient's use of biotin. Performing Organization Address City/State/Zipcode Phone Number [facility] CLIA: [id number], [address] [place] [address] [phone] [facility] BASIC METABOLIC PANEL (NA, K, CL, CO2, GLUCOSE, BUN, CREATININE, CA) (2018 11:30 PM CDT) NA 130 (L) 135 - [address] [facility] mmol/L SERVICES K 6.0 (H)Comment: 3.5 - 5.[address] [facility] Slight hemolysis mmol/L SERVICES CL 96 (L) 98 - [address] [facility] mmol/L SERVICES CO2 TOTAL 21 (L) 23 - [address] [facility] mmol/L SERVICES AGAP 13 2 - [address] [facility] BUN 72 (H)Comment: 7 - 23 mg/dL [facility] Slight hemolysis SERVICES GLUCOSE 170 (H) 70 - [address] [facility] mg/dL SERVICES CREATININE 3.75 (H) 0.60 - 1.[address] [facility] mg/dL SERVICES CALCIUM 8.6 8.6 - 10.[address] [facility] mg/dL SERVICES eGFR Calculation 16.2 mL/min/1.73m2 [facility] (Non- SERVICES Ethiopian) eGFR Calculation 19.6 mL/min/1.73m2 [facility] () SERVICES Specimen Blood - LINE, VENOUS Narrative Performed At Association of Glomerular Filtration Rate (GFR) and Staging [facility] of Kidney Disease* + + + + | GFR (mL/min/1.73 m2)| With Kidney Damage|Without Kidney Damage + + + + |>90|Stage one| Normal + + + + |60-89|Stage two| Decreased GFR + + + + |30-59|Stage three| Stage three + + + + |15-29|Stage four | Stage four + + + + |<15 (or dialysis)|Stage five | Stage five + + + + *Each stage assumes the associated GFR level has been in effect for at least three months.Stages 1 to 5, with or without kidney disease, indicate chronic kidney disease. Notes: Determination of stages one and two (with eGFR >59mL/min/1.73 m2) requires estimation of kidney damage for at least three months as defined by structural or functional abnormalities of the kidney, manifested by either: Pathological abnormalities or Markers of kidney damage (including abnormalities in the composition of the blood or urine or abnormalities in imaging tests). Performing Organization Address City/State/Zipcode Phone Number [facility] CLIA: [id number], [address] [place] [phone] [facility] MRSA / MSSA Screen by PCR, Nares (12/02/2018 11:30 PM CDT) MRSA Screen by PCR, Positive (A) Negative [facility] Nares SERVICES MRSA/MSSA Positive? Yes (A) No [facility] Specimen Swab - NARES, BOTH SIDES Narrative Performed At A positive test result does not necessarily indicate the [facility] presence of viable organism. Performing Organization Address City/State/Zipcode Phone Number [facility] CLIA: [id number], [address] [place] [phone] [facility] XR CHEST 1 VW (12/02/2018 9:22 PM CDT) Specimen Impressions Performed At PACS/VR/DOSE Lines and tubes, as described above. Moderate pulmonary edema. Small bilateral pleural effusions. A retrocardiac opacity may represent atelectasis or focus of infection. Cardiomegaly I, MD Cele., have reviewed this study and agree with the above report. Narrative Performed At XR CHEST 1 VW PACS/VR/DOSE Comparison: CR chest 05/16/2017 History: pneumonia, chf Findings: A right-sided double-lumen catheter terminates with catheter is at the cavoatrial junction and the right atrium. A loop recorder overlies the left hemidiaphragm. There is moderate pulmonary vascular congestion. A retrocardiac opacity may represent atelectasis or a focus of infection. Both costophrenic angles are blunted, this may represent small bilateral pleural effusions. No pneumothorax. The heart is enlarged No acute osseous abnormality. Procedure Note [facility], Radiant Results Inft User - 12/02/2018 10:12 PM CDT XR CHEST 1 VW Comparison: CR chest 05/16/2017 History: pneumonia, chf Findings: A right-sided double-lumen catheter terminates with catheter is at the cavoatrial junction and the right atrium. A loop recorder overlies the left hemidiaphragm. There is moderate pulmonary vascular congestion. A retrocardiac opacity may represent atelectasis or a focus of infection. Both costophrenic angles are blunted, this may represent small bilateral pleural effusions. No pneumothorax. The heart is enlarged No acute osseous abnormality. IMPRESSION Lines and tubes, as described above. Moderate pulmonary edema. Small bilateral pleural effusions. A retrocardiac opacity may represent atelectasis or focus of infection. Cardiomegaly I, Haile Hercules MD., have reviewed this study and agree with the above report. Performing Organization Address City/State/Zipcode Phone Number PACS/VR/DOSE GRAM POSITIVE BLOOD PATHOGENS DNA PROBE-ANAEROBIC (12/02/2018 9:06 PM CDT) Staphylococcus aureus Positive (A) Negative [facility] mecA Positive (A) Negative [facility] Specimen Blood - VENOUS Narrative Performed At MRSA detected by DNA probe.See blood culture result for [facility] additional susceptibility testing information. Preferred therapy for MRSA bacteremia is vancomycin. Infectious Diseases consultation is recommended. Please contact the Antimicrobial Stewardship Program with questions. ASP Pager:[phone] Testing included eleven identification and three resistance marker targets. See blood culture result for additional information. Testing included eleven identification and three resistance marker targets. Performing Organization Address City/State/Zipcode Phone Number [facility] CLIA: [id number], [address] [place] [phone] [facility] BLOOD CULTURE WORKUP (12/02/2018 9:06 PM CDT) Blood Culture STAPHYLOCOCCUS [facility] Workup AUREUSComment: SERVICES Organism identified by DNA probe Gram stain Gram positive [facility] cocciComment: Aerobic HOSPITAL bottle LABORATORY Gram stain Gram positive [facility] cocciComment: HOSPITAL Anaerobic bottle LABORATORY Specimen Blood - VENOUS Organism Antibiotic Method Susceptibility Staphylococcus aureus Clindamycin SUSCEPTIBILITY TESTING Resistant Staphylococcus aureus Daptomycin 0.50: Susceptible Staphylococcus aureus Erythromycin SUSCEPTIBILITY TESTING >=8: Resistant Staphylococcus aureus Linezolid SUSCEPTIBILITY TESTING 2: Susceptible Staphylococcus aureus Oxacillin SUSCEPTIBILITY TESTING >=4: Resistant Staphylococcus aureus Penicillin SUSCEPTIBILITY TESTING >=0.5: Resistant Staphylococcus aureus Rifampin SUSCEPTIBILITY TESTING <=0.5: Susceptible Staphylococcus aureus Tetracycline SUSCEPTIBILITY TESTING <=1: Susceptible Staphylococcus aureus Trimethoprim/Sulfamet SUSCEPTIBILITY TESTING <=10: Susceptible hoxazole Staphylococcus aureus Vancomycin SUSCEPTIBILITY TESTING 1: Susceptible Comment: Methicillin resistance indicates resistance to all beta lactams, beta lactam/ beta lactamase inhibitor combination and Imipenem. Rifampin should not be used alone for treatment of bacterial infections as resistance may develop rapidly. This isolate demonstrates inducible Clindamycin resistance by in vitro testing. Contact infectious disease faculty for appropriate advice. Performing Organization Address City/State/Zipcode Phone Number [facility] CLIA: [id number], [address] [place] [phone] [facility] CLIA: [id number], [address] [place] [phone] [address] Lactic Acid Whole Blood (12/02/2018 9:06 PM CDT) [facility] LACTIC ACID 2.21 (H) 0.50 - 2.20 mmol/L [facility] Specimen Blood - ARM, RIGHT Performing Organization Address City/State/Zipcode Phone Number [facility] CLIA: [id number], [address] [place] [phone] [address] BLOOD CULTURE SCREEN (12/02/2018 9:06 PM CDT) Pathologist [facility] Blood Culture positive, No growth [facility] Culture-Aerobic identification to HOSPITAL follow (AA)Comment: LABORATORY Previous preliminary verified result was Culture In Progress on 12/03/2018 at 0101 CDT Blood Culture positive, No growth [facility] Culture-Anaerobic identification to HOSPITAL follow (AA)Comment: LABORATORY Previous preliminary verified result was Culture In Progress on 12/03/2018 at 0101 CDT Specimen Blood - VENOUS Performing Organization Address City/[facility]/Zipcode Phone Number [facility] CLIA: [id number], [address] [place] [phone] [address] BLOOD CULTURE WORKUP (12/02/2018 9:04 PM CDT) Blood Culture STAPHYLOCOCCUS AUREUS [facility] Workup Comment: SERVICES [place] morphologically consistent with organism above For susceptibility results, refer to culture # - [id number] Gram stain Gram positive [facility] cocciComment: Aerobic HOSPITAL bottle LABORATORY Gram stain Gram positive [facility] cocciComment: Anaerobic HOSPITAL bottle LABORATORY Specimen Blood - VENOUS Performing Organization Address City/[facility] Phone Number [facility] CLIA: [id number], [address] [place] [phone] [facility] CLIA: [id number], [address] [place] [address] GLYCOSYLATED HEMOGLOBIN (A1C) (12/02/2018 9:04 PM CDT) HGB A1C 7.1 (H) 4.0 - 6.0 % NGSP [facility] Specimen Blood - ARM, RIGHT Narrative Performed At %A1C (NGSP) Interpretation (ADA) [facility] 4.8-5.6 Normal or (Non-Diabetic Range) 5.7-6.4 Increased Risk (Pre-Diabetic) >6.5Diabetes Indicated Performing Organization Address City/[facility] Phone Number [facility] CLIA: [id number], [address] [place] [address] CBC WITH DIFFERENTIAL (12/02/2018 9:04 PM CDT) WBC 17.68 (H) 4.20 - 10.70 [facility] 10*3/L [facility] RBC 3.30 (L) 4.26 - 5.52 [facility] 10*6/L [facility] HGB 9.9 (L) 12.2 - 16.4 [facility] g/dL [facility] HCT 32.4 (L) 38.4 - 49.3 % [facility] MCV 98.2 (H) 81.7 - 95.6 fL [facility] MCH 30.0 26.1 - 32.7 pg [facility] MCHC 30.6 (L) 31.2 - 35.0 [facility] g/dL [facility] RDW-SD 53.1 (H) 38.5 - 51.6 fL [facility] RDW-CV 14.6 12.1 - 15.4 % [facility] PLT 354 (H) 150 - 328 [facility] 10*3/L [facility] MPV 11.0 9.8 - 13.0 fL [facility] NRBC/100 WBC 0.0 0.0 - 10.0 /100 [facility] WBCs [facility] NRBC x10^3 <0.01 10*3/L [facility] GRAN MAT (NEUT) % 82.9 % [facility] IMM GRAN % 0.50 % [facility] LYMPH % 9.8 % [facility] MONO % 6.2 % [facility] EOS % 0.5 % [facility] BASO % 0.1 % [facility] GRAN MAT x10^3(ANC) 14.66 (H) 1.99 - 6.95 [facility] 10*3/uL [facility] IMM GRAN x10^3 0.09 (H) 0.00 - 0.06 [facility] 10*3/uL [facility] LYMPH x10^3 1.73 1.09 - 3.23 [facility] 10*3/uL HOSPITAL LABORATORY MONO x10^3 1.09 (H) 0.36 - 1.02 [facility] 10*3/uL HOSPITAL LABORATORY EOS x10^3 0.09 0.06 - 0.53 [facility] 10*3/uL HOSPITAL LABORATORY BASO x10^3 <0.03 0.01 - 0.09 [facility] 10*3/uL [facility] Specimen Blood - ARM, RIGHT Performing Organization Address City/State/Zipcode Phone Number [facility] CLIA: [id number], [address] [place] [address] N-TERMINAL PRO-BNP (12/02/2018 9:04 PM CDT) NT-proBNP 153,000 (H) <=125 pg/mL [facility] Specimen Blood - ARM, RIGHT Narrative Performed At Biotin has been reported to cause a negative [facility] LABORATORY bias, interpret results relative to patient's use of biotin. Performing Organization Address City/State/Zipcode Phone Number [facility] CLIA: [id number], [address] [place] [address] THYROID STIMULATING HORMONE (12/02/2018 9:04 PM CDT) TSH 1.24 0.45 - 4.70 mIU/L [facility] LABORATORY Specimen Blood - ARM, RIGHT Performing Organization Address City/State/Zipcode Phone Number [facility] CLIA: [id number], [address] [place] [address] COMP. METABOLIC PANEL (12619) (12/02/2018 9:04 PM CDT) NA 135 135 - 145 [facility] mmol/L [facility] LABORATORY K 5.3 (H) 3.5 - 5.0 [facility] mmol/L [facility] LABORATORY CL 95 (L) 98 - 108 mmol/L [facility] LABORATORY CO2 TOTAL 28 23 - 31 mmol/L [facility] LABOR[facility] AGAP 12 2 - 16 [facility] LABOR[facility] BUN 71 (H) 7 - 23 mg/dL [facility] LABORATORY GLUCOSE 201 (H) 70 - 110 mg/dL [facility] LABORAT[facility] CREATININE 3.94 (H) 0.60 - 1.25 [facility] mg/dL [facility] LABORATORY TOTAL BILI 0.4 0.1 - 1.1 mg/dL [facility] LABORAT[facility] CALCIUM 8.9 8.6 - 10.6 [facility] mg/dL [facility] LABORATORY T PROTEIN 8.0 6.3 - 8.2 g/dL [facility] LABORATORY ALBUMIN 3.3 (L) 3.5 - 5.0 g/dL [facility] LABORATORY ALK PHOS 211 (H) 34 - 122 U/L [facility] LABORATORY ALT(SGPT) 16 9 - 51 U/L [facility] LABORAT[facility] AST(SGOT) 23 13 - 40 U/L [facility] LABORATORY eGFR Calculation 15.3 mL/min/1.73m2 [facility] ([facility] LABORATORY Ethiopian) eGFR Calculation 18.5 mL/min/1.73m2 [facility] () [facility] LABORATORY Specimen Blood - ARM, RIGHT Narrative Performed At Association of Glomerular Filtration Rate (GFR) [facility] LABORATORY and Staging of Kidney Disease* + + +- + | GFR (mL/min/1.73 m2)| With Kidney Damage|Without Kidney Damage + + +- + |>90| Stage one| Normal + + +- + |60-89|S tage two| Decreased GFR + + +- + |30-59|S tage three| Stage three + + +- + |15-29|S tage four | Stage four + + +- + |<15 (or dialysis)|Stage five | Stage five + + +- + *Each stage assumes the associated GFR level has been in effect for at least three months.Stages 1 to 5, with or without kidney disease, indicate chronic kidney disease. Notes: Determination of stages one and two (with eGFR >59mL/min/1.73 m2) requires estimation of kidney damage for at least three months as defined by structural or functional abnormalities of the kidney, manifested by either: Pathological abnormalities or Markers of kidney damage (including abnormalities in the composition of the blood or urine or abnormalities in imaging tests). Performing Organization Address City/State/Zipcode Phone Number [facility] CLIA: [id number], [address] [place] [address] MAGNESIUM (12/02/2018 9:04 PM CDT) MAGNESIUM 2.4 1.7 - 2.4 mg/dL [facility] LABORATORY Specimen Blood - ARM, RIGHT Performing Organization Address City/[facility]/Zipcode Phone Number [facility] CLIA: [id number], [address] [place] [address] PROCALCITONIN (12/02/2018 9:04 PM CDT) Procalcitonin 7.17 (H) <0.07 ng/mL [facility] LABORATORY SERVICES Specimen Blood - ARM, RIGHT Narrative Performed At INTERPRETATION OF PROCALCITONIN RESULTS IN ADULTS >=[address] [facility] LABORATORY SERVICES OF AGE Initiation and discontinuation of antibiotics on patients with suspected or confirmed Lower Respiratory Tract Infection in Adults >=18 years of age. + + + + + |Procalcitonin |Interpretation|Antibiotic |Considerations |ng/mL ||recommendation | + + + + + | <0.1 | Bacterial| Strongly| || infection very | discouraged | Overruling: || unlikely | | Clinically unstable + + + + High risk for adverse | <0.25| Bacterial| Discouraged | outcome || infection| | SEE IMPORTANT NOTE || unlikely | | + + + + + | >=0.25 | Bacterial| Encouraged| || infection| | || likely | | Consider treatment failure + + + + if levels does not decrease | >0.5 | Bacterial| Strongly| appropriately || infection very | encouraged| || likely | | + + + + + Discontinuation of antibiotics in high-acuity patients with suspected or confirmed sepsis in Adults >=18 years of age. + + + + + |Procalcitonin |Interpretation|Antibiotic |Considerations |ng/mL ||recommendation | + + + + + | <0.25| Bacterial| Strongly| || infection very | discouraged | Overruling: || unlikely | | Clinically unstable + + + + High risk for adverse | <0.5 or drop | Bacterial| Discouraged | outcome | >80% from| infection| | SEE IMPORTANT NOTE | highest PCT| unlikely | | | level|| | + + + + + | >=0.5| Bacterial| Encouraged| || infection| | || likely | | Consider treatment failure + + + + if levels does not decrease | >1.0 | Bacterial| Strongly| appropriately || infection very | encouraged| || likely | | + + + + + Percentage of drop of Procalcitonin calculation for Discontinuation of antibiotics in high-acuity patients with suspected or confirmed sepsis in Adults >=18 years of age. Procalcitonin highest{}-Procalcitonin current{} Delta Procalcitonin= _ x100% Procalcitonin current {} IMPORTANT NOTE: Procalcitonin may be elevated without bacterial infection by physiologic stress related to trauma, shin, chronic dialysis, metastatic cancer, surgery in the past seven days, malaria, some fungal infections, and some forms of vasculitis. The interpretation algorithm may not apply to patients with immunosuppression (equivalent of >10 mg of prednisone daily), HIV with CD4 cell count < 350 cells/mm3, active malignancy on systemic chemotherapy, solid organ transplant or hematopoietic stem cell transplantation, or hospital acquired pneumonia. Additionally, some clinical trials of procalcitonin have excluded patients with shock requiring vasopressor use, acute respiratory failure requiring mechanical ventilation, or those with known lung abscess/empyema. For further information please refer to: [email or web address] Performing Organization Address City/State/Zipcode Phone Number [facility] LABORATORY SERVICES CLIA: [id number], [address] [place] [address] [id number] [facility] BLOOD CULTURE SCREEN (12/02/2018 9:04 PM CDT) [facility] Blood Culture positive, No growth HERLINDA MAR Culture-Aerobic identification to HOSPITAL follow (AA)Comment: LABORATORY Previous preliminary verified result was Culture In Progress on 12/03/2018 at 0101 CDT Blood Culture positive, No growth [facility] Culture-Anaerobic identification to HOSPITAL follow (AA)Comment: LABORATORY Previous preliminary verified result was Culture In Progress on 12/03/2018 at 0101 CDT Specimen Blood - VENOUS Performing Organization Address [facility] Phone Number [facility] CLIA: [id number], [address] [place] [address] POCT GLUCOSE (AUTOMATED) (12/02/2018 6:29 PM CDT) POCT GLU 233 (H) 70 - 110 mg/dL [facility] LABORATORY Specimen Blood Performing Organization Address City/[facility] Phone Number [facility] CLIA: [id number], [address] [place] [address] POCT GLUCOSE (AUTOMATED) (12/02/2018 11:38 AM CDT) POCT GLU 286 (H) 70 - 110 mg/dL [facility] LABORATORY Specimen Blood Performing Organization Address [facility] Phone Number [facility] CLIA: [id number], [address] [place] [address] documented in this encounter Visit Diagnoses Diagnosis MRSA bacteremia - Primary Bacteremia Pneumonia due to infectious organism, unspecified laterality, unspecified part of lung Altered mental status, unspecified altered mental status type ESRD (end stage renal disease) End stage renal disease Type 2 diabetes mellitus with complication, unspecified whether long-term insulin use Pneumonia Pneumonia, organism unspecified E44.0 Moderate protein calorie malnutrition Malnutrition of moderate degree documented in this encounter Administered Medications Medication Order MAR Action Action Date Dose Rate Site acetaminophen (TYLENOL) tablet 650 mg 650 mg, Enteral, Q6HPRN, Starting Fri12/03/18 at 0611, Until Discontinued, Routine, Pain (scale 1-3) amLODIPine (NORVASC) 1 mg/mL oral suspension Given 12/15/2018 8:23 AM CDT 10 mg 10 mg 10 mg, Enteral, DAILY, First dose on Fri12/04/18 at 1700, Until Discontinued, Routine Given 12/14/2018 8:40 AM CDT 10 mg Given 12/13/2018 9:10 AM CDT 10 mg aspirin chewable tablet 81 mg Given 12/15/2018 8:23 AM CDT 81 mg 81 mg, Enteral, DAILY, First dose on Fri12/03/18 at 0900, Until Discontinued, Routine Given 12/14/2018 8:40 AM CDT 81 mg Given 12/13/2018 9:10 AM CDT 81 mg FENTanyl PF (SUBLIMAZE (PF)) injection Given 12/14/2018 10:11 AM CDT 25 mcg Slow IV Push, PRN, Starting 12/14/18 at 1011, Until Discontinued, Routine heparin injection 5,000 Units Given 12/15/2018 8:24 AM CDT 5,000 Units Abdomen-SC 5,000 Units, Subcutaneous, Q12H, First dose on Fri12/03/18 at 0800, Until Discontinued, Routine Given 12/14/2018 8:37 PM CDT 5,000 Units Abdomen-SC Given 12/13/2018 8:36 PM CDT 5,000 Units Abdomen-SC ipratropium-albuterol (DUONEB) 0.5 mg-3 mg(2.5 mg base)/3 mL nebulizer solution 3 mL 3 mL, Inhalation, Q6HPRN, Starting Fri12/09/18 at 1227, Until Discontinued, Routine, Wheezing, Shortness of Breath metoprolol tartrate (LOPRESSOR) 10 mg/mL oral Given 12/15/2018 8:23 AM CDT 25 mg suspension 25 mg 25 mg, Enteral, BID, First dose on Fri12/03/18 at 0800, Until Discontinued, Routine Given 12/14/2018 8:37 PM CDT 25 mg Given 12/14/2018 8:40 AM CDT 25 mg midazolam (VERSED) injection Given 12/14/2018 10:11 AM CDT 0.5 mg IV Push, PRN, Starting 12/14/18 at 1011, Until Discontinued, Routine Sliding Scale Insulin - Aspart Given 12/15/2018 1:50 PM CDT 1 Units Abdomen-SC (NOVOLOG) + Fsbg Testing Subcutaneous, TID MEALS+HS, First dose on 12/05/18 at 0800, Until Discontinued, Routine Given 12/14/2018 8:40 AM CDT 1 Units Left Arm Given 12/13/2018 8:36 PM CDT 1 Units Abdomen-SC vitamin b complex-vitamin c-folic acid Given 12/15/2018 8:23 AM CDT 1 tablet (NEPHRO-TOM) 0.8 mg tablet 1 tablet 1 tablet, Oral, DAILY, First dose on Fri12/04/18 at 1415, Until Discontinued, Routine Given 12/14/2018 8:39 AM CDT 1 tablet Given 12/13/2018 9:10 AM CDT 1 tablet Medication Order MAR Action Action Date Dose Rate Site alteplase (ACTIVASE) flush Given 12/03/2018 11:37 AM CDT 3.4 mg syringe 4 mg 4 mg, Intravenous, DIALYSIS ONCE - TITUS 8D, 1 dose, Debi 12/03/18 at 1200, Routine calcium gluconate 1,000 mg in NaCl 0.9% Given 12/03/2018 2:09 AM CDT 1,000 mg (NS) 50 mL piggyback 1,000 mg, IV Piggyback, ONCE, 1 dose, Debi 12/03/18 at 0215, 50 mL dextrose 10% (D10W) bolus infusion 250 mL Given 12/03/2018 1:59 AM CDT 250 mL 250 mL, IV Infusion, ONCE, Debi 12/03/18 at 0215, For 1 dose, Dextrose 10% 250 mL bag contains: 10 yt=878 mL 20 bi=009 mL 25 ce=267 mL (whole bag) The maximum rate at which dextrose can be infused without producing glycosuria is 0.5 g/kg/hour. BUD: If wrapper is open bag is good for 30 days at room temperature. , diltiazem (CARDIZEM IV) injection 10 mg Given 12/02/2018 8:40 PM CDT 10 mg 10 mg, Slow IV Push, ONCE, 1 dose, Fri12/02/18 at 2145, Routine, member services representative approving Restricted medication: CHEKO FOOTE epoetin mikal (EPOGEN) injection 10,000 Given 12/03/2018 2:30 PM CDT 10,000 Units Units 10,000 Units, Slow IV Push, DIALYSIS ONCE - TITUS DSU, 1 dose, Fri12/03/18 at 1430, Routine, member services representative approving Restricted medication: DAGMAR GILLILAND epoetin mikal (EPOGEN) injection 2,000 Given 12/10/2018 10:30 AM CDT 2,000 Units Units 2,000 Units, Intravenous, DIALYSIS ONCE - TITUS 8D, 1 dose, Debi 12/10/18 at 1015, Routine, member services representative approving Restricted medication: DAGMAR GILLILAND epoetin mikal (EPOGEN) injection 2,000 Given 12/14/2018 2:43 PM CDT 2,000 Units Units 2,000 Units, Intravenous, DIALYSIS ONCE - TITUS 8D, 1 dose, Fri12/14/18 at 1400, Routine, member services representative approving Restricted medication: DAGMAR GILLILAND FENTanyl PF (SUBLIMAZE (PF)) injection Given 12/08/2018 9:47 AM CDT 25 mcg Slow IV Push, TITRATE - FOR PROCEDURE USE, 1 dose, Starting Fri12/08/18 at 0947, Until Fri12/08/18 at 0947, Routine FENTanyl PF (SUBLIMAZE (PF)) injection Given 12/08/2018 9:54 AM CDT 12.5 mcg Slow IV Push, TITRATE - FOR PROCEDURE USE, 1 dose, Starting Fri12/08/18 at 0954, Until Fri12/08/18 at 0954, Routine FENTanyl PF (SUBLIMAZE (PF)) injection Given 12/08/2018 9:59 AM CDT 12.5 mcg Slow IV Push, TITRATE - FOR PROCEDURE USE, 1 dose, Starting Fri12/08/18 at 0959, Until Fri12/08/18 at 0959, Routine furosemide (LASIX) injection 40 mg Given 12/02/2018 8:50 PM CDT 40 mg 40 mg, Slow IV Push, ONCE, 1 dose, Fri12/02/18 at 2200, PAULINO gadoterate meglumine (DOTAREM) 10 mL Given 12/04/2018 6:00 AM CDT 10 mL injection 11.64 mL 11.64 mL (0.2 mL/kg 58.2 kg), Intravenous, ONCE, 1 dose, Fri12/04/18 at 0600, Routine heparin 1,000 unit/mL injection 1,000 Given 12/03/2018 11:31 PM CDT 2,800 Units Units 1,000 Units, Slow IV Push, ONCE, 1 dose, Fri12/03/18 at 1530, Routine heparin 1,000 unit/mL injection 1,000 Given 12/10/2018 10:31 AM CDT 1,000 Units Units 1,000 Units, Slow IV Push, DIALYSIS ONCE - PT ROOM, 1 dose, Fri12/10/18 at 1000, Routine heparin 1,000 unit/mL injection 1,000 Given 12/10/2018 12:07 PM CDT 1,000 Units Units 1,000 Units, Slow IV Push, DIALYSIS ONCE - PT ROOM, 1 dose, Debi 12/10/18 at 1000, Routine heparin 1,000 unit/mL injection 1,000 Given 12/14/2018 2:38 PM CDT 1,000 Units Units 1,000 Units, Slow IV Push, DIALYSIS ONCE - PT ROOM, 1 dose, 12/14/18 at 1400, Routine heparin 1,000 unit/mL injection 1,000 Given 12/14/2018 4:07 PM CDT 1,000 Units Units 1,000 Units, Slow IV Push, DIALYSIS ONCE - PT ROOM, 1 dose, 12/14/18 at 1400, Routine heparin 1,000 unit/mL injection 1,500 Given 12/02/2018 4:54 PM CDT 1,500 Units Units 1,500 Units, Slow IV Push, DIALYSIS ONCE - PT ROOM, 1 dose, 12/02/18 at 1345, Routine heparin 1,000 unit/mL injection 1,500 Given 12/03/2018 2:31 PM CDT 1,500 Units Units 1,500 Units, Slow IV Push, DIALYSIS ONCE - PT ROOM, 1 dose, Debi 12/03/18 at 1330, Routine heparin 1,000 unit/mL injection 1,500 Given 12/03/2018 9:14 PM CDT 1,500 Units Units 1,500 Units, Slow IV Push, DIALYSIS ONCE - PT ROOM, 1 dose, Debi 12/03/18 at 1330, Routine heparin 1,000 unit/mL injection 1,500 Given 12/05/2018 2:45 PM CDT 1,500 Units Units 1,500 Units, Slow IV Push, DIALYSIS ONCE - PT ROOM, 1 dose, 12/05/18 at 1315, Routine heparin 1,000 unit/mL injection 1,500 Given 12/07/2018 4:44 PM CDT 1,500 Units Units 1,500 Units, Slow IV Push, DIALYSIS ONCE - PT ROOM, 1 dose, 12/07/18 at 1545, Routine heparin 1,000 unit/mL injection 5,000 Given 12/02/2018 5:52 PM CDT 3,400 Units Units 5,000 Units, Slow IV Push, DIALYSIS ONCE - PT ROOM, 1 dose, 12/02/18 at 1515, Routine heparin 1,000 unit/mL injection 5,000 Given 12/05/2018 5:30 PM CDT 2,800 Units Units 5,000 Units, Slow IV Push, DIALYSIS ONCE - TITUS DSU, 1 dose, [facility] 12/05/18 at 1315, Routine heparin 1,000 unit/mL injection 5,000 Given 12/07/2018 6:29 PM CDT 2,800 Units Units 5,000 Units, Slow IV Push, DIALYSIS ONCE - TITUS DSU, 1 dose, Fri12/07/18 at 1545, Routine heparin lock flush (HEPARIN Given by Provider 12/07/2018 2:00 PM 500 Units LOCKFLUSH(PORCINE)(PF)) 100 CDT unit/mL injection 500 Units 500 Units (5 mL), IV Push, ONCE, 1 dose, Fri12/07/18 at 1400, Routine insulin regular human (HUMULIN R) injection Given 12/03/2018 2:09 AM CDT 5 Units 5 Units 5 Units, IV Push, ONCE, 1 dose, Debi 12/03/18 at 0215, Routine iohexol (OMNIPAQUE 300-50 mL)) Given by Provider 12/03/2018 1:00 PM CDT 50 mL injection 50 mL 50 mL, Enteral, ONCE, 1 dose, Fri12/03/18 at 1300, Routine Given 12/03/2018 12:51 PM CDT 50 mL Abdomen ipratropium-albuterol (DUONEB) 0.5 mg-3 mg(2.5 Given 12/09/2018 6:27 AM CDT 3 mL mg base)/3 mL nebulizer solution 3 mL 3 mL, Inhalation, Q6H, First dose on Fri12/03/18 at 1200, Until Discontinued, Routine Given 12/09/2018 12:42 AM CDT 3 mL Given 12/08/2018 6:47 PM CDT 3 mL lactated ringers IV infusion 500 New Bag 12/02/2018 11:24 PM CDT 500 mL 999 mL/hr mL at 999 mL/hr, 500 mL, Intravenous, ONCE, 1 dose, Fri12/03/18 at 0015, PAULINO levoFLOXacin in D5W (LEVAQUIN) 500 mg/100 mL Given 12/02/2018 3:05 PM CDT 500 mg Piggyback 500 mg 500 mg, IV Piggyback, Q48H, First dose on Fri12/02/18 at 1415, Until Discontinued, 100 mL, Reason for Anti-Infective: Empiric Therapy for Suspected Infection, Empiric Therapy Site: Urine, Duration of therapy: 7 days lidocaine 2% (XYLOCAINE) 20 Given by Provider 12/07/2018 2:30 PM CDT 10 mL Neck mg/mL (2 %) injection 10 mL 10 mL, Subcutaneous, ONCE, 1 dose, 12/07/18 at 1430, Routine lidocaine 4% (XYLOCAINE) 4 % (40 mg/mL) Given 12/08/2018 9:41 AM CDT 10 mL topical solution Topical, TITRATE - FOR PROCEDURE USE, 1 dose, Starting Fri12/08/18 at 0941, Until Fri12/08/18 at 0941, Routine meropenem (MERREM) 500 mg in NaCl 0.9% (NS) Given 12/04/2018 1:18 AM CDT 500 mg 100 mL MINI-BAG 500 mg, IV Piggyback, Administer over 60 Minutes, Q24H ABX, First dose on Fri12/03/18 at 0045, Until Discontinued, PAULINO, Restricted use approved by: [address], Reason for Anti-Infective: Empiric Therapy for Suspected Infection, Empiric Therapy Site: Blood, Duration of therapy: 72 hours Given 12/03/2018 12:57 AM CDT 500 mg metoprolol (LOPRESSOR) injection 5 mg Given 12/02/2018 7:58 PM CDT 5 mg 5 mg, Slow IV Push, ONCE, 1 dose, Fri12/02/18 at 2100, PAULINO metoprolol (LOPRESSOR) injection 5 mg Given 12/03/2018 1:28 AM CDT 5 mg 5 mg, Slow IV Push, ONCE, 1 dose, Fri12/03/18 at 0215, STAT metoprolol (LOPRESSOR) injection 5 mg Given 12/03/2018 9:34 AM CDT 5 mg 5 mg, Slow IV Push, ONCE, 1 dose, Debi 12/03/18 at 0945, STAT midazolam (VERSED) injection Given 12/08/2018 9:48 AM CDT 1 mg IV Push, TITRATE - FOR PROCEDURE USE, 1 dose, Starting Fri12/08/18 at 0948, Until Fri12/08/18 at 0948, Routine midazolam (VERSED) injection Given 12/08/2018 9:54 AM CDT 0.5 mg IV Push, TITRATE - FOR PROCEDURE USE, 1 dose, Starting Fri12/08/18 at 0954, Until Fri12/08/18 at 0954, Routine midazolam (VERSED) injection Given 12/08/2018 9:59 AM CDT 0.5 mg IV Push, TITRATE - FOR PROCEDURE USE, 1 dose, Starting Fri12/08/18 at 0959, Until Fri12/08/18 at 0959, Routine mupirocin (BACTROBAN NASAL OINT) 2 % nasal Given 12/13/2018 9:10 AM CDT 1 g ointment Nasal, Q12H, 10 doses, First dose on Fri12/08/18 at 2000, Last dose on Fri12/13/18 at 0800, Routine Given 12/12/2018 8:46 PM CDT 1 g Given 12/12/2018 8:54 AM CDT 1 g NaCl 0.9% (NS) injection 10 mL Given 12/07/2018 3:45 PM CDT 10 mL 10 mL, Slow IV Push, DIALYSIS ONCE - TITUS DSU, 1 dose, Fri12/07/18 at 1545, Routine Sliding Scale Insulin - Aspart Given 12/02/2018 7:13 PM CDT 2 Units Right Arm (NOVOLOG) + Fsbg Testing Subcutaneous, Q6H, First dose on Fri12/02/18 at 1800, Until Discontinued, Routine Sliding Scale Insulin - Aspart Given 12/04/2018 6:20 AM CDT 2 Units Abdomen-SC (NOVOLOG) + Fsbg Testing Subcutaneous, Q4H, First dose on Fri12/03/18 at 0000, Until Discontinued, Routine sodium chloride 7% (HYPER-LILI) nebulizer Given 12/09/2018 6:28 AM CDT 4 mL solution 4 mL 4 mL, Inhalation, BID, First dose on Fri12/03/18 at 0800, Until Discontinued, Routine Given 12/08/2018 7:00 PM CDT 4 mL Given 12/08/2018 6:56 AM CDT 4 mL sulfur hexafluoride microsphr (LUMASON) Given 12/03/2018 9:45 AM CDT 5 mL injection 5 mL 5 mL, Intravenous, ONCE, 1 dose, Fri12/03/18 at 1400, Routine vancomycin (VANCOCIN) 500 mg in NaCl 0.9% Given 12/04/2018 6:05 AM CDT 500 mg (NS) 100 mL piggyback 500 mg, IV Piggyback, ONCE, 1 dose, Fri12/04/18 at 0145, 100 mL, Reason for Anti-Infective: Documented Infection, Documented Infection Site: Blood, Duration of Therapy: 7 days vancomycin 1 g in NS 200 mL RTU IV Given 12/03/2018 12:57 AM CDT 1,000 mg Piggyback 1,000 mg 1,000 mg (rounded from 1,087.5 mg=15 mg/kg 72.5 kg), IV Piggyback, ONCE, 1 dose, Debi 12/03/18 at 0045, Reason for Anti-Infective: Empiric Therapy for Suspected Infection, Empiric Therapy Site: Blood, Duration of therapy: 72 hours vancomycin 1 g in NS 200 mL RTU IV Given 12/07/2018 9:30 PM CDT 1,000 mg Piggyback 1,000 mg 1,000 mg, IV Piggyback, ONCE, 1 dose, [facility] 12/07/18 at 2000, Reason for Anti-Infective: Documented Infection, Documented Infection Site: Blood, Duration of Therapy: 7 days vancomycin 1 g in NS 200 mL RTU IV Given 12/15/2018 1:50 PM CDT 1,000 mg Piggyback 1,000 mg 1,000 mg, IV Piggyback, ONCE NOW, 1 dose, e 12/15/18 at 1030, Reason for Anti-Infective: Documented Infection, Documented Infection Site: Blood, Duration of Therapy: 7 days Vancomycin 750 mg in NaCl 0.9% (NS) 250 mL Given 12/10/2018 9:44 PM CDT 750 mg VIAL-MATE 750 mg, IV Piggyback, ONCE, 1 dose, Debi 12/10/18 at 1530, 250 mL, Reason for Anti-Infective: Empiric Therapy for Suspected Infection, Empiric Therapy Site: Other, Other site: Catheter Tip, Duration of therapy: 72 hours documented in this encounter Insurance Payer Benefit Plan / Subscriber ID Effective Phone Address Type Group Dates MEDICARE MEDICARE PART xxxxxxxxxx 2013-[facility] [phone] [facility] Medicare A & B [facility] [id number] JAIRON HOLDER [id number] JAMES RAMIREZ xxxxxxxxx 2018-[facility] Medicaid HEALTHCARE - HEALTHCARE ent [id number] MANAGED MEDICAID [place], [place]ICA[place] documented as of this encounter
--- OUTSIDE RECORDS SUMMARY | 2019-04-28 22:03 | XMS REPORT | Summary of Care ---
:1950 Author Organization [facility] - Health Address [address] [place] [id number] Care Team Providers Name Role Phone Castro Antunez DO Primary Care Provider Castro Antunez DO Inside Wireman Encounter Details Date Type Department Care Team Description 12/22/2018 Orders Only [facility] Doctor Unassigned, No [address] [facility] [place] [address] [address] [place] [address] Allergies No Known Allergiesdocumented as of this encounter (statuses as of 12/22/2018) Medications Medication Sig Dispensed Refills Start Date End Date Status multivit with Take by mouth. 0 Active minerals/lutein (MULTIVITAMIN 50 PLUS ORAL) aspirin 81 mg Take 1 tablet 50 tablet 1 12/16/2018 Active chewable through enteral tabletIndications: tube daily. MRSA bacteremia acetaminophen 325 mg Take 2 tablets 40 tablet 1 12/15/2018 12/15/2019 Active tabletIndications: through enteral MRSA bacteremia tube every 6 (six) hours as needed for Pain (scale 1-3). vitamin b Take 1 tablet by 30 tablet 1 12/16/2018 Active complex-vitamin mouth daily. c-folic acid 0.8 mg tabletIndications: MRSA bacteremia amLODIPine (NORVASC) Take 10 mL through 300 mL 0 12/16/2018 01/15/2019 Active 1 mg/mL oral enteral tube daily suspensionIndication for 30 days. s: MRSA bacteremia metoprolol Take 2.5 mL through 150 mL 1 12/15/2018 01/14/2019 Active (LOPRESSOR) 10 mg/mL enteral tube 2 oral (two) times daily suspensionIndication for 30 days. s: MRSA bacteremia insulin aspart Please give aspart sliding scale TID AC + HS; may give even if NPO. 15 Vial 3 12/15/2018 Active injectionIndications Blood glucose 150 - 200 give 1 units. : Type 2 diabetes Blood glucose 201 - 250 give 2 units. mellitus with Blood glucose 251 - 300 give 3 units. complication, If blood sugar >300, NHO and give 4 units. Recheck blood sugar in 3 hours and cover with SSI. unspecified whether If blood sugar <70, NHO and use hypoglycemia protocol. detention insulin Notify endocrinology if 2 or more consecutive BG >300 or < 80 use vancomycin/0.9 % sod Infuse 1 g 10 g 0 12/15/2018 Active chloride (VANCOMYCIN SEE-INSTRUCTIONS. 1 G IN NS 200 ML) 1 gram/200 mLIndications: MRSA bacteremia documented as of this encounter (statuses as of 12/22/2018) Active Problems Problem Noted Date Pneumonia 12/02/2018 E44.0 Moderate protein calorie malnutrition 12/02/2018 Type 2 diabetes mellitus 05/17/2017 Hypoglycemia 05/16/2017 Unspecified severe protein-calorie malnutrition 05/16/2017 documented as of this encounter (statuses as of 12/22/2018) Social History Tobacco Use Types Packs/Day Years Used Date Former Smoker Quit: 1980 Alcohol Use Drinks/Week oz/Week Comments No Sex Assigned at Date Recorded Not on file Job Start Date Occupation Industry Not on file Not on file Not on file Travel History Travel Start Travel End No recent travel history available. documented as of this encounter Last Filed Vital Signs Not on filedocumented in this encounter Plan of Treatment Health Maintenance Due Date Last Done Comments HEPATITIS C (HCV) SCREEN 1950 EYE EXAM 1960 FOOT EXAM 1968 DTaP,Tdap,and Td Vaccines (1 - 1969 Tdap) COLONOSCOPY 2000 Zoster Recombinant Vaccine 2000 (SHINGRIX) (1 of 2) Medicare Wellness Visit 2015 PNEUMOCOCCAL VACCINES 65+ (1 of 2 2015 - PCV13) LDL-C 05/26/2018 05/26/2017 INFLUENZA VACCINE 01/10/2019 HgA1C 06/04/2019 12/02/2018, 05/22/2017, 05/17/2017 CREATININE (SERUM) 12/16/2019 12/15/2018, 12/14/2018, 12/13/2018, Additional history exists documented as of this encounter Procedures Procedure Name Priority Date/Time Associated Diagnosis Comments EXTERNAL PROVIDER Routine 12/22/2018 12:01 AM CDT RECORDS documented in this encounter Results Not on filedocumented in this encounter Insurance Payer Benefit Plan / Subscriber ID Effective Phone Address Type Group Dates MEDICARE MEDICARE PART xxxxxxxxxxx 2013-Pres [phone] Medicare A & B ent [id number] JAIRON HOLDER [phone] JAMES RAMIREZ xxxxxxxxx 2018-Pres [address] Medicaid HEALTHCARE - HEALTHCARE ent [id number] MANAGED MEDICAID [place], [place] documented as of this encounter
[2019-04-28 22:44] VITALS: BMI 22.7
[2019-04-28] MEDS ORDERED: MORPHINE 2 MG/ML SYR IV PRN (23:30)
[2019-04-28] MEDS ORDERED: ACETAMINOPHEN 500 MG TAB PO PRN (23:30)
[2019-04-28] MEDS ORDERED: ONDANSETRON 4 MG/2 ML VIAL IV PRN (23:30)
[2019-04-28] MEDS ORDERED: HYDROCODONE/CHLORPHEN 5 ML/OSYR PO ONE (23:32)
[2019-04-28] MEDS ORDERED: HYDROCORTISONE SUC 100 MG INJ IV ONE (23:32)
[2019-04-28] MEDS ORDERED: HYDROCODONE/CHLORPHEN 5 ML/OSYR PO PRN (23:32)
[2019-04-28] MEDS ORDERED: FUROSEMIDE 40 MG/4 ML VIAL IV ONE (23:36)
[2019-04-29] MEDS ORDERED: CEFTRIAXONE/SWI 1gm 1 GM/10 ML SYR IV ONE
[2019-04-29] MEDS: NEPRO 1,000 ML BOT FT SCH (04:34)
[2019-04-29 06:08] LABS: Absolute Lymphocytes (CBC) 0.6 K/uL (0.7-4.9); Basophils % 0.7 % (0-1.3); Hematocrit 26.6 % (39.6-49.0); Lymphocytes % 9.1 % (15.3-44.8); MPV 9.5 fL (7.6-11.3); RBC Red Blood Cell Count 2.88 M/uL (4.33-5.43)
[2019-04-29 06:13] LABS: Albumin 2.9 g/dL (3.4-5.0); Bilirubin Total 0.5 mg/dL (0.2-1.0); Potassium 4.9 mmol/L (3.5-5.1); Protein, Total 8.6 g/dL (6.4-8.2)
[2019-04-29] MEDS ORDERED: ONDANSETRON 4 MG (ODT) TAB PO PRN (07:51)
[2019-04-29] MEDS ORDERED: TRAMADOL HCL 50 MG TAB FT PRN (07:51)
--- NOTE | 2019-04-29 07:57 | RAD REPORT ---
EXAM DESCRIPTION: [facility] Single View04/28/2019 11:59 pm CLINICAL HISTORY: Cough. COMPARISON: 2017 FINDINGS: Moderate bilateral pulmonary opacities. Heart is mildly enlarged Central venous line is present IMPRESSION: Moderate bilateral pulmonary opacities probably either pneumonia or pulmonary edema
--- NOTE | 2019-04-29 07:58 | P.HP ---
Certification for Inpatient Patient admitted to: Observation With expected LOS: <2 Midnights Patient will require the following post-hospital care: None Practitioner: I am a practitioner with admitting privileges, knowledge of patient current condition, hospital course, and medical plan of care. Services: Services provided to patient in accordance with Admission requirements found in Title 42 Section 412.3 of the Code of Federal Regulations Patient History Date of Service: 04/28/19 Reason for admission: Shortness of breath/volume overload/ESRD History of Present Illness: Patient is a 68-year-old gentleman who came to the hospital with shortness of breath. Patient missed his dialysis session earlier today because he refused to go. Patient has missed the last couple of dialysis sessions and was tachypneic upon evaluation by the [facility] physician. He was sent into the emergency room. Patient was at [facility] emergency room, and transferred to our facility for further evaluation. Patient will be admitted to the hospital for hemodialysis. Will get Nephrology consultation. Anticipate discharge after hemodialysis. Allergies rivastigmine [From Exelon] Allergy (Verified 04/28/19 23:15) unknown Home Medications: Amlodipine Besylate. 10 mg FT DAILY 04/28/19 Aspirin Chewable [Aspirin Chewable*] 81 mg PO DAILY 04/28/19 Folic Acid/Vit B Complex and C [Kim-Sheree Tablet] 0.8 mg FT DAILY 04/28/19 Insulin Aspart [Novolog] See Protocol SQ ACHS 04/28/19 Lanolin [Lantiseptic] 1 appl TP QSHIFT 04/28/19 Metoprolol Tartrate [Lopressor] 25 mg FT BID 04/28/19 Ondansetron HCl [Zofran] 4 mg PO Q6HP PRN 04/28/19 Phenylephrine HCl [Pediacare Decongestant] 5 ml FT Q6HP PRN 04/28/19 Protein Supplement [Promod] 30 ml FT BID 04/28/19 Tramadol HCl [Ultram] 50 mg FT TID PRN 04/28/19 Nepro Shake [Nepro*] 1,000 ml PO SEECOM 04/29/19 - Past Medical/Surgical History Has patient received pneumonia vaccine in the past: Yes Diabetic: Yes -: HTN -: Diabetes mellitus type 2 -: History of CVA -: Diabetic retinopathy -: Anemia of chronic disease -: Hyperlipidemia -: Diabetic neuropathy -: Chronic renal disease -: Hypothyroidism -: History of hypothermia -: Carotid arterial disease -: Bilateral blindness -: Previous heart surgery Psychosocial/ Personal History: Patient lives at home with his mother. Patient is dependent on the mother. - Family History Father Medical History: Diabetes, Cancer - Social History Smoking Status: Unknown if ever smoked Alcohol use: No CD- Drugs: No Place of Residence: [facility] Review of Systems 10-point ROS is otherwise unremarkable Physical Examination - Vital Signs Temperature: 97.2 F Blood Pressure: 147/82 Pulse: 74 Respirations: 20 Pulse Ox (%): 94 - Physical Exam General: Alert, In no apparent distress, Oriented x2 HEENT: Atraumatic, Normocephalic Neck: Supple, 2+ carotid pulse no bruit, No Thyromegaly, JVD distended Respiratory: Crackles/rales, Rhonchi/gurgles Cardiovascular: Regular rate/rhythm, Normal S1 S2, Edema, Systolic murmur Gastrointestinal: Normal bowel sounds, Soft and benign, Non-distended, No tenderness, No rebound, No guarding Musculoskeletal: No clubbing, Swelling Integumentary: No rashes Neurological: Cranial nerves 3-12 intact, Abnormal gait, Abnormal strength, Abnormal tone - Studies Laboratory Data (last 24 hrs) 04/29/19 05:35: Sodium 129 L, Potassium 4.9, BUN 79 H, Creatinine 4.17 H, Glucose 170 H, Total Bilirubin 0.5, AST 69 H, ALT 99 H, Alkaline Phosphatase 298 H 04/29/19 05:35: WBC 6.7, Hgb 8.7 L, Hct 26.6 L, Plt Count 182 Assessment & Plan - Problems (Diagnosis) (1) Dyspnea Current Visit: Yes Status: Acute (2) ESRD (end stage renal disease) Current Visit: Yes Status: Acute (3) Volume overload Current Visit: Yes Status: Acute (4) Confusion Onset Date: 04/22/16 Current Visit: No Status: Acute (5) Carotid arterial disease Current Visit: No Status: Chronic (6) Hypertension Onset Date: 07/09/16 Current Visit: No Status: Chronic Qualifiers: Hypertension type: essential hypertension - Plan Plan: 1. Consult nephrology for hemodialysis 2. IV Lasix 3. Strict blood pressure and blood sugar control 4. continue with tube feeds-Nepro 5. Monitor labs closely and monitor electrolyte 6. GI and DVT prophylaxis Discharge Plan: Home Plan to discharge in: 48 Hours - Advance Directives Does patient have a Living Will: Yes Does patient have a Durable POA for Healthcare: No - Code Status/Comfort Care Code Status Assessed: Yes Code Status: Full Code Critical Care: No Time Spent Managing PTS Care (In Minutes): 45
[2019-04-29] MEDS: NEPRO SHAKE 237 ML CAN PO SCH ×4 (09:00→21:00)
[2019-04-29] MEDS ORDERED: [UNRECOGNIZED DRUG - OTHER] TP SCH (09:00)
[2019-04-29] MEDS: AMLODIPINE 10 MG TAB FT SCH (09:00)
[2019-04-29 09:02] LABS: Blood Morphology Comment NOT SEEN (NOT SEEN); Platelet Estimate ADEQ
[2019-04-29] MEDS: ASPIRIN 81 MG CHEWABLE TABLET PO SCH (09:58)
[2019-04-29] MEDS: METOPROLOL TAR 25 MG TAB FT SCH ×2 (09:58→21:40)
[2019-04-29] MEDS: MULTIVITAMINS,THERAPEUT 1 TAB FT SCH (09:58)
[2019-04-29] MEDS: PROMOD 30 ML DOSE FT SCH ×2 (09:59→21:40)
[2019-04-29] MEDS ORDERED: NA CHLORIDE 0.9% 1,000 ML IV PRN (10:56)
[2019-04-29] MEDS ORDERED: MANNITOL 25% 12.5 GM/50 ML VIAL IV PRN (10:56)
[2019-04-29] MEDS ORDERED: ALBUMIN HUMAN 25% 50 ML IV SCH (11:00)
--- NOTE | 2019-04-29 14:14 | P.DS ---
Admission Date: 04/28/19 Discharge Date: 04/30/19 Disposition: TRANSFER TO DETENTION Discharge Condition: FAIR Reason for Admission: Shortness of breath/volume overload/ESRD Brief History of Present Illness: 68-year-old gentleman with a history of CVA, dysphagia, status post PEG, ESRD on hemodialysis was transferred from [facility] emergency department due to a complaint of shortness of breath. Patient is reported to have missed a couple of dialysis because he refused to go. Chest x-ray in the ED reported bilateral opacities suggestive of pulmonary edema. The patient was admitted to have hemodialysis session. Hospital Course: Patient was admitted to the medical. He was not dyspneic during this hospital stay. He was seen by nephrology and he underwent dialysis for 2 consecutive days. He currently appears to be baseline. [facility] is [facility] to [facility] his routine [facility]. No changes were made in his home medications. Vital Signs/Physical Exam: Temp Pulse Resp BP Pulse Ox 99 F 85 18 169/97 H 95 04/29/19 12:00 04/29/19 12:00 04/29/19 12:00 04/29/19 12:00 04/29/19 12:00 General: Other (Awake) Neck: JVD not distended Respiratory: Clear to auscultation bilaterally, Normal air movement Cardiovascular: Regular rate/rhythm, Normal S1 S2 Gastrointestinal: Soft and benign, No tenderness, Other (PEG tube) Laboratory Data at Discharge: WBC 6.7 K/uL (4.3-10.9) 04/29/19 05:35 Hgb 8.7 g/dL (13.6-17.9) L 04/29/19 05:35 Hct 26.6 % (39.6-49.0) L 04/29/19 05:35 Plt Count 182 K/uL (152-406) 04/29/19 05:35 Sodium 129 mmol/L (136-145) L 04/29/19 05:35 Potassium 4.9 mmol/L (3.5-5.1) 04/29/19 05:35 BUN 79 mg/dL (7-18) H 04/29/19 05:35 Creatinine 4.17 mg/dL (0.55-1.3) H 04/29/19 05:35 Glucose 170 mg/dL (74-106) H 04/29/19 05:35 Total Bilirubin 0.5 mg/dL (0.2-1.0) 04/29/19 05:35 AST 69 U/L (15-37) H 04/29/19 05:35 ALT 99 U/L (12-78) H 04/29/19 05:35 Alkaline Phosphatase 298 U/L (45-117) H 04/29/19 05:35 Home Medications: Amlodipine Besylate. 10 mg FT DAILY 04/28/19 Aspirin Chewable [Aspirin Chewable*] 81 mg PO DAILY 04/28/19 Folic Acid/Vit B Complex and C [Kim-Sheree Tablet] 0.8 mg FT DAILY 04/28/19 Insulin Aspart [Novolog] See Protocol SQ ACHS 04/28/19 Lanolin [Lantiseptic] 1 appl TP QSHIFT 04/28/19 Metoprolol Tartrate [Lopressor*] 25 mg FT BID 04/28/19 Ondansetron HCl [Zofran] 4 mg PO Q6HP PRN 04/28/19 Phenylephrine HCl [Pediacare Decongestant] 5 ml FT Q6HP PRN 04/28/19 Protein Supplement [Promod] 30 ml FT BID 04/28/19 Tramadol HCl [Ultram] 50 mg FT TID PRN 04/28/19 Nepro Shake [Nepro*] 1,000 ml PO SEECOM 04/29/19 Diet: Renal Activity: Fall precautions
--- NOTE | 2019-04-29 22:42 | P.CNS ---
Date of Consult: 04/29/19 Reason for Consult: ESRD Requesting Physician: gertrude ortiz Chief Complaint: Shortness of breath/volume overload/ESRD History of Present Illness: Patient is a 68-year-old gentleman who came to the hospital with shortness of breath. Patient missed his dialysis session earlier today because he refused to go. Patient has missed the last couple of dialysis sessions and was tachypneic upon evaluation by the [facility] physician. He was sent into the emergency room. Patient was at [facility] emergency room, and transferred to our facility for further evaluation. Patient will be admitted to the hospital for hemodialysis. Will get Nephrology consultation. Anticipate discharge after hemodialysis. Limited HPI/ ROS due to dementia. Admitted for SOB and Cough. Allergies rivastigmine [From Exelon] Allergy (Verified 04/28/19 23:15) unknown Home medications list reviewed: Yes Home Medications: Amlodipine Besylate. 10 mg FT DAILY 04/28/19 Aspirin Chewable [Aspirin Chewable*] 81 mg PO DAILY 04/28/19 Folic Acid/Vit B Complex and C [Kim-Sheree Tablet] 0.8 mg FT DAILY 04/28/19 Insulin Aspart [Novolog] See Protocol SQ ACHS 04/28/19 Lanolin [Lantiseptic] 1 appl TP QSHIFT 04/28/19 Metoprolol Tartrate [Lopressor*] 25 mg FT BID 04/28/19 Ondansetron HCl [Zofran] 4 mg PO Q6HP PRN 04/28/19 Phenylephrine HCl [Pediacare Decongestant] 5 ml FT Q6HP PRN 04/28/19 Protein Supplement [Promod] 30 ml FT BID 04/28/19 Tramadol HCl [Ultram] 50 mg FT TID PRN 04/28/19 Nepro Shake [Nepro*] 1,000 ml PO SEECOM 04/29/19 - Past Medical/Surgical History Diabetic: Yes -: HTN -: Diabetes mellitus type 2 -: History of CVA -: Diabetic retinopathy -: Anemia of chronic disease -: Hyperlipidemia -: Diabetic neuropathy -: Chronic renal disease -: Hypothyroidism -: History of hypothermia -: Carotid arterial disease -: Bilateral blindness -: Previous heart surgery Psychosocial/ Personal History: Patient lives at home with his mother. Patient is dependent on the mother. - Family History Father Medical History: Diabetes, Cancer - Social History Smoking Status: Current every day smoker Alcohol use: No CD- Drugs: No Caffeine use: No Place of Residence: [facility] Review of Systems 10-point ROS is otherwise unremarkable General: Weakness, Malaise Respiratory: Cough, SOB with Excertion Cardiovascular: Edema Neurological: Weakness Physical Examination Temp Pulse Resp BP Pulse Ox 98.7 F 86 19 180/85 H 99 04/29/19 20:00 04/29/19 21:40 04/29/19 20:00 04/29/19 21:40 04/29/19 20:00 General: Alert, Cooperative HEENT: Atraumatic Neck: Supple Respiratory: Clear to auscultation bilaterally Cardiovascular: Regular rate/rhythm, Edema Gastrointestinal: Soft and benign, Non-distended Musculoskeletal: No clubbing, No contractures Integumentary: No rashes, No cyanosis Neurological: Normal speech Laboratory Data (last 24 hrs) 04/29/19 05:35: Sodium 129 L, Potassium 4.9, BUN 79 H, Creatinine 4.17 H, Glucose 170 H, Total Bilirubin 0.5, AST 69 H, ALT 99 H, Alkaline Phosphatase 298 H 04/29/19 05:35: WBC 6.7, Hgb 8.7 L, Hct 26.6 L, Plt Count 182 Imagings Data: EXAM DESCRIPTION: [facility] Single View04/28/2019 11:59 pm CLINICAL HISTORY: Cough. COMPARISON: 2016 FINDINGS: Moderate bilateral pulmonary opacities. Heart is mildly enlarged Central venous line is present IMPRESSION: Moderate bilateral pulmonary opacities probably either pneumonia or pulmonary edema Conclusions/Impression: A/ ESRD on HD MWF. Hyponatremia. Diastolic CHF, A/C. HTN with CKD/ CHF. DM II with CKD. Anemia in CKD. STELLA/ Secondary HyperPTH. Hepatitis suspicious of fatty liver. Moderate malnutrition. Acute back pain. P/ Continue current POC and Medications. Acute HD ordered. Seen and examined on HD. Restart home medications as indicated. Maintain nutrition. Pain medications as ordered. No NSAIDs. AM labs. Daily weight. Thank you kindly for the consultation.
[2019-04-29] MEDS ORDERED: EPOETIN ALFA-EPBX 10,000 UNIT/ML VIAL SQ SCH (23:00)
[2019-04-29] MEDS ORDERED: EPOETIN ALFA 10,000 UNIT/ML VIAL ONE (23:38)
[2019-04-30] MEDS: NEPRO 1,000 ML BOT FT SCH (04:17)
[2019-04-30 05:24] LABS: Potassium 4.1 mmol/L (3.5-5.1)
--- NOTE | 2019-04-30 07:34 | P.PN ---
Date of Service: 04/30/19 Vital Signs Temp Pulse Resp BP Pulse Ox 98.3 F 80 20 168/88 H 97 04/30/19 04:00 04/30/19 04:00 04/30/19 04:00 04/30/19 04:00 04/30/19 04:00 Medications Acetaminophen (Tylenol -Extra Strength) 500 mg PO Q6H PRN PRN Reason: pain/fever Stop: 05/28/19 23:31 Amlodipine Besylate (Norvasc) 10 mg FT DAILY [facility] Stop: 05/29/19 09:01 Last Admin: 04/29/19 09:00 Dose: 10 mg Aspirin (Aspirin Chewable) 81 mg PO DAILY [facility] Stop: 05/29/19 09:01 Last Admin: 04/29/19 09:58 Dose: 81 mg Chlorphenir/Hydrocodone Polistirex (Tussionex Oral Susp) 5 ml PO BID PRN PRN Reason: COUGH Stop: 05/28/19 23:33 Last Admin: 04/30/19 01:05 Dose: 5 ml Enteral Nutritional Formula (Nepro) 1,000 ml FT SEECOM [facility] Stop: 05/29/19 05:01 Last Admin: 04/30/19 04:17 Dose: 1,000 ml Enteral Nutritional Formula (Nepro Shake) 237 ml PO QID [facility] Stop: 05/29/19 09:01 Last Admin: 04/29/19 21:00 Dose: Not Given Heparin Sodium (Porcine) (Heparin 1,000 Units/Ml) 6,000 unit IV EVERY HD PRN PRN Reason: FLUSH AFTER EACH USE Stop: 05/29/19 10:57 Last Admin: 04/29/19 17:06 Dose: 6,000 unit Home Med (Lanolin [Lantiseptic]) 1 appl TP QSHIFT [facility] Stop: 05/29/19 09:01 Albumin Human (Albumin 25%) 50 mls @ 100 mls/hr IV EVERY HD [facility] Stop: 05/29/19 11:01 Mannitol (Mannitol 12.5 Gm/50 Ml Vial) 12.5 gm IV EVERY HD PRN PRN Reason: Titrate to SBP (MUST DEFINE) Stop: 05/29/19 10:57 Metoprolol Tartrate (Lopressor) 25 mg FT BID [facility] Stop: 05/29/19 09:01 Last Admin: 04/29/19 21:40 Dose: 25 mg Morphine Sulfate (Morphine Sulfate) 2 mg IV Q4H PRN PRN Reason: Pain scale 5-7 (Moderate) Stop: 05/28/19 23:31 Nutritional Formula (Promod Liquid Protein) 30 ml FT BID [facility] Stop: 05/29/19 09:01 Last Admin: 04/29/19 21:40 Dose: 30 ml Ondansetron HCl (Zofran) 4 mg IV Q6H PRN PRN Reason: NAUSEA / VOMITING Stop: 05/28/19 23:31 Ondansetron HCl (Zofran) 4 mg PO Q6HP PRN PRN Reason: NAUSEA / VOMITING Sodium Chloride (Normal Saline Flush) 10 ml IV BID [facility] Stop: 05/29/19 09:01 Last Admin: 04/29/19 21:40 Dose: 10 ml Tramadol HCl (Ultram) 50 mg FT TID PRN PRN Reason: Pain scale 5-7 (Moderate) Stop: 05/29/19 07:52 Vitamin B Complex/Vit C/Folic Acid (Nephro-Sheree) 1 tab FT DAILY [facility] Stop: 05/29/19 09:01 Last Admin: 04/29/19 09:58 Dose: 1 tab Lab Results (last 24 hrs) 04/30/19 06:18: POC Glucose 94 04/30/19 04:39: Sodium 133 L, Potassium 4.1, Chloride 99, Carbon Dioxide 28, BUN 48 H D, Creatinine 3.04 H D, Estimated GFR 25 L, Glucose 93, Calcium 8.9 04/29/19 23:35: POC Glucose 132 H 04/29/19 11:51: POC Glucose 125 H 04/29/19 07:19: POC Glucose 195 H 04/29/19 05:35: WBC 6.7, RBC 2.88 L, Hgb 8.7 L, Hct 26.6 L, MCV 92.1 D, MCH 30.3, MCHC 32.9, RDW 16.9 H, Plt Count 182, MPV 9.5, Neutrophils % 85.3 H, Lymphocytes % 9.1 L, Monocytes % 4.7, Eosinophils % 0.2, Basophils % 0.7, Absolute Neutrophils 5.7, Segmented Neutrophils 87 H, Band Neutrophils 1, Absolute Lymphocytes 0.6 L, Lymphocytes 10 L, Monocytes 2, Absolute Monocytes 0.3, Absolute Eosinophils 0.0, Absolute Basophils 0.0, Morphology Comment Not seen 04/28/19 22:32: POC Glucose 111 Assessment/ Plan: Nephrology [facility]PS stable without CP or SOB. Limited IH/ROS due to dementia. No acute events overnight. Vitals, medications, blood work and imaging reviewed in the chart. General: Alert, Cooperative HEENT: Atraumatic Neck: Supple Respiratory: Clear to auscultation bilaterally Cardiovascular: Regular rate/rhythm, Edema Gastrointestinal: Soft and benign, Non-distended Musculoskeletal: No clubbing, No contractures Integumentary: No rashes, No cyanosis Neurological: Normal speech Laboratory Data (last 24 hrs) 04/29/19 05:35: Sodium 129 L, Potassium 4.9, BUN 79 H, Creatinine 4.17 H, Glucose 170 H, Total Bilirubin 0.5, AST 69 H, ALT 99 H, Alkaline Phosphatase 298 H 04/29/19 05:35: WBC 6.7, Hgb 8.7 L, Hct 26.6 L, Plt Count 182 Imagings Data: [facility] 11[facility]59 pm CLINICAL HISTORY: Cough. COMPARISON: 2017 FINDINGS: Moderate bilateral pulmonary opacities. Heart is mildly enlarged Central venous line is present IMPRESSION: Moderate bilateral pulmonary opacities probably either pneumonia or pulmonary edema Conclusions/Impression: A/ ESRD on HD MWF. Hyponatremia. Diastolic CHF, A/C. HTN with CKD/ CHF. DM II with CKD. Anemia in CKD. STELLA/ Secondary HyperPTH. Hepatitis suspicious of fatty liver. Moderate malnutrition. Acute back pain. P/ Continue current POC and Medications. Recommend another acute HD today to get him back on schedule prior to discharge. Maintain nutrition. Pain medications as ordered. No NSAIDs. AM labs. Daily weight. Consider PT as tolerated. OOB as tolerated.
[2019-04-30] MEDS: PROMOD 30 ML DOSE FT SCH (09:00)
[2019-04-30] MEDS: AMLODIPINE 10 MG TAB FT SCH (09:00)
[2019-04-30] MEDS: NEPRO SHAKE 237 ML CAN PO SCH ×3 (09:35→16:03)
[2019-04-30] MEDS: METOPROLOL TAR 25 MG TAB FT SCH (09:36)
[2019-04-30] MEDS: ASPIRIN 81 MG CHEWABLE TABLET PO SCH (09:36)
[2019-04-30] MEDS: MULTIVITAMINS,THERAPEUT 1 TAB FT SCH (09:36)
[2019-04-30 12:20] VITALS: BP 185/95; TEMP 99.1
--- NOTE | 2019-04-30 15:35 | P.PN ---
Subjective Date of Service: 04/29/19 Chief Complaint: Shortness of breath/volume overload/ESRD Patient is mute and unable to get any subjective complain. He is lying comfortably. Not in respiratory distress. Afebrile. Physical Examination - Vital Signs Temperature: 99.1 F Blood Pressure: 185/95 Pulse: 85 Respirations: 20 Pulse Ox (%): 90 - Physical Exam General: In no apparent distress, Other ([place]ute) HEENT: Mucous membr. moist/pink Neck: JVD not distended Respiratory: Clear to auscultation bilaterally, Normal air movement Cardiovascular: No edema, Regular rate/rhythm, Normal S1 S2 Gastrointestinal: Soft and benign, Non-distended, No tenderness, Other (PEG) Neurological: Other (Mute), Dementia Urinary: Cantrell catheter - Studies Laboratory Data (last 24 hrs) 04/30/19 04:39: Sodium 133 L, Potassium 4.1, BUN 48 H D, Creatinine 3.04 H D, Glucose 93 Assessment And Plan - Current Problems (Diagnosis) (1) ESRD (end stage renal disease) Current Visit: Yes Status: Acute (2) Volume overload Current Visit: Yes Status: Acute (3) Altered mental status Onset Date: 05/13/17 Current Visit: No Status: Acute Qualifiers: Altered mental status type: somnolence Qualified Code(s): R40.0 - Somnolence (4) Hypertension Onset Date: 07/09/16 Current Visit: No Status: Chronic Qualifiers: Hypertension type: essential hypertension (5) DM type 2 (diabetes mellitus, type 2) Current Visit: Yes Status: Acute - Plan Nephrology consulted and patient plan for hemodialysis today. Continue home medications Monitor electrolytes. Continue home medications for other chronic medical problems. Tube feeding.
[2019-04-30 19:15] VITALS: O2SAT 92
[2019-04-30] MEDS ORDERED: JUVEN PACKET FT SCH (21:00)
[2019-05-04 05:30] LABS: HBsAG Nonreactive (Nonreactive)
== END 2019-04-30 20:15 ==
LOC: 2ND 21:54
PROVIDERS: ADMIT Hospitalist; ATTEND Hospitalist
DX: E87.70 Fluid overload, unspecified (principal); I13.2 Hypertensive heart and chronic kidney disease with heart failure and with stage 5 chronic kidney disease, or end stage renal disease; E11.22 Type 2 diabetes mellitus with diabetic chronic kidney disease; N18.6 End stage renal disease; I50.33 Acute on chronic diastolic (congestive) heart failure; E87.1 Hypo-osmolality and hyponatremia; D63.1 Anemia in chronic kidney disease; N25.81 Secondary hyperparathyroidism of renal origin; K75.9 Inflammatory liver disease, unspecified; M54.9 Dorsalgia, unspecified; I69.391 Dysphagia following cerebral infarction; R13.10 Dysphagia, unspecified; E46 Unspecified protein-calorie malnutrition; Z68.22 Body mass index [BMI] 22.0-22.9, adult; Z91.15 Patient's noncompliance with renal dialysis
CPT/HCPCS: 85025; 80048; 36415 ×2; 82947 ×6; 80053; 86704; 86317; 87340; 86706; 71045; 90935 ×3; J1940; J1644 ×2; J2250; J1720; G0379; G0378 ×4; J0583